=== PATIENT | female | born 1950 | race Caucasian/White ===

== ENCOUNTER 2018-03-12 10:28 | Emergency (ER) | payer MEDICARE, SELFPAY ==
[2018-03-12 10:31] VITALS: BP 115/68; PULSE 68; RESP 16; TEMP 36.8; O2SAT 96
[2018-03-12] MEDS: oxyCODONE 5 mg/Acetaminophen 325 mg TAB 1 TAB PO (11:25)
[2018-03-12] MEDS: Balanced Salt Solution 15 ML BTL OP (11:26)
[2018-03-12] MEDS: Tetracaine 0.5% 4 ML BTL (11:27)
--- NOTE | 2018-03-12 11:40 | ED.GENADUL_ITS ---
Disposition Clinical Impression: Uveitis, anterior Disposition: OTHER Condition: Stable Instructions: Iritis (ED) Additional Instructions: Upon discharge she should immediately go to [facility] for more further detailed examination of your eye. Please do not stop anywhere else and present directly to their facility. Referrals: [facility] [Outside] (Immediately present to their facility) Medical Decision Making - Medical Decision Making Patient presenting to the emergency department for complaint of right eye pain. Patient may have gotten a small dust like tile material into her eye and used eyedrops that she had previously used on her dog. Patient has significant conjunctival injection to her eye. Tetracaine drops were instilled into her eye with minimal relief of pain. Slit-lamp and Luke lamp examination shows a anterior full of stain without any obvious signs of ulceration or corneal abrasion but difficult to see due to feeling of stain. Patient does have mid fixed pupil on the right and consensual photophobia. There is significant concern for uveitis of the anterior chamber versus severe infection. Given this I did talk with Mrs. Dr. Ba in regard to patient's condition and concern and she stated that patient could be discharged from our facility and presented immediately to their office for emergent eye exam. Patient was agreeable and stable otherwise. Before discharge due to pain not being controlled patient was given 1 Percocet. Patient was discharged with spouse and both of them state clear understanding of plan of care to get further evaluated at specialist office. Patient to return for any new or worsening symptoms or other significant concern After discussion of diagnosis and plan of care with patient patient agreed and stated no further needs, questions, or concerns at this time. History of Present Illness - General Chief complaint: EyeProblem Stated complaint: FOREIGN OBJECT R EYE INJURY Time Seen by Provider: 03/12/18 11:02 Source: patient, RN notes reviewed Mode of arrival: ambulatory Limitations: no limitations - History of Present Illness Initial comments: Gloria yesterday she was working with some mosaic tile. She states that she was not the one cutting them but she was working with the material and dumping out some other containers at powder and it and thought she might have got a little powder in her right eye. She used some [id number] Visine eyedrops that she previously had used for her dog due to there being more in there to try to resolve the irritation. Then last night her eye started hurting which continued and now had significant amount of drainage from her right eye. Patient does state significant decreased vision out of her right eye but can still see movement and light. Onset/Timin -: days(s) Location: eyes, right Severity scale (1-10): 8 Quality: sharp Consistency: constant Improves with: none Worsens with: none Associated Symptoms: denies other symptoms Treatments Prior to Arrival: none - Related Data Trazodone HCl 50 mg PO HS #90 tab-cap 06/24/14 Aspirin 81 mg PO DAILY tab-cap 02/10/15 Polyethylene Glycol 8000 [Polyethylene Glycol] 17 gm PO daily prn 02/10/15 Acetaminophen [Tylenol Extra Strength] 1,000 mg PO Q6H PRN tab-cap 07/11/15 Loperamide HCl [Loperamide] 2 mg PO QID PRN 07/11/15 Fluoxetine HCl 3 cap PO DAILY #270 tab-cap 08/01/15 Lorazepam 0.5 mg PO q 6hrs prn #90 tab-cap 08/07/15 Pravastatin Sodium 80 mg PO HS #90 tab-cap 07/15/16 Inhaler, Assist Devices [Optichamber Ibeth] 1 each MC ONCE #1 each 04/08/17 Levothyroxine [Levothroid] 75 mcg PO DAILY #90 tab-cap 04/28/17 Proventil Hfa 1 puff IH Q4H PRN #3 inhaler 07/16/17 Prochlorperazine Maleate 10 mg PO Q6H PRN #10 tab-cap 08/04/17 Bupropion HCl [Wellbutrin Sr] 150 mg PO QAM #90 tab-cap 09/18/17 Cholecalciferol (Vitamin D3) [Vitamin D3] 50,000 unit PO 2x/month #8 tab-cap Ropinirole HCl 3 mg PO HS #90 tab-cap 11/10/17 Letrozole [Femara] 2.5 mg PO DAILY #90 tab-cap 01/08/18 Cyanocobalamin [Vitamin B-12] 1,000 mcg PO DAILY #100 tab-cap 01/09/18 Gabapentin 400 mg PO BID #180 tab-cap 01/12/18 Nitroglycerin 1 tab SL PRN #25 tab 01/12/18 Prazosin HCl 1 mg PO HS #90 cap 01/19/18 Carvedilol [Coreg] 3.125 mg PO BID #30 tab-cap 02/22/18 Lisinopril 5 mg PO DAILY tab-cap 02/22/18 Allergies Allergy/AdvReac Type Severity Reaction Status Date / Time codeine Allergy Severe ITCHING Unverified 01/12/18 10:04 Penicillins Allergy Severe HIVES Unverified 01/12/18 10:04 latex Allergy Intermediate SKIN RASH Unverified 01/12/18 10:04 Sulfa (Sulfonamide Allergy Intermediate SKIN RASH Unverified 01/12/18 10:04 Antibiotics) sertraline AdvReac Severe DIARRHEA Unverified 01/12/18 10:04 diazepam AdvReac Intermediate NAUSEA Unverified 01/12/18 10:04 atorvastatin AdvReac Unknown MUSCLE Unverified 01/12/18 10:04 WEAKNESS rosuvastatin AdvReac Unknown ?GUM Unverified 01/12/18 10:04 DISEASE Review of Systems Constitutional: denies: chills, fever Eyes: as per HPI, eye pain, eye discharge, vision change ENT: denies: throat pain, congestion Respiratory: no symptoms reported Neurological: denies: headache, weakness, numbness, paresthesias, confusion Comment: All other systems reviewed and negative Past Medical History - Past Medical History Medical history: cancer (Breast), hypertension Obstructive sleep apnea, diverticulitis, Surgical history: other (AAA status post repair, partial mastectomy) Psychiatric history: depression, post traumatic stress - Social History Smoking status: former smoker Alcohol use: occasionally Drug use: marijuana Living Situation: lives with family General Exam - General Limitations: no limitations General appearance: alert, other (In obvious discomfort) - Head Head exam: Present: atraumatic, normocephalic - Eye Eye exam: Present: periorbital swelling (Mild to the right eye). Absent: scleral icterus, nystagmus, periorbital tenderness - Expanded Eye Exam No standard instances Eyelids: Swelling: Right (Mild) Pupils: Regular, Round: Left, Reactive: Left (Right is mid fixed pupil) Sclera/Conjunctival: Normal Inspection: Left, Injection: Right, Exudate: Right Anterior chamber: Normal Inspection: Left (Right anterior chamber is hazy) Posterior chamber: Deferred: Bilateral Visual acuity (R) = 20/: 0 (See nurse's note) IOP (R) in mmH IOP measured with: Tonopen - ENT ENT exam: Present: normal orophraynx, mucous membranes moist - Respiratory Respiratory exam: Absent: respiratory distress - Neurological Exam Neurological exam: Present: alert, oriented X3, CN II-XII intact. Absent: altered - Skin Skin exam: Present: warm, dry Course Vital Signs - 24 hr 03/12/18 10:31 Temperature 36.8 C Pulse 68 Respiratory 16 Rate Blood Pressure 115/68 Pulse Oximetry 96
== END 2018-03-12 11:43 | disposition other institution (70) ==
PROVIDERS: Emergency Provider Student in an Organized Health Care Education/Training Program
DX: H20.00 Unspecified acute and subacute iridocyclitis (principal); I10 Essential (primary) hypertension
CPT/HCPCS: 99283 ×2

== ENCOUNTER 2018-06-02 16:48 | Outpatient (REF) | payer MEDICARE, SELFPAY ==
--- NOTE | 2018-06-02 15:30 | PAPFT_PTH ---
PATIENT: Opal Peter LOC: [facility] U#:[id number] AGE/SX: 68/F ROOM: RE06/02/[address]: Emilie العلي APRN : 1950 BED: DIS: 06/02/2018 SPEC #: [id number] RECD: 06/03/18 12:44 STATUS: DIDI RESam #: [id number] HAN: 06/02/18 15:[address]: Emilie العلي DEPT: [facility] Cytology RECD BY: Cindy Edwards Tissues: 1 - CX/ENDOCX FOR PAP SMEARS Procedures: PAP THIN PREP/UVM Screening HPV DNA PROBE Comments: [id number]
== END 2018-06-02 17:08 ==
LOC: LBN 16:48
DX: Z12.4 Encounter for screening for malignant neoplasm of cervix (principal); Z11.51 Encounter for screening for human papillomavirus (HPV)
CPT/HCPCS: 88142; 87624

== ENCOUNTER 2018-07-14 02:35 | Outpatient (CLI) | payer MEDICARE, SELFPAY ==
[2018-07-14 12:09] LABS: Cholesterol 175 mg/dL (50-200); HDL Cholesterol 39 mg/dL (40-60); LDL CHOLESTEROL 104 mg/dL (<100); TSH (W/Ref FT4) 1.12 uIU/mL (0.358-3.74); Triglyceride 204 mg/dL (30-150)
== END 2018-07-14 02:55 ==
DX: E78.2 Mixed hyperlipidemia (principal)
CPT/HCPCS: 36415; 80061; 83721; 84443

== ENCOUNTER 2019-04-02 07:09 | Observation (INO) | payer MEDICARE, SELFPAY ==
[2019-04-02] VITALS (38 sets, daily range): BP systolic 112–157; BP diastolic 58–86; PULSE 51–90; RESP 14–25; TEMP 36.6–36.9; O2SAT 92–100
--- NOTE | 2019-04-02 07:29 | ED.GENADUL_ITS ---
Discharge Plan Disposition [facility] Condition: Stable Discharge Details Chief Complaint: Abd Prob Clinical Impression: Small bowel obstruction Admit Date/Time: 04/02/19 10:46 Admit Provider: Silvina House Attending Provider: Silvina House Primary Care Provider: Emilie العلي ED Provider: Candie Osei Discharge Data Discharge Date/Time-TO BE ENTERED AT DEPARTURE: 04/02/19 11:40 Medical Decision Making <Otoniel Sanchez MD - Last Filed: 04/05/19 23:36> Patient presenting with gradual worsening abdominal cramping with associated nausea and vomiting. Abdomen mildly distended but nontender. Concern for small bowel obstruction given previous multiple abdominal surgeries. IV established and fluids started. Phenergan given for nausea and vomiting. Laboratory studies ordered. CT scan of the abdomen pelvis ordered. Case will be turned over to oncoming physician, Dr. Osei. ECG Data Attestation: I personally reviewed and interpreted this ECG (s) as follows: Prior ECG tracings: available for review Interpretation: Normal sinus rhythm at a rate of 75. PVCs present. Normal intervals and axis. T wave inversions in the lateral precordial leads. <Candie Osei DO - Last Filed: 04/02/19 10:21> 0800 --please see Dr. Sanchez's note for initial presentation and course. 69-year-old female with multiple medical problems including breast cancer on oral chemotherapy, CAD, hypertension, hyperlipidemia, obstructive sleep apnea, cardiomyopathy, hypothyroidism, migraine, hysterectomy, partial colectomy with colostomy reversal, AAA repair, L breast lumpectomy who presents with crampy abdominal pain, worse on right side and vomiting since yesterday. More episodes of vomiting this morning. Last bowel movement yesterday. Denies any abdominal pain at present. Per Dr. Sanchez, concern for small bowel obstruction. She had screening labs and CT abdomen and pelvis ordered. She is currently drinking oral contrast. Her vitals are within normal limits. She appears nontoxic. Her chart notes history of cholecystectomy but she denies this. Her abdomen is soft without rebound or guarding and minimally diffusely tender. Her EKG noted T wave inversion in 1, aVL, V4 through V6. T wave inversion in V4 through V6 appears new compared to previous EKG October 2017. Patient denies any chest pain or shortness of breath. Labs reviewed and unremarkable. Normal white blood cell count, negative troponin. 1015 --CT reviewed and notes SBO, gallstones but no cholecystitis. There is also radiodensity in peritoneal fat which could be carcinomatosis/post-surgical/post-inflammatory which is seen in previous CT 2013. D/w Dr. House - accepts pt for admission. Pt denies nausea/vomiting and will hold on NGT at this time. Medical Records Medical records reviewed: Yes I reviewed the patient's medical records. Lab Data Lab results reviewed: Yes I reviewed the patient's lab results. Laboratory Tests Range/Units 04/02/19 04/02/19 07:40 07:40 WBC (4.4-10.8) k/cumm 9.54 RBC (4.00-5.20) m/cumm 4.81 Hgb (12.0-15.5) g/dL 14.5 Hct (36.0-46.0) % 45.5 MCV (80-95) fL 94.6 MCH (27.0-33.0) pg 30.1 MCHC (32.0-36.0) g/dL 31.9 L RDW (11.7-14.6) % 14.3 Plt Count (130-400) x1000/uL 220 MPV (8.0-11.0) fL 10.9 Immature Gran % 0.2 Neutrophils % 81.3 Lymphocytes % 11.5 Monocytes % 6.4 Eosinophils % 0.4 Basophils % 0.2 Absolute Neutrophils (1.2-6.7) k/cumm 7.75 H Absolute Lymphocytes (1.2-3.4) k/cumm 1.10 L Absolute Monocytes (0.11-0.7) k/cumm 0.61 Absolute Eosinophils (0.0-0.7) k/cumm 0.04 Absolute Basophils (0.0-0.2) k/cumm 0.02 Sodium (136-145) mmol/L 140 Potassium (3.5-5.1) mmol/L 4.6 Chloride (98-107) mmol/L 101 Carbon Dioxide (21.0-32.0) mmol/L 27.9 Anion Gap (3-11) mmol/L 11.1 H BUN (7-18) mg/dL 13 Creatinine (0.55-1.02) mg/dL 1.27 H Estimated GFR/1.73 m2 (mL/min/1.73m2) 41.97 Glucose (70-100) mg/dL 134 H Calcium (8.5-10.1) mg/dL 9.7 Magnesium (1.8-2.4) mg/dL 2.1 Total Bilirubin (0.2-1.0) mg/dL 0.5 AST (15-37) U/L 21 ALT (14-59) U/L 25 Alkaline Phosphatase (46-116) U/L 122 H Troponin I (0.00-0.06) ng/mL < 0.05 Total Protein (6.4-8.2) g/dL 8.2 Albumin (3.4-5.0) g/dL 4.3 Lipase (73-393) U/L 108 ECG Data Attestation: I personally reviewed and interpreted this ECG (s) as follows: Interpretation: Rate of 75, sinus, PVCs. T wave inversion in 1, aVL, V4 through V6. T wave inversion in 1 and aVL has been seen in previous EKG but appears new in V4 through V6. No acute ST elevation. OH 180. QTc 444. QRS 98. HPI <Otoniel Sanchez MD - Last Filed: 04/05/19 23:36> General Mode of arrival: ambulatory . Date/Time Provider Initiated Documentation: 04/02/19 07:27 . Limitations to Documentation: no limitations . Information obtained by: patient . HPI Narrative: Patient presents to ED with complaint of abdominal cramping, nausea and vomiting. Symptoms started yesterday and progressed overnight. She had no fever she is aware of. She has had no diarrhea. She had a small bowel movement last night. She has had previous abdominal surgery including bowel perforation with resection and reversal of colostomy. She has not had issues since that time. Her abdomen feels distended. She denies having chest pain or shortness of breath. Related Data Home Medications Medication Instructions Recorded Confirmed aspirin [Aspirin Low-Strength] 81 mg PO DAILY tab-cap 02/10/15 04/02/19 polyethylene glycol 8000(bulk) 17 gm PO daily prn 02/10/15 06/02/18 acetaminophen [Tylenol Extra 1,000 mg PO Q6H PRN tab-cap 07/11/15 04/02/19 Strength] fluoxetine 2 cap PO DAILY #270 tab-cap 08/01/15 04/02/19 lorazepam 0.5 mg PO BID #90 tab-cap 08/07/15 04/02/19 inhalational spacing device #1 ea 04/08/17 06/02/18 [[facility]] prochlorperazine maleate 10 mg PO Q6H PRN #10 tab-cap 08/04/17 04/02/19 cholecalciferol (vitamin D3) 50,000 unit PO 2x/month #8 tab-cap 09/18/17 04/02/19 nitroglycerin 1 tab SUBLINGUAL PRN #25 tab 01/12/18 04/02/19 lisinopril 5 mg PO DAILY tab-cap 02/22/18 04/02/19 levothyroxine 75 mcg PO DAILY #90 tab-cap 04/22/18 04/02/19 carvedilol 6.25 mg tablet 6.25 mg PO BID #60 tab 05/26/18 04/02/19 letrozole 2.5 mg tablet 2.5 mg PO DAILY #90 tab-cap 07/10/18 04/02/19 bupropion HCl [Wellbutrin SR] 150 mg PO QAM #90 tab-cap 09/14/18 04/02/19 prazosin 1 mg capsule 1 mg PO HS #90 cap 10/29/18 04/02/19 atorvastatin 80 mg tablet 80 mg PO QPM #90 tab 12/04/18 04/02/19 cyanocobalamin (vitamin B-12) 1,000 mcg PO DAILY #100 tab-cap 02/25/19 04/02/19 1,000 mcg tablet ropinirole 3 mg tablet 3 mg PO HS #90 tab-cap 03/04/19 04/02/19 gabapentin 400 mg capsule 400 mg PO BID #180 tab-cap 03/31/19 04/02/19 albuterol sulfate [ProAir HFA] 1 inh .Q4-6H PRN 04/02/19 04/02/19 Previous Rx's Medication Instructions Recorded inhalational spacing device #1 ea 04/08/17 [[facility]] prochlorperazine maleate 10 mg PO Q6H PRN #10 tab-cap 08/04/17 cholecalciferol (vitamin D3) 50,000 unit PO 2x/month #8 tab-cap 09/18/17 nitroglycerin 1 tab SUBLINGUAL PRN #25 tab 01/12/18 levothyroxine 75 mcg PO DAILY #90 tab-cap 04/22/18 carvedilol 6.25 mg tablet 6.25 mg PO BID #60 tab 05/26/18 letrozole 2.5 mg tablet 2.5 mg PO DAILY #90 tab-cap 07/10/18 bupropion HCl [Wellbutrin SR] 150 mg PO QAM #90 tab-cap 09/14/18 prazosin 1 mg capsule 1 mg PO HS #90 cap 10/29/18 atorvastatin 80 mg tablet 80 mg PO QPM #90 tab 12/04/18 cyanocobalamin (vitamin B-12) 1,000 mcg PO DAILY #100 tab-cap 02/25/19 1,000 mcg tablet ropinirole 3 mg tablet 3 mg PO HS #90 tab-cap 03/04/19 gabapentin 400 mg capsule 400 mg PO BID #180 tab-cap 03/31/19 Allergies Allergy/AdvReac Type Severity Reaction Status Date / Time codeine Allergy Severe ITCHING Verified 06/02/18 14:15 Penicillins Allergy Severe HIVES Verified 06/02/18 14:15 latex Allergy Intermediate SKIN RASH Verified 06/02/18 14:15 Sulfa (Sulfonamide Allergy Intermediate SKIN RASH Verified 06/02/18 14:15 Antibiotics) sertraline AdvReac Severe DIARRHEA Verified 06/02/18 14:15 diazepam AdvReac Intermediate NAUSEA Verified 06/02/18 14:15 rosuvastatin AdvReac Unknown ?GUM Verified 06/02/18 14:15 DISEASE Review of Systems <Otoniel Sanchez MD - Last Filed: 04/05/19 23:36> Review of Systems 05/10 Review of Systems completed and is negative except as stated above in HPI (Systems reviewed: Const, Eyes, ENT, Resp, CV, GI, , MSK, Skin, Neuro) PFSH <Otoniel Sanchez MD - Last Filed: 04/05/19 23:36> Medical History Abdominal aortic aneurysm (Chronic) s/p surgical repair [facility] [place] 2007 Anxiety and depression (Chronic 02/10/15) Atherosclerotic heart disease of [place] coronary artery without angina pectoris (Chronic) Breast cancer (Chronic 01/20/14) left, 6 cm Invasive Lobular Carcinoma ([facility] [place] 01/19/14) chemo started and radiation tx planned (on hold due to perf divertic) Cardiomyopathy (Chronic) New onset 04/2018 per [facility] [place]. Normal rest nuclear perfusion. Patient declined cath. [facility] [place] Echo 02/25/19 EstEF = 41%, mild to mod aortic valve regurg Compared to LOUIE 02/17/18, LV systolic function is improved. Chronic obstructive pulmonary disease (Chronic 01/12/18) 12/11/17 PFTs Mod. sever obstructive airway disease with sig. bronchodilator response. This is associated with severe diffusion defect - FVC 2.06 & FEV1 1.23 (both decreas Diverticulitis of colon with perforation (Chronic 06/24/14) sigmoid resection and colostomy [facility] [place] Apr 2014 post op malnutrition and respiratory failure Essential (primary) hypertension (Chronic) Gastro-esophageal reflux disease without esophagitis (Chronic) Hyperlipidemia (Chronic) Hypothyroidism (Chronic) Migraine (Chronic) Obstructive sleep apnea (Chronic) Pyloric ulcer associated with Helicobacter pylori (Resolved 05/25/11) 04/07 H pylori on EGD (treated) Surgical History H/O tracheostomy (Acute) History of cholecystectomy (Chronic) Rotator Cuff Repair (~1978) LEFT S/P colostomy takedown (Acute) Status post abdominal hysterectomy (Chronic) Status post Mena's procedure (Acute) Status post total bilateral knee replacement (Chronic) Family History Mother Essential hypertension Heart disease Neoplasm PANCREATIC Father Essential hypertension Heart disease Hyperlipidemia Stroke Sister Essential hypertension Hyperlipidemia Brother Essential hypertension Maternal Grandfather Stroke Son Depression Daughter Depression 3 UNCLES Aneurysm Family History Bipolar disorder Social History Smoking/Tobacco Use Status: Current every day Alcohol Intake: current Alcohol Intake frequency: a few times a month Alcohol type: hard liquor Drug use: Never Substance use type: marijuana What type of physical activity do you participate in: walking Duration: 15-30 minutes/day Frequency: 3-4 times per week Nuvia/Samaritan: CRYSTAL Special nuvia needs: No Do you feel safe in your relationship?: Yes Exam <Otoniel Sanchez MD - Last Filed: 04/05/19 23:36> Narrative Exam Narrative: Vitals: Afebrile with normal vital signs and pulse oximetry. Const: WDWN female in NAD. HEENT: NC/AT. Normal facial exam. Eyes: Normal conjunctiva and sclera. Neck: Supple. Trachea midline. Old tracheotomy scar present. Lungs: Normal respiratory effort. Lungs with scattered expiratory wheeze. Cor: RRR with murmur. Good radial pulses. GI: Soft and slightly distended. Non-tender. No guarding or rebound. Neuro: A+O x 3. CN grossly in tact. Good strength and no focal deficit. Ext: No C/C/E. No deformity or tenderness. Skin: Warm and dry without rash. Sign Out <Otoniel Sanchez MD - Last Filed: 04/05/19 23:36> Sign Out Data: Sign Out Comment: pending labs and CT scan Last updated by Otoniel Sanchez MD at 04/02/19 07:51
--- NOTE | 2019-04-02 07:34 | DI.CT_ITS ---
SYMPTOM/DIAGNOSIS: VOMITING/PAIN. PREV ABD SURGERIES ABDOMINAL AND PELVIC CT: 04/02 CT examination of the abdomen and pelvis was performed with a bolus infusion of 91 cc Omnipaque 350 and ingestion of dilute Barium. Images obtained through the lung bases are unremarkable. The liver and spleen appear normal. There is cholelithiasis. No biliary dilatation or significant pericholecystic fluid collection seen. Pancreas is unremarkable in appearance. Adrenals, kidneys and ureters are unremarkable in appearance. No evidence of urinary tract obstruction or calcification. The patient has reportedly had multiple previous abdominal surgeries and there is deformity of the anterior abdominal wall musculature particularly in the mid to lower abdomen, probably post surgical without evidence of hernia. There is a small quantity of free fluid throughout the abdominal peritoneal cavity and in the pelvis. There is increased radiodensity at multiple sites involving the abdominal fat most prominent in the right flank region and in the pelvis. Similar findings appear to have been present on previous CT of 04/25/14 although the patient had also had free intraperitoneal air at that time. Appendix is normal. No evidence of diverticulitis. Anastomotic sutures noted in the sigmoid. There is moderate dilatation of mid small bowel to the level of the mid to distal ileum, there is suspected transition point in the pelvis to the left of the midline anteriorly. No gross mass identified at this site. There is marked wall calcification of the abdominal aorta and intra abdominal vasculature. Aorta is borderline aneurysmal at 29 mm suprarenal and 28 mm infrarenal. Probable approximately 50% luminal diameter stenosis noted involving celiac trunk and left renal artery. Common bilateral iliac artery stenoses at the origins estimated at approximately 50% on the right and greater than 50% on the left. No other significant stenosis in the abdominal vasculature. CONCLUSION: Findings consistent with low grade or early small bowel obstruction in the mid to distal ileum with suspected transition point in the pelvis to the left of midline anteriorly as described above. Multiple prior abdominal surgeries noted. Free fluid and nonspecific scattered increased radiodensities noted and abdominal fat which may represent scarring. Other etiologies including carcinomatosis not absolutely excluded, please correlate clinically.
[2019-04-02 07:52] LABS: Abs Immature Grans 0.02 k/cumm (0.0-0.09); Absolute Basophil Count 0.02 k/cumm (0.0-0.2); Absolute Eosinophil Count 0.04 k/cumm (0.0-0.7); Absolute Monocyte Count 0.61 k/cumm (0.11-0.7); Absolute Neutrophil Count 7.75 k/cumm (1.2-6.7); Basophils % 0.2; Eosinophils % 0.4; HCT 45.5 % (36.0-46.0); HGB 14.5 g/dL (12.0-15.5); Immature Grans % 0.2; Lymphocytes % 11.5; Mean Corp. HGB Concentration 31.9 g/dL (32.0-36.0); Mean Corpuscular Hemoglobin 30.1 pg (27.0-33.0); Mean Corpuscular Volume 94.6 fL (80-95); Mean Platelet Volume 10.9 fL (8.0-11.0); Monocytes % 6.4; Neutrophils % 81.3; Platelet Count 220 x1000/uL (130-400); RBC 4.81 m/cumm (4.00-5.20); RBC Distribution Width 14.3 % (11.7-14.6); White Blood Cell Count 9.54 k/cumm (4.4-10.8)
[2019-04-02] MEDS: Lactated Ringers 1,000 ML 1000 ML IV (08:00)
[2019-04-02 08:11] LABS: ALT 25 U/L (14-59); AST 21 U/L (15-37); Albumin 4.3 g/dL (3.4-5.0); Alkaline Phosphatase 122 U/L (46-116); Anion Gap 11.1 mmol/L (3-11); BUN 13 mg/dL (7-18); Bilirubin, Total 0.5 mg/dL (0.2-1.0); CO2 27.9 mmol/L (21.0-32.0); CREATININE 1.27 mg/dL (0.55-1.02); Calcium 9.7 mg/dL (8.5-10.1); Chloride 101 mmol/L (98-107); Estimated GFR 41.97 (mL/min/1.73m2); Glucose 134 mg/dL (70-100); Lipase 108 U/L (73-393); Magnesium 2.1 mg/dL (1.8-2.4); Potassium 4.6 mmol/L (3.5-5.1); Sodium 140 mmol/L (136-145); Total Protein 8.2 g/dL (6.4-8.2)
[2019-04-02 08:13] LABS: Troponin I < 0.05 ng/mL (0.00-0.06)
[2019-04-02] MEDS: Omnipaque 350 MG/ML 100 ML BTL IJ (09:25)
[2019-04-02] MEDS: LORazepam 2 MG/ML VIAL (09:47)
--- NOTE | 2019-04-02 11:10 | NUR.NOTE ---
Nursing Note: pt ambulated to bathroom, steady gait noted.
[2019-04-02 11:22] LABS: Bilirubin Negative (Negative); Blood Negative (Negative); Clarity Clear (Clear); Glucose Negative (Negative); Ketones Negative (Negative); Leukocyte Esterase Small (Negative); Nitrite Negative (Negative); Urobilinogen 0.2 EU/dL (Up TO 0.2); pH 7.5 (5-8)
[2019-04-02 11:34] LABS: RBC 0-2 (0-2)
[2019-04-02 11:35] LABS: Bacteria Moderate HPF (Negative); Casts Negative LPF (Negative); Crystals Negative HPF (Negative); Epithelial Cells Moderate HPF (Negative); Mucus Negative (Negative); Other Cells Negative (Negative)
[2019-04-02 11:36] LABS: C & S Indicated? No/Sq. Contamination
[2019-04-02] MEDS: Lactated Ringers 1,000 ML 125 ML IV ×2 (11:50→19:22)
[2019-04-02] MEDS: Normal Saline Flush 10 ML SYR IVP (12:10)
[2019-04-02] MEDS: Ondansetron 4 MG/2 ML VIAL IVP ×2 (12:10→19:32)
--- NOTE | 2019-04-02 14:04 | W.PM.HP.N ---
Date of service: 04/02/19 Time of Service: 14:04 Assessment and Plan (1) Abdominal pain: Current visit: Yes Status: Acute Her symptoms are concerning for a partial small bowel obstruction. She will be placed in observation for IVF and pain control and be kept NPO. If her vomiting persists, she may need an NG tube. Qualifiers: Abdominal location: generalized Qualified Code(s): R10.84 - Generalized abdominal pain History of Present Illness Narrative: Patient presented to the ER this am with crampy abdominal pain, worse on the right. Also had several episodes of vomiting although none since admission. Had normal BM yesterday. Not sure if she is passing flatus. Prior history significant for colectomy. Review of Systems Review of Systems All systems reviewed & are unremarkable except as noted in HPI and below Constitutional Denies fatigue and Denies headache(s) Eyes Denies change in vision ENT Denies headache(s) and Denies neck mass Cardiovascular Denies chest pain, Denies edema, Denies palpitations and Denies dyspnea Respiratory Denies cough, Denies dyspnea and Denies wheezing Gastrointestinal Denies hematochezia and Denies change in bowel habits Genitourinary Denies abnormal vaginal bleeding and Denies dysuria Musculoskeletal Denies joint swelling Integumentary/Breasts Denies new lesions and Denies rash Neurologic Denies confusion, Denies headache(s) and Denies focal weakness Psychiatric Reports system reviewed and no additional complaints, except as docu and Denies confusion Endocrine Denies fatigue and Denies palpitations Hematologic/Lymphatic Denies easy bleeding and Denies lymphadenopathy Allergic/Immunologic Denies wheezing [facility] Medical History Abdominal aortic aneurysm (Chronic) s/p surgical repair [facility] [place] Anxiety and depression (Chronic 02/10/15) Atherosclerotic heart disease of [place] coronary artery without angina pectoris (Chronic) Breast cancer (Chronic 01/20/14) left, 6 cm Invasive Lobular Carcinoma ([facility] [place]) chemo started and radiation tx planned (on hold due to perf divertic) Cardiomyopathy (Chronic) New onset 04/2018 per [facility]. Normal rest nuclear perfusion. Patient declined cath. [facility] Echo 02/25/19 EstEF = 41%, mild to mod aortic valve regurg Compared to [facility] 02/17/18, LV systolic function is improved. Chronic obstructive pulmonary disease (Chronic 01/12/18) 12/11/17 PFTs Mod. sever obstructive airway disease with sig. bronchodilator response. This is associated with severe diffusion defect - FVC 2.06 & FEV1 1.23 (both decreas Diverticulitis of colon with perforation (Chronic 06/24/14) sigmoid resection and colostomy [facility] Apr 2014 post op malnutrition and respiratory failure Essential (primary) hypertension (Chronic) Gastro-esophageal reflux disease without esophagitis (Chronic) Hyperlipidemia (Chronic) Hypothyroidism (Chronic) Migraine (Chronic) Obstructive sleep apnea (Chronic) Pyloric ulcer associated with Helicobacter pylori (Resolved 05/25/11) 04/07 H pylori on EGD (treated) Surgical History History of cholecystectomy (Chronic) Rotator Cuff Repair (~1978) LEFT Status post abdominal hysterectomy (Chronic) Status post total bilateral knee replacement (Chronic) Family History Mother Essential hypertension Heart disease Neoplasm PANCREATIC Father Essential hypertension Heart disease Hyperlipidemia Stroke Sister Essential hypertension Hyperlipidemia Brother Essential hypertension Maternal Grandfather Stroke Son Depression Daughter Depression 3 UNCLES Aneurysm Family History Bipolar disorder Social History Smoking/Tobacco Use Status: Current every day Alcohol Intake: current Alcohol Intake frequency: a few times a month Alcohol type: hard liquor Drug use: Never Substance use type: marijuana What type of physical activity do you participate in: walking Duration: 15-30 minutes/day Frequency: 3-4 times per week Nuvia/Mandaeism: CRYSTAL Special nuvia needs: No Do you feel safe in your relationship?: Yes Meds Home Medications Medication Instructions Recorded Confirmed Type aspirin [Aspirin Low-Strength] 81 mg PO DAILY tab-cap 02/10/15 04/02/19 History polyethylene glycol 8000(bulk) 17 gm PO daily prn 02/10/15 06/02/18 History acetaminophen [Tylenol Extra 1,000 mg PO Q6H PRN tab-cap 07/11/15 04/02/19 History Strength] fluoxetine 3 cap PO DAILY #270 tab-cap 08/01/15 04/02/19 History lorazepam 0.5 mg PO q 6hrs prn #90 tab-cap 08/07/15 04/02/19 History inhalational spacing device #1 ea 04/08/17 06/02/18 Rx [Andrea Cristina [facility]] Proventil Hfa 1 puff INHALATION Q4H PRN #3 07/16/17 04/02/19 Clinic inhaler prochlorperazine maleate 10 mg PO Q6H PRN #10 tab-cap 08/04/17 04/02/19 Rx cholecalciferol (vitamin D3) 50,000 unit PO 2x/month #8 tab-cap 09/18/17 04/02/19 Rx nitroglycerin 1 tab SUBLINGUAL PRN #25 tab 01/12/18 04/02/19 Rx lisinopril 5 mg PO DAILY tab-cap 02/22/18 04/02/19 History levothyroxine 75 mcg PO DAILY #90 tab-cap 04/22/18 04/02/19 Rx carvedilol 6.25 mg tablet 6.25 mg PO BID #60 tab 05/26/18 04/02/19 Rx letrozole 2.5 mg tablet 2.5 mg PO DAILY #90 tab-cap 07/10/18 04/02/19 Rx bupropion HCl [Wellbutrin SR] 150 mg PO QAM #90 tab-cap 09/14/18 04/02/19 Rx prazosin 1 mg capsule 1 mg PO HS #90 cap 10/29/18 04/02/19 Rx atorvastatin 80 mg tablet 80 mg PO QPM #90 tab 12/04/18 04/02/19 Rx cyanocobalamin (vitamin B-12) 1,000 mcg PO DAILY #100 tab-cap 02/25/19 04/02/19 Rx 1,000 mcg tablet ropinirole 3 mg tablet 3 mg PO HS #90 tab-cap 03/04/19 04/02/19 Rx gabapentin 400 mg capsule 400 mg PO BID #180 tab-cap 03/31/19 04/02/19 Rx Allergies Allergy/AdvReac Type Severity Reaction Status Date / Time codeine Allergy Severe ITCHING Verified 06/02/18 14:15 Penicillins Allergy Severe HIVES Verified 06/02/18 14:15 latex Allergy Intermediate SKIN RASH Verified 06/02/18 14:15 Sulfa (Sulfonamide Allergy Intermediate SKIN RASH Verified 06/02/18 14:15 Antibiotics) sertraline AdvReac Severe DIARRHEA Verified 06/02/18 14:15 diazepam AdvReac Intermediate NAUSEA Verified 06/02/18 14:15 rosuvastatin AdvReac Unknown ?GUM Verified 06/02/18 14:15 DISEASE Exam Const General: not in acute distress Nutritional Appearance: well nourished [facility] Head: normal to inspection Eyes Sclera: sclerae normal Pupils: PERRL Neck Neck: no lymphadenopathy Thyroid: thyroid normal Carotids: no bruits Resp Effort & Inspection: normal respiratory effort Auscultation: clear to auscultation bilaterally and no wheezes Cardio Rate: regular rate Rhythm: regular rhythm GI Inspection: non-distended Palpation: soft, no hepatosplenomegaly and no hernias Other: mild generalized tenderness. No peritonitis. Skin General skin exam: no rashes or lesions noted Neuro Cognition: normal cognition Extrem General: normal to inspection Psych Attitude: cooperative Results Labs : 04/02/19 07:40 04/02/19 07:40 Laboratory Results - last 24 hr 04/02/19 04/02/19 04/02/19 07:40 07:40 11:17 WBC 9.54 RBC 4.81 Hgb 14.5 Hct 45.5 MCV 94.6 MCH 30.1 MCHC 31.9 L RDW 14.3 Plt Count 220 MPV 10.9 Immature Gran % 0.2 Neutrophils % 81.3 Lymphocytes % 11.5 Monocytes % 6.4 Eosinophils % 0.4 Basophils % 0.2 Absolute Neutrophils 7.75 H Absolute Lymphocytes 1.10 L Absolute Monocytes 0.61 Absolute Eosinophils 0.04 Absolute Basophils 0.02 Sodium 140 Potassium 4.6 Chloride 101 Carbon Dioxide 27.9 Anion Gap 11.1 H BUN 13 Creatinine 1.27 H Estimated GFR/1.73 m2 41.97 Glucose 134 H Calcium 9.7 Magnesium 2.1 Total Bilirubin 0.5 AST 21 ALT 25 Alkaline Phosphatase 122 H Troponin I < 0.05 Total Protein 8.2 Albumin 4.3 Lipase 108 Urine Color Yellow Urine Clarity Clear Urine pH 7.5 Ur Specific [place] 1.010 Urine Protein Negative Urine Ketones Negative Urine Blood Negative Urine Nitrite Negative Urine Bilirubin Negative Urine Urobilinogen 0.2 Ur Leukocyte Esterase Small H Urine RBC 0-2 Urine WBC 10-20 Ur Epithelial Cells Moderate Urine Crystals Negative Urine Bacteria Moderate Urine Casts Negative Urine Mucus Negative Urine Other Negative Ur Culture Indicated? No/sq. contamination Urine Glucose Negative Last Vital Signs Temp 97.9 F 04/02/19 11:52 Pulse 55 L 04/02/19 11:52 Resp 14 04/02/19 11:52 BP 136/80 04/02/19 11:52 Pulse Ox 95 04/02/19 11:52
[2019-04-02] MEDS: Carvedilol 6.25 MG TAB PO (19:22)
[2019-04-02] MEDS: Gabapentin 400 MG CAP PO (19:22)
[2019-04-02] MEDS: rOPINIRole 1 MG TAB 3 MG PO (21:19)
[2019-04-02] MEDS: Prazosin 1 MG CAP PO (21:20)
[2019-04-02] MEDS: Acetaminophen 325 MG TAB 650 MG PO (22:16)
[2019-04-02] MEDS: Normal Saline 50 ML 200 ML (23:24)
[2019-04-03] MEDS: Lactated Ringers 1,000 ML 125 ML IV ×2 (03:05→10:40)
[2019-04-03 03:45] VITALS: BP 107/63; PULSE 61; RESP 18; TEMP 36.7; O2SAT 91
[2019-04-03 08:19] VITALS: BP 114/66; PULSE 62; RESP 19; TEMP 37; O2SAT 96
[2019-04-03] MEDS: Letrozole 2.5 MG TAB PO (08:21)
[2019-04-03] MEDS: Aspirin 81 MG CHEW PO (08:22)
[2019-04-03] MEDS: Lisinopril 5 MG TAB PO (08:22)
[2019-04-03] MEDS: Levothyroxine 75 MCG TAB PO (08:22)
[2019-04-03] MEDS: Carvedilol 6.25 MG TAB PO (08:22)
[2019-04-03] MEDS: Gabapentin 400 MG CAP PO (08:23)
[2019-04-03] MEDS: buPROPion-CR 150 MG TABCR PO (08:23)
[2019-04-03] MEDS: FLUoxetine 20 MG CAP 40 MG PO (08:23)
[2019-04-03] MEDS: Acetaminophen 325 MG TAB 650 MG PO (09:52)
--- NOTE | 2019-04-03 10:29 | PDOC.CMIN ---
Care Management Initial Assess REASON FOR HOSPITALIZATION:: SBO PAST MEDICAL HISTORY/PAST SURGICAL HISTORY:: Abdominal aortic aneurysm, anxiety and depression, atherosclerotic heart disease, Breast cancer, cardiomyopathy, COPD, diverticulitis of colon with perforation, essential hypertension, GERD, hyperlipidemia, hypothyroidism, migraine, [place], hx of Pyloric ulcer associated with helicobacter pylori, cholecystectomy, rotator cuff repair, abdominal hysterectomy, total bilat knee replacement PREVIOUS FUNCTIONAL STATUS/SOCIAL/FAMILY SUPPORTS:: Opal resides in [place], her daughter and grand-daughter are currently residing with her. She reports her significant other, Loagn lives nearby as well. Opal is usually independent with ADL's and drives her own car. She reports enjoys her pets, a dog and bird. CURRENT FUNCTIONAL STATUS:: Opal is lying in bed when CM meets with her. She reports anticipating she will discharge home. She shares no concerns and reports thinking she caused an obstruction when eating too many cornnuts without adequately hydrating. She is pleasant in interaction. ADVANCE DIRECTIVES:: On file at [facility]: Logan Reis as Agent Has patient been provided with information about the portal?: Yes CODE STATUS:: Full Code INSURANCE COVERAGE / FINANCIAL ISSUES:: Medicare CURRENT HOME/COMMUNITY SERVICES/EQUIPMENT:: No current services or equipment. PRIMARY CARE PHYSICIAN:: Emilie العلي POTENTIAL DISCHARGE NEEDS:: Follow up appointments. PATIENT/FAMILY EDUCATION NEEDS:: Review of discharge instructions, discuss Ask Me Three. ANTICIPATED BARRIERS TO DISCHARGE:: None identified. TRANSPORTATION:: Via private vehicle with her daughter. PLAN:: Opal will continue to be closely monitored and treated. CM will continue to follow and support discharge planning considerations; anticipate Opal will return home once her symptoms resolve. No additional services anticipated at this time. She will transport via private vehicle with her significant other, Logan.
[2019-04-03 12:05] VITALS: BP 115/76; PULSE 62; RESP 18; TEMP 36.8; O2SAT 93
--- NOTE | 2019-04-03 12:15 | PHARADMIT ---
Admission Pharmacy Clinical Review SBO (Observation) Code Status Full Code Current Weight 64 kg Renally Cleared and Narrow Therapeutic Index Meds crCl~38ml/min QTc Value / Action Taken BP Control, Fever BP 115/76 pain 5/10 Afebrile Electrolytes reviewed WNL DVT Prophylaxis Opiate Usage / Scheduled Bowel Regimen Ordered yes (2 doses MS IVP yesterday)....no bowel meds Plt/SCr for Heparin / Enoxaparin Plt 220 SCr 1.27 INR for Warfarin H/H stable, WBC/Bands H/H 14.5/45.5 WBC 9.54 Antibiotic appropriateness Cultures and Sensitivities Surgical ABX d/c within 24 hr DM control / Insulin Dosing Heart Failure (Check EF%) (VICENTE's, B-Block, Diuretics) Coreg, Lisinopril, NTG, Prazosin IV to PO Switch Home Meds Reviewed Many duplicates on home med list, different strengths/directions Home Meds Not Ordered Atorvastatin, Trazodone, Compazine, some Vits Comments advancing diet @ lunch NG tube if vomiting doesn't subside, although no emesis reported today 04/03 passing gas, +BM
--- NOTE | 2019-04-03 14:32 | W.PM.DS.N ---
Date of service: 04/03/19 Time of Service: 11:00 DS: Diagnosis Discharge Diagnosis (1) Abdominal pain: Status: Acute Discharge Plan Disposition Patient Disposition: HOME Condition: Stable Discharge Details Chief Complaint: Abd Prob Clinical Impression: Small bowel obstruction Reason For Visit: SMALL BOWEL OBSTRUCTION Admit Date/Time: 04/02/19 10:46 Admit Provider: Silvina House Attending Provider: Silvina House Primary Care Provider: Emilie العلي ED Provider: Candie Osei Hospital Course Hospital Course: The patient's pain had resolved the morning of discharge following numerous loose stools overnight. She was afebrile. Her abdomen was soft, nondistended and non-tender. She tolerated a soft diet without return of symptoms. She likely had a partial small bowel obstruction, possibly related to eating a large amount of corn nuts, that resolved spontaneously. Home Meds and New Rx's Prescriptions: Continued polyethylene glycol 8000(bulk) 2,500 GM powder 17 gm PO daily prn RF: 0 aspirin [Aspirin Low-Strength] 81 MG tablet,chewable 81 mg PO DAILY RF: 0 acetaminophen [Tylenol Extra Strength] 500 MG tablet 1,000 mg PO Q6H PRN RF: 0 fluoxetine 20 MG capsule 2 cap PO DAILY Qty: 270 RF: 4 lorazepam 0.5 MG tablet 0.5 mg PO BID Qty: 90 RF: 1 (DME) inhalational spacing device [[facility]] 1 EACH spacer 1 ea Miscellaneous ONCE Qty: 1 RF: 0 prochlorperazine maleate 10 MG tablet 10 mg PO Q6H PRN Qty: 10 RF: 6 cholecalciferol (vitamin D3) 50,000 UNIT capsule 50,000 unit PO 2x/month Qty: 8 RF: 4 nitroglycerin 0.4 MG tablet, sublingual 1 tab Sublingual PRN Qty: 25 RF: 3 lisinopril 5 MG tablet 5 mg PO DAILY RF: 0 levothyroxine 75 mcg tablet 75 mcg PO DAILY Qty: 90 RF: 3 carvedilol 6.25 mg tablet 6.25 mg PO BID Qty: 60 RF: 6 letrozole [Femara] 2.5 mg tablet 2.5 mg PO DAILY Qty: 90 RF: 3 bupropion HCl [Wellbutrin SR] 150 mg tablet sustained-release 12 hr 150 mg PO QAM Qty: 90 RF: 3 prazosin 1 mg capsule 1 mg PO HS Qty: 90 RF: 1 atorvastatin 80 mg tablet 80 mg PO QPM Qty: 90 RF: 3 cyanocobalamin (vitamin B-12) [Vitamin B-12] 1,000 mcg tablet 1,000 mcg PO DAILY Qty: 100 RF: 4 ropinirole 3 mg tablet 3 mg PO HS Qty: 90 RF: 4 gabapentin 400 mg capsule 400 mg PO BID Qty: 180 RF: 3 albuterol sulfate [ProAir HFA] 90 mcg/actuation Hfa Aerosol Inhaler 1 inh .Q4-6H PRNRF: 0 Discharge Instructions Additional Instructions: Follow up as needed Activity:: Activity as Tolerated Equipment/Supplies:: No Equipment Needed Diet:: Soft for 2-3 days Discharge Orders Discharge Orders: Discharge Order (Routine); Ordered 04/03/19 Ordered By: Silvina House DS: Data Vitals/I&O Vitals and I&O: Vital Signs Temperature 98.2 F 04/03/19 12:05 Temperature Source Temporal Artery Scan 04/03/19 12:05 Pulse 62 04/03/19 12:05 Pulse Rhythm Regular 04/03/19 08:15 Pulse 59 L 04/02/19 08:50 Respiratory Rate 18 04/03/19 12:05 Respiratory Effort Non-Labored 04/03/19 08:15 Respiratory Depth Normal 04/03/19 08:15 Respiratory Pattern Normal 04/03/19 08:15 Blood Pressure 115/76 04/03/19 12:05 Blood Pressure Mean 83 04/02/19 11:16 Blood Pressure Position Supine 04/02/19 07:14 Pulse Oximetry 93 L 04/03/19 12:05 Oxygen Delivery Method Room Air 04/03/19 12:05 Oxygen Flow Rate 0 04/03/19 12:05 Pain Level 5 04/03/19 09:52 Comment 04/02/19 11:52 Intake & Output 04/02/19 04/03/19 04/03/19 23:59 11:59 23:59 Intake Total 941.667 / 8169.882 7619.500 / 2152.500 Output Total 1150 / 1150 Balance -208.333 / 547.804 5310.500 / 2152.500 Intake: IV 941.667 / 3946.058 9761.500 / 1911.500 Oral 240 / 240 Output: Urine 1000 / 1000 Emesis 150 / 150 Other: Urine Color Yellow Yellow Light Summer Urine Appearance Clear Clear Urine Odor None Comment void x 1 Stool Size Small Stool Characteristics Liquid Brown Emesis Description Clear/Water Mucous Voiding Methods Toilet Toilet [facility] Medical History Abdominal aortic aneurysm (Chronic) s/p surgical repair [facility] 2007 Anxiety and depression (Chronic 02/10/15) Atherosclerotic heart disease of [place] coronary artery without angina pectoris (Chronic) Breast cancer (Chronic 01/20/14) left, 6 cm Invasive Lobular Carcinoma ([facility] 01/19/14) chemo started and radiation tx planned (on hold due to perf divertic) Cardiomyopathy (Chronic) New onset 04/2018 per [facility]. Normal rest nuclear perfusion. Patient declined cath. [facility] Echo 02/25/19 EstEF = 41%, mild to mod aortic valve regurg Compared to [facility] 02/17/18, LV systolic function is improved. Chronic obstructive pulmonary disease (Chronic 01/12/18) 12/11/17 PFTs Mod. sever obstructive airway disease with sig. bronchodilator response. This is associated with severe diffusion defect - FVC 2.06 & FEV1 1.23 (both decreas Diverticulitis of colon with perforation (Chronic 06/24/14) sigmoid resection and colostomy [facility] Apr 2014 post op malnutrition and respiratory failure Essential (primary) hypertension (Chronic) Gastro-esophageal reflux disease without esophagitis (Chronic) Hyperlipidemia (Chronic) Hypothyroidism (Chronic) Migraine (Chronic) Obstructive sleep apnea (Chronic) Pyloric ulcer associated with Helicobacter pylori (Resolved 05/25/11) 04/07 H pylori on EGD (treated) Surgical History H/O tracheostomy (Acute) History of cholecystectomy (Chronic) Rotator Cuff Repair (~1978) LEFT S/P colostomy takedown (Acute) Status post abdominal hysterectomy (Chronic) Status post Mena's procedure (Acute) Status post total bilateral knee replacement (Chronic) Family History Mother Essential hypertension Heart disease Neoplasm PANCREATIC Father Essential hypertension Heart disease Hyperlipidemia Stroke Sister Essential hypertension Hyperlipidemia Brother Essential hypertension Maternal Grandfather Stroke Son Depression Daughter Depression 3 UNCLES Aneurysm Family History Bipolar disorder Social History Smoking/Tobacco Use Status: Current every day Alcohol Intake: current Alcohol Intake frequency: a few times a month Alcohol type: hard liquor Drug use: Never Substance use type: marijuana What type of physical activity do you participate in: walking Duration: 15-30 minutes/day Frequency: 3-4 times per week Nuvia/Temple: CRYSTAL Special nuvia needs: No Do you feel safe in your relationship?: Yes
== END 2019-04-03 15:42 | disposition home or self-care (01) ==
LOC: ER 10:16 → MS 11:43
PROVIDERS: Emergency Medicine; Admitting Provider Surgery; Emergency Provider Physician Assistant; Visit Provider Surgery
DX: R10.84 Generalized abdominal pain (principal); J44.9 Chronic obstructive pulmonary disease, unspecified; F41.8 Other specified anxiety disorders; I10 Essential (primary) hypertension; I42.9 Cardiomyopathy, unspecified; E03.9 Hypothyroidism, unspecified; E78.5 Hyperlipidemia, unspecified; F17.210 Nicotine dependence, cigarettes, uncomplicated; Z90.49 Acquired absence of other specified parts of digestive tract
CPT/HCPCS: 36415; 80053; 83690; 93005; 96361; 96365; 96375; 99217; 99219; 99222; 99238; 99285; 74177; 81003; 81015; 83735; 84484; 85025; 93010; G0378; J2060; J2405; J3490

== ENCOUNTER 2019-07-02 12:59 | Outpatient (CLI) | payer MEDICARE, SELFPAY ==
[2019-07-02 15:22] LABS: Calculated LDL 120 mg/dL; Cholesterol 190 mg/dL (<200); HDL Cholesterol 49 mg/dL (40-60); TSH 1.15 uIU/mL (0.36-3.74); Triglyceride 109 mg/dL (<150)
[2019-07-05 08:27] LABS: Vitamin D 25 Total 61.9 ng/ml (30-100)
== END 2019-07-02 13:19 ==
PROVIDERS: Nurse Practitioner
DX: E03.9 Hypothyroidism, unspecified (principal); E78.5 Hyperlipidemia, unspecified; E55.9 Vitamin D deficiency, unspecified
CPT/HCPCS: 36415; 80061; 82306; 84443

== ENCOUNTER 2019-08-13 11:07 | Observation (INO) | payer MEDICARE, SELFPAY ==
[2019-08-13] VITALS (29 sets, daily range): BP systolic 101–152; BP diastolic 47–94; PULSE 56–91; RESP 15–20; TEMP 36.1–37; O2SAT 90–99
[2019-08-13] MEDS: Normal Saline 1,000 ML 1000 ML IV (11:45)
[2019-08-13] MEDS: Normal Saline Flush 10 ML SYR IVP (11:45)
--- NOTE | 2019-08-13 11:45 | ED.GENADUL_ITS ---
Discharge Plan Disposition Patient Disposition: HOME Condition: Stable Discharge Details Chief Complaint: Abd Prob Clinical Impression: Partial small bowel obstruction Primary Care Provider: Emilie العلي ED Provider: Pavel Hernandez Home Meds and New Rx's Prescriptions: No Action polyethylene glycol 8000(bulk) 2,500 GM powder 17 gm PO daily prn RF: 0 aspirin [Aspirin Low-Strength] 81 MG tablet,chewable 81 mg PO DAILY RF: 0 acetaminophen [Tylenol Extra Strength] 500 MG tablet 1,000 mg PO Q6H PRN RF: 0 fluoxetine 20 MG capsule 2 cap PO DAILY Qty: 270 RF: 4 [facility] spacer 1 ea Miscellaneous ONCE Qty: 1 RF: 0 lisinopril 5 MG tablet 5 mg PO DAILY RF: 0 atorvastatin 80 mg tablet 80 mg PO QPM Qty: 90 RF: 3 ropinirole 3 mg tablet 3 mg PO HS Qty: 90 RF: 4 gabapentin 400 mg capsule 400 mg PO BID Qty: 180 RF: 3 prazosin 1 mg capsule 1 mg PO HS Qty: 90 RF: 1 levothyroxine 75 mcg tablet 75 mcg PO DAILY Qty: 90 RF: 3 lorazepam 0.5 mg tablet 0.5 mg PO BID PRNQty: 90 RF: 1 nitroglycerin 0.4 mg tablet, sublingual 0.4 mg Sublingual PRN Qty: 25 RF: 3 carvedilol 6.25 mg tablet 6.25 mg PO BID Qty: 60 RF: 12 bupropion HCl [Wellbutrin SR] 150 mg tablet sustained-release 12 hr 150 mg PO QAM Qty: 90 RF: 3 letrozole [Femara] 2.5 mg tablet 2.5 mg PO DAILY Qty: 90 RF: 3 albuterol sulfate [ProAir HFA] 90 mcg/actuation Hfa Aerosol Inhaler 1 inh .Q4-6H PRNRF: 0 Medical Decision Making This is a 69-year-old female who developed a fairly abrupt onset of right lower quadrant abdominal pain with nausea and vomiting last night. She denied a fever and there is no stool changes. She has a history of previous perforated viscus with ostomy placement and reversal. She also had abdominal aortic repair in the past. She arrives with a temperature of 36.3, pulse 83, pressure 114/74. She is tender in the lower quadrant of her abdomen but without clinical evidence of peritonitis on exam. Differential diagnosis includes partial or complete bowel obstruction, ileus, colitis, diverticulitis. IV access was established, patient given fluid bolus and parenteral analgesia. Referred for laboratory testing and CT images. White blood cell count is 13.3 with hematocrit 47, platelets 205. Chemistries hemolyzed and needed to be rechecked. Patient has chronic renal insufficiency and creatinine today of 1.2 which is near her most recent baseline. LFTs unremarkable, troponin negative, urinalysis with ketones, trace leuk esterase, micro with numerous cell types and likely contaminated, culture pending. CT images reveal a partial small bowel obstruction in the left midline anteriorly. Similar to that of comparison CT images from March 2019. Patient has required some mild intermittent narcotic analgesia. She will benefit from ongoing parenteral hydration. Case discussed with Dr. Ryan who will admit the patient. ECG Data Attestation: I personally reviewed and interpreted this ECG (s) as follows: Interpretation: Normal sinus rhythm, rate of 73, there is diffuse nonspecific ST segment flattening throughout, no ST segment elevation, no comparison available HPI General Mode of arrival: ambulatory . Date/Time Provider Initiated Documentation: 08/13/19 11:27 . Limitations to Documentation: no limitations . Information obtained by: patient . History of Present Illness 69 year old F presents to the emergency department with the chief complaint of Right lower quadrant abdominal pain, vomited, described as mild, Quality is described as dull, and is localized to the abdomen and right. Patient reports radiation to back. Patient started experiencing this hour(s) and it has been constant. No relieving factors improve symptom(s), No exacerbating factors reported . Patient notes loss of appetite, malaise and nausea/vomiting; denies fever/chills. Patient did receive the following treatments prior to arrival, none Related Data Home Medications Medication Instructions Recorded Confirmed aspirin [Aspirin Low-Strength] 81 mg PO DAILY tab-cap 02/10/15 08/13/19 polyethylene glycol 8000(bulk) 17 gm PO daily prn 02/10/15 08/13/19 acetaminophen [Tylenol Extra 1,000 mg PO Q6H PRN tab-cap 07/11/15 08/13/19 Strength] fluoxetine 2 cap PO DAILY #270 tab-cap 08/01/15 08/13/19 [facility] #1 ea 04/08/17 08/13/19 lisinopril 5 mg PO DAILY tab-cap 02/22/18 08/13/19 atorvastatin 80 mg tablet 80 mg PO QPM #90 tab 12/04/18 08/13/19 ropinirole 3 mg tablet 3 mg PO HS #90 tab-cap 03/04/19 08/13/19 gabapentin 400 mg capsule 400 mg PO BID #180 tab-cap 03/31/19 08/13/19 albuterol sulfate [ProAir HFA] 1 inh .Q4-6H PRN 04/02/19 08/13/19 prazosin 1 mg capsule 1 mg PO HS #90 cap 05/17/19 08/13/19 levothyroxine 75 mcg tablet 75 mcg PO DAILY #90 tab-cap 05/31/19 08/13/19 lorazepam 0.5 mg tablet 0.5 mg PO BID PRN #90 tab-cap 06/11/19 08/13/19 nitroglycerin 0.4 mg sublingual 0.4 mg SUBLINGUAL PRN #25 tab 06/16/19 08/13/19 tablet carvedilol 6.25 mg tablet 6.25 mg PO BID #60 tab 06/30/19 08/13/19 bupropion HCl 150 mg tablet,12 hr 150 mg PO QAM #90 tab-cap 07/16/19 08/13/19 sustained-release letrozole 2.5 mg tablet 2.5 mg PO DAILY #90 tab-cap 07/16/19 08/13/19 Previous Rx's Medication Instructions Recorded Andrea Cristina [facility] #1 ea 04/08/17 atorvastatin 80 mg tablet 80 mg PO QPM #90 tab 12/04/18 ropinirole 3 mg tablet 3 mg PO HS #90 tab-cap 03/04/19 gabapentin 400 mg capsule 400 mg PO BID #180 tab-cap 03/31/19 prazosin 1 mg capsule 1 mg PO HS #90 cap 05/17/19 levothyroxine 75 mcg tablet 75 mcg PO DAILY #90 tab-cap 05/31/19 nitroglycerin 0.4 mg sublingual 0.4 mg SUBLINGUAL PRN #25 tab 06/16/19 tablet carvedilol 6.25 mg tablet 6.25 mg PO BID #60 tab 06/30/19 bupropion HCl 150 mg tablet,12 hr 150 mg PO QAM #90 tab-cap 07/16/19 sustained-release letrozole 2.5 mg tablet 2.5 mg PO DAILY #90 tab-cap 07/16/19 Allergies Allergy/AdvReac Type Severity Reaction Status Date / Time codeine Allergy Severe ITCHING Verified 08/13/19 12:12 Penicillins Allergy Severe HIVES Verified 08/13/19 12:12 latex Allergy Intermediate SKIN RASH Verified 08/13/19 12:12 Sulfa (Sulfonamide Allergy Intermediate SKIN RASH Verified 08/13/19 12:12 Antibiotics) sertraline AdvReac Severe DIARRHEA Verified 08/13/19 12:12 diazepam AdvReac Intermediate NAUSEA Verified 08/13/19 12:12 rosuvastatin AdvReac Unknown ?GUM Verified 08/13/19 12:12 DISEASE General Stated Complaint: Abd Prob KASANDRA: 3 Review of Systems Narrative: No fever, states she passed gas this morning, vomited last night. States she has chronic hypotension with systolics running 70-80 per the patient. 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 Normal rest nuclear perfusion. Patient declined cath. [facility] [place] Echo 02/25/19 EstEF = 41%, mild to mod aortic valve regurg Compared to [facility] 02/17/18, LV systolic function is improved. Chronic depression (Inactive) Chronic obstructive pulmonary disease (Resolved 01/12/18) 12/11/17 PFTs Mod. sever obstructive airway disease with sig. bronchodilator response. This is associated with severe diffusion defect - FVC 2.06 & FEV1 1.23 (both decreas Disorder of vitamin B12 (Inactive 03/30/13) Diverticulitis of colon with perforation (Resolved 06/24/14) sigmoid resection and colostomy [facility] [place] Apr 2014 post op malnutrition and respiratory failure Essential (primary) hypertension (Resolved) Gastro-esophageal reflux disease without esophagitis (Resolved) Hyperlipidemia (Resolved) Hypothyroidism (Resolved) Methicillin resistant Staphylococcus aureus infection (Inactive 03/27/09) Migraine (Resolved) Mixed incontinence (Inactive 02/19/16) Obstructive sleep apnea (Resolved) Polyp of colon (Inactive 06/26/05) adenoma. Pyloric ulcer associated with Helicobacter pylori (Resolved 05/25/11) 04/07 H pylori on EGD (treated) Restless legs syndrome (Inactive) Smoker (Inactive) quit 2013 and then re-started 25 year HX - quit again 11/25/17 -back to daily smoking Surgical History (Updated 08/13/19 @ 15:38 by Ely Ryan MD) H/O tracheostomy (Acute) Rotator Cuff Repair (~1978) LEFT S/P colostomy takedown (Acute) Status post Mena's procedure (Acute) Status post total bilateral knee replacement (Resolved) Family History (Updated 06/14/19 @ 09:19 by Dylon Plunkett) Mother , age 68 Essential hypertension Heart disease Pancreatic cancer Bone cancer Father , age 50 Essential hypertension Heart disease Hyperlipidemia Stroke Alcohol abuse Depression Sister Essential hypertension Hyperlipidemia Diabetes Heart disease Brother Essential hypertension Depression Heart disease Hyperlipidemia Maternal Grandfather Stroke Son Depression Daughter Depression Alcohol abuse 3 UNCLES Aneurysm Family History Bipolar disorder Sister Depression Essential hypertension Heart disease Hyperlipidemia Brother Alcohol abuse Depression Diabetes Hyperlipidemia Hypertension Social History Smoking/Tobacco Use Status: Former Tobacco Use Quit Date: 08/01/16 Alcohol Intake: current Alcohol Intake frequency: holidays/special occasions only Alcohol type: hard liquor Drug use: Daily Substance use type: marijuana Caregiver/Support person: No Household members: none Housing: house Communication Needs: Corrective Lenses Do you need help understanding health information?: Rarely Pets and animals: Yes Pets and animals: dog(s) and bird(s) Sexually active: Yes Do you think of yourself as: straight/heterosexual Current gender identity: female What is your relationship status?: How often do you talk on the phone with friends or family?: once per week How often do you get together with friends or relatives?: twice per week How often do you attend islam or restoration services?: decline to answer Do you belong to any clubs or organized social groups?: no Panel score (0-1 are the most socially isolated patients): 1 What type of physical activity do you participate in: walking Duration: 15-30 minutes/day Frequency: 3-4 times per week Nuvia/Pentecostalism: CRYSTAL Special nuvia needs: No Seatbelt use: always Helmet use: Yes Helmet use: always Drive intox or ride w/intox 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 Pleasant, well groomed, interactive. HEAD: Normocephalic, atraumatic ENT: Mucous membranes moist, oropharynx unremarkable, External ear exam unremarkable EYES: PERRL, EOMI NECK: Full ROM, no CHANDNI, no menigismus CHEST/RESP: Nontender, clear to auscultation bilateral, no wheeze/rhonchi/rales CARDIOVASCULAR: RRR, no murmur, rub ellen. 2+ Rad pulse bilateral ABDOMEN: Healed surgical incisions, soft, tender in the right lower quadrant, without significant rebound, no mass. +Bowel sounds EXT: Full ROM, no edema, no rash Neuro: Grossly normal neurologic exam, conversant, interactive. Psych: Speech fluent, thoughts congruent, affect normal Course Vital Signs Vital signs: Vital Signs Temperature 36.3 C L 08/13/19 11:13 Pulse 83 08/13/19 11:13 Respiratory Rate 08/13/19 11:13 Blood Pressure 114/74 08/13/19 11:13 Pulse Oximetry 99 08/13/19 11:13 Temperature 36.3 C L 08/13/19 11:13 Temperature Source Skin 08/13/19 11:13 Pulse 83 08/13/19 11:13 Respiratory Rate 08/13/19 11:13 Respiratory Effort Non-Labored 08/13/19 11:17 Blood Pressure 114/74 08/13/19 11:13 Blood Pressure Position Sitting 08/13/19 11:13 Pulse Oximetry 99 08/13/19 11:13 Oxygen Delivery Method Room Air 08/13/19 11:13 Oxygen Flow Rate 0 08/13/19 11:13 Pain Level 10 08/13/19 11:13
[2019-08-13] MEDS: Ondansetron 4 MG/2 ML VIAL (11:50)
[2019-08-13] MEDS: HYDROmorphone 2 MG/ML VIAL ×2 (11:51→14:15)
[2019-08-13 12:02] LABS: Abs Immature Grans 0.08 k/cumm (0.0-0.09); Absolute Basophil Count 0.03 k/cumm (0.0-0.2); Absolute Eosinophil Count 0.05 k/cumm (0.0-0.7); Absolute Lymphocyte Count 0.53 k/cumm (1.2-3.4); Absolute Monocyte Count 0.79 k/cumm (0.11-0.7); Absolute Neutrophil Count 11.89 k/cumm (1.2-6.7); Basophils % 0.2; Eosinophils % 0.4; HCT 47.9 % (36.0-46.0); HGB 15.2 g/dL (12.0-15.5); Immature Grans % 0.6 %; Mean Corp. HGB Concentration 31.7 g/dL (32.0-36.0); Mean Corpuscular Hemoglobin 30.5 pg (27.0-33.0); Mean Corpuscular Volume 96.2 fL (80-95); Mean Platelet Volume 10.6 fL (8.0-11.0); Monocytes % 5.9; Neutrophils % 88.9; Platelet Count 205 x1000/uL (130-400); RBC 4.98 m/cumm (4.00-5.20); RBC Distribution Width 14.7 % (11.7-14.6); White Blood Cell Count 13.37 k/cumm (4.4-10.8)
[2019-08-13 12:47] LABS: Bilirubin Negative (Negative); Blood Negative (Negative); Clarity Clear (Clear); Glucose Negative (Negative); Ketones Trace mg/dL (Negative); Leukocyte Esterase Trace (Negative); Nitrite Negative (Negative); Specific Gravity 1.025 (1.005-1.025); Urobilinogen 0.2 EU/dL (Up TO 0.2)
[2019-08-13 13:07] LABS: Bacteria Few HPF (Negative); Casts 20-50 Hyaline LPF (Negative); Crystals Negative HPF (Negative); Epithelial Cells Few HPF (Negative); Mucus Moderate (Negative); Other Cells Few Renal (Negative); RBC 0-2 HPF (0-2)
[2019-08-13 13:08] LABS: C & S Indicated? Yes
[2019-08-13 13:36] LABS: ALT 23 U/L (14-59); AST 25 U/L (15-37); Albumin 3.8 g/dL (3.4-5.0); Alkaline Phosphatase 86 U/L (46-116); Anion Gap 11.1 mmol/L (3-11); BUN 18 mg/dL (7-18); Bilirubin, Total 0.7 mg/dL (0.2-1.0); CO2 25.9 mmol/L (21.0-32.0); CREATININE 1.22 mg/dL (0.55-1.02); Calcium 9.6 mg/dL (8.5-10.1); Chloride 104 mmol/L (98-107); Estimated GFR 43.96 (mL/min/1.73m2); Glucose 114 mg/dL (74-106); Lipase 92 U/L (73-393); Magnesium 1.8 mg/dL (1.8-2.4); Potassium 5.1 mmol/L (3.5-5.1); Sodium 141 mmol/L (136-145); Total Protein 6.9 g/dL (6.4-8.2)
[2019-08-13 13:44] LABS: Troponin I < 0.05 ng/Ml (<0.06)
--- NOTE | 2019-08-13 14:19 | DI.CT_ITS ---
EXAM: CT ABDOMEN AND PELVIS W CLINICAL HISTORY: RLQ PAIN HX PREV SURGERY, VOMITING TECHNIQUE: Post IV contrast without oral contrast COMPARISON: CT ABDOMEN AND PELVIS W from 04/02/2019 FINDINGS: There is dilatation of small bowel in the mid abdomen. There is a question of a transition point in the anterior left mid to lower abdomen, in a similar location as the previous exam. The proximal sma ll bowel and stomach as well as some distal small bowel and colon are not abnormally distended. Ther e is a rectal anastomosis, which is unremarkable. There is no free air or free fluid. The heart siz e is normal. The lung bases show minimal dependent changes. Liver, spleen, pancreas, adrenals and k idneys are unremarkable. Gallstones are noted. The patient has a previous abdominal aortic aneurysm repair, which appears unremarkable. The iliac arteries are calcified. There is a midline surgical scar. No hernia is seen. The bladder, uterus and ovaries are unremarkable. Degenerative changes ar e seen in the spine, greatest at L5-S1. IMPRESSION: Findings consistent with a partial small bowel obstruction.
[2019-08-13] MEDS: Omnipaque 350 MG/ML 100 ML BTL IJ (14:37)
[2019-08-13] MEDS: Normal Saline 1,000 ML 150 ML IV ×2 (15:01→22:08)
--- NOTE | 2019-08-13 15:28 | W.PM.HP.N ---
Date of service: 08/13/19 Time of Service: 15:28 Assessment and Plan Assessment and plan (1) Partial small bowel obstruction: Status: Acute Assessment and plan: A\\ 69 year old female with a PSBO on CT scan. Symptoms started last night. Had similar symptoms in March of 2019. P\\ Admit for IV hydration and pain control Diet: will let her eat some popsicles, ice chips and sips of water Activity: up ad lory Pain control: Tylenol and dilauded as needed Home medication: continue home medications as Rx Disposition: Home once taken po without N/V History of Present Illness History of Present Illness Chief Complaint: Abdominal pain Consults Consult date: 08/13/19 Requesting physician: Pavel Hernandez Narrative: This is a 69-year-old female who developed a fairly abrupt onset of right lower quadrant abdominal pain with nausea and vomiting last night. She denied a fever and there is no stool changes. She has a history of previous perforated viscus with ostomy placement and reversal. She also had abdominal aortic repair in the past. She was admitted in March of 2019 for a partial SBO. The symptoms last night and today are similar. She has not had any vomiting today. She is still passing flatus. Labs show a mildly increased WBC count, most likely due to dehydration as she is afebrile. CMP showed an elevated CR, but normal for her. CT scan was read as Partial small bowel obstruction Review of Systems Constitutional Constitutional: Denies fever(s) Eyes Eyes: Denies change in vision ENT Ears, Nose, Mouth, and Throat: Denies dysphagia Cardiovascular Cardiovascular: Denies chest pain, Denies chest pain at rest, Denies rapid heart rate, Denies irregular heart rhythm, Denies palpitations, Denies dyspnea, Denies dyspnea on exertion and Reports other (low BP in the 70 and 80) Respiratory Respiratory: Denies chest congestion, Denies cough, Denies dyspnea and Denies dyspnea on exertion Gastrointestinal Gastrointestinal: Reports as per HPI and Denies dysphagia Genitourinary Genitourinary: Denies hematuria and Denies dysuria Musculoskeletal Musculoskeletal: Reports system reviewed and no additional complaints, except as docu Integumentary/Breasts Skin/Breast: Reports system reviewed and no additional complaints, except as docu Neurologic Neurologic: Reports system reviewed and no additional complaints, except as docu Psychiatric Psychiatric: Reports system reviewed and no additional complaints, except as docu Endocrine Endocrine: Reports system reviewed and no additional complaints, except as docu and Denies palpitations PFSH Medical History Abdominal aortic aneurysm (Resolved) s/p [place] [facility] [place] Abnormal glandular Papanicolaou smear of vagina (Inactive ~1978) Anxiety and depression (Resolved 02/10/15) 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 Normal rest nuclear perfusion. Patient declined cath. [facility] [place] 02/25/19 EstEF = 41%, mild to mod aortic valve regurg Compared to [facility] 02/17/18, LV systolic function is improved. Chronic depression (Inactive) Chronic obstructive pulmonary disease (Resolved 01/12/18) 12/11/17 PFTs Mod. sever obstructive airway disease with sig. bronchodilator response. This is associated with severe diffusion defect - FVC 2.06 & FEV1 1.23 (both decreas Disorder of vitamin B12 (Inactive 03/30/13) Diverticulitis of colon with perforation (Resolved 06/24/14) sigmoid resection and colostomy [facility] [place] post op malnutrition and respiratory failure Essential (primary) hypertension (Resolved) Gastro-esophageal reflux disease without esophagitis (Resolved) Hyperlipidemia (Resolved) Hypothyroidism (Resolved) Methicillin resistant Staphylococcus aureus infection (Inactive 03/27/09) Migraine (Resolved) Mixed incontinence (Inactive 02/19/16) Obstructive sleep apnea (Resolved) Polyp of colon (Inactive 06/26/05) adenoma. Pyloric ulcer associated with Helicobacter pylori (Resolved 05/25/11) 04/07 H pylori on EGD (treated) Restless legs syndrome (Inactive) Smoker (Inactive) quit 2013 and then re-started 25 year HX - quit again 11/25/17 -back to daily smoking Surgical History (Updated 08/13/19 @ 15:38 by Ely Ryan MD) H/O tracheostomy (Acute) Rotator Cuff Repair (~1978) LEFT S/P colostomy takedown (Acute) Status post Mena's procedure (Acute) Status post total bilateral knee replacement (Resolved) Family History (Updated 06/14/19 @ 09:19 by Dylon Plunkett) Mother , age 68 Essential hypertension Heart disease Pancreatic cancer Bone cancer Father , age 50 Essential hypertension Heart disease Hyperlipidemia Stroke Alcohol abuse Depression Sister Essential hypertension Hyperlipidemia Diabetes Heart disease Brother Essential hypertension Depression Heart disease Hyperlipidemia Maternal Grandfather Stroke Son Depression Daughter Depression Alcohol abuse 3 UNCLES Aneurysm Family History Bipolar disorder Sister Depression Essential hypertension Heart disease Hyperlipidemia Brother Alcohol abuse Depression Diabetes Hyperlipidemia Hypertension Social History Smoking/Tobacco Use Status: Former Tobacco Use Quit Date: 08/01/16 Alcohol Intake: current Alcohol Intake frequency: holidays/special occasions only Alcohol type: hard liquor Drug use: Daily Substance use type: marijuana Caregiver/Support person: No Household members: none Housing: house Communication Needs: Corrective Lenses Do you need help understanding health information?: Rarely Pets and animals: Yes Pets and animals: dog(s) and bird(s) Sexually active: Yes Do you think of yourself as: straight/heterosexual Current gender identity: female What is your relationship status?: How often do you talk on the phone with friends or family?: once per week How often do you get together with friends or relatives?: twice per week How often do you attend presybeterian or gnosticism services?: decline to answer Do you belong to any clubs or organized social groups?: no Panel score (0-1 are the most socially isolated patients): 1 What type of physical activity do you participate in: walking Duration: 15-30 minutes/day Frequency: 3-4 times per week Nuvia/Shinto: CRYSTAL Special nuvia needs: No Seatbelt use: always Helmet use: Yes Helmet use: always Drive intox or ride w/intox driver messenger: No Do you feel safe at home: Yes Do you feel safe in your relationship?: Yes Meds Home Medications and Allergies Home Medications Medication Instructions Recorded Confirmed Type aspirin [Aspirin Low-Strength] 81 mg PO DAILY tab-cap 02/10/15 08/13/19 History polyethylene glycol 8000(bulk) 17 gm PO daily prn 02/10/15 08/13/19 History acetaminophen [Tylenol Extra 1,000 mg PO Q6H PRN tab-cap 07/11/15 08/13/19 History Strength] fluoxetine 2 cap PO DAILY #270 tab-cap 08/01/15 08/13/19 History Andrea Cristina [facility] #1 ea 04/08/17 08/13/19 Rx lisinopril 5 mg PO DAILY tab-cap 02/22/18 08/13/19 History atorvastatin 80 mg tablet 80 mg PO QPM #90 tab 12/04/18 08/13/19 Rx ropinirole 3 mg tablet 3 mg PO HS #90 tab-cap 03/04/19 08/13/19 Rx gabapentin 400 mg capsule 400 mg PO BID #180 tab-cap 03/31/19 08/13/19 Rx albuterol sulfate [ProAir HFA] 1 inh .Q4-6H PRN 04/02/19 08/13/19 History prazosin 1 mg capsule 1 mg PO HS #90 cap 05/17/19 08/13/19 Rx levothyroxine 75 mcg tablet 75 mcg PO DAILY #90 tab-cap 05/31/19 08/13/19 Rx lorazepam 0.5 mg tablet 0.5 mg PO BID PRN #90 tab-cap 06/11/19 08/13/19 History nitroglycerin 0.4 mg sublingual 0.4 mg SUBLINGUAL PRN #25 tab 06/16/19 08/13/19 Rx tablet carvedilol 6.25 mg tablet 6.25 mg PO BID #60 tab 06/30/19 08/13/19 Rx bupropion HCl 150 mg tablet,12 hr 150 mg PO QAM #90 tab-cap 07/16/19 08/13/19 Rx sustained-release letrozole 2.5 mg tablet 2.5 mg PO DAILY #90 tab-cap 07/16/19 08/13/19 Rx Allergies Allergy/AdvReac Type Severity Reaction Status Date / Time codeine Allergy Severe ITCHING Verified 08/13/19 12:12 Penicillins Allergy Severe HIVES Verified 08/13/19 12:12 latex Allergy Intermediate SKIN RASH Verified 08/13/19 12:12 Sulfa (Sulfonamide Allergy Intermediate SKIN RASH Verified 08/13/19 12:12 Antibiotics) sertraline AdvReac Severe DIARRHEA Verified 08/13/19 12:12 diazepam AdvReac Intermediate NAUSEA Verified 08/13/19 12:12 rosuvastatin AdvReac Unknown ?GUM Verified 08/13/19 12:12 DISEASE Exam Const General: cooperative, comfortable and no acute distress Orientation: alert and oriented x3 HENMT Head: normocephalic and atraumatic Eyes Pupils: PERRL Resp Effort & Inspection: normal respiratory effort Auscultation: clear to auscultation bilaterally Cardio Rate: regular rate Rhythm: regular rhythm Heart Sounds: no gallops, no murmurs and no rubs GI Inspection: normal to inspection and scar (well healed scars noted) Palpation: soft, no hepatosplenomegaly and nontender Auscultation: normal bowel sounds General: deferred Results Labs Result diagrams: 08/13/19 11:35 08/13/19 13:10 Labs: Laboratory Results - last 24 hr 08/13/19 08/13/19 08/13/19 11:35 12:30 13:10 WBC 13.37 H RBC 4.98 Hgb 15.2 Hct 47.9 H MCV 96.2 H MCH 30.5 MCHC 31.7 L RDW 14.7 H Plt Count 205 MPV 10.6 Immature Gran % 0.6 Neutrophils % 88.9 Lymphocytes % 4.0 Monocytes % 5.9 Eosinophils % 0.4 Basophils % 0.2 Absolute Neutrophils 11.89 H Absolute Lymphocytes 0.53 L Absolute Monocytes 0.79 H Absolute Eosinophils 0.05 Absolute Basophils 0.03 Sodium 141 Potassium 5.1 Chloride 104 Carbon Dioxide 25.9 Anion Gap 11.1 H BUN 18 Creatinine 1.22 H Estimated GFR/1.73 m2 43.96 Glucose 114 H Calcium 9.6 Magnesium 1.8 Total Bilirubin 0.7 AST 25 ALT 23 Alkaline Phosphatase 86 Troponin I < 0.05 Total Protein 6.9 Albumin 3.8 Lipase 92 Urine Color Yellow Urine Clarity Clear Urine pH 6.0 Ur Specific [place] 1.025 Urine Protein Negative Urine Ketones Trace H Urine Blood Negative Urine Nitrite Negative Urine Bilirubin Negative Urine Urobilinogen 0.2 Ur Leukocyte Esterase Trace H Urine RBC 0-2 Urine WBC 3-5 Ur Epithelial Cells Few Urine Crystals Negative Urine Bacteria Few Urine Casts 20-50 hyaline Urine Mucus Moderate Urine Other Few renal Ur Culture Indicated? Yes Urine Glucose Negative Last Vital Signs Temp 97.7 F 08/13/19 13:50 Pulse 74 08/13/19 15:02 Resp 18 08/13/19 15:02 BP 109/74 08/13/19 15:02 Pulse Ox 98 08/13/19 15:02
[2019-08-13] MEDS: HYDROmorphone 2 MG/ML VIAL 0.5 MG IVP (16:00)
[2019-08-13] MEDS: ACETAMINOPHEN 1,000 MG/100 ML BTL 400 MG IVPB (19:57)
[2019-08-13] MEDS: Atorvastatin 40 MG TAB 80 MG PO (19:57)
[2019-08-13] MEDS: Gabapentin 400 MG CAP PO (19:57)
[2019-08-13] MEDS: Carvedilol 6.25 MG TAB PO (19:57)
[2019-08-13] MEDS: rOPINIRole 1 MG TAB 3 MG PO (22:03)
[2019-08-13] MEDS: Prazosin 1 MG CAP PO (22:05)
[2019-08-14] MEDS: Normal Saline 1,000 ML 150 ML IV (04:29)
[2019-08-14] MEDS: LORazepam 0.5 MG TAB PO (04:36)
[2019-08-14 07:03] LABS: Abs Immature Grans 0.02 k/cumm (0.0-0.09); Absolute Basophil Count 0.02 k/cumm (0.0-0.2); Absolute Eosinophil Count 0.09 k/cumm (0.0-0.7); Absolute Lymphocyte Count 1.04 k/cumm (1.2-3.4); Absolute Monocyte Count 0.49 k/cumm (0.11-0.7); Absolute Neutrophil Count 4.42 k/cumm (1.2-6.7); Basophils % 0.3; Eosinophils % 1.5; HCT 35.1 % (36.0-46.0); Immature Grans % 0.3 %; Lymphocytes % 17.1; Mean Corp. HGB Concentration 31.3 g/dL (32.0-36.0); Mean Corpuscular Hemoglobin 30.5 pg (27.0-33.0); Mean Corpuscular Volume 97.2 fL (80-95); Mean Platelet Volume 10.9 fL (8.0-11.0); Monocytes % 8.1; Neutrophils % 72.7; Platelet Count 115 x1000/uL (130-400); RBC 3.61 m/cumm (4.00-5.20); RBC Distribution Width 14.4 % (11.7-14.6); White Blood Cell Count 6.08 k/cumm (4.4-10.8)
[2019-08-14 07:45] VITALS: BP 134/76; PULSE 82; RESP 18; TEMP 36.7; O2SAT 91
[2019-08-14 07:54] LABS: BUN 12 mg/dL (7-18); CREATININE 0.82 mg/dL (0.55-1.02); Chloride 107 mmol/L (98-107); Glucose 98 mg/dL (74-106); Potassium 3.7 mmol/L (3.5-5.1); Sodium 141 mmol/L (136-145)
--- NOTE | 2019-08-14 09:09 | PGE_ITS ---
Date of Service Date of service: 08/14/19 Time of Service: 09:09 Assessment and Plan Assessment and plan (1) Partial small bowel obstruction: Status: Acute Assessment and plan: A\\ 69 year old with PSBO. She ahs done well and has had no pain since yesterday. Has tolerated sips of water and popsicles. P\\ Advance diet to clear liquids for breakfast and lunch Ambulate If tolerating diet without N/V or pain then may be able to D/C home Subjective Subjective Interval history since last seen: Mrs Peter is doing well today. She has not required any more Dilaudid since yesterday. She has tolerated Popsicles and feels hungry. She tells me she had a BM yesterday although that is not recorded. No N/V. Complains of a headache Exam Resp Effort & Inspection: normal respiratory effort Auscultation: clear to auscultation bilaterally Cardio Rate: regular rate Rhythm: regular rhythm Heart Sounds: no gallops, no murmurs and no rubs GI Palpation: soft, no hepatosplenomegaly and nontender Auscultation: normal bowel sounds Objective Objective Clinical Data: Abnormal lab results 08/13/19 08/13/19 08/13/19 Range/Units 11:35 12:30 13:10 WBC 13.37 H (4.4-10.8) k/cumm RBC (4.00-5.20) m/cumm Hgb (12.0-15.5) g/dL Hct 47.9 H (36.0-46.0) % MCV 96.2 H (80-95) fL MCHC 31.7 L (32.0-36.0) g/dL RDW 14.7 H (11.7-14.6) % Plt Count (130-400) x1000/uL Absolute Neutrophils 11.89 H (1.2-6.7) k/cumm Absolute Lymphocytes 0.53 L (1.2-3.4) k/cumm Absolute Monocytes 0.79 H (0.11-0.7) k/cumm Anion Gap 11.1 H (3-11) mmol/L Creatinine 1.22 H (0.55-1.02) mg/dL Glucose 114 H (74-106) mg/dL Calcium (8.5-10.1) mg/dL Urine Ketones Trace H (Negative) mg/dL Ur Leukocyte Esterase Trace H (Negative) 08/14/19 08/14/19 Range/Units 06:15 06:15 WBC (4.4-10.8) k/cumm RBC 3.61 L (4.00-5.20) m/cumm Hgb 11.0 L D (12.0-15.5) g/dL Hct 35.1 L D (36.0-46.0) % MCV 97.2 H (80-95) fL MCHC 31.3 L (32.0-36.0) g/dL RDW (11.7-14.6) % Plt Count 115 L (130-400) x1000/uL Absolute Neutrophils (1.2-6.7) k/cumm Absolute Lymphocytes 1.04 L (1.2-3.4) k/cumm Absolute Monocytes (0.11-0.7) k/cumm Anion Gap (3-11) mmol/L Creatinine (0.55-1.02) mg/dL Glucose (74-106) mg/dL Calcium 8.0 L (8.5-10.1) mg/dL Urine Ketones (Negative) mg/dL Ur Leukocyte Esterase (Negative) Vital Signs Temperature 97.0 F L 08/13/19 23:30 Temperature Source Tympanic 08/13/19 23:30 Pulse 56 L 08/13/19 23:30 Pulse Rhythm Regular 08/13/19 23:30 Pulse Strength Normal 08/13/19 13:50 Respiratory Rate 16 08/13/19 23:30 Respiratory Effort Non-Labored 08/13/19 23:30 Respiratory Depth Normal 08/13/19 23:30 Respiratory Pattern Normal 08/13/19 23:30 Blood Pressure 102/60 08/13/19 23:30 Blood Pressure Mean 73 08/13/19 15:45 Blood Pressure Position Supine 08/13/19 13:50 Pulse Oximetry 92 L 08/13/19 23:30 Oxygen Delivery Method Room Air 08/13/19 23:30 Oxygen Flow Rate 0 08/13/19 23:30 Pain Level 0 08/13/19 23:30 Intake & Output 08/13/19 08/13/19 08/14/19 11:59 23:59 11:59 Intake Total 1999 1252.5 / 1252.5 Output Total 300 / 300 Balance 1700 / 1700 1252.5 / 1252.5 Weight 140 lb 0.002 oz 140 lb 0.002 oz Intake: IV 1999 1052.5 / 1052.5 Oral 200 / 200 Output: Urine 300 / 300 Other: Urine Color Yellow Straw Urine Appearance Clear Urine Odor None Comment void x 1 directly in toilet, pt has removed measuring hat. Voiding Methods Toilet Toilet Laboratory Results WBC 6.08 k/cumm (4.4-10.8) D 08/14/19 06:15 RBC 3.61 m/cumm (4.00-5.20) L 08/14/19 06:15 Hgb 11.0 g/dL (12.0-15.5) L D 08/14/19 06:15 Hct 35.1 % (36.0-46.0) L D 08/14/19 06:15 MCV 97.2 fL (80-95) H 08/14/19 06:15 MCH 30.5 pg (27.0-33.0) 08/14/19 06:15 MCHC 31.3 g/dL (32.0-36.0) L 08/14/19 06:15 RDW 14.4 % (11.7-14.6) 08/14/19 06:15 Plt Count 115 x1000/uL (130-400) L 08/14/19 06:15 MPV 10.9 fL (8.0-11.0) 08/14/19 06:15 Immature Gran % 0.3 % 08/14/19 06:15 Neutrophils % 72.7 08/14/19 06:15 Lymphocytes % 17.1 08/14/19 06:15 Monocytes % 8.1 08/14/19 06:15 Eosinophils % 1.5 08/14/19 06:15 Basophils % 0.3 08/14/19 06:15 Absolute Neutrophils 4.42 k/cumm (1.2-6.7) 08/14/19 06:15 Absolute Lymphocytes 1.04 k/cumm (1.2-3.4) L 08/14/19 06:15 Absolute Monocytes 0.49 k/cumm (0.11-0.7) 08/14/19 06:15 Absolute Eosinophils 0.09 k/cumm (0.0-0.7) 08/14/19 06:15 Absolute Basophils 0.02 k/cumm (0.0-0.2) 08/14/19 06:15 Sodium 141 mmol/L (136-145) 08/14/19 06:15 Potassium 3.7 mmol/L (3.5-5.1) D 08/14/19 06:15 Chloride 107 mmol/L (98-107) 08/14/19 06:15 Carbon Dioxide 26.0 mmol/L (21.0-32.0) 08/14/19 06:15 Anion Gap 8.0 mmol/L (3-11) 08/14/19 06:15 BUN 12 mg/dL (7-18) D 08/14/19 06:15 Creatinine 0.82 mg/dL (0.55-1.02) 08/14/19 06:15 Estimated GFR/1.73 m2 >= 60.00 (mL/min/1.73m2) 08/14/19 06:15 Glucose 98 mg/dL (74-106) 08/14/19 06:15 Calcium 8.0 mg/dL (8.5-10.1) L 08/14/19 06:15 Magnesium 1.8 mg/dL (1.8-2.4) 08/13/19 13:10 Total Bilirubin 0.7 mg/dL (0.2-1.0) 08/13/19 13:10 AST 25 U/L (15-37) 08/13/19 13:10 ALT 23 U/L (14-59) 08/13/19 13:10 Alkaline Phosphatase 86 U/L (46-116) 08/13/19 13:10 Troponin I < 0.05 ng/Ml (<0.06) 08/13/19 13:10 Total Protein 6.9 g/dL (6.4-8.2) 08/13/19 13:10 Albumin 3.8 g/dL (3.4-5.0) 08/13/19 13:10 Lipase 92 U/L (73-393) 08/13/19 13:10 Urine Color Yellow (Yellow) 08/13/19 12:30 Urine Clarity Clear (Clear) 08/13/19 12:30 Urine pH 6.0 (5-8) 08/13/19 12:30 Ur Specific [place] 1.025 (1.005-1.025) 08/13/19 12:30 Urine Protein Negative mg/dL (Negative) 08/13/19 12:30 Urine Ketones Trace mg/dL (Negative) H 08/13/19 12:30 Urine Blood Negative (Negative) 08/13/19 12:30 Urine Nitrite Negative (Negative) 08/13/19 12:30 Urine Bilirubin Negative (Negative) 08/13/19 12:30 Urine Urobilinogen 0.2 EU/dL (Up TO 0.2) 08/13/19 12:30 Ur Leukocyte Esterase Trace (Negative) H 08/13/19 12:30 Urine RBC 0-2 HPF (0-2) 08/13/19 12:30 Urine WBC 3-5 HPF (0-5) 08/13/19 12:30 Ur Epithelial Cells Few HPF (Negative) 08/13/19 12:30 Urine Crystals Negative HPF (Negative) 08/13/19 12:30 Urine Bacteria Few HPF (Negative) 08/13/19 12:30 Urine Casts 20-50 hyaline LPF (Negative) 08/13/19 12:30 Urine Mucus Moderate (Negative) 08/13/19 12:30 Urine Other Few renal (Negative) 08/13/19 12:30 Ur Culture Indicated? Yes 08/13/19 12:30 Urine Glucose Negative mg/dL (Negative) 08/13/19 12:30
[2019-08-14] MEDS: FLUoxetine 20 MG CAP 40 MG PO (09:33)
[2019-08-14] MEDS: ACETAMINOPHEN 1,000 MG/100 ML BTL 400 MG IVPB (09:33)
[2019-08-14] MEDS: Gabapentin 400 MG CAP PO (09:33)
[2019-08-14] MEDS: Levothyroxine 75 MCG TAB PO (09:33)
[2019-08-14] MEDS: Letrozole 2.5 MG TAB PO (09:33)
[2019-08-14] MEDS: Carvedilol 6.25 MG TAB PO (09:33)
[2019-08-14] MEDS: Lisinopril 5 MG TAB PO (09:33)
[2019-08-14] MEDS: buPROPion-CR 150 MG TABCR PO (09:33)
--- NOTE | 2019-08-14 13:11 | DSE_ITS ---
Date of service: 08/14/19 Time of Service: 13:11 DS: Diagnosis Discharge Diagnosis (1) Partial small bowel obstruction: Status: Acute Discharge Plan Disposition Patient Disposition: HOME Condition: Stable Discharge Details Chief Complaint: Abd Prob Clinical Impression: Partial small bowel obstruction Reason For Visit: PARTIAL SBO AND UTI Admit Date/Time: 08/13/19 15:17 Admit Provider: Ely Ryan Attending Provider: Ely Ryan Primary Care Provider: Emilie العلي ED Provider: Pavel Hernandez Hospital Course Hospital Course: Mrs. Peter was admitted yesterday afternoon with a Partial small bowel obstruction. She was given minimal po intake yesterday. By this morning (08/14/2019) she had no pain and had had a couple of BM's. She also has been passing flatus. She was given 2 trays of clear liquids whcih she tolerated without N/V or pain. Patient is anxious to go home. Discussed with patient staying on a clear liquid diet for the rest of today and then advancing to a low residual diet for 48 hours and then back to her regular diet. Home Meds and New Rx's Prescriptions: Continued polyethylene glycol 8000(bulk) 2,500 GM powder 17 gm PO daily prn RF: 0 aspirin [Aspirin Low-Strength] 81 MG tablet,chewable 81 mg PO DAILY RF: 0 acetaminophen [Tylenol Extra Strength] 500 MG tablet 1,000 mg PO Q6H PRN RF: 0 fluoxetine 20 MG capsule 2 cap PO DAILY Qty: 270 RF: 4 (DME) Andrea Cristina [facility] 1 EACH spacer 1 ea Miscellaneous ONCE Qty: 1 RF: 0 lisinopril 5 MG tablet 5 mg PO DAILY RF: 0 atorvastatin 80 mg tablet 80 mg PO QPM Qty: 90 RF: 3 ropinirole 3 mg tablet 3 mg PO HS Qty: 90 RF: 4 gabapentin 400 mg capsule 400 mg PO BID Qty: 180 RF: 3 prazosin 1 mg capsule 1 mg PO HS Qty: 90 RF: 1 levothyroxine 75 mcg tablet 75 mcg PO DAILY Qty: 90 RF: 3 lorazepam 0.5 mg tablet 0.5 mg PO BID PRNQty: 90 RF: 1 nitroglycerin 0.4 mg tablet, sublingual 0.4 mg Sublingual PRN Qty: 25 RF: 3 carvedilol 6.25 mg tablet 6.25 mg PO BID Qty: 60 RF: 12 bupropion HCl [Wellbutrin SR] 150 mg tablet sustained-release 12 hr 150 mg PO QAM Qty: 90 RF: 3 letrozole [Femara] 2.5 mg tablet 2.5 mg PO DAILY Qty: 90 RF: 3 albuterol sulfate [ProAir HFA] 90 mcg/actuation Hfa Aerosol Inhaler 1 inh .Q4-6H PRNRF: 0 Discharge Instructions Instructions: Low Fiber Diet (GEN), Clear Liquid Diet (GEN) Additional Instructions: Activity at Home after surgery: 1. Make sure you walk outside at least 4 times per day 2. You should be able to climb a flight of stairs Diet, Nutrition, & wound healin. Stay on a clear liquid diet for today 2. tomorrow you can start a low fiber diet. Eat soft and easily digested foods for 48 hours 3. On Friday you can go back to your regular diet 4. Drink plenty of liquids to stay hydrated and avoid constipation Medications: Please continue your medications as prescribed For Constipation: 1. Take Milk of Magnesia or MiraLax as needed for constipation Please return to the ER if you develop: 1. Fevers >101.5 2. Nausea or Vomiting 3. Worsening pain Referrals: Emilie العلي NP [Primary Care Provider] - (1-2 weeks) Activity:: Activity as Tolerated Equipment/Supplies:: No Equipment Needed Diet:: see instructions above Discharge Orders Discharge Orders: Discharge Order (Routine); Ordered 08/14/19 Ordered By: Ely Ryan DS: Summary Status at Discharge Functional status at discharge: independent ambulation Overall status at discharge: patient is back to baseline Mental Status: mental status grossly normal Speech and Movement: speech and movement normal Mood: congruent mood Affect: normal affect Exam GI Inspection: normal to inspection Palpation: soft, no hepatosplenomegaly and nontender Auscultation: normal bowel sounds Psych Mental Status: mental status grossly normal Speech and Movement: speech and movement normal Mood: congruent mood Affect: normal affect DS: Data Vitals/I&O Vitals and I&O: Vital Signs Temperature 97.0 F L 08/13/19 23:30 Temperature Source Tympanic 08/13/19 23:30 Pulse 56 L 08/13/19 23:30 Pulse Rhythm Regular 08/13/19 23:30 Pulse Strength Normal 08/13/19 13:50 Respiratory Rate 16 08/13/19 23:30 Respiratory Effort Non-Labored 08/13/19 23:30 Respiratory Depth Normal 08/13/19 23:30 Respiratory Pattern Normal 08/13/19 23:30 Blood Pressure 102/60 08/13/19 23:30 Blood Pressure Mean 73 08/13/19 15:45 Blood Pressure Position Supine 08/13/19 13:50 Pulse Oximetry 92 L 08/13/19 23:30 Oxygen Delivery Method Room Air 08/13/19 23:30 Oxygen Flow Rate 0 08/13/19 23:30 Pain Level 4 08/14/19 09:33 Intake & Output 08/13/19 08/14/19 08/14/19 23:59 11:59 23:59 Intake Total 1999 2022.5 / 2021.5 Output Total 300 / 300 Balance 1700 / 1700 2022.5 / 2021.5 Weight 140 lb 0.002 oz Intake: IV 1999 1822.5 / 1822.5 Oral 200 / 200 Output: Urine 300 / 300 Other: Urine Color Yellow Yellow Straw Urine Appearance Clear Clear Urine Odor None Normal Comment void x 1 directly in toilet, pt has removed measuring hat. Voiding Methods Toilet Toilet Data Completed and Pending Labs on day of discharge: Labs from last 24 hours 08/14/19 08/14/19 08/13/19 06:15 06:15 13:10 WBC 6.08 D RBC 3.61 L Hgb 11.0 L D Hct 35.1 L D MCV 97.2 H MCH 30.5 MCHC 31.3 L RDW 14.4 Plt Count 115 L MPV 10.9 Immature Gran % 0.3 Neutrophils % 72.7 Lymphocytes % 17.1 Monocytes % 8.1 Eosinophils % 1.5 Basophils % 0.3 Absolute Neutrophils 4.42 Absolute Lymphocytes 1.04 L Absolute Monocytes 0.49 Absolute Eosinophils 0.09 Absolute Basophils 0.02 Sodium 141 141 Potassium 3.7 D 5.1 Chloride 107 104 Carbon Dioxide 26.0 25.9 Anion Gap 8.0 11.1 H BUN 12 D 18 Creatinine 0.82 1.22 H Estimated GFR/1.73 m2 >= 60.00 43.96 Glucose 98 114 H Calcium 8.0 L 9.6 Magnesium 1.8 Total Bilirubin 0.7 AST 25 ALT 23 Alkaline Phosphatase 86 Troponin I < 0.05 Total Protein 6.9 Albumin 3.8 Lipase 92 Preliminary micro results at discharge 08/13/19 12:30 Urine Culture - Preliminary Urine - Reflex from Ua Gram Positive Supriya,Mixed PFSH Medical History Abdominal aortic aneurysm (Resolved) s/p surgical repair [facility] [place] 2007 Abnormal glandular Papanicolaou smear of vagina (Inactive ~1978) Anxiety and depression (Resolved 02/10/15) 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 Normal rest nuclear perfusion. Patient declined cath. [facility] [place] Echo 02/25/19 EstEF = 41%, mild to mod aortic valve regurg Compared to [facility] 02/17/18, LV systolic function is improved. Chronic depression (Inactive) Chronic obstructive pulmonary disease (Resolved 01/12/18) 12/11/17 PFTs Mod. sever obstructive airway disease with sig. bronchodilator response. This is associated with severe diffusion defect - FVC 2.06 & FEV1 1.23 (both decreas Disorder of vitamin B12 (Inactive 03/30/13) Diverticulitis of colon with perforation (Resolved 06/24/14) sigmoid resection and colostomy [facility] [place] Apr 2014 post op malnutrition and respiratory failure Essential (primary) hypertension (Resolved) Gastro-esophageal reflux disease without esophagitis (Resolved) Hyperlipidemia (Resolved) Hypothyroidism (Resolved) Methicillin resistant Staphylococcus aureus infection (Inactive 03/27/09) Migraine (Resolved) Mixed incontinence (Inactive 02/19/16) Obstructive sleep apnea (Resolved) Polyp of colon (Inactive 06/26/05) adenoma. Pyloric ulcer associated with Helicobacter pylori (Resolved 05/25/11) 04/07 H pylori on EGD (treated) Restless legs syndrome (Inactive) Smoker (Inactive) quit 2013 and then re-started 25 year HX - quit again 11/25/17 -back to daily smoking Surgical History H/O tracheostomy (Acute) Rotator Cuff Repair (~1978) LEFT S/P colostomy takedown (Acute) Status post Mena's procedure (Acute) Status post total bilateral knee replacement (Resolved) Family History Mother , age 68 Essential hypertension Heart disease Pancreatic cancer Bone cancer Father , age 50 Essential hypertension Heart disease Hyperlipidemia Stroke Alcohol abuse Depression Sister Essential hypertension Hyperlipidemia Diabetes Heart disease Brother Essential hypertension Depression Heart disease Hyperlipidemia Maternal Grandfather Stroke Son Depression Daughter Depression Alcohol abuse 3 UNCLES Aneurysm Family History Bipolar disorder Sister Depression Essential hypertension Heart disease Hyperlipidemia Brother Alcohol abuse Depression Diabetes Hyperlipidemia Hypertension Social History Smoking/Tobacco Use Status: Former Tobacco Use Quit Date: 08/01/16 Alcohol Intake: current Alcohol Intake frequency: holidays/special occasions only Alcohol type: hard liquor Drug use: Daily Substance use type: marijuana Caregiver/Support person: No Household members: none Housing: house Communication Needs: Corrective Lenses Do you need help understanding health information?: Rarely Pets and animals: Yes Pets and animals: dog(s) and bird(s) Sexually active: Yes Do you think of yourself as: straight/heterosexual Current gender identity: female What is your relationship status?: How often do you talk on the phone with friends or family?: once per week How often do you get together with friends or relatives?: twice per week How often do you attend buddhist or pentecostalism services?: decline to answer Do you belong to any clubs or organized social groups?: no Panel score (0-1 are the most socially isolated patients): 1 What type of physical activity do you participate in: walking Duration: 15-30 minutes/day Frequency: 3-4 times per week Nuvia/Episcopal: CRYSTAL Special nuvia needs: No Seatbelt use: always Helmet use: Yes Helmet use: always Drive intox or ride w/intox maintenance truck driver: No Do you feel safe at home: Yes Do you feel safe in your relationship?: Yes
== END 2019-08-14 14:25 | disposition home or self-care (01) ==
LOC: ER 14:58 → MS 16:10
PROVIDERS: Admitting Provider Surgery; Emergency Provider Emergency Medicine; Visit Provider Surgery
DX: K56.600 Partial intestinal obstruction, unspecified as to cause (principal); E03.9 Hypothyroidism, unspecified; F32.9 Major depressive disorder, single episode, unspecified; G25.81 Restless legs syndrome; J44.9 Chronic obstructive pulmonary disease, unspecified; K21.9 Gastro-esophageal reflux disease without esophagitis
CPT/HCPCS: 36415; 80048; 80053; 83690; 93005; 96361; 96374; 96375; 96376; 99217; 99220; 99223; 99225; 99238; 99285; 74177; 81003; 81015; 83735; 84484; 85025; 87086; 93010; G0378; J0131; J2405; J3490

== ENCOUNTER 2020-06-26 03:54 | Outpatient (CLI) | payer MEDICARE, SELFPAY ==
[2020-06-26 15:14] LABS: ALT 20 U/L (14-59); AST 19 U/L (15-37); Alkaline Phosphatase 86 U/L (46-116); Anion Gap 5.8 mmol/L (3-11); BUN 13 mg/dL (7-18); Bilirubin, Total 0.5 mg/dL (0.2-1.0); CO2 30.2 mmol/L (21.0-32.0); CREATININE 1.11 mg/dL (0.55-1.02); Calcium 8.9 mg/dL (8.5-10.1); Calculated LDL 92 mg/dL (<100); Chloride 105 mmol/L (98-107); Cholesterol 194 mg/dL (<200); Estimated GFR 48.88 (mL/min/1.73m2); Glucose 100 mg/dL (74-106); HDL Cholesterol 45 mg/dL (40-60); Potassium 4.5 mmol/L (3.5-5.1); Sodium 141 mmol/L (136-145); TSH (W/Ref FT4) 1.57 uIU/mL (0.36-3.74); Total Protein 7.3 g/dL (6.4-8.2); Triglyceride 286 mg/dL (<150)
== END 2020-06-26 04:14 ==
DX: E03.9 Hypothyroidism, unspecified (principal); I10 Essential (primary) hypertension; G47.00 Insomnia, unspecified; K56.600 Partial intestinal obstruction, unspecified as to cause
CPT/HCPCS: 36415; 80053; 80061; 84443

== ENCOUNTER 2020-09-01 01:26 | Outpatient (CLI) | payer MEDICARE, SELFPAY ==
[2020-09-01 10:23] LABS: Hemoglobin A1C 5.8 % (<5.7)
[2020-09-01 10:26] LABS: Abs Immature Grans 0.03 10^3/uL (0.0-0.06); Absolute Basophil Count 0.04 10^3/uL (0.0-0.2); Absolute Eosinophil Count 0.13 10^3/uL (0.0-0.7); Absolute Lymphocyte Count 1.07 10^3/uL (1.2-3.4); Absolute Monocyte Count 0.42 10^3/uL (0.1-0.8); Absolute Neutrophil Count 3.82 10^3/uL (1.2-6.7); Basophils % 0.7; Eosinophils % 2.4; HCT 40.2 % (36.0-46.0); HGB 12.8 g/dL (11.2-15.7); Immature Grans % 0.5; Lymphocytes % 19.4; MCH 31.1 pg (27.0-33.0); MCHC 31.8 % (32.0-36.0); MCV 97.6 fL (80-95); MPV 10.8 fL (8.0-11.0); Monocytes % 7.6; Neutrophils % 69.4; Nucleated RBC 0 %; Platelet Count 160 10^3/uL (130-400); RBC 4.12 10^6/uL (3.93-5.22); RDW 13.2 % (11.7-14.6); RDW-SD 47.3 fL; WBC 5.51 10^3/uL (4.4-10.8)
[2020-09-01 10:59] LABS: ALT 22 U/L (14-59); AST 23 U/L (15-37); Albumin 3.5 g/dL (3.4-5.0); Alkaline Phosphatase 88 U/L (46-116); Anion Gap 7.1 mmol/L (3-11); BUN 10 mg/dL (7-18); Bilirubin, Total 0.4 mg/dL (0.2-1.0); C-Reactive Protein 0.16 mg/dL (0.0-0.3); CO2 29.9 mmol/L (21.0-32.0); CREATININE 1.1 mg/dL (0.55-1.02); Calcium 8.8 mg/dL (8.5-10.1); Chloride 104 mmol/L (98-107); Estimated GFR 49.39 (mL/min/1.73m2); FREE T4 0.98 ng/dL (0.76-1.46); Glucose 101 mg/dL (74-106); Magnesium 1.9 mg/dL (1.8-2.4); Potassium 4.8 mmol/L (3.5-5.1); Sodium 141 mmol/L (136-145); TSH 1.19 uIU/mL (0.36-3.74); Total Protein 6.8 g/dL (6.4-8.2)
[2020-09-01 12:50] LABS: Vitamin D 25 Total 52.7 ng/ml (30-100)
[2020-09-01 12:52] LABS: Calculated LDL 85 mg/dL (<100); Cholesterol 185 mg/dL (<200); Folate 6.6 ng/mL (8.6-20.0); HDL Cholesterol 39 mg/dL (40-60); Triglyceride 307 mg/dL (<150); Vitamin B12 1073 pg/mL (193-986)
[2020-09-01 13:16] LABS: Iron 68 ug/dL (50-170)
[2020-09-01 17:22] LABS: T3,Free 3.5 pg/mL (2.8-5.3)
== END 2020-09-01 01:27 | disposition home or self-care (01) ==
LOC: LBO 01:27
PROVIDERS: Psychiatry & Neurology Psychiatry
DX: Z13.228 Encounter for screening for other metabolic disorders (principal); Z79.899 Other long term (current) drug therapy
CPT/HCPCS: 36415; 80053; 80061; 82306; 82607; 82746; 83036; 83540; 83735; 84439; 84443; 84481; 85025; 86140

== ENCOUNTER 2022-03-14 11:57 | Emergency (ER) | payer MEDICARE, SELFPAY ==
[2022-03-14 12:04] VITALS: BP 97/47; PULSE 88; RESP 16; TEMP 36.7; O2SAT 94
[2022-03-14 13:00] VITALS: RESP 16
[2022-03-14] MEDS: Normal Saline 1,000 ML 1000 ML IV (13:36)
[2022-03-14 13:43] LABS: HCT 34.7 % (36.0-46.0); HGB 11.6 g/dL (11.2-15.7); MCH 30.7 pg (27.0-33.0); MCHC 33.4 % (32.0-36.0); MCV 92 fL (80-95); MPV 10.2 fL (8.0-11.0); Platelet Count 138 10^3/uL (130-400); RBC 3.78 10^6/uL (3.93-5.22); RDW 13.1 % (11.7-14.6); RDW-SD 43.9 fL; WBC 3.39 10^3/uL (4.4-10.8)
[2022-03-14] MEDS: Ondansetron 4 MG/2 ML VIAL IVP (13:43)
[2022-03-14 13:56] LABS: ALT 19 U/L (14-59); AST 29 U/L (15-37); Albumin 3.1 g/dL (3.4-5.0); Alkaline Phosphatase 70 U/L (46-116); Anion Gap 9.4 mmol/L (3-11); BUN 23 mg/dL (7-18); Bilirubin, Total 1.3 mg/dL (0.2-1.0); CO2 28.6 mmol/L (21.0-32.0); CREATININE 1.4 mg/dL (0.55-1.02); Calcium 8.6 mg/dL (8.5-10.1); Chloride 92 mmol/L (98-107); Estimated GFR 37.28 (mL/min/1.73m2); Glucose 108 mg/dL (74-106); Lipase 26 U/L (73-393); Magnesium 1.7 mg/dL (1.8-2.4); Potassium 3.5 mmol/L (3.5-5.1); Sodium 130 mmol/L (136-145); Total Protein 7.1 g/dL (6.4-8.2)
[2022-03-14 14:02] LABS: Absolute Lymphocyte Count 0.47 10^3/uL (1.2-3.4); Absolute Monocyte Count 0.44 10^3/uL (0.1-0.8); Absolute Neutrophil Count 2.47 10^3/uL (1.2-6.7); Bands % 9; Diff Comment Manual Differential; RBC Morphology Normal
--- NOTE | 2022-03-14 15:21 | ED.GENADUL_ITS ---
Discharge Plan Disposition Patient Disposition: HOME Condition: Improving Discharge Details Clinical Impression: Adverse drug reaction Primary Care Provider: Emilie العلي ED Provider: Todd Salinas Home Meds and New Rx's Prescriptions: Continued nicotine 7 mg/24 hr patch 24 hour 1 patch transdermal Q24H Qty: 14 3RF (DME) Andrea Cristina [facility] Spacer 1 ea Miscellaneous ONCE Qty: 1 0RF Rx Instructions: to use with inhaler fluoxetine 20 mg capsule 40 mg PO DAILY Qty: 60 11RF polyethylene glycol 8000(bulk) 2,500 GM powder 17 gm PO daily prn Label Comments: pt states that she has not need in 6 months. aspirin [Aspirin Low-Strength] 81 MG tablet,chewable 81 mg PO DAILY acetaminophen [Tylenol Extra Strength] 500 MG tablet 1,000 mg PO Q6H PRN lorazepam 0.5 mg tablet 0.5 mg PO BID PRNQty: 90 Label Comments: 10/17/[address] Ori Ramos at [facility]. DhruvCHRIS ropinirole 3 mg tablet 3 mg PO HS Qty: 90 4RF gabapentin 400 mg capsule 400 mg PO QHS Qty: 90 3RF albuterol sulfate [ProAir HFA] 90 mcg/actuation HFA aerosol inhaler 1 inh inhalation .Q4-6H PRN (Reason: shortness of breath or wheezing) Qty: 18 3RF nitroglycerin 0.4 mg tablet, sublingual 0.4 mg Sublingual PRN Qty: 25 3RF Rx Instructions: PRN, FOR CHEST PAIN levothyroxine 75 mcg tablet 75 mcg PO DAILY Qty: 90 3RF Rx Instructions: bupropion HCl [Wellbutrin SR] 150 mg tablet sustained-release 12 hr 150 mg PO QAM Qty: 90 3RF Rx Instructions: one pill q am carvedilol 6.25 mg tablet 6.25 mg PO BID Qty: 60 12RF Rx Instructions: give with food (meal/snack) cyanocobalamin (vitamin B-12) 1,000 mcg capsule 1,000 mcg PO DAILY Qty: 90 3RF letrozole [Femara] 2.5 mg tablet 2.5 mg PO DAILY Qty: 90 3RF ezetimibe 10 mg tablet 10 mg PO DAILY cholecalciferol (vitamin D3) 50 mcg (2,000 unit) tablet 50 mcg PO DAILY Qty: 90 3RF atorvastatin 80 mg tablet 80 mg PO QPM Qty: 90 3RF lisinopril 2.5 mg tablet 2.5 mg PO DAILY Qty: 90 1RF Discontinued varenicline [Chantix Starting Month Box] 0.5 mg (11)- 1 mg (42) tablets,dose pack See Rx Instructions PO PER PKG DIR Qty: 53 0RF Rx Instructions: 0.5mg daily Day 1-3, 0.5mg 2x daily Days4-7, 1.0mg 2x daily up to 12 weeks Discharge Instructions Instructions: How to Stop Smoking (ED) Additional Instructions: As discussed please stop the Chantix as I feel that this is what is causing a lot of your side effects. If you have any new or significant worsening of symptoms specifically abdominal pain in the right upper quadrant return immediately to the emergency department for reassessment. Otherwise contact your primary care provider and arrange follow-up preferably in the next 1 to 2 weeks to further discuss medications or treatment options for smoking cessation. For magnesium and sodium were slightly low today so please ensure that you have appropriate nutrition and diet Referrals: Emilie العلي NP [Primary Care Provider] - 1 week Discharge Data Discharge Date/Time-TO BE ENTERED AT DEPARTURE: 03/14/22 15:43 Medical Decision Making Patient presenting to the emergency department for nausea vomiting and poor appetite. Patient states this is secondary to starting Chantix. She did have some hallucinations as well but those have improved. Physical exam shows diffuse wheezing which I feel secondary to her chronic COPD, slight tenderness in the epigastrium and right upper quadrant without Davis sign otherwise abdomen is soft without rigidity or other findings. Suspect adverse medication reaction but will check labs and give Zofran and normal saline pending results Reviewed results and patient has white count of 3.3, RBCs low at 3.78, hem atocrit 34.7 otherwise CBC is nondiagnostic, sodium is low at 130, chloride of 92, BUN of 23 creatinine 1.4 GFR 37.28. This is near patient's baseline and I feel will improve to baseline with fluids already ordered. Magnesium is 1.7. Total bilirubin is 1.3 but AST ALT and alk phos are within normal limits. Patient's lipase is 26. Reassessed patient and patient states significant improvement and looks a lot better. Reassessed patient's abdomen and now only mild epigastric and right upper quadrant tenderness. Did discuss possible imaging including ultrasound or CT imaging of patient's abdomen. After discussion of risk versus benefit and high suspicion of all of patient's symptoms being contributed to the Chantix we will plan on holding off on any further imaging and have patient monitor symptoms. Will send patient home with to go bottle of Zofran along with close monitoring return and follow-up precautions. After discussion of diagnosis and plan of care patient has no further needs, questions, or concerns and states clear understanding to return to the emergency department for any worsening symptoms. This documentation was generated using Social IQ (Social Influence Quotient)ation system, please disregard any oddities of phrase or misspellings. HPI General Mode of arrival: ambulatory . Date/Time Provider Initiated Documentation: 03/14/22 12:14 . Limitations to Documentation: no limitations . Information obtained by: patient and RN notes reviewed . History of Present Illness 71 year old F presents to the emergency department with the chief complaint of Medication reaction, nausea vomiting diarrhea, described as moderate, Quality is described as other (denies pain), Patient reports no radiation. Patient started experiencing this day(s) (4) and it has been constant. No relieving factors improve symptom(s), Medication worsens symptoms . Patient notes loss of appetite, malaise and nausea/vomiting. Patient did receive the following treatments prior to arrival, none Related Data Home Medications Medication Instructions Recorded Confirmed aspirin 81 mg chewable tablet 81 mg PO DAILY 02/10/15 03/14/22 (Aspirin Low-Strength) polyethylene glycol 8000(bulk) 17 gm PO daily prn 02/10/15 03/14/22 acetaminophen 500 mg tablet 1,000 mg PO Q6H PRN 07/11/15 03/14/22 (Tylenol Extra Strength) inhalational spacing device #1 ea 09/07/19 03/14/22 (Andrea Cristina [facility] spacer) nicotine 7 mg/24 hr daily 1 patch transdermal Q24H #14 ea 06/15/20 03/14/22 transdermal patch lorazepam 0.5 mg tablet 0.5 mg PO BID PRN #90 tab-caps 10/17/20 03/14/22 ropinirole 3 mg tablet 3 mg PO HS #90 tab-caps 10/17/20 03/14/22 fluoxetine 20 mg capsule 40 mg PO DAILY #60 caps 12/12/20 03/14/22 gabapentin 400 mg capsule 400 mg PO QHS Pt taking only at HS 12/29/20 03/14/22 #90 caps albuterol sulfate 90 mcg/actuation 1 inh inhalation .Q4-6H PRN 04/03/21 03/14/22 aerosol inhaler (ProAir HFA) shortness of breath or wheezing #18 grams nitroglycerin 0.4 mg sublingual 0.4 mg sublingual PRN #25 tabs 04/03/21 03/14/22 tablet levothyroxine 75 mcg tablet 75 mcg PO DAILY #90 tab-caps 05/29/21 03/14/22 bupropion HCl 150 mg tablet,12 hr 150 mg PO QAM #90 tab-caps 06/14/21 03/14/22 sustained-release (Wellbutrin SR) carvedilol 6.25 mg tablet 6.25 mg PO BID #60 tabs 06/14/21 03/14/22 cyanocobalamin (vitamin B-12) 1,000 mcg PO DAILY #90 caps 06/14/21 03/14/22 1,000 mcg capsule letrozole 2.5 mg tablet (Femara) 2.5 mg PO DAILY #90 tab-caps 07/24/21 03/14/22 ezetimibe 10 mg tablet 10 mg PO DAILY [place] [facility] [place] 03/14/22 cholecalciferol (vitamin D3) 50 50 mcg PO DAILY Vitamin D 11/01/21 03/14/22 mcg (2,000 unit) tablet deficiency #90 tabs atorvastatin 80 mg tablet 80 mg PO QPM #90 tabs 12/31/21 03/14/22 lisinopril 2.5 mg tablet 2.5 mg PO DAILY #90 tabs 01/22/22 03/14/22 Previous Rx's Medication Instructions Recorded inhalational spacing device #1 ea 09/07/19 [facility] spacer) nicotine 7 mg/24 hr daily 1 patch transdermal Q24H #14 ea 06/15/20 transdermal patch ropinirole 3 mg tablet 3 mg PO HS #90 tab-caps 10/17/20 fluoxetine 20 mg capsule 40 mg PO DAILY #60 caps 12/12/20 gabapentin 400 mg capsule 400 mg PO QHS Pt taking only at HS 12/29/20 #90 caps albuterol sulfate 90 mcg/actuation 1 inh inhalation .Q4-6H PRN 04/03/21 aerosol inhaler (ProAir HFA) shortness of breath or wheezing #18 grams nitroglycerin 0.4 mg sublingual 0.4 mg sublingual PRN #25 tabs 04/03/21 tablet levothyroxine 75 mcg tablet 75 mcg PO DAILY #90 tab-caps 05/29/21 bupropion HCl 150 mg tablet,12 hr 150 mg PO QAM #90 tab-caps 06/14/21 sustained-release (Wellbutrin SR) carvedilol 6.25 mg tablet 6.25 mg PO BID #60 tabs 06/14/21 cyanocobalamin (vitamin B-12) 1,000 mcg PO DAILY #90 caps 06/14/21 1,000 mcg capsule letrozole 2.5 mg tablet (Femara) 2.5 mg PO DAILY #90 tab-caps 07/24/21 cholecalciferol (vitamin D3) 50 50 mcg PO DAILY Vitamin D 11/01/21 mcg (2,000 unit) tablet deficiency #90 tabs atorvastatin 80 mg tablet 80 mg PO QPM #90 tabs 12/31/21 lisinopril 2.5 mg tablet 2.5 mg PO DAILY #90 tabs 01/22/22 Allergies Allergy/AdvReac Type Severity Reaction Status Date / Time codeine Allergy Severe ITCHING Verified 03/14/22 12:10 Penicillins Allergy Severe HIVES Verified 03/14/22 12:10 latex Allergy Intermediate SKIN RASH Verified 03/14/22 12:10 Sulfa (Sulfonamide Allergy Intermediate SKIN RASH Verified 03/14/22 12:10 Antibiotics) sertraline AdvReac Severe DIARRHEA Verified 03/14/22 12:10 diazepam AdvReac Intermediate NAUSEA Verified 03/14/22 12:10 varenicline [From Chantix] AdvReac Mild Agitation Unverified 03/14/22 12:10 rosuvastatin AdvReac Unknown ?GUM Verified 03/14/22 12:10 DISEASE General Stated Complaint: GenMedical KASANDRA: 3 Review of Systems Constitutional Constitutional: Denies chills, Denies fever(s), Denies headache(s) and Reports poor appetite ENT Ears, Nose, Mouth, and Throat: Denies dizziness and Denies headache(s) Cardiovascular Cardiovascular: Denies chest pain and Denies dyspnea Respiratory Respiratory: Denies cough and Denies dyspnea Gastrointestinal Gastrointestinal: Reports as per HPI, Denies abdominal pain, Denies melena, Denies hematochezia, Denies change in bowel habits, Denies constipation, Reports diarrhea, Reports nausea, Reports vomiting and Denies hematemesis Genitourinary Genitourinary: Denies hematuria, Denies urinary incontinence, Denies urinary hesitancy and Denies urinary urgency Integumentary/Breasts Skin/Breast: Denies rash Neurologic Neurologic: Denies confusion, Denies dizziness, Denies headache(s) and Denies convulsions Psychiatric Psychiatric: Denies anxiety, Denies confusion and Reports hallucinations PFSH All Active Problems (Updated 03/14/22 @ 15:26 by Todd Salinas NP) Adverse drug reaction (Acute) Hypotension due to medication (Acute) Trigger finger (acquired) (Acute) Right ring finger Chronic obstructive pulmonary disease (Chronic 01/12/18) Very 12/11/17 PFTs Mod. sever obstructive airway disease with sig. bronchodilator response. This is associated with severe diffusion defect - FVC 2.06 & FEV1 1.23 (both decrease Anxiety and depression (Chronic 02/10/15) Essential (primary) hypertension (Chronic) Medical History Abdominal aortic aneurysm s/p surgical [place] [facility] [place] Abnormal glandular Papanicolaou smear of vagina (~1978) Atherosclerotic heart disease of [place] coronary artery without angina pectoris Atrophic vaginitis (08/09/14) Breast cancer (01/20/14) left, 6 cm Invasive Lobular Carcinoma [place] [place]) chemo started and radiation tx planned (on hold due to perf divertic) Cardiomyopathy New onset 04/2018 [place] [facility] Normal rest nuclear perfusion. Patient declined cath. [facility] [place] 02/25/19 EstEF = 41%, mild to mod aortic valve regurg Compared to LOUIE 02/17/18, LV systolic function is improved. Chronic depression Disorder of vitamin B12 (03/30/13) Diverticulitis of colon with perforation (06/24/14) sigmoid resection and colostomy [facility] [place] post op malnutrition and respiratory failure Gastro-esophageal reflux disease without esophagitis Hyperlipidemia Hypothyroidism Methicillin resistant Staphylococcus aureus infection (03/27/09) Migraine Mixed incontinence (02/19/16) Obstructive sleep apnea Partial small bowel obstruction Polyp of colon (06/26/05) adenoma. Pyloric ulcer associated with Helicobacter pylori (05/25/11) 04/07 H pylori on EGD (treated) Restless legs syndrome Smoker quit 2013 and then re-started 25 year HX - quit again 11/25/17 -back to daily smoking Surgical History H/O tracheostomy Rotator Cuff Repair (~1978) LEFT S/P colostomy takedown Status post Mena's procedure Family History Mother , age 68 Essential hypertension Heart disease Pancreatic cancer Bone cancer Father , age 50 Essential hypertension Heart disease Hyperlipidemia Stroke Alcohol abuse Depression Sister Essential hypertension Hyperlipidemia Diabetes Heart disease Brother Essential hypertension Depression Heart disease Hyperlipidemia Maternal Grandfather Stroke Son Depression Daughter Depression Alcohol abuse 3 UNCLES Aneurysm Family History Bipolar disorder Sister Depression Essential hypertension Heart disease Hyperlipidemia Brother Alcohol abuse Depression Diabetes Hyperlipidemia Hypertension Social History Smoking/Tobacco Use Status: Current-Occasional Tobacco Type: cigarettes Quit status: has quit before Second Hand Exposure: Yes Smoking risk assessment performed?: Yes Alcohol Intake: never Drug use: Occasionally Substance use type: marijuana Household members: none Housing: house Do you need help understanding health information?: Never Pets and animals: Yes Pets and animals: cat(s), dog(s) and bird(s) Sexually active: Yes Do you think of yourself as: straight/heterosexual Current gender identity: female What is your relationship status?: How often do you talk on the phone with friends or family?: once per week How often do you get together with friends or relatives?: decline to answer How often do you attend sikh or methodist services?: decline to answer Do you belong to any clubs or organized social groups?: decline to answer Panel score (0-1 are the most socially isolated patients): 0 Duration: < 15 minutes/day Nuvia/Catholic: CRYSTAL Special nuvia needs: No Seatbelt use: always Helmet use: No Drive intox or ride w/intox commercial driver's license driver: No Do you feel safe at home: Yes Do you feel safe in your relationship?: Yes Victim of physical abuse: No Victim of emotional abuse: No Victim of sexual abuse: No Would you like helpful sources: No Exam Const General: cooperative Orientation: alert, awake and oriented x3 Resp Effort & Inspection: normal respiratory effort and able to speak in complete sentences Auscultation: wheezes expiratory wheezes Cardio Rate: regular rate Rhythm: regular rhythm Heart Sounds: S1 normal and S2 normal GI Palpation: tender in the epigastrum and in the RUQ; Davis's sign negative Auscultation: normal bowel sounds Back/Spine/Pelvis Back: no CVA tenderness Neuro General: patient alert, patient awake, patient oriented x3, gait normal and moves all extremities Course Vital Signs Vital signs: Vital Signs Temperature 36.7 C 03/14/22 12:04 Pulse 88 03/14/22 12:04 Respiratory Rate 16 03/14/22 12:04 Blood Pressure 97/47 L 03/14/22 12:04 Pulse Oximetry 94 03/14/22 12:04 Temperature 36.7 C 03/14/22 12:04 Temperature Source Temporal Artery Scan 03/14/22 12:04 Pulse 88 03/14/22 12:04 Respiratory Rate 16 03/14/22 13:00 Respiratory Effort Non-Labored 03/14/22 13:00 Respiratory Depth Normal 03/14/22 13:00 Respiratory Pattern Normal 03/14/22 13:00 Blood Pressure 97/47 L 03/14/22 12:04 Blood Pressure Position Sitting 03/14/22 12:04 Pulse Oximetry 94 03/14/22 12:04 Oxygen Delivery Method Room Air 03/14/22 12:04 Oxygen Flow Rate 0 03/14/22 12:04 Pain Level 0 03/14/22 12:04 Lab/Test Results Lab/Test Results: Laboratory Tests Range/Units 03/14/22 03/14/22 13:36 13:36 WBC (4.4-10.8) 10^3/uL 3.39 L RBC (3.93-5.22) 10^6/uL 3.78 L Hgb (11.2-15.7) g/dL 11.6 Hct (36.0-46.0) % 34.7 L MCV (80-95) fL 92 MCH (27.0-33.0) pg 30.7 MCHC (32.0-36.0) % 33.4 RDW (11.7-14.6) % 13.1 Plt Count (130-400) 10^3/uL 138 MPV (8.0-11.0) fL 10.2 Immature Gran % 0.0 Neutrophils % 64.0 Band Neutrophils % 9 Lymphocytes % 14.0 Monocytes % 13.0 Eosinophils % 0.0 Basophils % 0.0 Nucleated RBC % (0.0-0.3) % 0.0 Absolute Neutrophils (1.2-6.7) 10^3/uL 2.47 Absolute Lymphocytes (1.2-3.4) 10^3/uL 0.47 L Absolute Monocytes (0.1-0.8) 10^3/uL 0.44 Absolute Eosinophils (0.0-0.7) 10^3/uL 0.00 Absolute Basophils (0.0-0.2) 10^3/uL 0.00 RBC Morphology Normal Sodium (136-145) mmol/L 130 L Potassium (3.5-5.1) mmol/L 3.5 Chloride (98-107) mmol/L 92 L Carbon Dioxide (21.0-32.0) mmol/L 28.6 Anion Gap (3-11) mmol/L 9.4 BUN (7-18) mg/dL 23 H Creatinine (0.55-1.02) mg/dL 1.4 H Estimated GFR/1.73 m2 (mL/min/1.73m2) 37.28 Glucose (74-106) mg/dL 108 H Calcium (8.5-10.1) mg/dL 8.6 Magnesium (1.8-2.4) mg/dL 1.7 L Total Bilirubin (0.2-1.0) mg/dL 1.3 H AST (15-37) U/L 29 ALT (14-59) U/L 19 Alkaline Phosphatase (46-116) U/L 70 Total Protein (6.4-8.2) g/dL 7.1 Albumin (3.4-5.0) g/dL 3.1 L Lipase (73-393) U/L 26
[2022-03-14 15:38] LABS: Bilirubin Negative (Negative); Blood Negative (Negative); Clarity Clear (Clear); Glucose Negative (Negative); Ketones Negative (Negative); Leukocyte Esterase Negative (Negative); Nitrite Negative (Negative); Urobilinogen 0.2 EU/dL (Up TO 0.2); pH 5.5 (5-8)
[2022-03-14 15:42] VITALS: BP 110/58; PULSE 88; RESP 16; O2SAT 89
== END 2022-03-14 15:43 | disposition home or self-care (01) ==
PROVIDERS: Emergency Provider Nurse Practitioner Family
DX: R10.11 Right upper quadrant pain (principal); R11.2 Nausea with vomiting, unspecified; R63.0 Anorexia; T44.995A Adverse effect of other drug primarily affecting the autonomic nervous system, initial encounter; J44.9 Chronic obstructive pulmonary disease, unspecified; R10.13 Epigastric pain; E87.1 Hypo-osmolality and hyponatremia; E83.42 Hypomagnesemia; I10 Essential (primary) hypertension; F17.210 Nicotine dependence, cigarettes, uncomplicated
CPT/HCPCS: 80053; 83690; 96361; 96374; 99284; 81003; 83735; 85025; J2405

== ENCOUNTER 2022-03-17 14:25 | Inpatient (IN) | payer MEDICARE, SELFPAY ==
[2022-03-17] VITALS (25 sets, daily range): BP systolic 64–131; BP diastolic 32–101; PULSE 60–789; RESP 13–24; TEMP 36.4–36.8; O2SAT 81–99
--- NOTE | 2022-03-17 | DI.RAD_ITS ---
Exam(s) XR ABDOMEN FLAT UPRIGHT EXAM: 2D digital imaging was performed. CLINICAL HISTORY: sbo vs gallstones ileus. COMPARISON: No exams were available for comparison TECHNIQUE: Supine and upright views of the abdomen was performed. Three images were obtained. FINDINGS: LUNG BASES: Clear. BOWEL GAS PATTERN: Mildly distended small bowel loops with air-fluid levels. There is air seen withi n the colon. This may represent a partial bowel obstruction or ileus. FREE AIR: None. CALCIFICATIONS: Calcifications are seen in the right upper quadrant consistent with the patient's kno wn cholelithiasis. OSSEOUS STRUCTURES: Normal for age. OTHER FINDINGS: The tip of the enteric tube is seen in the stomach in good position. Atherosclerosis is present. IMPRESSION: 1. Mildly dilated loops of small bowel with air-fluid levels which may represent a partial small harrison l obstruction or ileus. Please correlate clinically. 2. Cholelithiasis. DATA REPOSITORY: RADIATION DOSE DELIVERED:
[2022-03-17 15:01] LABS: Abs Immature Grans 0.38 10^3/uL (0.0-0.06); HCT 37.5 % (36.0-46.0); HGB 12.1 g/dL (11.2-15.7); MCHC 32.3 % (32.0-36.0); MCV 93 fL (80-95); MPV 9.9 fL (8.0-11.0); Platelet Count 231 10^3/uL (130-400); RBC 4.04 10^6/uL (3.93-5.22); RDW 13.2 % (11.7-14.6); RDW-SD 45.4 fL; WBC 7.39 10^3/uL (4.4-10.8)
[2022-03-17] MEDS: Normal Saline 1,000 ML 1000 ML IV ×3 (15:20→20:20)
--- NOTE | 2022-03-17 15:24 | ED.GENADUL_ITS ---
Discharge Plan Disposition Patient Disposition: [facility] INPATIENT Condition: Serious Discharge Details Chief Complaint: Nausea/Vomit/Diar Clinical Impression: Small bowel obstruction, Gallstone ileus, Hypotension, Acute kidney injury, Acute dehydration, Vomiting and diarrhea Primary Care Provider: Emilie العلي ED Provider: Candie Osei Home Meds and New Rx's Prescriptions: No Action nicotine 7 mg/24 hr patch 24 hour 1 patch transdermal Q24H Qty: 14 3RF (DME) Andrea Cristina [facility] Spacer 1 ea Miscellaneous ONCE Qty: 1 0RF Rx Instructions: to use with inhaler fluoxetine 20 mg capsule 40 mg PO DAILY Qty: 60 11RF polyethylene glycol 8000(bulk) 2,500 GM powder 17 gm PO daily prn Label Comments: pt states that she has not need in 6 months. aspirin [Aspirin Low-Strength] 81 MG tablet,chewable 81 mg PO DAILY acetaminophen [Tylenol Extra Strength] 500 MG tablet 1,000 mg PO Q6H PRN lorazepam 0.5 mg tablet 0.5 mg PO BID PRNQty: 90 Label Comments: 10/17/[address] Ori Ramos at [facility]. CHRIS Akins ropinirole 3 mg tablet 3 mg PO HS Qty: 90 4RF gabapentin 400 mg capsule 400 mg PO QHS Qty: 90 3RF albuterol sulfate [ProAir HFA] 90 mcg/actuation HFA aerosol inhaler 1 inh inhalation .Q4-6H PRN (Reason: shortness of breath or wheezing) Qty: 18 3RF nitroglycerin 0.4 mg tablet, sublingual 0.4 mg Sublingual PRN Qty: 25 3RF Rx Instructions: PRN, FOR CHEST PAIN levothyroxine 75 mcg tablet 75 mcg PO DAILY Qty: 90 3RF Rx Instructions: bupropion HCl [Wellbutrin SR] 150 mg tablet sustained-release 12 hr 150 mg PO QAM Qty: 90 3RF Rx Instructions: one pill q am carvedilol 6.25 mg tablet 6.25 mg PO BID Qty: 60 12RF Rx Instructions: give with food (meal/snack) cyanocobalamin (vitamin B-12) 1,000 mcg capsule 1,000 mcg PO DAILY Qty: 90 3RF letrozole [Femara] 2.5 mg tablet 2.5 mg PO DAILY Qty: 90 3RF ezetimibe 10 mg tablet 10 mg PO DAILY cholecalciferol (vitamin D3) 50 mcg (2,000 unit) tablet 50 mcg PO DAILY Qty: 90 3RF atorvastatin 80 mg tablet 80 mg PO QPM Qty: 90 3RF lisinopril 2.5 mg tablet 2.5 mg PO DAILY Qty: 90 1RF prazosin 1 mg capsule 1 cap PO HS Label Comments: TAKE ONE CAPSULE BY MOUTH AT BEDTIME mirtazapine 15 mg tablet 1 tab PO HS PRN (Reason: Sleep) Label Comments: TAKE ONE TABLET BY MOUTH AT BEDTIME Medical Decision Making 71-year-old female with a history of COPD, former smoker, hypertension, hyperlipidemia, hypothyroidism, breast cancer with history of bowel obstruction and resection with colostomy with reversal presents for vomiting and diarrhea since starting Chantix last week. She states she is no longer taking Chantix but symptoms have persisted. Blood pressure hypertensive at 64/38 on arrival, now 74/48. Patient's abdomen is mildly distended and diffusely tender. There is no rigidity guarding or signs of peritonitis. Considering her age and medical history, will obtain screening labs and refer for CT abdominal imaging. A dose of Dilaudid IV ordered but due to her hypotension, will hold and give IV Tylenol. Labs and imaging reviewed. Normal white blood cell count. Bands 5. Potassium 2.8, will replete with p.o. and IV supplementation. Creatinine 2.6 which is increased compared to 1.4 in 03/14. Troponin negative. Urinalysis notes greater than 50 WBCs but with small leukocyte esterase, many epithelial cells. CT imaging discussed with virtual radiologist who notes a small bowel obstruction and possible gallstone ileus. No perforation or abscess. Case discussed with Dr. Garza who accepts patient for admission. She would like NG tube and Javier. Patient reassessed and she feels much better with IV Tylenol. Her blood pressure has been fluid responsive with systolic in the low 100s. Patient is agreeable with plan for admission. Medical Records Medical records reviewed: Yes I reviewed the patient's medical records. Imaging Data Radiologic Study: Radiologist's impression: CT Chest Without Contrast; Diagnostic Exam date and time: 03/17/2022 4:43 PM Age: 71 years old Clinical indication: Pain; Other: Hypoxic, vomiting, diarrhea; Other: R/O colitis, pneumonia, sbo TECHNIQUE: Imaging protocol: Diagnostic computed tomography of the chest without contrast. 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 Nonspecific medial left upper lobe pulmonary parenchymal opacity. No new consolidation or other pulmonary parenchymal opacity. Probable inflammatory lateral right upper lobe 3 mm pulmonary nodule. Mild bilateral upper and lower lobe bronchial wall thickening. Pleural spaces: Unremarkable. No pneumothorax. No pleural effusion. Heart: Severe coronary artery calcifications. No cardiomegaly or pericardial effusion. Lymph nodes: No supraclavicular or axillary lymphadenopathy. No mediastinal or hilar lymphadenopathy. Vasculature: Unremarkable. No aortic aneurysm.? Bones/joints: No acute osseous finding. No lytic or blastic osseous lesion. Soft tissues: Left upper breast lumpectomy scar. IMPRESSION: 1. Nonspecific mild medial left upper lobe parenchymal opacity. Correlate with an early atypical pneumonia versus pneumonitis. Mild bronchitis. 2. 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 No metastatic disease or lymphadenopathy. 3. Biapical pleuroparenchymal scarring. Probable inflammatory lateral right upper lobe [address] Abdomen And Pelvis Without Contrast Exam date and time: 03/17/2022 4:43 PM Age: 71 years old Clinical indication: Pain; Other: Hypoxic, vomiting, diarrhea; Other: R/O colitis, pneumonia, sbo TECHNIQUE: Imaging protocol: Computed tomography of the abdomen and pelvis without contrast. COMPARISON: CT ABDOMEN PELVIS W 08/13/2019 2:19 PM FINDINGS: Liver: See Gallbladder and bile ducts finding. Gallbladder and bile ducts: Markedly distended gallbladder with multiple tiny layering gallstones. Intrahepatic and extrahepatic biliary ductal dilatation. The distal common bile duct measures roughly 1.[address] evidence for filling defect. Pancreas: No peripancreatic fat stranding to suggest acute pancreatitis. Spleen: Normal. No splenomegaly. Adrenal glands: Normal. No mass. Kidneys and ureters: Normal. No hydronephrosis. Stomach and bowel: Numerous gallstones traversing the GI tract layering in the low lying pelvic cecum best seen on series 4, image 1115. Distended loops of mid to distal small bowel with multiple air-fluid levels and mesenteric edema consistent with partial small bowel obstruction. Stable distal colon anastomosis.? No pneumatosis coli. Appendix: Appendix is normal in caliber. No periappendiceal edema. No findings to suggest acute appendicitis.? Probable tiny layering gallstones within the appendiceal lumen. Intraperitoneal space: Minimal subcapsular fluid along the left liver lobe.? No significant ascites.? No free air. Vasculature: Unremarkable. No abdominal aortic aneurysm. Lymph nodes: Unremarkable. No enlarged lymph nodes. Urinary bladder: Unremarkable as visualized. Reproductive: Unremarkable as visualized. Bones/joints: No lytic or blastic osseous lesion. Soft tissues: Unremarkable. IMPRESSION: 1. Partial small bowel obstruction with an associated finding of a distended gallbladder and numerous tiny layering gallstones that are found in the gallbladder as well as in the cecum. In addition, there is intrahepatic and extrahepatic biliary ductal dilatation with possible choledocholithiasis versus stricturing from passage of multiple gallstones to the distal GI tract. Findings are suggestive of a gallstone ileus versus recurrent small-bowel obstruction from adhesions. 2. Noninflamed appendix with possible gallstones within. 3. Stable distal colon anastomosis. Lab Data Lab results reviewed: Yes I reviewed the patient's lab results. Labs: Laboratory Tests Range/Units 03/17/22 03/17/22 03/17/22 14:45 14:45 15:47 WBC (4.4-10.8) 10^3/uL 7.39 RBC (3.93-5.22) 10^6/uL 4.04 Hgb (11.2-15.7) g/dL 12.1 Hct (36.0-46.0) % 37.5 MCV (80-95) fL 93 MCH (27.0-33.0) pg 30.0 MCHC (32.0-36.0) % 32.3 RDW (11.7-14.6) % 13.2 Plt Count (130-400) 10^3/uL 231 MPV (8.0-11.0) fL 9.9 Immature Gran % 0.0 Neutrophils % 76.0 Band Neutrophils % 5 Lymphocytes % 12.0 Monocytes % 7.0 Eosinophils % 0.0 Basophils % 0.0 Nucleated RBC % (0.0-0.3) % 0.0 Absolute Neutrophils (1.2-6.7) 10^3/uL 5.99 Absolute Lymphocytes (1.2-3.4) 10^3/uL 0.89 L Absolute Monocytes (0.1-0.8) 10^3/uL 0.52 Absolute Eosinophils (0.0-0.7) 10^3/uL 0.00 Absolute Basophils (0.0-0.2) 10^3/uL 0.00 RBC Morphology Normal Sodium (136-145) mmol/L 135 L Potassium (3.5-5.1) mmol/L 2.8 L* Chloride (98-107) mmol/L 89 L Carbon Dioxide (21.0-32.0) mmol/L 36.6 H Anion Gap (3-11) mmol/L 9.4 BUN (7-18) mg/dL 29 H Creatinine (0.55-1.02) mg/dL 2.6 H Estimated GFR/1.73 m2 (mL/min/1.73m2) 18.25 Glucose (74-106) mg/dL 114 H Calcium (8.5-10.1) mg/dL 9.0 Magnesium (1.8-2.4) mg/dL 1.9 Total Bilirubin (0.2-1.0) mg/dL 0.7 AST (15-37) U/L 23 ALT (14-59) U/L 16 Alkaline Phosphatase (46-116) U/L 74 Troponin I (<or=60) ng/L < 50 Total Protein (6.4-8.2) g/dL 7.3 Albumin (3.4-5.0) g/dL 2.7 L Urine Color (Yellow) Urine Clarity (Clear) Urine pH (5-8) Ur Specific [place] (1.005-1.025) Urine Protein (Negative) mg/dL Urine Ketones (Negative) mg/dL Urine Blood (Negative) Urine Nitrite (Negative) Urine Bilirubin (Negative) Urine Urobilinogen (Up TO 0.2) EU/dL Ur Leukocyte Esterase (Negative) Urine RBC (0-2) HPF Urine WBC (0-5) HPF Ur Epithelial Cells (Negative) HPF Urine Crystals (Negative) HPF Urine Bacteria (Negative) HPF Urine Casts (Negative) LPF Urine Mucus (Negative) Ur Culture Indicated? Urine Glucose (Negative) mg/dL COVID-19 Source Nasopharynx SARS-CoV-2 (PCR) (Negative) Negative Influenza Type A (PCR) (Negative) Negative Influenza Type B (PCR) (Negative) Negative RSV (PCR) (Negative) Negative Range/Units 03/17/22 16:15 WBC (4.4-10.8) 10^3/uL RBC (3.93-5.22) 10^6/uL Hgb (11.2-15.7) g/dL Hct (36.0-46.0) % MCV (80-95) fL MCH (27.0-33.0) pg MCHC (32.0-36.0) % RDW (11.7-14.6) % Plt Count (130-400) 10^3/uL MPV (8.0-11.0) fL Immature Gran % Neutrophils % Band Neutrophils % Lymphocytes % Monocytes % Eosinophils % Basophils % Nucleated RBC % (0.0-0.3) % Absolute Neutrophils (1.2-6.7) 10^3/uL Absolute Lymphocytes (1.2-3.4) 10^3/uL Absolute Monocytes (0.1-0.8) 10^3/uL Absolute Eosinophils (0.0-0.7) 10^3/uL Absolute Basophils (0.0-0.2) 10^3/uL RBC Morphology Sodium (136-145) mmol/L Potassium (3.5-5.1) mmol/L Chloride (98-107) mmol/L Carbon Dioxide (21.0-32.0) mmol/L Anion Gap (3-11) mmol/L BUN (7-18) mg/dL Creatinine (0.55-1.02) mg/dL Estimated GFR/1.73 m2 (mL/min/1.73m2) Glucose (74-106) mg/dL Calcium (8.5-10.1) mg/dL Magnesium (1.8-2.4) mg/dL Total Bilirubin (0.2-1.0) mg/dL AST (15-37) U/L ALT (14-59) U/L Alkaline Phosphatase (46-116) U/L Troponin I (<or=60) ng/L Total Protein (6.4-8.2) g/dL Albumin (3.4-5.0) g/dL Urine Color (Yellow) Yellow Urine Clarity (Clear) Cloudy Urine pH (5-8) 5.0 Ur Specific [place] (1.005-1.025) >= 1.030 H Urine Protein (Negative) mg/dL 30 H Urine Ketones (Negative) mg/dL Trace H Urine Blood (Negative) Trace-intact H Urine Nitrite (Negative) Negative Urine Bilirubin (Negative) Moderate H Urine Urobilinogen (Up TO 0.2) EU/dL 0.2 Ur Leukocyte Esterase (Negative) Small H Urine RBC (0-2) HPF 5-10 H Urine WBC (0-5) HPF >50 H Ur Epithelial Cells (Negative) HPF Many Urine Crystals (Negative) HPF Many Amorphous Urine Bacteria (Negative) HPF Many Urine Casts (Negative) LPF Negative Urine Mucus (Negative) Moderate Ur Culture Indicated? No/Sq. Contamination Urine Glucose (Negative) mg/dL Negative COVID-19 Source SARS-CoV-2 (PCR) (Negative) Influenza Type A (PCR) (Negative) Influenza Type B (PCR) (Negative) RSV (PCR) (Negative) HPI General Mode of arrival: ambulatory . Date/Time Provider Initiated Documentation: 03/17/22 14:43 . Limitations to Documentation: no limitations . Information obtained by: patient . HPI Narrative: Patient is a 71-year-old female with a history of COPD, breast cancer, cardiomyopathy, GERD, hypothyroidism, bowel obstruction with history of colon resection and colostomy with presents with nausea, vomiting, diarrhea and abdominal pain since starting Chantix last week. She states she has had multiple episodes of bilious vomiting and green watery diarrhea. She denies any hematemesis or hematochezia. She states she is also had diffuse abdominal pain. She denies any fever or urinary symptoms. Related Data Home Medications Medication Instructions Recorded Confirmed aspirin 81 mg chewable tablet 81 mg PO DAILY 02/10/15 03/17/22 (Aspirin Low-Strength) polyethylene glycol 8000(bulk) 17 gm PO daily prn 02/10/15 03/14/22 acetaminophen 500 mg tablet 1,000 mg PO Q6H PRN 07/11/15 03/17/22 (Tylenol Extra Strength) inhalational spacing device #1 ea 09/07/19 03/14/22 (Andrea Cristina [facility] spacer) nicotine 7 mg/24 hr daily 1 patch transdermal Q24H #14 ea 06/15/20 03/14/22 transdermal patch lorazepam 0.5 mg tablet 0.5 mg PO BID PRN #90 tab-caps 10/17/20 03/17/22 ropinirole 3 mg tablet 3 mg PO HS #90 tab-caps 10/17/20 03/17/22 fluoxetine 20 mg capsule 40 mg PO DAILY #60 caps 12/12/20 03/17/22 gabapentin 400 mg capsule 400 mg PO QHS Pt taking only at HS 12/29/20 03/17/22 #90 caps albuterol sulfate 90 mcg/actuation 1 inh inhalation .Q4-6H PRN 04/03/21 03/17/22 aerosol inhaler (ProAir HFA) shortness of breath or wheezing #18 grams nitroglycerin 0.4 mg sublingual 0.4 mg sublingual PRN #25 tabs 04/03/21 03/14/22 tablet levothyroxine 75 mcg tablet 75 mcg PO DAILY #90 tab-caps 05/29/21 03/17/22 bupropion HCl 150 mg tablet,12 hr 150 mg PO QAM #90 tab-caps 06/14/21 03/17/22 sustained-release (Wellbutrin SR) carvedilol 6.25 mg tablet 6.25 mg PO BID #60 tabs 06/14/21 03/17/22 cyanocobalamin (vitamin B-12) 1,000 mcg PO DAILY #90 caps 06/14/21 03/17/22 1,000 mcg capsule letrozole 2.5 mg tablet (Femara) 2.5 mg PO DAILY #90 tab-caps 07/24/21 03/17/22 ezetimibe 10 mg tablet 10 mg PO DAILY Initiated by [facility] [place] 10/22/21 03/17/22 cholecalciferol (vitamin D3) 50 50 mcg PO DAILY Vitamin D 11/01/21 03/17/22 mcg (2,000 unit) tablet deficiency #90 tabs atorvastatin 80 mg tablet 80 mg PO QPM #90 tabs 12/31/21 03/17/22 lisinopril 2.5 mg tablet 2.5 mg PO DAILY #90 tabs 01/22/22 03/17/22 mirtazapine 15 mg tablet 1 tab PO HS PRN Sleep 03/17/22 03/17/22 prazosin 1 mg capsule 1 cap PO HS 03/17/22 03/17/22 Previous Rx's Medication Instructions Recorded inhalational spacing device #1 ea 09/07/19 (Andrea Cristina [facility] spacer) nicotine 7 mg/24 hr daily 1 patch transdermal Q24H #14 ea 06/15/20 transdermal patch ropinirole 3 mg tablet 3 mg PO HS #90 tab-caps 10/17/20 fluoxetine 20 mg capsule 40 mg PO DAILY #60 caps 12/12/20 gabapentin 400 mg capsule 400 mg PO QHS Pt taking only at HS 12/29/20 #90 caps albuterol sulfate 90 mcg/actuation 1 inh inhalation .Q4-6H PRN 04/03/21 aerosol inhaler (ProAir HFA) shortness of breath or wheezing #18 grams nitroglycerin 0.4 mg sublingual 0.4 mg sublingual PRN #25 tabs 04/03/21 tablet levothyroxine 75 mcg tablet 75 mcg PO DAILY #90 tab-caps 05/29/21 bupropion HCl 150 mg tablet,12 hr 150 mg PO QAM #90 tab-caps 06/14/21 sustained-release (Wellbutrin SR) carvedilol 6.25 mg tablet 6.25 mg PO BID #60 tabs 06/14/21 cyanocobalamin (vitamin B-12) 1,000 mcg PO DAILY #90 caps 06/14/21 1,000 mcg capsule letrozole 2.5 mg tablet (Femara) 2.5 mg PO DAILY #90 tab-caps 07/24/21 cholecalciferol (vitamin D3) 50 50 mcg PO DAILY Vitamin D 11/01/21 mcg (2,000 unit) tablet deficiency #90 tabs atorvastatin 80 mg tablet 80 mg PO QPM #90 tabs 12/31/21 lisinopril 2.5 mg tablet 2.5 mg PO DAILY #90 tabs 01/22/22 Allergies Allergy/AdvReac Type Severity Reaction Status Date / Time codeine Allergy Severe ITCHING Verified 03/17/22 15:20 Penicillins Allergy Severe HIVES Verified 03/17/22 15:20 latex Allergy Intermediate SKIN RASH Verified 03/17/22 15:20 Sulfa (Sulfonamide Allergy Intermediate SKIN RASH Verified 03/17/22 15:20 Antibiotics) sertraline AdvReac Severe DIARRHEA Verified 03/17/22 15:20 diazepam AdvReac Intermediate NAUSEA Verified 03/17/22 15:20 varenicline [From Chantix] AdvReac Mild Agitation Verified 03/17/22 15:20 rosuvastatin AdvReac Unknown ?GUM Verified 03/17/22 15:20 DISEASE General Stated Complaint: Nausea/Vomit/Diar KASANDRA: 2 Review of Systems All systems reviewed & are unremarkable except as noted in HPI and below Constitutional Constitutional: Denies chills, Denies excessive sweating, Denies fatigue, Denies fever(s), Denies weakness and Denies weight loss Eyes Eyes: Reports system reviewed and no additional complaints, except as documented and Denies blurry vision ENT Ears, Nose, Mouth, and Throat: Denies vertigo, Denies dizziness, Denies otalgia, Denies nasal congestion, Denies sore throat and Denies throat swelling Cardiovascular Cardiovascular: Denies chest pain, Denies syncope, Denies rapid heart rate and Denies dyspnea Respiratory Respiratory: Denies chest congestion, Denies cough, Denies pain on inspiration and Denies dyspnea Gastrointestinal Gastrointestinal: Reports abdominal pain, Reports diarrhea, Reports nausea and Reports vomiting Genitourinary Genitourinary: Denies hematuria, Denies dysuria and Denies flank pain Musculoskeletal Musculoskeletal: Denies back pain and Denies joint swelling Integumentary/Breasts Skin/Breast: Denies lesions and Denies rash Neurologic Neurologic: Denies behavioral changes, Denies confusion, Denies vertigo, Denies dizziness, Denies syncope, Denies localized weakness and Denies weakness Psychiatric Psychiatric: Denies behavioral changes, Denies confusion and Denies depression Endocrine Endocrine: Denies excessive sweating and Denies fatigue Hematologic/Lymphatic Hematologic/Lymphatic: Denies easy bruising and Denies lymphadenopathy Allergic/Immunologic Allergic/Immunologic: Denies throat swelling PFSH All Active Problems (Updated 03/17/22 @ 19:03 by Candie Osei DO) Adverse drug reaction (Acute) Small bowel obstruction (Acute) Gallstone ileus (Acute) Hypotension (Acute) Acute kidney injury (Acute) Acute dehydration (Acute) Vomiting and diarrhea (Acute) Hypotension due to medication (Acute) Trigger finger (acquired) (Acute) Right ring finger Chronic obstructive pulmonary disease (Chronic 01/12/18) Very 12/11/17 PFTs Mod. sever obstructive airway disease with sig. bronchodilator response. This is associated with severe diffusion defect - FVC 2.06 & FEV1 1.23 (both decrease Anxiety and depression (Chronic 02/10/15) Essential (primary) hypertension (Chronic) Medical History Abdominal aortic aneurysm s/p surgical repair [facility] [place] 2007 Abnormal glandular Papanicolaou smear of vagina (~1978) Atherosclerotic heart disease of [place] coronary artery without angina pectoris Atrophic vaginitis (08/09/14) Breast cancer (01/20/14) left, 6 cm Invasive Lobular Carcinoma ([facility] [place] 01/19/14) chemo started and radiation tx planned (on hold due to perf divertic) Cardiomyopathy New onset 04/2018 per [facility] [place]. Normal rest nuclear perfusion. Patient declined cath. [facility] [place] Echo 02/25/19 EstEF = 41%, mild to mod aortic valve regurg Compared to LOUIE 02/17/18, LV systolic function is improved. Chronic depression Disorder of vitamin B12 (03/30/13) Diverticulitis of colon with perforation (06/24/14) sigmoid resection and colostomy [facility] [place] Apr 2014 post op malnutrition and respiratory failure Gastro-esophageal reflux disease without esophagitis Hyperlipidemia Hypothyroidism Methicillin resistant Staphylococcus aureus infection (03/27/09) Migraine Mixed incontinence (02/19/16) Obstructive sleep apnea Partial small bowel obstruction Polyp of colon (06/26/05) adenoma. Pyloric ulcer associated with Helicobacter pylori (05/25/11) 04/07 H pylori on EGD (treated) Restless legs syndrome Smoker quit 2013 and then re-started 25 year HX - quit again 11/25/17 -back to daily smoking Surgical History H/O tracheostomy Rotator Cuff Repair (~1978) LEFT S/P colostomy takedown Status post Mena's procedure Family History Mother , age 68 Essential hypertension Heart disease Pancreatic cancer Bone cancer Father , age 50 Essential hypertension Heart disease Hyperlipidemia Stroke Alcohol abuse Depression Sister Essential hypertension Hyperlipidemia Diabetes Heart disease Brother Essential hypertension Depression Heart disease Hyperlipidemia Maternal Grandfather Stroke Son Depression Daughter Depression Alcohol abuse 3 UNCLES Aneurysm Family History Bipolar disorder Sister Depression Essential hypertension Heart disease Hyperlipidemia Brother Alcohol abuse Depression Diabetes Hyperlipidemia Hypertension Social History Smoking/Tobacco Use Status: Current-Occasional Tobacco Type: cigarettes Quit status: has quit before Second Hand Exposure: Yes Smoking risk assessment performed?: Yes Alcohol Intake: never Drug use: Occasionally Substance use type: marijuana Household members: none Housing: house Do you need help understanding health information?: Never Pets and animals: Yes Pets and animals: cat(s), dog(s) and bird(s) Sexually active: Yes Do you think of yourself as: straight/heterosexual Current gender identity: female What is your relationship status?: How often do you talk on the phone with friends or family?: once per week How often do you get together with friends or relatives?: decline to answer How often do you attend cheondoism or confucianism services?: decline to answer Do you belong to any clubs or organized social groups?: decline to answer Panel score (0-1 are the most socially isolated patients): 0 Duration: < 15 minutes/day Nuvia/Muslim: CRYSTAL Special nuvia needs: No Seatbelt use: always Helmet use: No Drive intox or ride w/intox utility worker driver: No Do you feel safe at home: Yes Do you feel safe in your relationship?: Yes Victim of physical abuse: No Victim of emotional abuse: No Victim of sexual abuse: No Would you like helpful sources: No Exam Const General: cooperative Orientation: alert, awake and oriented x3 HENMT Head: normal to inspection Ears: hearing grossly normal bilaterally, external ears normal and TM's normal bilaterally General nose exam: external nose normal Face and sinus: normal facial exam Mouth: oral mucosae normal Teeth and gingiva: dentition normal Throat: posterior oropharynx normal Eyes General: appearance normal, both eyes and all related structures Eyelids: eyelids normal Pupils: PERRL EOM: EOM intact bilaterally Neck Neck: normal visual inspection Lymphatic: no lymphadenopathy noted Chest Chest: normal inspection of the chest Resp Effort & Inspection: normal respiratory effort and able to speak in complete sentences Auscultation: clear to auscultation bilaterally Cardio Rate: regular rate Rhythm: regular rhythm GI Inspection: normal to inspection and distended (mild ) Palpation: soft, not firm, no guarding, no hepatosplenomegaly, no masses and tender (diffuse) Auscultation: hypoactive bowel sounds Back/Spine/Pelvis Back: no CVA tenderness Skin General skin exam: no rashes or lesions noted Neuro General: patient alert and patient awake Cognition: normal cognition Speech: speech normal Gait: normal gait Motor: muscle tone normal throughout Sensory Exam: no sensory deficits noted Extrem General: normal to inspection, full ROM and capillary refill normal Psych Appearance: grossly normal Mental Status: mental status grossly normal Speech and Movement: speech and movement normal Affect: normal affect Thought Process: normal Course Vital Signs Vital signs: Vital Signs Temperature 97.5 F L 03/17/22 14:33 Pulse 80 03/17/22 14:33 Respiratory Rate 18 03/17/22 14:33 Blood Pressure 64/38 L 03/17/22 14:33 Pulse Oximetry 99 03/17/22 14:33 Temperature 98.2 F 03/17/22 15:03 Temperature Source Tympanic 03/17/22 15:03 Pulse 789 H 03/17/22 15:03 Respiratory Rate 17 03/17/22 15:03 Respiratory Effort 03/17/22 15:11 Blood Pressure 74/48 L 03/17/22 15:03 Blood Pressure Position Sitting 03/17/22 14:33 Pulse Oximetry 81 L 03/17/22 15:03 Oxygen Delivery Method Room Air 03/17/22 15:03 Oxygen Flow Rate 0 03/17/22 15:03
[2022-03-17] MEDS: ACETAMINOPHEN 1,000 MG/100 ML BTL 400 MG IVPB (15:38)
[2022-03-17] MEDS: Ondansetron 4 MG/2 ML VIAL IVP (15:39)
[2022-03-17 15:44] LABS: ALT 16 U/L (14-59); AST 23 U/L (15-37); Absolute Lymphocyte Count 0.89 10^3/uL (1.2-3.4); Absolute Monocyte Count 0.52 10^3/uL (0.1-0.8); Absolute Neutrophil Count 5.99 10^3/uL (1.2-6.7); Albumin 2.7 g/dL (3.4-5.0); Alkaline Phosphatase 74 U/L (46-116); Anion Gap 9.4 mmol/L (3-11); BUN 29 mg/dL (7-18); Bands % 5; Bilirubin, Total 0.7 mg/dL (0.2-1.0); CO2 36.6 mmol/L (21.0-32.0); CREATININE 2.6 mg/dL (0.55-1.02); Chloride 89 mmol/L (98-107); Estimated GFR 18.25 (mL/min/1.73m2); Glucose 114 mg/dL (74-106); Magnesium 1.9 mg/dL (1.8-2.4); Sodium 135 mmol/L (136-145); Total Protein 7.3 g/dL (6.4-8.2); Troponin I < 50 ng/L (<or=60)
[2022-03-17 15:45] LABS: Diff Comment Manual Differential; RBC Morphology Normal
[2022-03-17 15:47] LABS: Potassium 2.8 mmol/L (3.5-5.1)
[2022-03-17 16:30] LABS: Bilirubin Moderate (Negative); Blood Trace-intact (Negative); Clarity Cloudy (Clear); Glucose Negative (Negative); Ketones Trace mg/dL (Negative); Leukocyte Esterase Small (Negative); Nitrite Negative (Negative); Specific Gravity >= 1.030 (1.005-1.025); Urobilinogen 0.2 EU/dL (Up TO 0.2)
--- NOTE | 2022-03-17 16:30 | DI.CT_ITS ---
Exam(s) CT CHEST/ABD/PEL WO EXAM: CT CHEST/ABD/PEL WO CLINICAL HISTORY: hypoxic, vomiting, diarrhea TECHNIQUE: Imaging Protocol: Axial computed tomography images with coronal and sagittal reformatted images were created and reviewed COMPARISON: MG SCREENING MINNA MAMMO W/CAD DIGI from 02/03/[address] ABDOMEN PELVIS W from 08/13/2019 FINDINGS: CHEST: Tracheobronchial tree: Patent where visualized. Pulmonary parenchyma: No consolidation or dominant measurable mass. Pleuroparenchymal scarring is see n in the upper lobes. There is a 3 mm noncalcified pulmonary nodule in the right upper lobe laterall y. Nonspecific ground-glass opacity in the medial aspect of the left upper lobe. Mediastinum and Monisha: No dominant adenopathy or fluid collection. The esophagus is unremarkable. Thyroid gland: Unremarkable. Pleura: No effusion or pneumothorax. Heart: The heart is not dilated. Coronary artery calcifications are present. No pericardial effusion . Aorta: There is ectasia of the ascending thoracic aorta. Atherosclerosis is present. Lymph nodes: Within normal limits. Bones:Within normal limits for the patient's age. Soft tissues: Unremarkable. Left breast lumpectomy. ABDOMEN: Liver: Normal density. No measurable mass. Gallbladder and Biliary Tract: There are multiple stones seen within the gallbladder which is distend ed. There is extrahepatic biliary ductal dilatation up to 1.6 cm. No choledocholithiasis is identif ied. There are multiple tiny calcific densities layering in the dependent portion of the cecum. The se may represent gallstones. Pancreas: Normal density, no abnormal calcifications or inflammatory process. Spleen: Normal. Adrenals: No masses seen. Kidneys: Normal size, contour and axis. No radiodense stones or obstructive uropathy. No masses seen. Abdominal Aorta: There is ectasia of the abdominal aorta. There is atherosclerosis of the abdominal aorta. Bowel: There is mild bowel wall thickening of the terminal ileum and cecum with mild inflammatory bennett nges in the surrounding soft tissues. There are mildly dilated loops of small bowel with air-fluid l evels suggesting ileus or partial obstruction. No evidence of appendicitis is present. There is a r ounded density seen within the lumen of the gallbladder. This may represent appendicoliths or gallst one. Postsurgical changes are seen at the rectosigmoid junction. Peritoneal Cavity: No ascites, collection or mesenteric inflammatory response. No free air. Lymph Nodes: Within normal limits. Bones: Within normal limits for the patient's age. Soft Tissues: Unremarkable. PELVIS: Bladder: The bladder is incompletely distended limiting evaluation. Reproductive Organs: Unremarkable as visualized. Lymph Nodes: Within normal limits. Bones: Within normal limits for the patient's age. IMPRESSION: 1. Nonspecific ground-glass opacity in the medial aspect of the left upper lobe. This is non-specifi c and pneumonia cannot be excluded. Please correlate clinically. 2. 3 mm right upper lobe pulmonary nodule. This is nonspecific. Follow-up CT scan of the chest in 1 2 months should be considered. 3. Dilated loops of small bowel with air-fluid levels which may represent an ileus versus of partial small bowel obstruction. 4. Cholelithiasis with common hepatic biliary ductal dilatation. No choledocholithiasis. 5. Tiny calcific density seen in the cecum which may represent multiple stones. The possibility of a gallstone ileus cannot be excluded in this patient. RADIATION DOSE DELIVERED: 1,094.53mGy.cm Total DLP 1,094.53mGy.cm Total DLP DATA REPOSITORY: All CT scans at this facility are submitted to the National Radiology Data Registry (NRDR) Dose Index Registry (DIR) with the [employer] (ACR). RADIATION OPTIMIZATION: All CT scans at this facility use at least one of these dose optimization te chniques: automated exposure control; mA and/or kV adjustment per patient size (includes targeted exa ms where dose is matched to clinical indication); or iterative reconstruction.
[2022-03-17 16:45] LABS: Bacteria Many HPF (Negative); C & S Indicated? No/Sq. Contamination; Casts Negative LPF (Negative); Crystals Many Amorphous HPF (Negative); Epithelial Cells Many HPF (Negative); Mucus Moderate (Negative); WBC >50 HPF (0-5)
[2022-03-17] MEDS: POTASSIUM CHLORIDE 20 MEQ/100 ML BAG 50 MEQ IVPB (16:53)
[2022-03-17] MEDS: Potassium Chloride 20 MEQ TABCR 40 MEQ PO (16:54)
[2022-03-17 17:08] LABS: COVID-19 PCR Negative (Negative); Influenza A PCR Negative (Negative); Influenza B PCR Negative (Negative); RSV PCR Negative (Negative)
[2022-03-17 17:09] LABS: Source Nasopharynx
--- NOTE | 2022-03-17 17:26 | DI.VRAD_ITS ---
PROCEDURE INFORMATION: Exam: CT Chest Without Contrast; Diagnostic Exam date and time: 03/17/2022 4:43 PM Age: 71 years old Clinical indication: Pain; Other: Hypoxic, vomiting, diarrhea; Other: R/O colitis, pneumonia, sbo TECHNIQUE: Imaging protocol: Diagnostic computed tomography of the chest without contrast. 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 Nonspecific medial left upper lobe pulmonary parenchymal opacity. No new consolidation or other pulmonary parenchymal opacity. Probable inflammatory lateral right upper lobe 3 mm pulmonary nodule. Mild bilateral upper and lower lobe bronchial wall thickening. Pleural spaces: Unremarkable. No pneumothorax. No pleural effusion. Heart: Severe coronary artery calcifications. No cardiomegaly or pericardial effusion. Lymph nodes: No supraclavicular or axillary lymphadenopathy. No mediastinal or hilar lymphadenopathy. Vasculature: Unremarkable. No aortic aneurysm. Bones/joints: No acute osseous finding. No lytic or blastic osseous lesion. Soft tissues: Left upper breast lumpectomy scar. IMPRESSION: 1. Nonspecific mild medial left upper lobe parenchymal opacity. Correlate with an early atypical pneumonia versus pneumonitis. Mild bronchitis. 2. 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 No metastatic disease or lymphadenopathy. 3. Biapical pleuroparenchymal scarring. Probable inflammatory lateral right upper lobe 3 mm pulmonary nodule. PROCEDURE INFORMATION: Exam: CT Abdomen And Pelvis Without Contrast Exam date and time: 03/17/2022 4:43 PM Age: 71 years old Clinical indication: Pain; Other: Hypoxic, vomiting, diarrhea; Other: R/O colitis, pneumonia, sbo TECHNIQUE: Imaging protocol: Computed tomography of the abdomen and pelvis without contrast. COMPARISON: CT ABDOMEN PELVIS W 08/13/2019 2:19 PM FINDINGS: Liver: See Gallbladder and bile ducts finding. Gallbladder and bile ducts: Markedly distended gallbladder with multiple tiny layering gallstones. Intrahepatic and extrahepatic biliary ductal dilatation. The distal common bile duct measures roughly 1.[address] evidence for filling defect. Pancreas: No peripancreatic fat stranding to suggest acute pancreatitis. Spleen: Normal. No splenomegaly. Adrenal glands: Normal. No mass. Kidneys and ureters: Normal. No hydronephrosis. Stomach and bowel: Numerous gallstones traversing the GI tract layering in the low lying pelvic cecum best seen on series 4, image 1115. Distended loops of mid to distal small bowel with multiple air-fluid levels and mesenteric edema consistent with partial small bowel obstruction. Stable distal colon anastomosis. No pneumatosis coli. Appendix: Appendix is normal in caliber. No periappendiceal edema. No findings to suggest acute appendicitis. Probable tiny layering gallstones within the appendiceal lumen. Intraperitoneal space: Minimal subcapsular fluid along the left liver lobe. No significant ascites. No free air. Vasculature: Unremarkable. No abdominal aortic aneurysm. Lymph nodes: Unremarkable. No enlarged lymph nodes. Urinary bladder: Unremarkable as visualized. Reproductive: Unremarkable as visualized. Bones/joints: No lytic or blastic osseous lesion. Soft tissues: Unremarkable. IMPRESSION: 1. Partial small bowel obstruction with an associated finding of a distended gallbladder and numerous tiny layering gallstones that are found in the gallbladder as well as in the cecum. In addition, there is intrahepatic and extrahepatic biliary ductal dilatation with possible choledocholithiasis versus stricturing from passage of multiple gallstones to the distal GI tract. Findings are suggestive of a gallstone ileus versus recurrent small-bowel obstruction from adhesions. 2. Noninflamed appendix with possible gallstones within. 3. Stable distal colon anastomosis. The study was personally discussed on the telephone with Candie Crystal on 03/17/2022 5:21 PM EDT. The results were understood and acknowledged. Dictated and Authenticated by: Hay Menendez MD. Ordering:NELLY Schreiber MD
[2022-03-17 19:27] LABS: Lipase 77 U/L (73-393)
--- NOTE | 2022-03-17 19:29 | NUR.NOTE ---
Nursing Note: Patient is refusing interventions. Spoke with over the phone. He seemed onboard with POC. She is requesting transfer to [facility]. Provider notified.
--- NOTE | 2022-03-17 19:45 | DI.RAD_ITS ---
Exam(s) XR PORTABLE CHEST AP EXAM: XR PORTABLE CHEST AP CLINICAL HISTORY: ng placement TECHNIQUE: 2D digital imaging was performed of the chest. Two images were obtained. AP views were obtained. COMPARISON: No exams were available for comparison FINDINGS: MEDIASTINUM: Normal. HEART: Normal. PULMONARY VASCULATURE: Normal. There is atherosclerosis and tortuosity of the thoracic aorta. LUNGS: Clear. PLEURAL SPACE: No pleural effusion or pneumothorax. BONE:Within normal limits for the patient's age. OTHER FINDINGS:The enteric tube tip is seen in the stomach. IMPRESSION: No acute pulmonary findings. DATA REPOSITORY: RADIATION DOSE DELIVERED:
[2022-03-17] MEDS: PIPERACILLIN/TAZO 3.375 GM in Normal Saline 50 ML IVPB (20:19)
[2022-03-17] MEDS: Pantoprazole 40 MG VIAL IVP (20:19)
[2022-03-17] MEDS: Piperacillin/Tazobactam 3.375 GM VIAL (20:19)
[2022-03-17] MEDS: Enoxaparin 40 MG/0.4 ML SYR SC (20:20)
--- NOTE | 2022-03-17 20:25 | DI.VRAD_ITS ---
PROCEDURE INFORMATION: Exam: XR Chest Exam date and time: 03/17/2022 7:41 PM Age: 71 years old Clinical indication: Device placement; Ng tube TECHNIQUE: Imaging protocol: Radiologic exam of the chest. Views: 1 view. COMPARISON: CT CHEST/ABD/PEL WO 03/17/2022 4:43 PM FINDINGS: Tubes, catheters and devices: NG tube lies below the diaphragm within the fundus and proximal body of the stomach. Lungs: Unremarkable. No consolidation. Pleural spaces: Unremarkable. No pleural effusion. No pneumothorax. Heart/Mediastinum: Unremarkable. No cardiomegaly. Bones/joints: Unremarkable. Other findings: Radiopaque density over the left lower lobe of the lung. It is unclear whether this lies inside or outside the patient. The density appears to be calcified and may represent a tooth fragment. Clinical correlation as to possibility of aspirated foreign body. The aorta demonstrates moderate atherosclerotic calcification. Heart is mildly enlarged. There is no evidence of pneumothorax. There are no pleural effusions present. The soft tissues of the extrathoracic region are unremarkable. The skeletal structures and soft tissues show no evidence of fracture or other acute processes. IMPRESSION: 1. NG tube lies below the diaphragm within the fundus and proximal body of the stomach. 2. Radiopaque density over the left lower lobe of the lung. It is unclear whether this lies inside or outside the patient. The density appears to be calcified and may represent a tooth fragment. 3. Clinical correlation as to possibility of aspirated foreign body. Dictated and Authenticated by: Bam Wade MD. Ordering:NELLY Schreiber MD
--- NOTE | 2022-03-17 20:55 | W.MEDCONSULT ---
Date of service: 03/17/22 Time of Service: 20:55 Assessment and Plan Assessment and plan (1) Small bowel obstruction: Status: Acute Assessment and plan: SBO vs gallstone ileus. Regarding the various medical issues: 1. Hypovolemia/MOHAN: continue IVF, trend renal function 2. Hypokalemia: replenish and trend 3. HTN: hold BP meds until stable -- Lisinopril, prazosin and beta gianluca. if unable to take PO by AM may need to substitute IV beta gianluca to avoid rebound 4. Hypothyroid: on IV replacement already 5. Psych: When able to0 take PO may resume usual regimen. For now may manage with prn IV Ativan 6. COPD: wheezing, but asymptomatic and oxygenating well. prn Duonebs History of Present Illness History of Present Illness Chief Complaint: vomiting Narrative: 71 female here on surgical service with SBO vs gallstone ileus, developing after starting Chantix., presenting with abd pain and vomiting. I was asked to assist with management of medical issues, which include: MOHAN(Cr 2.6, baseline 1.4); hypokalemia(2.8, has since had 40 PO and 20 IV); COPD (denies SOB at present) and psychiatric issues (usually takes Prozac, Welbutrin, Prazosin, Gabapentin and Ativan;; at present states she hopes to have Ativan for sleep); hypothyroid and HTN States she feels better than when she presented to ER. Has received IVF, KCl, Dilaudid and MS; Zofran and has been started on Zosyn. Review of Systems Narrative: per HPI PFSH All Active Problems (Updated 03/17/22 @ 19:03 by Candie Osei DO) Adverse drug reaction (Acute) Small bowel obstruction (Acute) Gallstone ileus (Acute) Hypotension (Acute) Acute kidney injury (Acute) Acute dehydration (Acute) Vomiting and diarrhea (Acute) Hypotension due to medication (Acute) Trigger finger (acquired) (Acute) Right ring finger Chronic obstructive pulmonary disease (Chronic 01/12/18) Very 12/11/17 PFTs Mod. sever obstructive airway disease with sig. bronchodilator response. This is associated with severe diffusion defect - FVC 2.06 & FEV1 1.23 (both decrease Anxiety and depression (Chronic 02/10/15) Essential (primary) hypertension (Chronic) Medical History Abdominal aortic aneurysm s/p surgical repair [facility] [place] Abnormal glandular Papanicolaou smear of vagina (~1978) Atherosclerotic heart disease of [place] coronary artery without angina pectoris Atrophic vaginitis (08/09/14) Breast cancer (01/20/14) left, 6 cm Invasive Lobular Carcinoma [place] [place]) chemo started and radiation tx planned (on hold due to perf divertic) Cardiomyopathy New onset 04/2018 per [facility] [place]. Normal rest nuclear perfusion. Patient declined cath. [facility] [place] 02/25/19 EstEF = 41%, mild to mod aortic valve regurg Compared to [facility]IE 02/17/18, LV systolic function is improved. Chronic depression Disorder of vitamin B12 (03/30/13) Diverticulitis of colon with perforation (06/24/14) sigmoid resection and colostomy [facility] [place] post op malnutrition and respiratory failure Gastro-esophageal reflux disease without esophagitis Hyperlipidemia Hypothyroidism Methicillin resistant Staphylococcus aureus infection (03/27/09) Migraine Mixed incontinence (02/19/16) Obstructive sleep apnea Partial small bowel obstruction Polyp of colon (06/26/05) adenoma. Pyloric ulcer associated with Helicobacter pylori (05/25/11) 04/07 H pylori on EGD (treated) Restless legs syndrome Smoker quit 2013 and then re-started 25 year HX - quit again 11/25/17 -back to daily smoking Surgical History H/O tracheostomy Rotator Cuff Repair (~1978) LEFT S/P colostomy takedown Status post Mena's procedure Family History Mother , age 68 Essential hypertension Heart disease Pancreatic cancer Bone cancer Father , age 50 Essential hypertension Heart disease Hyperlipidemia Stroke Alcohol abuse Depression Sister Essential hypertension Hyperlipidemia Diabetes Heart disease Brother Essential hypertension Depression Heart disease Hyperlipidemia Maternal Grandfather Stroke Son Depression Daughter Depression Alcohol abuse 3 UNCLES Aneurysm Family History Bipolar disorder Sister Depression Essential hypertension Heart disease Hyperlipidemia Brother Alcohol abuse Depression Diabetes Hyperlipidemia Hypertension Social History Smoking/Tobacco Use Status: Current-Occasional Tobacco Type: cigarettes Quit status: has quit before Second Hand Exposure: Yes Smoking risk assessment performed?: Yes Alcohol Intake: never Drug use: Occasionally Substance use type: marijuana Household members: none Housing: house Do you need help understanding health information?: Never Pets and animals: Yes Pets and animals: cat(s), dog(s) and bird(s) Sexually active: Yes Do you think of yourself as: straight/heterosexual Current gender identity: female What is your relationship status?: How often do you talk on the phone with friends or family?: once per week How often do you get together with friends or relatives?: decline to answer How often do you attend adventism or mormonism services?: decline to answer Do you belong to any clubs or organized social groups?: decline to answer Panel score (0-1 are the most socially isolated patients): 0 Duration: < 15 minutes/day Nuvia/Latter-Day: CRYSTAL Special nuvia needs: No Seatbelt use: always Helmet use: No 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 HEENT NGT in place; neck supple; lungs scattered wheeze; heart RRR; abdomen soft and NT; extremities w/o edema; neuro Ox3, lucid, moves all 4s Results Last Vital Signs Temp 36.8 C 03/17/22 15:03 Pulse 65 03/17/22 17:21 Resp 18 03/17/22 17:21 BP 102/54 L 03/17/22 17:21 Pulse Ox 97 03/17/22 17:21 Labs Result diagrams: 03/17/22 14:45 03/17/22 14:45 Labs: Laboratory Results - last 24 hr 03/17/22 03/17/22 03/17/22 14:45 14:45 14:45 WBC 7.39 RBC 4.04 Hgb 12.1 Hct 37.5 MCV 93 MCH 30.0 MCHC 32.3 RDW 13.2 Plt Count 231 MPV 9.9 Immature Gran % 0.0 Neutrophils % 76.0 Band Neutrophils % 5 Lymphocytes % 12.0 Monocytes % 7.0 Eosinophils % 0.0 Basophils % 0.0 Nucleated RBC % 0.0 Absolute Neutrophils 5.99 Absolute Lymphocytes 0.89 L Absolute Monocytes 0.52 Absolute Eosinophils 0.00 Absolute Basophils 0.00 RBC Morphology Normal Sodium 135 L Potassium 2.8 L* Chloride 89 L Carbon Dioxide 36.6 H Anion Gap 9.4 BUN 29 H Creatinine 2.6 H Estimated GFR/1.73 m2 18.25 Glucose 114 H Calcium 9.0 Magnesium 1.9 Total Bilirubin 0.7 AST 23 ALT 16 Alkaline Phosphatase 74 Troponin I < 50 Total Protein 7.3 Albumin 2.7 L Lipase 77 Urine Color Urine Clarity Urine pH Ur Specific [place] Urine Protein Urine Ketones Urine Blood Urine Nitrite Urine Bilirubin Urine Urobilinogen Ur Leukocyte Esterase Urine RBC Urine WBC Ur Epithelial Cells Urine Crystals Urine Bacteria Urine Casts Urine Mucus Ur Culture Indicated? Urine Glucose COVID-19 Source SARS-CoV-2 (PCR) Influenza Type A (PCR) Influenza Type B (PCR) RSV (PCR) 03/17/22 03/17/22 15:47 16:15 WBC RBC Hgb Hct MCV MCH MCHC RDW Plt Count MPV Immature Gran % Neutrophils % Band Neutrophils % Lymphocytes % Monocytes % Eosinophils % Basophils % Nucleated RBC % Absolute Neutrophils Absolute Lymphocytes Absolute Monocytes Absolute Eosinophils Absolute Basophils RBC Morphology Sodium Potassium Chloride Carbon Dioxide Anion Gap BUN Creatinine Estimated GFR/1.73 m2 Glucose Calcium Magnesium Total Bilirubin AST ALT Alkaline Phosphatase Troponin I Total Protein Albumin Lipase Urine Color Yellow Urine Clarity Cloudy Urine pH 5.0 Ur Specific [place] >= 1.030 H Urine Protein 30 H Urine Ketones Trace H Urine Blood Trace-intact H Urine Nitrite Negative Urine Bilirubin Moderate H Urine Urobilinogen 0.2 Ur Leukocyte Esterase Small H Urine RBC 5-10 H Urine WBC >50 H Ur Epithelial Cells Many Urine Crystals Many Amorphous Urine Bacteria Many Urine Casts Negative Urine Mucus Moderate Ur Culture Indicated? No/Sq. Contamination Urine Glucose Negative COVID-19 Source Nasopharynx SARS-CoV-2 (PCR) Negative Influenza Type A (PCR) Negative Influenza Type B (PCR) Negative RSV (PCR) Negative
[2022-03-17 21:12] LABS: Anion Gap 7.7 mmol/L (3-11); BUN 29 mg/dL (7-18); CO2 30.3 mmol/L (21.0-32.0); CREATININE 2.5 mg/dL (0.55-1.02); Chloride 95 mmol/L (98-107); Glucose 102 mg/dL (74-106); Magnesium 1.8 mg/dL (1.8-2.4); Sodium 133 mmol/L (136-145)
[2022-03-17] MEDS: HYDROmorphone 2 MG/ML SYR 0.5 MG IVP (21:12)
[2022-03-17] MEDS: Normal Saline 1,000 ML 125 ML IV (21:13)
[2022-03-17] MEDS: LORazepam 20 MG/10 ML VIAL IVP (21:13)
[2022-03-17] MEDS: POTASSIUM CHLORIDE/0.9% NACL 1,000 ML 125 MEQ IV (21:26)
--- NOTE | 2022-03-17 22:32 | DI.VRAD_ITS ---
PROCEDURE INFORMATION: Exam: XR Abdomen Exam date and time: 03/17/2022 10:05 PM Age: 71 years old Clinical indication: Other: SOB, vs. Gallstone ileus TECHNIQUE: Imaging protocol: Radiologic exam of the abdomen. Views: 2 Views. Upright and supine views. COMPARISON: CT CHEST/ABD/PEL WO 03/17/2022 4:43 PM FINDINGS: Tubes, catheters and devices: The NG tube lies within the stomach. Heart/Mediastinum: The heart appears enlarged. Gastrointestinal tract: Air-fluid levels within mildly dilated loops of small bowel may represent early small-bowel obstruction versus gallstone ileus. Intraperitoneal space: No free air. Organs: Patient's numerous gallstones are faintly visualized within the right upper quadrant. Vasculature: Vascular calcifications present within the abdomen and pelvis consistent with atherosclerotic peripheral vascular disease. Aortic calcification ectasia and tortuosity present. Bones/joints: Unremarkable for age. IMPRESSION: 1. Air-fluid levels within mildly dilated loops of small bowel may represent early small-bowel obstruction versus gallstone ileus. 2. Patient's numerous gallstones are faintly visualized within the right upper quadrant. Dictated and Authenticated by: Bam Wade MD. Ordering:BRIAN Eaton MD
[2022-03-18] VITALS (53 sets, daily range): BP systolic 78–120; BP diastolic 31–96; PULSE 60–80; RESP 2–28; TEMP 36.1–36.7; O2SAT 86–98
[2022-03-18] MEDS: Normal Saline 250 ML 500 ML IV (02:05)
--- NOTE | 2022-03-18 02:48 | HPE_ITS ---
Date of service: 03/17/22 Time of Service: 21:00 Assessment and Plan Assessment and plan (1) Gallstone ileus: Status: Acute Assessment and plan: -echo in am -US -will require CT w/ IV and po contrast when MOHAN is resolved -zosyn -continue fluid resusitation. Pt continued to have transient hypotension throughout the night requiring repeat fluid bolus. -[facility] will be consulted for medical care. I did discuss the case with Dr. Santos. -Patient did receive potassium in the ER. We will repeat labs. NG tube and Javier catheter need to be placed. Patient is rather recalcitrant to this. -supportive care -will need to d/w anethesia is pt is a candidate for OR at [facility]. uncontrolled COPD (considered Pulm consult/patient continues to smoke and is not on any inhalers)/check echo/hx of trach/malnutrition -Cardiology notes from [facility] were reviewed as well -I did personally review her CTs from today and from 2019 and 2018. 90 minutes spent in consultation and in patient resuscitation and critical care time. (2) Hypotension: Status: Resolved (3) Acute kidney injury: Status: Acute (4) Acute dehydration: Status: Acute (5) Vomiting and diarrhea: Status: Acute (6) Chronic obstructive pulmonary disease: Status: Chronic Qualifiers: COPD type: emphysema Emphysema type: unspecified Qualified Code(s): J43.9 - Emphysema, unspecified (7) Anxiety and depression: Status: Chronic (8) Essential (primary) hypertension: Status: Chronic (9) Abdominal aortic aneurysm: (10) Atherosclerotic heart disease of [place] coronary artery without angina pectoris: Qualifiers: [place] vs. transplanted heart: [place] heart Qualified Code(s): I25.10 - Atherosclerotic heart disease of [place] coronary artery without angina pectoris (11) Breast cancer: Qualifiers: Breast location: upper outer quadrant of breast Estrogen receptor status: unspecified Laterality: left Patient sex: female Qualified Code(s): C50.412 - Malignant neoplasm of upper-outer quadrant of left female breast (12) Cardiomyopathy: Qualifiers: Cardiomyopathy type: unspecified Qualified Code(s): I42.9 - Cardiomyopathy, unspecified (13) Gastro-esophageal reflux disease without esophagitis: (14) Hyperlipidemia: Qualifiers: Hyperlipidemia type: mixed hyperlipidemia Qualified Code(s): E78.2 - Mixed hyperlipidemia (15) Hypothyroidism: Qualifiers: Hypothyroidism type: acquired Qualified Code(s): E03.9 - Hypothyroidism, unspecified (16) Methicillin resistant Staphylococcus aureus infection: (17) Mixed incontinence: (18) Obstructive sleep apnea: (19) Smoker: (20) Restless legs syndrome: (21) Pyloric ulcer associated with Helicobacter pylori: (22) Hypotension due to medication: Status: Acute (23) Small bowel obstruction: Status: Acute (24) Cholelithiasis: Status: Acute History of Present Illness Narrative: Pt is a difficult historian. Much of her history is taken from her son and her [facility] chart. Pt has been sick since last Friday. She blames it on starting Chantix. She has been having abdominal pain/vomiting/diarrhea. She is tender in the RUQ. Pt cannot identify where the pain is coming from/radiation/character,etc. She has been having extreme diarrhea and vomiting. When she arrived to the emergency room she had a blood pressure in the 60s. She has had aggressive fluid resuscitation. She does have MOHAN from her hypokalemia. I did review her CT scans. The working diagnosis currently is small bowel obstruction versus g allstone ileus. Patient will not allow me to touch her or do much physical exam. She would not allow her abdomen to be examined, Other than auscultation. She does have good bowel sounds. She does not have peritonitis. She has had 2 admissions at [facility] for small bowel obstructions in the past. In 2018 and 2019. On reviewing her CT in 2019 she did have gallstones at that time I did review her [facility] chart. She had a perforated diverticulum in 2013. She was transferred to [facility] for surgery. She had a sigmoid resection/Gordon's procedure. She was in the ICU at [facility] for 6 to 7 weeks. She had multiple reintubation's and was ultimately trached. In the interim she was diagnosed with breast cancer and underwent treatment for this including radiation. She has developed pulmonary fibrosis on the right from radiation. She was a stage IIIa. She is currently maintained on Femara. She had her colostomy reversal/takedown in 2014 and did well with that surgery. She has a history of open aortic aneurysm repair. She is a vasculopath. She has an extension history of cardiovascular disease. Review of Systems Unobtainable due to mental condition [facility] All Active Problems (Updated 03/18/22 @ 12:48 by Yesica Rodríguez MD) Ambulatory dysfunction (Acute) Discharge planning issues (Acute) DVT prophylaxis (Acute) Respiratory failure with hypoxia (Acute) Hypoalbuminemia (Acute) Anemia (Chronic) CHF (congestive heart failure) (Chronic) Pneumonia (Acute) Cholelithiasis (Acute) Adverse drug reaction (Acute) Small bowel obstruction (Acute) Gallstone ileus (Acute) Acute kidney injury (Acute) Acute dehydration (Acute) Vomiting and diarrhea (Acute) Hypotension due to medication (Acute) Trigger finger (acquired) (Acute) Right ring finger Chronic obstructive pulmonary disease (Chronic 01/12/18) Very 12/11/17 PFTs Mod. sever obstructive airway disease with sig. bro nchodilator response. This is associated with severe diffusion defect - FVC 2.06 & FEV1 1.23 (both decrease Anxiety and depression (Chronic 02/10/15) Essential (primary) hypertension (Chronic) Medical History Abdominal aortic aneurysm s/p surgical repair [facility] 2007 Abnormal glandular Papanicolaou smear of vagina (~1978) Atherosclerotic heart disease of [place] coronary artery without angina pectoris Atrophic vaginitis (08/09/14) Breast cancer (01/20/14) left, 6 cm Invasive Lobular Carcinoma ([facility] 01/19/14) chemo started and radiation tx planned (on hold due to perf divertic) Cardiomyopathy New onset 04/2018 per [facility]. Normal rest nuclear perfusion. Patient declined cath. [facility] Echo 02/25/19 EstEF = 41%, mild to mod aortic valve regurg Compared to LOUIE 02/17/18, LV systolic function is improved. Chronic depression Disorder of vitamin B12 (03/30/13) Diverticulitis of colon with perforation (06/24/14) sigmoid resection and colostomy [facility] Apr 2014 post op malnutrition and respiratory failure Gastro-esophageal reflux disease without esophagitis Hyperlipidemia Hypothyroidism Methicillin resistant Staphylococcus aureus infection (03/27/09) Migraine Mixed incontinence (02/19/16) Obstructive sleep apnea Partial small bowel obstruction Polyp of colon (06/26/05) adenoma. Pyloric ulcer associated with Helicobacter pylori (05/25/11) 04/07 H pylori on EGD (treated) Restless legs syndrome Smoker quit 2013 and then re-started 25 year HX - quit again 11/25/17 -back to daily smoking Surgical History H/O tracheostomy Rotator Cuff Repair (~1978) LEFT S/P colostomy takedown Status post Mena's procedure Family History Mother , age 68 Essential hypertension Heart disease Pancreatic cancer Bone cancer Father , age 50 Essential hypertension Heart disease Hyperlipidemia Stroke Alcohol abuse Depression Sister Essential hypertension Hyperlipidemia Diabetes Heart disease Brother Essential hypertension Depression Heart disease Hyperlipidemia Maternal Grandfather Stroke Son Depression Daughter Depression Alcohol abuse 3 UNCLES Aneurysm Family History Bipolar disorder Sister Depression Essential hypertension Heart disease Hyperlipidemia Brother Alcohol abuse Depression Diabetes Hyperlipidemia Hypertension Social History Smoking/Tobacco Use Status: Current-Occasional Tobacco Type: cigarettes Quit status: has quit before Second Hand Exposure: Yes Smoking risk assessment performed?: Yes Alcohol Intake: never Drug use: Occasionally Substance use type: marijuana Household members: none Housing: house Do you need help understanding health information?: Never Pets and animals: Yes Pets and animals: cat(s), dog(s) and bird(s) Sexually active: Yes Do you think of yourself as: straight/heterosexual Current gender identity: female What is your relationship status?: How often do you talk on the phone with friends or family?: once per week How often do you get together with friends or relatives?: decline to answer How often do you attend synagogue or tenriism services?: decline to answer Do you belong to any clubs or organized social groups?: decline to answer Panel score (0-1 are the most socially isolated patients): 0 Duration: < 15 minutes/day Nuvia/Anabaptist: CRYSTAL Special nuvia needs: No Seatbelt use: always Helmet use: No Drive intox or ride w/intox 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 Do you feel safe at home: Yes Do you feel safe in your relationship?: Yes Victim of physical abuse: No Victim of emotional abuse: No Victim of sexual abuse: No Would you like helpful sources: No Meds Allergies and Home Medications Allergies Allergy/AdvReac Type Severity Reaction Status Date / Time codeine Allergy Severe ITCHING Verified 03/17/22 15:20 Penicillins Allergy Severe HIVES Verified 03/17/22 15:20 latex Allergy Intermediate SKIN RASH Verified 03/17/22 15:20 Sulfa (Sulfonamide Allergy Intermediate SKIN RASH Verified 03/17/22 15:20 Antibiotics) sertraline AdvReac Severe DIARRHEA Verified 03/17/22 15:20 diazepam AdvReac Intermediate NAUSEA Verified 03/17/22 15:20 varenicline [From Chantix] AdvReac Mild Agitation Verified 03/17/22 15:20 rosuvastatin AdvReac Unknown ?GUM Verified 03/17/22 15:20 DISEASE Home Medications Medication Instructions Recorded Confirmed Type aspirin 81 mg chewable tablet 81 mg PO DAILY 02/10/15 03/17/22 History (Aspirin Low-Strength) polyethylene glycol 8000(bulk) 17 gm PO daily prn 02/10/15 03/14/22 History acetaminophen 500 mg tablet 1,000 mg PO Q6H PRN 07/11/15 03/17/22 History (Tylenol Extra Strength) inhalational spacing device #1 ea 09/07/19 03/14/22 Rx (Andrea Cristina [facility] spacer) nicotine 7 mg/24 hr daily 1 patch transdermal Q24H #14 ea 06/15/20 03/14/22 Rx transdermal patch lorazepam 0.5 mg tablet 0.5 mg PO BID PRN #90 tab-caps 10/17/20 03/17/22 History ropinirole 3 mg tablet 3 mg PO HS #90 tab-caps 10/17/20 03/17/22 Rx fluoxetine 20 mg capsule 40 mg PO DAILY #60 caps 12/12/20 03/17/22 Rx gabapentin 400 mg capsule 400 mg PO QHS Pt taking only at HS 12/29/20 03/17/22 Rx #90 caps albuterol sulfate 90 mcg/actuation 1 inh inhalation .Q4-6H PRN 04/03/21 03/17/22 Rx aerosol inhaler (ProAir HFA) shortness of breath or wheezing #18 grams nitroglycerin 0.4 mg sublingual 0.4 mg sublingual PRN #25 tabs 04/03/21 03/14/22 Rx tablet levothyroxine 75 mcg tablet 75 mcg PO DAILY #90 tab-caps 05/29/21 03/17/22 Rx bupropion HCl 150 mg tablet,12 hr 150 mg PO QAM #90 tab-caps 06/14/21 03/17/22 Rx sustained-release (Wellbutrin SR) carvedilol 6.25 mg tablet 6.25 mg PO BID #60 tabs 06/14/21 03/17/22 Rx cyanocobalamin (vitamin B-12) 1,000 mcg PO DAILY #90 caps 06/14/21 03/17/22 Rx 1,000 mcg capsule letrozole 2.5 mg tablet (Femara) 2.5 mg PO DAILY #90 tab-caps 07/24/21 03/17/22 Rx ezetimibe 10 mg tablet 10 mg PO DAILY Initiated by [facility] 10/22/21 03/17/22 History cholecalciferol (vitamin D3) 50 50 mcg PO DAILY Vitamin D 11/01/21 03/17/22 Rx mcg (2,000 unit) tablet deficiency #90 tabs atorvastatin 80 mg tablet 80 mg PO QPM #90 tabs 12/31/21 03/17/22 Rx lisinopril 2.5 mg tablet 2.5 mg PO DAILY #90 tabs 01/22/22 03/17/22 Rx mirtazapine 15 mg tablet 1 tab PO HS PRN Sleep 03/17/22 03/17/22 History prazosin 1 mg capsule 1 cap PO HS 03/17/22 03/17/22 History Exam Const General: acute distress, anxious, disheveled, frail appearing and ill appearing Nutritional Appearance: cachectic and malnourished Orientation: oriented to person [facility] Ears: hearing grossly abnormal bilaterally Teeth and gingiva: poor dentition Eyes Sclera: sclerae normal Resp Effort & Inspection: able to speak in complete sentences Auscultation: wheezes expiratory wheezes, lower bilaterally and upper bilaterall y Cardio Rate: regular rate Rhythm: regular rhythm GI Other: pain in ruq. + BS. pt would not allow clothes to be removed to be examined. She does not like to be touched Extrem General: no clubbing, cyanosis or edema Results Labs Result diagrams: 03/18/22 13:00 03/18/22 05:33 Labs: Laboratory Results - last 24 hr 03/17/22 03/17/22 03/17/22 14:45 14:45 14:45 WBC 7.39 RBC 4.04 Hgb 12.1 Hct 37.5 MCV 93 MCH 30.0 MCHC 32.3 RDW 13.2 Plt Count 231 MPV 9.9 Immature Gran % 0.0 Neutrophils % 76.0 Band Neutrophils % 5 Lymphocytes % 12.0 Monocytes % 7.0 Eosinophils % 0.0 Basophils % 0.0 Nucleated RBC % 0.0 Absolute Neutrophils 5.99 Absolute Lymphocytes 0.89 L Absolute Monocytes 0.52 Absolute Eosinophils 0.00 Absolute Basophils 0.00 RBC Morphology Normal Sodium 135 L Potassium 2.8 L* Chloride 89 L Carbon Dioxide 36.6 H Anion Gap 9.4 BUN 29 H Creatinine 2.6 H Estimated GFR/1.73 m2 18.25 Glucose 114 H Calcium 9.0 Magnesium 1.9 Total Bilirubin 0.7 AST 23 ALT 16 Alkaline Phosphatase 74 Troponin I < 50 Total Protein 7.3 Albumin 2.7 L Lipase 77 Urine Color Urine Clarity Urine pH Ur Specific [place] Urine Protein Urine Ketones Urine Blood Urine Nitrite Urine Bilirubin Urine Urobilinogen Ur Leukocyte Esterase Urine RBC Urine WBC Ur Epithelial Cells Urine Crystals Urine Bacteria Urine Casts Urine Mucus Ur Culture Indicated? Urine Glucose COVID-19 Source SARS-CoV-2 (PCR) Influenza Type A (PCR) Influenza Type B (PCR) RSV (PCR) 03/17/22 03/17/22 03/17/22 15:47 16:15 20:40 WBC RBC Hgb Hct MCV MCH MCHC RDW Plt Count MPV Immature Gran % Neutrophils % Band Neutrophils % Lymphocytes % Monocytes % Eosinophils % Basophils % Nucleated RBC % Absolute Neutrophils Absolute Lymphocytes Absolute Monocytes Absolute Eosinophils Absolute Basophils RBC Morphology Sodium 133 L Potassium 3.0 L Chloride 95 L Carbon Dioxide 30.3 Anion Gap 7.7 BUN 29 H Creatinine 2.5 H Estimated GFR/1.73 m2 19.10 Glucose 102 Calcium 8.0 L Magnesium 1.8 Total Bilirubin AST ALT Alkaline Phosphatase Troponin I Total Protein Albumin Lipase Urine Color Yellow Urine Clarity Cloudy Urine pH 5.0 Ur Specific [place] >= 1.030 H Urine Protein 30 H Urine Ketones Trace H Urine Blood Trace-intact H Urine Nitrite Negative Urine Bilirubin Moderate H Urine Urobilinogen 0.2 Ur Leukocyte Esterase Small H Urine RBC 5-10 H Urine WBC >50 H Ur Epithelial Cells Many Urine Crystals Many Amorphous Urine Bacteria Many Urine Casts Negative Urine Mucus Moderate Ur Culture Indicated? No/Sq. Contamination Urine Glucose Negative COVID-19 Source Nasopharynx SARS-CoV-2 (PCR) Negative Influenza Type A (PCR) Negative Influenza Type B (PCR) Negative RSV (PCR) Negative Last Vital Signs Temp 36.3 C L 03/18/22 00:00 Pulse 68 03/18/22 02:01 Resp 15 03/18/22 02:01 BP 87/41 L 03/18/22 02:01 Pulse Ox 96 03/18/22 02:01
[2022-03-18] MEDS: PIPERACILLIN/TAZO 3.375 GM in Normal Saline 50 ML IVPB ×3 (03:54→22:45)
[2022-03-18] MEDS: POTASSIUM CHLORIDE/0.9% NACL 1,000 ML 125 MEQ IV (05:16)
[2022-03-18 06:09] LABS: Abs Immature Grans 0.15 10^3/uL (0.0-0.06); HCT 29.7 % (36.0-46.0); HGB 9.7 g/dL (11.2-15.7); MCH 30.8 pg (27.0-33.0); MCHC 32.7 % (32.0-36.0); MCV 94 fL (80-95); MPV 10.3 fL (8.0-11.0); Platelet Count 158 10^3/uL (130-400); RBC 3.15 10^6/uL (3.93-5.22); RDW 13.6 % (11.7-14.6); RDW-SD 46.7 fL; WBC 3.29 10^3/uL (4.4-10.8)
[2022-03-18 06:43] LABS: NT-proBNP 1007 pg/mL (<300)
[2022-03-18 06:45] LABS: ALT 11 U/L (14-59); AST 19 U/L (15-37); Albumin 1.8 g/dL (3.4-5.0); Alkaline Phosphatase 65 U/L (46-116); Anion Gap 6.2 mmol/L (3-11); BUN 25 mg/dL (7-18); Bilirubin, Total 0.5 mg/dL (0.2-1.0); C-Reactive Protein 14.43 mg/dL (0.0-0.3); CO2 28.8 mmol/L (21.0-32.0); CREATININE 1.6 mg/dL (0.55-1.02); Calcium 7.2 mg/dL (8.5-10.1); Chloride 104 mmol/L (98-107); Estimated GFR 31.96 (mL/min/1.73m2); Glucose 73 mg/dL (74-106); Lipase 125 U/L (73-393); Potassium 3.7 mmol/L (3.5-5.1); Sodium 139 mmol/L (136-145); Total Protein 5.2 g/dL (6.4-8.2)
[2022-03-18 07:16] LABS: Absolute Basophil Count 0.13 10^3/uL (0.0-0.2); Absolute Eosinophil Count 0.07 10^3/uL (0.0-0.7); Absolute Lymphocyte Count 0.43 10^3/uL (1.2-3.4); Absolute Monocyte Count 0.39 10^3/uL (0.1-0.8); Bands % 5; Metamyelocytes % 2
[2022-03-18 07:17] LABS: Diff Comment Manual Differential; RBC Morphology Normal
--- NOTE | 2022-03-18 07:59 | DI.US_ITS ---
APPROVED REPORT EXAM: Comprehensive 2D, Doppler, and color-flow Echocardiogram Patient Location: In-Patient Room/Bed: [id number] Rn Clinical Review: Kenyatta Quezada RDCS (AE) Indications: CAD, Cardiomyopathy, Hypotensive, COPD, Smoker, Breast Cancer Other Information Study Quality: Adequate. Technically limited study due to exam done supine bedside. Conclusion Normal left ventricular wall thickness and chamber size. Estimated ejection fraction is 60%. Wall m otion is normal Normal right ventricular size and systolic function Both atria are borderline dilated Aortic valve is trileaflet with trace to mild regurgitation Normal mitral valve with mild regurgitation Normal tricuspid valve with trace to mild regurgitation. Estimated right ventricular systolic pressu re is 32 mmHg Wall motion Left Ventricle The left ventricle is normal size. The left ventricular systolic function is normal. The left ventric ular ejection fraction is within the normal range. There is normal left ventricular wall thickness. T here is normal LV segmental wall motion. There is no ventricular septal defect visualized. LVEF is 60 %. Right Ventricle The right ventricle is normal size. The right ventricular systolic function is normal. Atria Left atrium is borderline dilated. Right atrium is borderline dilated. The RVSP is 31.7mmHg. The inte ratrial septum is intact with no evidence for an atrial septal defect. Aortic Valve The aortic valve is normal in structure. Aortic valve is trileaflet. There is no aortic valvular sten osis. Trace to mild aortic regurgitation. Mitral Valve The mitral valve is normal in structure. No evidence of mitral valve stenosis. Mild mitral regurgitat ion. Tricuspid Valve The tricuspid valve is normal in structure. There is no tricuspid valve stenosis. Trace to mild tricu spid regurgitation. Pulmonic Valve Pulmonic valve is not well visualized. There is no pulmonic valvular stenosis. There is no pulmonic v alvular regurgitation. Great Vessels The aortic root is normal in size. Ascending aorta is not well visualized. IVC is normal in size and collapses >50% with inspiration. Pericardium There is no pericardial effusion. 2D Dimensions IVSD d PLAX 0.91 cm F: 0.6-1.0 LV Vol A2C d MOD 131.5 mL LVPW d PLAX 0.93 cm F: 0.6 - 1.0 LV Vol A4C d MOD 100.4 mL LVID d PLAX 4.29 cm F: 3.8 - 5.2 LA vol/ BSA A2C s A-L 43.4 mL/m2 LVDs 2.85 cm F: 2.2 - 3.5 LA vol/ BSA A4C s A-L 19.1 mL/m2 Ao Root d 2.94 cm F: 2.7 - 3.3 LA Vol/ BSA Biplane s A-L 31.3 mL/m2 RA Area A4C 15.38 cm2 LA Area A4C s MOD 14.04 cm2 RA Vol/ BSA A4C s A-L 23.4 mL/m2 LA Area A2C s MOD 23.01 cm2 LV EF Teichholz 61.4 % LV EF A4C MOD 60.7 % LVEF (Mcnulty's) 60.25 % F: 54 - 74 LV EF A2C MOD 60.7 % LV Volume 92.95 mL F: 46 - 106 LV EF Biplane MOD 60.2 % LV Volume Index 53.41 mL/m2 F: 29 - 61 SV 71.21 mL LV Vol Biplane MOD 118.2 mL SV Index 40.80 mL/m2 FS 32.65 % M-Mode TAPSE 2.30 cm (M/F) >1.7 LV Diastology MV E' medial 0.099 (>0.07 m/s) E/A Ratio 0.8 LV E/e MED 7.35 (<14) MV E Vmax 0.73 (0.4-1.3 m/s) MV E' lateral 0.117 (>0.1 m/s) MV A Vmax 0.90 (0.4-1.3 m/s) LV E/e LAT 6.25 (<14) MV E/A Ratio 0.80 MV E/E' medial 7.38 MV E/E' lateral 6.25 Aortic Valve LVOT Area 3.33 cm2 AoV Area Vmax 2.70 cm2 LVOT Vmax 1.25 m/s AoV Area/ BSA (Vmax) 1.55 cm2/m2 LVOT Mean Segun. 0.81 m/s SACHI Mean Segun. 2.55 cm2 LVOT Peak Grad 6.2 mmHg SAHCI Mean Segun. Index 1.46 cm2/m2 LVOT Mean Grad 3.1 mmHg AR DT 2066 msec LVOT VTI 0.270 m AR PHT 599 msec LVOT Diam s 2.05 cm AoV Vmax 1.54 m/s Velocity Ratio 0.81 AoV Mean Segun. 1.06 m/s AoV Peak Grad 9.5 mmHg LVOT SV 89.96 mL AoV Mean Grad 5.0 mmHg AoV VTI 0.323 m AoV Area VTI 2.78 cm2 AoV Area/ BSA (VTI) 1.59 cm/m2 Mitral Valve MV DT 222 (160-240 msec) MV PHT 64 msec MV Area PHT 3.42 cm2 MV VTI 0.311 m MV Area VTI 2.89 (4.0-6.0 cm2) Pulmonary Valve PV Vmax 1.31 (0.5-1.5 m/s) RVOT Peak Gr. 2.33 mmHg PV Peak Grad 6.9 mmHg RVOT Mean Gr. 1.15 mmHg PV Mean Grad 3.5 mmHg RVOT VTI 0.179 m PV VTI 0.284 m RVOT Vmax 0.76 m/s Tricuspid Valve TR Peak Grad 28.6 mmHg TR Vmax 2.68 m/s RA Pressure 3.00 mmHg RVSP (TR) 31.7 mmHg
--- NOTE | 2022-03-18 08:51 | PGE_ITS ---
Date of Service Date of service: 03/18/22 Time of Service: 08:51 Assessment and Plan Assessment and plan (1) Gallstone ileus: Status: Acute Assessment and plan: Pain is currently well controlled. Patient denies passing any flatus or having a bowel movement. N.p.o. Awaiting for abdominal ultrasound and echo later today. Also awaiting pulmonology consult, appreciate recommendations. Continue pulmonary toilet IV Zosyn Following pulmonology consult, abdominal ultrasound and echo will need to discuss with anesthesia whether this patient is a surgical candidate. (2) Hypotension: Status: Acute (3) Acute kidney injury: Status: Acute (4) Acute dehydration: Status: Acute (5) Vomiting and diarrhea: Status: Acute (6) Chronic obstructive pulmonary disease: Status: Chronic Qualifiers: COPD type: emphysema Emphysema type: unspecified Qualified Code(s): J43.9 - Emphysema, unspecified (7) Anxiety and depression: Status: Chronic (8) Essential (primary) hypertension: Status: Chronic (9) Abdominal aortic aneurysm: (10) Atherosclerotic heart disease of [place] coronary artery without angina pectoris: Qualifiers: [place] vs. transplanted heart: [place] heart Qualified Code(s): I25.10 - Atherosclerotic heart disease of [place] coronary artery without angina pectoris (11) Breast cancer: Qualifiers: Breast location: upper outer quadrant of breast Estrogen receptor status: unspecified Laterality: left Patient sex: female Qualified Code(s): C50.412 - Malignant neoplasm of upper-outer quadrant of left female breast (12) Cardiomyopathy: Qualifiers: Cardiomyopathy type: unspecified Qualified Code(s): I42.9 - Cardiomyopathy, unspecified (13) Gastro-esophageal reflux disease without esophagitis: (14) Hyperlipidemia: Qualifiers: Hyperlipidemia type: mixed hyperlipidemia Qualified Code(s): E78.2 - Mixed hyperlipidemia (15) Hypothyroidism: Qualifiers: Hypothyroidism type: acquired Qualified Code(s): E03.9 - Hypothyroidism, unspecified (16) Methicillin resistant Staphylococcus aureus infection: (17) Mixed incontinence: (18) Obstructive sleep apnea: (19) Smoker: (20) Restless legs syndrome: (21) Pyloric ulcer associated with Helicobacter pylori: Subjective Subjective Interval history since last seen: Arrived with patient resting comfortably in bed. She states that she is feeling much more comfortable compared to yesterday. She expresses some mild right upper quadrant discomfort. Patient expresses some confusion regarding her treatment and asks that her boyfriend is consulted during this process. Exam Const General: cooperative, healthy appearing and comfortable Orientation: alert and oriented x3 Resp Effort & Inspection: normal respiratory effort, no audible wheezes and no cough GI Inspection: normal to inspection Palpation: soft, no guarding and tender in the RUQ Auscultation: high-pitched sounds Objective Last Vital Signs Temp 36.1 C L 03/18/22 08:26 Pulse 77 03/18/22 08:26 Resp 14 03/18/22 08:26 BP 99/50 L 03/18/22 08:26 Pulse Ox 95 03/18/22 08:26 Laboratory Results - last 24 hr 03/17/22 03/17/22 03/17/22 14:45 14:45 14:45 WBC 7.39 RBC 4.04 Hgb 12.1 Hct 37.5 MCV 93 MCH 30.0 MCHC 32.3 RDW 13.2 Plt Count 231 MPV 9.9 Immature Gran % 0.0 Neutrophils % 76.0 Band Neutrophils % 5 Lymphocytes % 12.0 Monocytes % 7.0 Eosinophils % 0.0 Basophils % 0.0 Metamyelocytes % Nucleated RBC % 0.0 Absolute Neutrophils 5.99 Absolute Lymphocytes 0.89 L Absolute Monocytes 0.52 Absolute Eosinophils 0.00 Absolute Basophils 0.00 RBC Morphology Normal Sodium 135 L Potassium 2.8 L* Chloride 89 L Carbon Dioxide 36.6 H Anion Gap 9.4 BUN 29 H Creatinine 2.6 H Estimated GFR/1.73 m2 18.25 Glucose 114 H Calcium 9.0 Magnesium 1.9 Total Bilirubin 0.7 AST 23 ALT 16 Alkaline Phosphatase 74 Troponin I < 50 C-Reactive Protein NT-Pro-B Natriuret Pep Total Protein 7.3 Albumin 2.7 L Lipase 77 Urine Color Urine Clarity Urine pH Ur Specific [place] Urine Protein Urine Ketones Urine Blood Urine Nitrite Urine Bilirubin Urine Urobilinogen Ur Leukocyte Esterase Urine RBC Urine WBC Ur Epithelial Cells Urine Crystals Urine Bacteria Urine Casts Urine Mucus Ur Culture Indicated? Urine Glucose COVID-19 Source SARS-CoV-2 (PCR) Influenza Type A (PCR) Influenza Type B (PCR) RSV (PCR) 03/17/22 03/17/22 03/17/22 15:47 16:15 20:40 WBC RBC Hgb Hct MCV MCH MCHC RDW Plt Count MPV Immature Gran % Neutrophils % Band Neutrophils % Lymphocytes % Monocytes % Eosinophils % Basophils % Metamyelocytes % Nucleated RBC % Absolute Neutrophils Absolute Lymphocytes Absolute Monocytes Absolute Eosinophils Absolute Basophils RBC Morphology Sodium 133 L Potassium 3.0 L Chloride 95 L Carbon Dioxide 30.3 Anion Gap 7.7 BUN 29 H Creatinine 2.5 H Estimated GFR/1.73 m2 19.10 Glucose 102 Calcium 8.0 L Magnesium 1.8 Total Bilirubin AST ALT Alkaline Phosphatase Troponin I C-Reactive Protein NT-Pro-B Natriuret Pep Total Protein Albumin Lipase Urine Color Yellow Urine Clarity Cloudy Urine pH 5.0 Ur Specific [place] >= 1.030 H Urine Protein 30 H Urine Ketones Trace H Urine Blood Trace-intact H Urine Nitrite Negative Urine Bilirubin Moderate H Urine Urobilinogen 0.2 Ur Leukocyte Esterase Small H Urine RBC 5-10 H Urine WBC >50 H Ur Epithelial Cells Many Urine Crystals Many Amorphous Urine Bacteria Many Urine Casts Negative Urine Mucus Moderate Ur Culture Indicated? No/Sq. Contamination Urine Glucose Negative COVID-19 Source Nasopharynx SARS-CoV-2 (PCR) Negative Influenza Type A (PCR) Negative Influenza Type B (PCR) Negative RSV (PCR) Negative 03/18/22 03/18/22 03/18/22 05:33 05:33 05:33 WBC 3.29 L RBC 3.15 L Hgb 9.7 L D Hct 29.7 L MCV 94 MCH 30.8 MCHC 32.7 RDW 13.6 Plt Count 158 MPV 10.3 Immature Gran % See Differential Neutrophils % 62.0 Band Neutrophils % 5 Lymphocytes % 13.0 Monocytes % 12.0 Eosinophils % 2.0 Basophils % 4.0 Metamyelocytes % 2 Nucleated RBC % 0.0 Absolute Neutrophils 2.20 Absolute Lymphocytes 0.43 L Absolute Monocytes 0.39 Absolute Eosinophils 0.07 Absolute Basophils 0.13 RBC Morphology Normal Sodium 139 Potassium 3.7 Chloride 104 Carbon Dioxide 28.8 Anion Gap 6.2 BUN 25 H Creatinine 1.6 H Estimated GFR/1.73 m2 31.96 Glucose 73 L Calcium 7.2 L Magnesium Total Bilirubin 0.5 AST 19 ALT 11 L Alkaline Phosphatase 65 Troponin I C-Reactive Protein 14.43 H NT-Pro-B Natriuret Pep 1007 H Total Protein 5.2 L Albumin 1.8 L Lipase 125 Urine Color Urine Clarity Urine pH Ur Specific [place] Urine Protein Urine Ketones Urine Blood Urine Nitrite Urine Bilirubin Urine Urobilinogen Ur Leukocyte Esterase Urine RBC Urine WBC Ur Epithelial Cells Urine Crystals Urine Bacteria Urine Casts Urine Mucus Ur Culture Indicated? Urine Glucose COVID-19 Source SARS-CoV-2 (PCR) Influenza Type A (PCR) Influenza Type B (PCR) RSV (PCR)
--- NOTE | 2022-03-18 09:00 | DI.US_ITS ---
Exam(s) US ABDOMEN EXAM: US ABDOMEN CLINICAL HISTORY: gallstone ileus TECHNIQUE: Ultrasound abdomen performed using standard protocol. COMPARISON: CT CT CHEST/ABD/PEL WO from 03/17/2022 FINDINGS: ABDOMINAL AORTA AND IVC: Visualized portions normal caliber. PANCREAS: Normal where visualized. LIVER: Normal. Hepatopedal flow in the Portal Vein. GALLBLADDER:There are multiple small mobile stones present. No evidence of wall thickening. No peric holecystic fluid identified. BILIARY SYSTEM: Common bile duct measures 7.7 mm. No intrahepatic biliary ductal dilation. VICKERS'S SIGN: Negative. KIDNEYS: Kidneys are symmetric in size. No evidence of renal calculi. No evidence of hydronephrosis. 1 cm simple cyst in the superior pole of the right kidney. SPLEEN: Not enlarged. ASCITES: There is a small amount of perihepatic fluid present. There may be a small left pleural eff usion present. IMPRESSION: 1. Cholelithiasis. Common duct measuring 7.7 mm. 2. Small amount of perihepatic free fluid. DATA REPOSITORY:
--- NOTE | 2022-03-18 09:02 | PUCC_ITS ---
General Date of Service Date of service: 03/18/22 Time of Service: 08:00 Reason for Admission to ICU: Acute cholecystitis Assessment and Plan Assessment and plan (1) Gallstone ileus: Status: Acute (2) Cholelithiasis: Status: Acute (3) Chronic obstructive pulmonary disease: Status: Chronic Qualifiers: COPD type: COPD with acute exacerbation Qualified Code(s): J44.1 - Chronic obstructive pulmonary disease with (acute) exacerbation (4) Pneumonia: Status: Acute Qualifiers: Laterality: left Lung location: upper lobe of lung Pneumonia type: due to unspecified organism Qualified Code(s): J18.9 - Pneumonia, unspecified organism (5) Hypotension: Status: Acute (6) CHF (congestive heart failure): Status: Chronic (7) Essential (primary) hypertension: Status: Chronic (8) Obstructive sleep apnea: (9) Acute kidney injury: Status: Acute (10) Anemia: Status: Chronic (11) Hypokalemia: Status: Acute (12) Hypoalbuminemia: Status: Acute (13) Respiratory failure with hypoxia: Status: Acute Assessment and plan: This is a 71 yo female with CHF and CAD (followed by [facility] cardiology), COPD (not on home O2 or any maintenance inhalers) who is admitted to the ICU for cholelithiasis and possible gallstone ileus. The patient has had a bowel movement so there is unlikely to be a bowel obstruction and her abdomen is non- acute. Her CT scan does show an enlarged gall bladder with laying stoned and enlarged biliary ducts, but unclear whether there is an obstructing stone, particularly as her LFT's are non-obstructing and the scan was non-contrast. Surgery is on the case and is do determine need for OR. From a pulmonary perspective, I believe she is in slight volume overload evidenced by B-lines on her POCUS and a non collapsible IVC. 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 I do think she can be more appropriately managed from a COPD standpoint as an outpatient and will have her see me once she is discharged. She has a GGO in the DANIEL with a small nodule that could represent a pneumonia - she is already on Zosyn which will cover this. Recommendations Pulmonary: COPD with Exacerbation - start IV methylpred 40mg - patient NPO - can switch to PO prednisone 40mg once OK to eat - standing Duonebs QID - prn albuterol - once improved should be on maintenance inhaler - recommend Stiolto and prn albuterol on discharge - nicotine patches - will will see as an outpatient Hypoxic respiratory failure - continue IS and VibraPEP - supplemental Os for a sat goal 88-92% - ambulation as tolerated and per surgery SCHUYLER - not wearing CPAP at home - may need CPAP robert-procedure Cardiac: Hypotension - initially hypovolemia and sepsis likely - improved - holding BP lowing meds CHF - follows at [facility] cards - holding cardiac meds given hypotension - slightly volume overloaded but not in exacerbation - recommend stopping IVF's h/o HTN and CAD - per [facility] cards documentation this is stable - again holding home meds given tenuous hemodynamics Renal: MOHAN, likely pre-renal - s/p fluid resuscitation - improving Cr - good UOP - continue to monitor Hypokalemia - replenished - would target 3.5-3.7 while in MOHAN to avoid over correction I&O: Intake & Output 03/15/22 03/16/22 03/17/22 03/18/22 23:59 23:59 23:59 23:59 Intake Total 2247.917 / 2247.917 3258.334 / 3258.334 Output Total 550 / 550 Balance 2247.917 / 2247.917 2708.334 / 2708.334 Weight 67.7 kg 71.6 kg Daily Fluid Goal:: even to slightly (500cc) negative as tolerated GI Nutrition: Gallstone ileus? - NPO - surgery managing - discussions for OR - had BM - LFT's are non obstructive - pain is well controlled - on Zosyn Cholelithiasis - surgery managing and as above Date of Last Bowel Movement: 03/18/22 Infectious Disease: Pneumonia - on Zosyn for abdominal concerns, which is cover lung well - recommend total 5 days of antibiotic - if no longer need Zosyn can danielle to doxycycline alone Hematologic: Anemia - dilutional given drop of all cell lines - continue to monitor Neurologic: h/o EtOH misuse - current 2 cocktails/day, but prior heavier EtOH use - monitor with withdrawal symptoms - consider low dose thiamine supplementation Mental health - continue home meds Endocrine: No acute concerns - monitor daily glucose with labs given steroids Lines: PIV Mitchell Prophylaxis: Lovenox Protonix Code Status: Resuscitation Status Full Code Subjective Critical and life-threatening events over the past 24 hours: This is a 71 yo female with HFpEF (EF 50% 12/16 with mild diffuse hypokinesis) who is followed closely by [facility] cardiology for this and for CAD. Per her last cardiology note on 02/27/22 she was not experiencing any angina and was stable from her CAD. There was comment about the LVEF improvement and she was advised to minimize EtOH consumption (down to 2 cocktails a day per report). They also discussed starting the Chantix she was prescribed to quit smoking. She tells me that she started the Chantix and this caused hallucinations like she was on LSD and this caused her to stop eating and drinking which is when her issues started approximately 1 week ago. She does not have any abdominal pain currently. She did have a bowel movement. She tells me that she is always told that she is wheezing. She has had spirometry in the past but in 2009. She is a current smoker but has been trying to cut down. She does have a history of breast cancer with resulting mild radiation fibrosis. Exam Narrative Exam Narrative: POCUS 03/18/22: Parasternal views obstructed by air. Anterior lungs: bilateral B- lines present. Dilated appearing LV and RV. Diffuse hypokinesis with low normal EF. IVC is of normal size but contracts <50% with inspiration. Gen: NAD, normal respiratory effort, well-nourished HENT: PERRL, nasal turbinates normal without erythema or inflammation, moist oral mucosa, Mallampati 2, No LAD or JVD Chest: No respiratory distress, normal appearance of chest, clear to auscultat ion bilaterally, bibasilar crackles, diffuse expiratory wheezing, normal inspiratory effort Heart: regular rate and rhythym, no murmurs, rubs or gallops Abdomen: Non-distended, soft, non tender Extremities: No clubbing, edema, cyanosis, rashes Neuro: AAOx3 , non focal Psych: cooperative, appropriate mental affect Most Recent VS/Results Last Vital Signs Temp 36.1 C L 03/18/22 08:26 Pulse 77 03/18/22 08:26 Resp 14 03/18/22 08:26 BP 99/50 L 03/18/22 08:26 Pulse Ox 95 03/18/22 08:26 Laboratory Results - last 24 hr 03/17/22 03/17/22 03/17/22 14:45 14:45 14:45 WBC 7.39 RBC 4.04 Hgb 12.1 Hct 37.5 MCV 93 MCH 30.0 MCHC 32.3 RDW 13.2 Plt Count 231 MPV 9.9 Immature Gran % 0.0 Neutrophils % 76.0 Band Neutrophils % 5 Lymphocytes % 12.0 Monocytes % 7.0 Eosinophils % 0.0 Basophils % 0.0 Metamyelocytes % Nucleated RBC % 0.0 Absolute Neutrophils 5.99 Absolute Lymphocytes 0.89 L Absolute Monocytes 0.52 Absolute Eosinophils 0.00 Absolute Basophils 0.00 RBC Morphology Normal Sodium 135 L Potassium 2.8 L* Chloride 89 L Carbon Dioxide 36.6 H Anion Gap 9.4 BUN 29 H Creatinine 2.6 H Estimated GFR/1.73 m2 18.25 Glucose 114 H Calcium 9.0 Magnesium 1.9 Total Bilirubin 0.7 AST 23 ALT 16 Alkaline Phosphatase 74 Troponin I < 50 C-Reactive Protein NT-Pro-B Natriuret Pep Total Protein 7.3 Albumin 2.7 L Lipase 77 Urine Color Urine Clarity Urine pH Ur Specific [place] Urine Protein Urine Ketones Urine Blood Urine Nitrite Urine Bilirubin Urine Urobilinogen Ur Leukocyte Esterase Urine RBC Urine WBC Ur Epithelial Cells Urine Crystals Urine Bacteria Urine Casts Urine Mucus Ur Culture Indicated? Urine Glucose COVID-19 Source SARS-CoV-2 (PCR) Influenza Type A (PCR) Influenza Type B (PCR) RSV (PCR) 03/17/22 03/17/22 03/17/22 15:47 16:15 20:40 WBC RBC Hgb Hct MCV MCH MCHC RDW Plt Count MPV Immature Gran % Neutrophils % Band Neutrophils % Lymphocytes % Monocytes % Eosinophils % Basophils % Metamyelocytes % Nucleated RBC % Absolute Neutrophils Absolute Lymphocytes Absolute Monocytes Absolute Eosinophils Absolute Basophils RBC Morphology Sodium 133 L Potassium 3.0 L Chloride 95 L Carbon Dioxide 30.3 Anion Gap 7.7 BUN 29 H Creatinine 2.5 H Estimated GFR/1.73 m2 19.10 Glucose 102 Calcium 8.0 L Magnesium 1.8 Total Bilirubin AST ALT Alkaline Phosphatase Troponin I C-Reactive Protein NT-Pro-B Natriuret Pep Total Protein Albumin Lipase Urine Color Yellow Urine Clarity Cloudy Urine pH 5.0 Ur Specific [place] >= 1.030 H Urine Protein 30 H Urine Ketones Trace H Urine Blood Trace-intact H Urine Nitrite Negative Urine Bilirubin Moderate H Urine Urobilinogen 0.2 Ur Leukocyte Esterase Small H Urine RBC 5-10 H Urine WBC >50 H Ur Epithelial Cells Many Urine Crystals Many Amorphous Urine Bacteria Many Urine Casts Negative Urine Mucus Moderate Ur Culture Indicated? No/Sq. Contamination Urine Glucose Negative COVID-19 Source Nasopharynx SARS-CoV-2 (PCR) Negative Influenza Type A (PCR) Negative Influenza Type B (PCR) Negative RSV (PCR) Negative 03/18/22 03/18/22 03/18/22 05:33 05:33 05:33 WBC 3.29 L RBC 3.15 L Hgb 9.7 L D Hct 29.7 L MCV 94 MCH 30.8 MCHC 32.7 RDW 13.6 Plt Count 158 MPV 10.3 Immature Gran % See Differential Neutrophils % 62.0 Band Neutrophils % 5 Lymphocytes % 13.0 Monocytes % 12.0 Eosinophils % 2.0 Basophils % 4.0 Metamyelocytes % 2 Nucleated RBC % 0.0 Absolute Neutrophils 2.20 Absolute Lymphocytes 0.43 L Absolute Monocytes 0.39 Absolute Eosinophils 0.07 Absolute Basophils 0.13 RBC Morphology Normal Sodium 139 Potassium 3.7 Chloride 104 Carbon Dioxide 28.8 Anion Gap 6.2 BUN 25 H Creatinine 1.6 H Estimated GFR/1.73 m2 31.96 Glucose 73 L Calcium 7.2 L Magnesium Total Bilirubin 0.5 AST 19 ALT 11 L Alkaline Phosphatase 65 Troponin I C-Reactive Protein 14.43 H NT-Pro-B Natriuret Pep 1007 H Total Protein 5.2 L Albumin 1.8 L Lipase 125 Urine Color Urine Clarity Urine pH Ur Specific [place] Urine Protein Urine Ketones Urine Blood Urine Nitrite Urine Bilirubin Urine Urobilinogen Ur Leukocyte Esterase Urine RBC Urine WBC Ur Epithelial Cells Urine Crystals Urine Bacteria Urine Casts Urine Mucus Ur Culture Indicated? Urine Glucose COVID-19 Source SARS-CoV-2 (PCR) Influenza Type A (PCR) Influenza Type B (PCR) RSV (PCR) Review of Systems All systems reviewed & are unremarkable except as noted in HPI and below Time spent with patient Time spent in Critical Care: 45 Time spent in Critical care included: Coordination of care, Chart review, Documenting critically ill care, Time at immediate bedside and Discussing critically ill care with other medical staff Multi-Disciplinary Checklist Lines/Tubes CENTRAL LINE: no ARTERIAL LINE: no MITCHELL: yes, Mitchell Day#: 0 ENDOTRACHEAL TUBE: no ICU Maintenance GLUCOSE 140-180mg/dL: no, Reason/Intervention: Low - will need to monitor as NPO PRESSURE ULCER: no RESTRAINTS: no ANTIBIOTICS(if yes, consider Stewardship): Yes Social Issues FAMILY UPDATED: no, Reason/Intervention: patient able to do so GOALS/DISPOSITION/SENIOR QUALITY CONTROL INSPECTOR: yes CODE STATUS: Full Prophylaxis DVT PROPHYLAXIS: yes GI PROPHYLAXIS: yes, Indication: NPO and on steroids
[2022-03-18] MEDS: buPROPion-CR 150 MG TABCR PO (09:51)
[2022-03-18] MEDS: Levothyroxine 100 MCG VIAL 55 MCG IVP (09:51)
[2022-03-18] MEDS: FLUoxetine 20 MG CAP 40 MG PO (09:51)
[2022-03-18] MEDS: Enoxaparin 30 MG/0.3 ML SYR SC (09:51)
[2022-03-18] MEDS: Nicotine 7 MG/24 HR PATCH TD (09:51)
--- NOTE | 2022-03-18 09:59 | INITIAL_ITS ---
- If Service Date Differs Date of service: 03/18/22 Time of Service: 09:59 Care Management Initial Assess REASON FOR HOSPITALIZATION:: SBO vs Gallstone Ileus PAST MEDICAL HISTORY/PAST SURGICAL HISTORY:: Medical History. Abdominal aortic aneurysm. s/p surgical repair [facility] [facility] 2007. Abnormal glandular Papanicolaou smear of vagina (~1978). Atherosclerotic heart disease of [place] coronary artery without angina pectoris. Atrophic vaginitis (08/09/14). Breast cancer (01/20/14). left, 6 cm Invasive Lobular Carcinoma ([facility] 01/19/14). chemo started and radiation tx planned (on hold due to perf divertic). Cardiomyopathy. New onset 04/[address] [facility]. Normal rest nuclear perfusion. Patient declined cath. [facility] Echo 02/25/19. EstEF = 41%, mild to mod aortic valve regurg. Compared to LOUIE 02/17/18, LV systolic function is improved. Chronic depression. Disorder of vitamin B12 (03/30/13). Diverticulitis of colon with perforation (06/24/14). sigmoid resection and colostomy [facility] Apr 2014. post op malnutrition and respiratory failure. Gastro-esophageal reflux disease without esophagitis. Hyperlipidemia. Hypothyroidism. Methicillin resistant Staphylococcus aureus infection (03/27/09). Migraine. Mixed incontinence (02/19/16). Obstructive sleep apnea. Partial small bowel obstruction. Polyp of colon (06/26/05). adenoma. Pyloric ulcer associated with Helicobacter pylori (05/25/11). 04/07 H pylori on EGD (treated). Restless legs syndrome. Smoker. quit 2013 and then re-started. 25 year HX. - quit again 11/25/17. - back to daily smoking. Surgical History . H/O tracheostomy. Rotator Cuff Repair (~1978). LEFT. S/P colostomy takedown. Status post Mena's procedure PREVIOUS FUNCTIONAL STATUS/SOCIAL/FAMILY SUPPORTS:: Opal resides in [place], her daughter and grand-daughter are currently residing with her. She reports her significant other, Logan lives nearby as well. Opal is usually independent with ADL's and drives her own car. She reports enjoys her pets, a dog and bird. ADVANCE DIRECTIVES:: On file at [facility]: Logan Reis as Agent Has patient been provided with info about the portal/API?: Yes Did the patient sign up for the portal?: Yes CODE STATUS:: Full Code INSURANCE COVERAGE / FINANCIAL ISSUES:: Medicare CURRENT HOME/COMMUNITY SERVICES/EQUIPMENT:: No current services or equipment. PRIMARY CARE PHYSICIAN:: Emilie العلي POTENTIAL DISCHARGE NEEDS:: Follow up appointments. PATIENT/FAMILY EDUCATION NEEDS:: Review of discharge instructions, discuss Ask Me Three. ANTICIPATED BARRIERS TO DISCHARGE:: None identified. TRANSPORTATION:: Via private vehicle with her daughter. PLAN:: Opal will continue to be closely monitored and treated. CM will continue to follow and support discharge planning considerations; anticipate Opal will return home once her symptoms resolve. No additional services anticipated at this time. She will transport via private vehicle with her significant other, Logan.
[2022-03-18] MEDS: methylPREDNISolone SUCC 40 MG VIAL IVP (12:11)
[2022-03-18] MEDS: Normal Saline Flush 10 ML SYR IVP (12:12)
--- NOTE | 2022-03-18 12:12 | PGE_ITS ---
Date of Service Date of service: 03/18/22 Time of Service: 12:00 Assessment and Plan Assessment and plan (1) Cholelithiasis: Status: Acute Assessment and plan: With suspicion for gallstone ileus. S/p BM last night. US negative for cholecystitis. Defer further workup to general surgery. (2) Respiratory failure with hypoxia: Status: Acute Assessment and plan: In setting of likely underlying COPD in acute exacerbation and a prior dx of sleep apnea requiring CPAP (which the patient could not tolerate due to claustrophobia). Continue suppmental O2. Avoid IVF. Agree with nebulizer treatments and steroids, as ordered by Dr Atkinson. Will need exercise oximetry prior to d/c. (3) Chronic obstructive pulmonary disease: Status: Chronic Assessment and plan: In acute exacerbation Started on duonebs as well as steroids. Check procalcitonin. Qualifiers: COPD type: COPD with acute exacerbation Qualified Code(s): J44.1 - Chronic obstructive pulmonary disease with (acute) exacerbation (4) Pneumonia: Status: Acute Assessment and plan: ?aspiration. On zosyn. XR read as possible fragment of tooth seen aspirated. Discussed with Dr Atkinson - said tooth fragment not seen on CT, therefore suspect that the finding was actually outside of the patient's chest on XR. Qualifiers: Laterality: left Lung location: upper lobe of lung Pneumonia type: due to unspecified organism Qualified Code(s): J18.9 - Pneumonia, unspecified organism (5) Hypotension: Status: Resolved Assessment and plan: Continue to hold antihypertensives. (6) CHF (congestive heart failure): Status: Chronic Assessment and plan: Chronic diastolic CHF with evidence of pulmonary hypertension. Avoid continuous IVF. Will try to match ins and outs. Currently slightly fluid overloaded. (7) Essential (primary) hypertension: Status: Chronic Assessment and plan: As above - antihypertensives on hold due to low BPs on presenation. (8) Obstructive sleep apnea: Assessment and plan: Patient states her sleep study was 15 years ago. She was unable to tolerate a CPAP mask due to claustrophobia. We discussed the possibility of use of nasal pillows if she wanted to try it again, but that she would need to have a repeat sleep study as outpatient. (9) Acute kidney injury: Status: Acute Assessment and plan: Improved with IVF. At this point, these are on hold. Cr is 1.6, down from 2.5 (Baseline Cr is 1.1-1.4) Continue to monitor off of IVF. (10) Anemia: Status: Chronic Assessment and plan: Hgb down from 12.1 on admission to 9.7 this am. Heme negative. Recheck H/H. Check anemia studies. (11) Hypokalemia: Status: Resolved Assessment and plan: Resolved. Recheck in am. (12) Hypoalbuminemia: Status: Chronic Assessment and plan: Suspect chronic malnutrition in setting of EtOH abuse. The patient should not be hydrated intravenously on continuous basis - only to match ins and outs. Will provide vitamin supplementation. (13) Ambulatory dysfunction: Status: Acute Assessment and plan: C/s PT. (14) Anxiety and depression: Status: Chronic Assessment and plan: Continue outpatient management. (15) Discharge planning issues: Status: Acute Assessment and plan: Full code Hospitalists will continue to follow with you. (16) DVT prophylaxis: Status: Acute Assessment and plan: SC enoxaparin Subjective Subjective Interval history since last seen: Ms Peter feels better. She denies dizziness, chest pain, shortness of breath, cough. She has not had any nausea. She passed a large liquid BM last night. Her abdomen has been diffusely sore since. She has her medications from home with her in pillboxes. These are being sent to pharmacy for identification. She takes ativan 0.5 mg at home at noon and at bedtime. She says she has not drunk alcohol in 6 weeks. Exam Narrative Exam Narrative: General: Pleasant anxious middle-aged female who has a green ecchymosis on her forehead, A&Ox3, HEENT: EOMI, MMM Heart: RRR, no m/r/g Lungs: inspiratory and expiratory wheezing B Abdomen: soft, very hypoactive bowel sounds B, diffusely tender Extremities: no edema BLEs Objective Last Vital Signs Temp 36.1 C L 03/18/22 08:26 Pulse 70 03/18/22 09:00 Resp 20 03/18/22 09:01 BP 105/53 L 03/18/22 09:00 Pulse Ox 94 03/18/22 09:01 Laboratory Results - last 24 hr 03/17/22 03/17/22 03/17/22 14:45 14:45 14:45 WBC 7.39 RBC 4.04 Hgb 12.1 Hct 37.5 MCV 93 MCH 30.0 MCHC 32.3 RDW 13.2 Plt Count 231 MPV 9.9 Immature Gran % 0.0 Neutrophils % 76.0 Band Neutrophils % 5 Lymphocytes % 12.0 Monocytes % 7.0 Eosinophils % 0.0 Basophils % 0.0 Metamyelocytes % Nucleated RBC % 0.0 Absolute Neutrophils 5.99 Absolute Lymphocytes 0.89 L Absolute Monocytes 0.52 Absolute Eosinophils 0.00 Absolute Basophils 0.00 RBC Morphology Normal Sodium 135 L Potassium 2.8 L* Chloride 89 L Carbon Dioxide 36.6 H Anion Gap 9.4 BUN 29 H Creatinine 2.6 H Estimated GFR/1.73 m2 18.25 Glucose 114 H Calcium 9.0 Magnesium 1.9 Total Bilirubin 0.7 AST 23 ALT 16 Alkaline Phosphatase 74 Troponin I < 50 C-Reactive Protein NT-Pro-B Natriuret Pep Total Protein 7.3 Albumin 2.7 L Lipase 77 Urine Color Urine Clarity Urine pH Ur Specific [place] Urine Protein Urine Ketones Urine Blood Urine Nitrite Urine Bilirubin Urine Urobilinogen Ur Leukocyte Esterase Urine RBC Urine WBC Ur Epithelial Cells Urine Crystals Urine Bacteria Urine Casts Urine Mucus Ur Culture Indicated? Urine Glucose COVID-19 Source SARS-CoV-2 (PCR) Influenza Type A (PCR) Influenza Type B (PCR) RSV (PCR) 03/17/22 03/17/22 03/17/22 15:47 16:15 20:40 WBC RBC Hgb Hct MCV MCH MCHC RDW Plt Count MPV Immature Gran % Neutrophils % Band Neutrophils % Lymphocytes % Monocytes % Eosinophils % Basophils % Metamyelocytes % Nucleated RBC % Absolute Neutrophils Absolute Lymphocytes Absolute Monocytes Absolute Eosinophils Absolute Basophils RBC Morphology Sodium 133 L Potassium 3.0 L Chloride 95 L Carbon Dioxide 30.3 Anion Gap 7.7 BUN 29 H Creatinine 2.5 H Estimated GFR/1.73 m2 19.10 Glucose 102 Calcium 8.0 L Magnesium 1.8 Total Bilirubin AST ALT Alkaline Phosphatase Troponin I C-Reactive Protein NT-Pro-B Natriuret Pep Total Protein Albumin Lipase Urine Color Yellow Urine Clarity Cloudy Urine pH 5.0 Ur Specific [place] >= 1.030 H Urine Protein 30 H Urine Ketones Trace H Urine Blood Trace-intact H Urine Nitrite Negative Urine Bilirubin Moderate H Urine Urobilinogen 0.2 Ur Leukocyte Esterase Small H Urine RBC 5-10 H Urine WBC >50 H Ur Epithelial Cells Many Urine Crystals Many Amorphous Urine Bacteria Many Urine Casts Negative Urine Mucus Moderate Ur Culture Indicated? No/Sq. Contamination Urine Glucose Negative COVID-19 Source Nasopharynx SARS-CoV-2 (PCR) Negative Influenza Type A (PCR) Negative Influenza Type B (PCR) Negative RSV (PCR) Negative 03/18/22 03/18/22 03/18/22 05:33 05:33 05:33 WBC 3.29 L RBC 3.15 L Hgb 9.7 L D Hct 29.7 L MCV 94 MCH 30.8 MCHC 32.7 RDW 13.6 Plt Count 158 MPV 10.3 Immature Gran % See Differential Neutrophils % 62.0 Band Neutrophils % 5 Lymphocytes % 13.0 Monocytes % 12.0 Eosinophils % 2.0 Basophils % 4.0 Metamyelocytes % 2 Nucleated RBC % 0.0 Absolute Neutrophils 2.20 Absolute Lymphocytes 0.43 L Absolute Monocytes 0.39 Absolute Eosinophils 0.07 Absolute Basophils 0.13 RBC Morphology Normal Sodium 139 Potassium 3.7 Chloride 104 Carbon Dioxide 28.8 Anion Gap 6.2 BUN 25 H Creatinine 1.6 H Estimated GFR/1.73 m2 31.96 Glucose 73 L Calcium 7.2 L Magnesium Total Bilirubin 0.5 AST 19 ALT 11 L Alkaline Phosphatase 65 Troponin I C-Reactive Protein 14.43 H NT-Pro-B Natriuret Pep 1007 H Total Protein 5.2 L Albumin 1.8 L Lipase 125 Urine Color Urine Clarity Urine pH Ur Specific [place] Urine Protein Urine Ketones Urine Blood Urine Nitrite Urine Bilirubin Urine Urobilinogen Ur Leukocyte Esterase Urine RBC Urine WBC Ur Epithelial Cells Urine Crystals Urine Bacteria Urine Casts Urine Mucus Ur Culture Indicated? Urine Glucose COVID-19 Source SARS-CoV-2 (PCR) Influenza Type A (PCR) Influenza Type B (PCR) RSV (PCR) Objective Narrative Objective Narrative: US abdomen: 1. Cholelithiasis.? Common duct measuring 7.7 mm. 2. Small amount of perihepatic free fluid.? Echo: Normal left ventricular wall thickness and chamber size.? Estimated ejection fraction is 60%.? Wall motion is normal Normal right ventricular size and systolic function Both atria are borderline dilated Aortic valve is trileaflet with trace to mild regurgitation Normal mitral valve with mild regurgitation Normal tricuspid valve with trace to mild regurgitation.? Estimated right v entricular systolic pressure is 32 mmHg
[2022-03-18] MEDS: Albuterol/Ipratropium 3 ML UPD VIAL UPD ×3 (12:49→20:35)
[2022-03-18] MEDS: LORazepam 20 MG/10 ML VIAL IVP (13:15)
[2022-03-18 13:17] LABS: HCT 33.3 % (36.0-46.0); HGB 10.7 g/dL (11.2-15.7)
[2022-03-18] MEDS: THIAMINE 100 MG in Normal Saline 100 ML 200 MG IVPB (14:27)
[2022-03-18 15:07] LABS: Procalcitonin 0.4 ng/mL
[2022-03-18 15:54] LABS: Bilirubin Negative (Negative); Blood Negative (Negative); Clarity Clear (Clear); Glucose Negative (Negative); Ketones 80 mg/dL (Negative); Leukocyte Esterase Negative (Negative); Nitrite Negative (Negative); Specific Gravity >= 1.030 (1.005-1.025); Urobilinogen 0.2 EU/dL (Up TO 0.2); pH 5.5 (5-8)
--- NOTE | 2022-03-18 17:40 | NUR.NOTE ---
Pt gave Dr. Rodríguez 3 pill organizers. Sent to pharmacy with Christianne Wing Note:
--- NOTE | 2022-03-18 22:26 | NUR.NOTE ---
When i went to give IV meds at approximately 2014, I checked the IV access and discovered the IV was leaking and no longer working. I made 2 attempts to establish access with no luck. Tata PEREZ from [facility] was able to obtain access in the right hand, however, as soon as the patient stood up to use the commode she stepped on the IV tubing and ripped the IV out. Tata RN is back now to try to establish IV access. I will update on the worklist if access is obtained. Nursing Note:
[2022-03-18 23:27] LABS: Lab Add On Test DONE
[2022-03-19] VITALS (32 sets, daily range): BP systolic 112–146; BP diastolic 53–87; PULSE 55–76; RESP 8–26; TEMP 37.1; O2SAT 89–98
--- NOTE | 2022-03-19 | DI.RAD_ITS ---
Exam(s) XR ABDOMEN FLAT UPRIGHT EXAM: XR ABDOMEN FLAT UPRIGHT CLINICAL HISTORY: SBO vs ileus TECHNIQUE: COMPARISON: CR,XR XR ABDOMEN FLAT UPRIGHT from 03/17/2022 FINDINGS: Three views were obtained. Examination is compared with prior examination of March 17 and small b owel dilatation noted on previous examination has essentially resolved. No free intraperitoneal air seen. No other specific abnormality. IMPRESSION: Negative examination of the abdomen RADIATION DOSE DELIVERED: Total DLP
[2022-03-19] MEDS: Normal Saline Flush 10 ML SYR IVP ×2 (00:01→13:38)
[2022-03-19] MEDS: Pantoprazole 40 MG VIAL IVP (00:01)
[2022-03-19] MEDS: PIPERACILLIN/TAZO 3.375 GM in Normal Saline 50 ML IVPB ×2 (05:51→14:09)
[2022-03-19 06:15] LABS: HCT 31.4 % (36.0-46.0); HGB 10.4 g/dL (11.2-15.7); MCH 30.8 pg (27.0-33.0); MCHC 33.1 % (32.0-36.0); MCV 93 fL (80-95); MPV 9.9 fL (8.0-11.0); Platelet Count 228 10^3/uL (130-400); RBC 3.38 10^6/uL (3.93-5.22); RDW 13.7 % (11.7-14.6); RDW-SD 46.5 fL; WBC 9.61 10^3/uL (4.4-10.8)
[2022-03-19 06:33] LABS: BUN 19 mg/dL (7-18); C-Reactive Protein 15.71 mg/dL (0.0-0.3); CREATININE 0.9 mg/dL (0.55-1.02); Calcium 7.9 mg/dL (8.5-10.1); Chloride 105 mmol/L (98-107); Glucose 120 mg/dL (74-106); Magnesium 1.8 mg/dL (1.8-2.4); Potassium 4.5 mmol/L (3.5-5.1); Sodium 139 mmol/L (136-145)
[2022-03-19 07:02] LABS: Absolute Lymphocyte Count 0.29 10^3/uL (1.2-3.4); Absolute Monocyte Count 0.29 10^3/uL (0.1-0.8); Absolute Neutrophil Count 8.84 10^3/uL (1.2-6.7); Bands % 5; Diff Comment Manual Differential; Metamyelocytes % 2; RBC Morphology Normal
--- NOTE | 2022-03-19 07:28 | PGE_ITS ---
Assessment and Plan Assessment and plan (1) Chronic obstructive pulmonary disease: Status: Chronic Qualifiers: COPD type: COPD with acute exacerbation Qualified Code(s): J44.1 - Chronic obstructive pulmonary disease with (acute) exacerbation (2) Pneumonia: Status: Acute Qualifiers: Laterality: left Lung location: upper lobe of lung Pneumonia type: due to unspecified organism Qualified Code(s): J18.9 - Pneumonia, unspecified organism (3) Respiratory failure with hypoxia: Status: Acute (4) Obstructive sleep apnea: Assessment and plan: This is a 71 yo female with CHF and CAD (followed by [facility] cardiology), COPD (not on home O2 or any maintenance inhalers) who is admitted to the ICU for cholelithiasis and possible gallstone ileus. From a pulmonary perspective, I believe she is in slight volume overload evidenced by B-lines on her POCUS and a non collapsible IVC. 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 I do t hink she can be more appropriately managed from a COPD standpoint as an outpatient and will have her see me once she is discharged. Her lungs sound much better than yesterday. She has a GGO in the DANIEL with a small nodule that could represent a pneumonia - she is already on Zosyn which will cover this. I also think she could benefit from some diuresis, particularly now that her pre renal MOHAN has improved. COPD with Exacerbation - IV methylpred 40mg - patient NPO - can switch to PO prednisone 40mg once OK to eat - standing Duonebs QID - prn albuterol - once improved should be on maintenance inhaler - recommend Stiolto and prn albuterol?on discharge - nicotine patches - will will see as an outpatient Hypoxic respiratory failure - continue IS and VibraPEP - supplemental O2 for a sat goal 88-92% - ambulation as tolerated and per surgery SCHUYLER - not wearing CPAP at home - may need CPAP robert-procedure General Date Of Service Date of service: 03/19/22 Time of Service: 07:29 Reason for Consult: COPD Exacerbation Abnormal chest CT Subjective Note Note: Opal is doing well today. She is doing do well today. Denies shortness of breath. Exam Narrative Exam Narrative: POCUS 03/18/22: Parasternal views obstructed by air. Anterior lungs: bilateral B- lines present. Dilated appearing LV and RV. Diffuse hypokinesis with low normal EF. IVC is of normal size but contracts <50% with inspiration. Gen: NAD, normal respiratory effort, well-nourished HENT: PERRL, nasal turbinates normal without erythema or inflammation, moist oral mucosa, Mallampati 2, No LAD or JVD Chest: No respiratory distress, normal appearance of chest, clear to auscultation bilaterally, scattered wheezing, normal inspiratory effort Heart: regular rate and rhythym, no murmurs, rubs or gallops Abdomen: Non-distended, soft, non tender Extremities: No clubbing, edema, cyanosis, rashes Neuro: AAOx3 , non focal Psych: cooperative, appropriate mental affect Objective Last Vital Signs Temp 36.4 C L 03/18/22 23:30 Pulse 65 03/19/22 06:00 Resp 23 03/19/22 06:01 BP 126/59 L 03/19/22 06:00 Pulse Ox 91 L 03/19/22 06:01 Laboratory Results - last 24 hr 03/18/22 03/18/22 03/18/22 05:20 05:20 13:00 WBC RBC Hgb 10.7 L Hct 33.3 L MCV MCH MCHC RDW Plt Count MPV Immature Gran % Neutrophils % Band Neutrophils % Lymphocytes % Monocytes % Eosinophils % Basophils % Metamyelocytes % Nucleated RBC % Absolute Neutrophils Absolute Lymphocytes Absolute Monocytes Absolute Eosinophils Absolute Basophils RBC Morphology Sodium Potassium Chloride Carbon Dioxide Anion Gap BUN Creatinine Estimated GFR/1.73 m2 Glucose Calcium Magnesium C-Reactive Protein Procalcitonin 0.4 Urine Color Urine Clarity Urine pH Ur Specific [place] Urine Protein Urine Ketones Urine Blood Urine Nitrite Urine Bilirubin Urine Urobilinogen Ur Leukocyte Esterase Urine Glucose Add-On Test Request DONE 03/18/22 03/19/22 03/19/22 15:38 05:28 05:28 WBC 9.61 RBC 3.38 L Hgb 10.4 L Hct 31.4 L MCV 93 MCH 30.8 MCHC 33.1 RDW 13.7 Plt Count 228 MPV 9.9 Immature Gran % 0.0 Neutrophils % 87.0 Band Neutrophils % 5 Lymphocytes % 3.0 Monocytes % 3.0 Eosinophils % 0.0 Basophils % 0.0 Metamyelocytes % 2 Nucleated RBC % 0.0 Absolute Neutrophils 8.84 H Absolute Lymphocytes 0.29 L Absolute Monocytes 0.29 Absolute Eosinophils 0.00 Absolute Basophils 0.00 RBC Morphology Normal Sodium 139 Potassium 4.5 Chloride 105 Carbon Dioxide 25.0 Anion Gap 9.0 BUN 19 H Creatinine 0.9 Estimated GFR/1.73 m2 >= 60.00 Glucose 120 H Calcium 7.9 L Magnesium 1.8 C-Reactive Protein 15.71 H Procalcitonin Urine Color Yellow Urine Clarity Clear Urine pH 5.5 Ur Specific [place] >= 1.030 H Urine Protein Negative Urine Ketones 80 H Urine Blood Negative Urine Nitrite Negative Urine Bilirubin Negative Urine Urobilinogen 0.2 Ur Leukocyte Esterase Negative Urine Glucose Negative Add-On Test Request Results Medications Medications: Active Medications Generic Name Dose Route Start Last Admin Trade Name Freq PRN Reason Stop Dose Admin Albuterol Sulfate 2 puff 03/17/22 20:36 Albuterol Hfa 8 Gm 60 Puff Inh IH Q4H PRN PRN Albuterol/Ipratropium 3 ml 03/18/22 12:00 03/18/22 20:35 Albuterol/Ipratropium 3 Ml Upd Vial UPD 3 ml QID ASHLEY Administration Bupropion HCl 150 mg 03/18/22 08:30 03/18/22 09:51 Bupropion-Cr 150 Mg Tabcr PO 150 mg QAM ASHLEY Administration Device 1 each 03/17/22 21:00 Inhaler, Assist Device MC DIRECTED ASHLEY Dextrose/Water 0 gm 03/18/22 07:23 Dextrose 50%-Water 25 Gm/50 Ml Syr IVP DIRECTED PRN Enoxaparin Sodium 40 mg 03/19/22 08:30 Enoxaparin 40 Mg/0.4 Ml Syr SC DAILY ASHLEY Fluoxetine HCl 40 mg 03/18/22 08:30 03/18/22 09:51 Fluoxetine 20 Mg Cap PO 40 mg DAILY ASHLEY Administration Hydromorphone HCl 0.5 mg 03/17/22 20:44 03/17/22 21:12 Hydromorphone 2 Mg/Ml Syr IVP 0.5 mg Q2H PRN PRN Administration Sodium Chloride 500 mls @ 0 mls/hr 03/17/22 18:03 Saline 500ml Bag IV PRN PRN As Directed Acetaminophen 1,000 mg in 100 mls @ 400 mls/hr 03/17/22 20:29 Ofirmev IVPB Q8H PRN PRN Piperacillin Sod/Tazobactam 50 mls @ 12.5 mls/hr 03/19/22 06:00 03/19/22 05:51 Sod 3.375 gm/ Sodium Chloride IVPB Not Given Q8H [facility] Protocol IV Miscellaneous Supplies 1 each 03/17/22 18:15 Iv Access IV DIRECTED ASHLEY Levothyroxine Sodium 55 mcg 03/18/22 08:30 03/18/22 09:51 Levothyroxine 100 Mcg Vial IVP 55 mcg DAILY ASHLEY Administration Lorazepam 0.5 mg 03/17/22 20:24 03/17/22 21:13 Lorazepam 20 Mg/10 Ml Vial IVP 0.5 mg Q3H PRN PRN Administration Methylprednisolone Sodium Succinate 40 mg 03/18/22 10:30 03/18/22 12:11 Methylprednisolone Succ 40 Mg Vial IVP 40 mg DAILY ASHLEY Administration Multivitamins 1 tab 03/19/22 08:30 Multivitamin Tab PO DAILY ASHLEY Nicotine 7 mg 03/18/22 08:30 03/18/22 09:51 Nicotine 7 Mg/24 Hr Patch TD 7 mg DAILY ASHLEY Administration Ondansetron HCl 4 mg 03/17/22 18:03 Ondansetron 4 Mg/2 Ml Vial IVP Q4H PRN PRN Pantoprazole Sodium 40 mg 03/18/22 22:00 03/19/22 00:01 Pantoprazole 40 Mg Vial IVP 40 mg HS ASHLEY Administration Sodium Chloride 0 ml 03/17/22 18:03 03/19/22 00:01 Normal Saline Flush 10 Ml Syr IVP 20 ml PRN PRN Administration Allergies codeine Allergy (Severe, Verified 03/17/22 15:20) ITCHING Penicillins Allergy (Severe, Verified 03/17/22 15:20) HIVES latex Allergy (Intermediate, Verified 03/17/22 15:20) SKIN RASH Sulfa (Sulfonamide Antibiotics) Allergy (Intermediate, Verified 03/17/22 15:20) SKIN RASH sertraline Adverse Reaction (Severe, Verified 03/17/22 15:20) DIARRHEA diazepam Adverse Reaction (Intermediate, Verified 03/17/22 15:20) NAUSEA varenicline [From Chantix] Adverse Reaction (Mild, Verified 03/17/22 15:20) Agitation rosuvastatin Adverse Reaction (Unknown, Verified 03/17/22 15:20) ?GUM DISEASE Labs Result Diagrams: 03/19/22 05:28 03/19/22 05:28 Labs: Laboratory Tests Range/Units 03/17/22 03/17/22 03/17/22 14:45 14:45 14:45 WBC (4.4-10.8) 10^3/uL 7.39 RBC (3.93-5.22) 10^6/uL 4.04 Hgb (11.2-15.7) g/dL 12.1 Hct (36.0-46.0) % 37.5 MCV (80-95) fL 93 MCH (27.0-33.0) pg 30.0 MCHC (32.0-36.0) % 32.3 RDW (11.7-14.6) % 13.2 Plt Count (130-400) 10^3/uL 231 MPV (8.0-11.0) fL 9.9 Immature Gran % 0.0 Neutrophils % 76.0 Band Neutrophils % 5 Lymphocytes % 12.0 Monocytes % 7.0 Eosinophils % 0.0 Basophils % 0.0 Metamyelocytes % Nucleated RBC % (0.0-0.3) % 0.0 Absolute Neutrophils (1.2-6.7) 10^3/uL 5.99 Absolute Lymphocytes (1.2-3.4) 10^3/uL 0.89 L Absolute Monocytes (0.1-0.8) 10^3/uL 0.52 Absolute Eosinophils (0.0-0.7) 10^3/uL 0.00 Absolute Basophils (0.0-0.2) 10^3/uL 0.00 RBC Morphology Normal Sodium (136-145) mmol/L 135 L Potassium (3.5-5.1) mmol/L 2.8 L* Chloride (98-107) mmol/L 89 L Carbon Dioxide (21.0-32.0) mmol/L 36.6 H Anion Gap (3-11) mmol/L 9.4 BUN (7-18) mg/dL 29 H Creatinine (0.55-1.02) mg/dL 2.6 H Estimated GFR/1.73 m2 (mL/min/1.73m2) 18.25 Glucose (74-106) mg/dL 114 H Calcium (8.5-10.1) mg/dL 9.0 Magnesium (1.8-2.4) mg/dL 1.9 Total Bilirubin (0.2-1.0) mg/dL 0.7 AST (15-37) U/L 23 ALT (14-59) U/L 16 Alkaline Phosphatase (46-116) U/L 74 Troponin I (<or=60) ng/L < 50 C-Reactive Protein (0.0-0.3) mg/dL NT-Pro-B Natriuret Pep (<300) pg/mL Total Protein (6.4-8.2) g/dL 7.3 Albumin (3.4-5.0) g/dL 2.7 L Lipase (73-393) U/L 77 Procalcitonin ng/mL Urine Color (Yellow) Urine Clarity (Clear) Urine pH (5-8) Ur Specific [place] (1.005-1.025) Urine Protein (Negative) mg/dL Urine Ketones (Negative) mg/dL Urine Blood (Negative) Urine Nitrite (Negative) Urine Bilirubin (Negative) Urine Urobilinogen (Up TO 0.2) EU/dL Ur Leukocyte Esterase (Negative) Urine RBC (0-2) HPF Urine WBC (0-5) HPF Ur Epithelial Cells (Negative) HPF Urine Crystals (Negative) HPF Urine Bacteria (Negative) HPF Urine Casts (Negative) LPF Urine Mucus (Negative) Ur Culture Indicated? Urine Glucose (Negative) mg/dL COVID-19 Source SARS-CoV-2 (PCR) (Negative) Influenza Type A (PCR) (Negative) Influenza Type B (PCR) (Negative) RSV (PCR) (Negative) Add-On Test Request Range/Units 03/17/22 03/17/22 03/17/22 15:47 16:15 20:40 WBC (4.4-10.8) 10^3/uL RBC (3.93-5.22) 10^6/uL Hgb (11.2-15.7) g/dL Hct (36.0-46.0) % MCV (80-95) fL MCH (27.0-33.0) pg MCHC (32.0-36.0) % RDW (11.7-14.6) % Plt Count (130-400) 10^3/uL MPV (8.0-11.0) fL Immature Gran % Neutrophils % Band Neutrophils % Lymphocytes % Monocytes % Eosinophils % Basophils % Metamyelocytes % Nucleated RBC % (0.0-0.3) % Absolute Neutrophils (1.2-6.7) 10^3/uL Absolute Lymphocytes (1.2-3.4) 10^3/uL Absolute Monocytes (0.1-0.8) 10^3/uL Absolute Eosinophils (0.0-0.7) 10^3/uL Absolute Basophils (0.0-0.2) 10^3/uL RBC Morphology Sodium (136-145) mmol/L 133 L Potassium (3.5-5.1) mmol/L 3.0 L Chloride (98-107) mmol/L 95 L Carbon Dioxide (21.0-32.0) mmol/L 30.3 Anion Gap (3-11) mmol/L 7.7 BUN (7-18) mg/dL 29 H Creatinine (0.55-1.02) mg/dL 2.5 H Estimated GFR/1.73 m2 (mL/min/1.73m2) 19.10 Glucose (74-106) mg/dL 102 Calcium (8.5-10.1) mg/dL 8.0 L Magnesium (1.8-2.4) mg/dL 1.8 Total Bilirubin (0.2-1.0) mg/dL AST (15-37) U/L ALT (14-59) U/L Alkaline Phosphatase (46-116) U/L Troponin I (<or=60) ng/L C-Reactive Protein (0.0-0.3) mg/dL NT-Pro-B Natriuret Pep (<300) pg/mL Total Protein (6.4-8.2) g/dL Albumin (3.4-5.0) g/dL Lipase (73-393) U/L Procalcitonin ng/mL Urine Color (Yellow) Yellow Urine Clarity (Clear) Cloudy Urine pH (5-8) 5.0 Ur Specific [place] (1.005-1.025) >= 1.030 H Urine Protein (Negative) mg/dL 30 H Urine Ketones (Negative) mg/dL Trace H Urine Blood (Negative) Trace-intact H Urine Nitrite (Negative) Negative Urine Bilirubin (Negative) Moderate H Urine Urobilinogen (Up TO 0.2) EU/dL 0.2 Ur Leukocyte Esterase (Negative) Small H Urine RBC (0-2) HPF 5-10 H Urine WBC (0-5) HPF >50 H Ur Epithelial Cells (Negative) HPF Many Urine Crystals (Negative) HPF Many Amorphous Urine Bacteria (Negative) HPF Many Urine Casts (Negative) LPF Negative Urine Mucus (Negative) Moderate Ur Culture Indicated? No/Sq. Contamination Urine Glucose (Negative) mg/dL Negative COVID-19 Source Nasopharynx SARS-CoV-2 (PCR) (Negative) Negative Influenza Type A (PCR) (Negative) Negative Influenza Type B (PCR) (Negative) Negative RSV (PCR) (Negative) Negative Add-On Test Request Range/Units 03/18/22 03/18/22 03/18/22 05:20 05:20 05:33 WBC (4.4-10.8) 10^3/uL RBC (3.93-5.22) 10^6/uL Hgb (11.2-15.7) g/dL Hct (36.0-46.0) % MCV (80-95) fL MCH (27.0-33.0) pg MCHC (32.0-36.0) % RDW (11.7-14.6) % Plt Count (130-400) 10^3/uL MPV (8.0-11.0) fL Immature Gran % Neutrophils % Band Neutrophils % Lymphocytes % Monocytes % Eosinophils % Basophils % Metamyelocytes % Nucleated RBC % (0.0-0.3) % Absolute Neutrophils (1.2-6.7) 10^3/uL Absolute Lymphocytes (1.2-3.4) 10^3/uL Absolute Monocytes (0.1-0.8) 10^3/uL Absolute Eosinophils (0.0-0.7) 10^3/uL Absolute Basophils (0.0-0.2) 10^3/uL RBC Morphology Sodium (136-145) mmol/L Potassium (3.5-5.1) mmol/L Chloride (98-107) mmol/L Carbon Dioxide (21.0-32.0) mmol/L Anion Gap (3-11) mmol/L BUN (7-18) mg/dL Creatinine (0.55-1.02) mg/dL Estimated GFR/1.73 m2 (mL/min/1.73m2) Glucose (74-106) mg/dL Calcium (8.5-10.1) mg/dL Magnesium (1.8-2.4) mg/dL Total Bilirubin (0.2-1.0) mg/dL AST (15-37) U/L ALT (14-59) U/L Alkaline Phosphatase (46-116) U/L Troponin I (<or=60) ng/L C-Reactive Protein (0.0-0.3) mg/dL NT-Pro-B Natriuret Pep (<300) pg/mL 1007 H Total Protein (6.4-8.2) g/dL Albumin (3.4-5.0) g/dL Lipase (73-393) U/L Procalcitonin ng/mL 0.4 Urine Color (Yellow) Urine Clarity (Clear) Urine pH (5-8) Ur Specific [place] (1.005-1.025) Urine Protein (Negative) mg/dL Urine Ketones (Negative) mg/dL Urine Blood (Negative) Urine Nitrite (Negative) Urine Bilirubin (Negative) Urine Urobilinogen (Up TO 0.2) EU/dL Ur Leukocyte Esterase (Negative) Urine RBC (0-2) HPF Urine WBC (0-5) HPF Ur Epithelial Cells (Negative) HPF Urine Crystals (Negative) HPF Urine Bacteria (Negative) HPF Urine Casts (Negative) LPF Urine Mucus (Negative) Ur Culture Indicated? Urine Glucose (Negative) mg/dL COVID-19 Source SARS-CoV-2 (PCR) (Negative) Influenza Type A (PCR) (Negative) Influenza Type B (PCR) (Negative) RSV (PCR) (Negative) Add-On Test Request DONE Range/Units 03/18/22 03/18/22 03/18/22 05:33 05:33 13:00 WBC (4.4-10.8) 10^3/uL 3.29 L RBC (3.93-5.22) 10^6/uL 3.15 L Hgb (11.2-15.7) g/dL 9.7 L D 10.7 L Hct (36.0-46.0) % 29.7 L 33.3 L MCV (80-95) fL 94 MCH (27.0-33.0) pg 30.8 MCHC (32.0-36.0) % 32.7 RDW (11.7-14.6) % 13.6 Plt Count (130-400) 10^3/uL 158 MPV (8.0-11.0) fL 10.3 Immature Gran % See Differential Neutrophils % 62.0 Band Neutrophils % 5 Lymphocytes % 13.0 Monocytes % 12.0 Eosinophils % 2.0 Basophils % 4.0 Metamyelocytes % 2 Nucleated RBC % (0.0-0.3) % 0.0 Absolute Neutrophils (1.2-6.7) 10^3/uL 2.20 Absolute Lymphocytes (1.2-3.4) 10^3/uL 0.43 L Absolute Monocytes (0.1-0.8) 10^3/uL 0.39 Absolute Eosinophils (0.0-0.7) 10^3/uL 0.07 Absolute Basophils (0.0-0.2) 10^3/uL 0.13 RBC Morphology Normal Sodium (136-145) mmol/L 139 Potassium (3.5-5.1) mmol/L 3.7 Chloride (98-107) mmol/L 104 Carbon Dioxide (21.0-32.0) mmol/L 28.8 Anion Gap (3-11) mmol/L 6.2 BUN (7-18) mg/dL 25 H Creatinine (0.55-1.02) mg/dL 1.6 H Estimated GFR/1.73 m2 (mL/min/1.73m2) 31.96 Glucose (74-106) mg/dL 73 L Calcium (8.5-10.1) mg/dL 7.2 L Magnesium (1.8-2.4) mg/dL Total Bilirubin (0.2-1.0) mg/dL 0.5 AST (15-37) U/L 19 ALT (14-59) U/L 11 L Alkaline Phosphatase (46-116) U/L 65 Troponin I (<or=60) ng/L C-Reactive Protein (0.0-0.3) mg/dL 14.43 H NT-Pro-B Natriuret Pep (<300) pg/mL Total Protein (6.4-8.2) g/dL 5.2 L Albumin (3.4-5.0) g/dL 1.8 L Lipase (73-393) U/L 125 Procalcitonin ng/mL Urine Color (Yellow) Urine Clarity (Clear) Urine pH (5-8) Ur Specific [place] (1.005-1.025) Urine Protein (Negative) mg/dL Urine Ketones (Negative) mg/dL Urine Blood (Negative) Urine Nitrite (Negative) Urine Bilirubin (Negative) Urine Urobilinogen (Up TO 0.2) EU/dL Ur Leukocyte Esterase (Negative) Urine RBC (0-2) HPF Urine WBC (0-5) HPF Ur Epithelial Cells (Negative) HPF Urine Crystals (Negative) HPF Urine Bacteria (Negative) HPF Urine Casts (Negative) LPF Urine Mucus (Negative) Ur Culture Indicated? Urine Glucose (Negative) mg/dL COVID-19 Source SARS-CoV-2 (PCR) (Negative) Influenza Type A (PCR) (Negative) Influenza Type B (PCR) (Negative) RSV (PCR) (Negative) Add-On Test Request Range/Units 03/18/22 03/19/22 03/19/22 15:38 05:28 05:28 WBC (4.4-10.8) 10^3/uL 9.61 RBC (3.93-5.22) 10^6/uL 3.38 L Hgb (11.2-15.7) g/dL 10.4 L Hct (36.0-46.0) % 31.4 L MCV (80-95) fL 93 MCH (27.0-33.0) pg 30.8 MCHC (32.0-36.0) % 33.1 RDW (11.7-14.6) % 13.7 Plt Count (130-400) 10^3/uL 228 MPV (8.0-11.0) fL 9.9 Immature Gran % 0.0 Neutrophils % 87.0 Band Neutrophils % 5 Lymphocytes % 3.0 Monocytes % 3.0 Eosinophils % 0.0 Basophils % 0.0 Metamyelocytes % 2 Nucleated RBC % (0.0-0.3) % 0.0 Absolute Neutrophils (1.2-6.7) 10^3/uL 8.84 H Absolute Lymphocytes (1.2-3.4) 10^3/uL 0.29 L Absolute Monocytes (0.1-0.8) 10^3/uL 0.29 Absolute Eosinophils (0.0-0.7) 10^3/uL 0.00 Absolute Basophils (0.0-0.2) 10^3/uL 0.00 RBC Morphology Normal Sodium (136-145) mmol/L 139 Potassium (3.5-5.1) mmol/L 4.5 Chloride (98-107) mmol/L 105 Carbon Dioxide (21.0-32.0) mmol/L 25.0 Anion Gap (3-11) mmol/L 9.0 BUN (7-18) mg/dL 19 H Creatinine (0.55-1.02) mg/dL 0.9 Estimated GFR/1.73 m2 (mL/min/1.73m2) >= 60.00 Glucose (74-106) mg/dL 120 H Calcium (8.5-10.1) mg/dL 7.9 L Magnesium (1.8-2.4) mg/dL 1.8 Total Bilirubin (0.2-1.0) mg/dL AST (15-37) U/L ALT (14-59) U/L Alkaline Phosphatase (46-116) U/L Troponin I (<or=60) ng/L C-Reactive Protein (0.0-0.3) mg/dL 15.71 H NT-Pro-B Natriuret Pep (<300) pg/mL Total Protein (6.4-8.2) g/dL Albumin (3.4-5.0) g/dL Lipase (73-393) U/L Procalcitonin ng/mL Urine Color (Yellow) Yellow Urine Clarity (Clear) Clear Urine pH (5-8) 5.5 Ur Specific [place] (1.005-1.025) >= 1.030 H Urine Protein (Negative) mg/dL Negative Urine Ketones (Negative) mg/dL 80 H Urine Blood (Negative) Negative Urine Nitrite (Negative) Negative Urine Bilirubin (Negative) Negative Urine Urobilinogen (Up TO 0.2) EU/dL 0.2 Ur Leukocyte Esterase (Negative) Negative Urine RBC (0-2) HPF Urine WBC (0-5) HPF Ur Epithelial Cells (Negative) HPF Urine Crystals (Negative) HPF Urine Bacteria (Negative) HPF Urine Casts (Negative) LPF Urine Mucus (Negative) Ur Culture Indicated? Urine Glucose (Negative) mg/dL Negative COVID-19 Source SARS-CoV-2 (PCR) (Negative) Influenza Type A (PCR) (Negative) Influenza Type B (PCR) (Negative) RSV (PCR) (Negative) Add-On Test Request
[2022-03-19] MEDS: methylPREDNISolone SUCC 40 MG VIAL IVP (08:33)
[2022-03-19] MEDS: Multivitamin TAB 1 TAB PO (08:38)
[2022-03-19] MEDS: FLUoxetine 20 MG CAP 40 MG PO (08:38)
[2022-03-19] MEDS: buPROPion-CR 150 MG TABCR PO (08:38)
[2022-03-19] MEDS: Levothyroxine 100 MCG VIAL 55 MCG IVP (08:39)
[2022-03-19] MEDS: Enoxaparin 40 MG/0.4 ML SYR SC (08:41)
[2022-03-19] MEDS: Nicotine 7 MG/24 HR PATCH TD (08:43)
--- NOTE | 2022-03-19 08:43 | PGE_ITS ---
Date of Service Date of service: 03/19/22 Time of Service: 08:43 Assessment and Plan Assessment and plan (1) Gallstone ileus: Status: Acute Assessment and plan: Patient describes pain as resolved. She is passing BMs and flatus. Will start clear liquid diet this morning. Continue pulmonary toilet IV Zosyn Trial advancing diet this morning. Continue activity as tolerated and encourage ambulation and sitting up in the chair. (2) Hypotension: Status: Resolved (3) Acute kidney injury: Status: Acute (4) Acute dehydration: Status: Acute (5) Vomiting and diarrhea: Status: Acute (6) Chronic obstructive pulmonary disease: Status: Chronic Qualifiers: COPD type: COPD with acute exacerbation Qualified Code(s): J44.1 - Chronic obstructive pulmonary disease with (acute) exacerbation (7) Anxiety and depression: Status: Chronic (8) Essential (primary) hypertension: Status: Chronic (9) Abdominal aortic aneurysm: (10) Atherosclerotic heart disease of [place] coronary artery without angina pectoris: Qualifiers: [place] vs. transplanted heart: [place] heart Qualified Code(s): I25.10 - Atherosclerotic heart disease of [place] coronary artery without angina pectoris (11) Breast cancer: Qualifiers: Breast location: upper outer quadrant of breast Estrogen receptor status: unspecified Patient sex: female Laterality: left Qualified Code(s): C50.412 - Malignant neoplasm of upper-outer quadrant of left female breast (12) Cardiomyopathy: Qualifiers: Cardiomyopathy type: unspecified Qualified Code(s): I42.9 - Cardiomyopathy, unspecified (13) Gastro-esophageal reflux disease without esophagitis: (14) Hyperlipidemia: Qualifiers: Hyperlipidemia type: mixed hyperlipidemia Qualified Code(s): E78.2 - Mixed hyperlipidemia (15) Hypothyroidism: Qualifiers: Hypothyroidism type: acquired Qualified Code(s): E03.9 - Hypothyroidism, unspecified (16) Methicillin resistant Staphylococcus aureus infection: (17) Mixed incontinence: (18) Obstructive sleep apnea: (19) Smoker: (20) Restless legs syndrome: (21) Pyloric ulcer associated with Helicobacter pylori: Subjective Subjective Interval history since last seen: Patient reports she is feeling much better. She denies having any abdominal pain. Patient reports that she has had several bowel movements since yesterday. She denies having any nausea or vomiting. Exam Const General: cooperative, healthy appearing and comfortable Orientation: alert and oriented x3 Resp Effort & Inspection: normal respiratory effort, no audible wheezes and no cough GI Inspection: normal to inspection Palpation: soft, no guarding and nontender Percussion: normal to percussion Objective Last Vital Signs Temp 36.4 C L 03/18/22 23:30 Pulse 65 03/19/22 06:00 Resp 23 03/19/22 06:01 BP 126/59 L 03/19/22 06:00 Pulse Ox 91 L 03/19/22 06:01 Laboratory Results - last 24 hr 03/18/22 03/18/22 03/18/22 05:20 05:20 13:00 WBC RBC Hgb 10.7 L Hct 33.3 L MCV MCH MCHC RDW Plt Count MPV Immature Gran % Neutrophils % Band Neutrophils % Lymphocytes % Monocytes % Eosinophils % Basophils % Metamyelocytes % Nucleated RBC % Absolute Neutrophils Absolute Lymphocytes Absolute Monocytes Absolute Eosinophils Absolute Basophils RBC Morphology Sodium Potassium Chloride Carbon Dioxide Anion Gap BUN Creatinine Estimated GFR/1.73 m2 Glucose Calcium Magnesium C-Reactive Protein Procalcitonin 0.4 Urine Color Urine Clarity Urine pH Ur Specific [place] Urine Protein Urine Ketones Urine Blood Urine Nitrite Urine Bilirubin Urine Urobilinogen Ur Leukocyte Esterase Urine Glucose Add-On Test Request DONE 03/18/22 03/19/22 03/19/22 15:38 05:28 05:28 WBC 9.61 RBC 3.38 L Hgb 10.4 L Hct 31.4 L MCV 93 MCH 30.8 MCHC 33.1 RDW 13.7 Plt Count 228 MPV 9.9 Immature Gran % 0.0 Neutrophils % 87.0 Band Neutrophils % 5 Lymphocytes % 3.0 Monocytes % 3.0 Eosinophils % 0.0 Basophils % 0.0 Metamyelocytes % 2 Nucleated RBC % 0.0 Absolute Neutrophils 8.84 H Absolute Lymphocytes 0.29 L Absolute Monocytes 0.29 Absolute Eosinophils 0.00 Absolute Basophils 0.00 RBC Morphology Normal Sodium 139 Potassium 4.5 Chloride 105 Carbon Dioxide 25.0 Anion Gap 9.0 BUN 19 H Creatinine 0.9 Estimated GFR/1.73 m2 >= 60.00 Glucose 120 H Calcium 7.9 L Magnesium 1.8 C-Reactive Protein 15.71 H Procalcitonin Urine Color Yellow Urine Clarity Clear Urine pH 5.5 Ur Specific [employer] >= 1.030 H Urine Protein Negative Urine Ketones 80 H Urine Blood Negative Urine Nitrite Negative Urine Bilirubin Negative Urine Urobilinogen 0.2 Ur Leukocyte Esterase Negative Urine Glucose Negative Add-On Test Request
[2022-03-19] MEDS: Albuterol/Ipratropium 3 ML UPD VIAL UPD ×2 (08:45→13:35)
[2022-03-19 09:28] LABS: C Diff PCR Negative (Negative)
--- NOTE | 2022-03-19 09:30 | PT.INIE ---
Date of service: 03/19/22 Time of Service: 09:30 PT Notes Visit Reasons: SBO vs Gallstone Ileus Physical Therapy Inpatient Initial Evaluation Date: 03/20/2022 Referring Doctor: Yesica Rodríguez MD PT Orders: PT CONSULT: Limited ability Precautions: Fall. Standard. Activity as tolerated. Patient Profile/Admitting Diagnosis: Opal is a 71-year-old female who presented to the ED on 03/17/2022 due to nausea, vomiting, and diarrhea with intake of Chantix for about 5 days. Patient has a history of bowel obstruction and resection with colostomy reversal. Patient is diagnosed with gallstones ileus, hypotension, MOHAN, acute dehydration, vomiting and diarrhea, COPD exacerbation, pneumonia, anxiety, essential hypertension, AAA, breast cancer, cardiomyopathy, GERD, hyperlipidemia, hypothyroidism, MRSA, SCHUYLER, smoker, restless leg syndrome, small bowel obstruction, and cholelithiasis. PMHX: All Active Problems?(Updated 03/18/22 @ 12:48 by Yesica Rodríguez MD) Ambulatory dysfunction (Acute) Discharge planning issues (Acute) DVT prophylaxis (Acute) Respiratory failure with hypoxia (Acute) Hypoalbuminemia (Acute) Anemia (Chronic) CHF (congestive heart failure) (Chronic) Pneumonia (Acute) Cholelithiasis (Acute) Adverse drug reaction (Acute) Small bowel obstruction (Acute) Gallstone ileus (Acute) Acute kidney injury (Acute) Acute dehydration (Acute) Vomiting and diarrhea (Acute) Hypotension due to medication (Acute) Trigger finger (acquired) (Acute) Right ring fingerChronic obstructive pulmonary disease (Chronic 01/12/18) Very 12/11/17 PFTs Mod. sever obstructive airway disease with sig. bronchodilator response.? This is associated with severe diffusion defect - FVC 2.06 & FEV1 1.23 (both decrease Anxiety and depression (Chronic 02/10/15) Essential (primary) hypertension (Chronic) Medical History Abdominal aortic aneurysm s/p surgical repair [facility] 2007 Abnormal glandular Papanicolaou smear of vagina (~1978) Atherosclerotic heart disease of [place] coronary artery without angina pectoris Atrophic vaginitis (08/09/14) Breast cancer (01/20/14) left, 6 cm Invasive Lobular Carcinoma ([facility] 01/19/14) chemo started and radiation tx planned (on hold due to perf divertic) Cardiomyopathy New onset 04/2018 per [facility].? Normal rest nuclear perfusion.? Patient declined cath. [facility] Echo 02/25/19 EstEF = 41%, mild to mod aortic valve regurg Compared to LOUIE 02/17/18, LV systolic function is improved. Chronic depression Disorder of vitamin B12 (03/30/13) Diverticulitis of colon with perforation (06/24/14) sigmoid resection and colostomy [facility] Apr 2014 post op malnutrition and respiratory failure Gastro-esophageal reflux disease without esophagitis Hyperlipidemia Hypothyroidism Methicillin resistant Staphylococcus aureus infection (03/27/09) Migraine Mixed incontinence (02/19/16) Obstructive sleep apnea Partial small bowel obstruction Polyp of colon (06/26/05) adenoma. Pyloric ulcer associated with Helicobacter pylori (05/25/11) 04/07 H pylori on EGD (treated) Restless legs syndrome Smoker quit 2013 and then re-started 25 year HX - quit again 11/25/17 -back to daily smoking Surgical History? H/O tracheostomy Rotator Cuff Repair (~1978) LEFT S/P colostomy takedown Status post Mena's procedure Social History/Home Situation: has 4 steps to enter her house with rails on B sides. Independent with all ADLs prior to admission without an assistive device nor adaptive equipment. Equipment Owned/DME: None Subjective: Headache, and dizziness. Pleasant and cooperative. Agreeable to PT consult. Objective: General Observation: Seated on bedside chair. On telemetry monitoring. On oxygen supplementation 2l/minute via NC. Mental Status: Alert and oriented as to person, place, time, and purpose. Able to pay attention, focus, and respond appropriately. Pain: Denies Vital Signs: 83% on 2 L/minute with ambulation ROM: Right Upper Extremity: Shoulder Flexion WFL. Shoulder abduction WFL. Elbow flexion WFL. Wrist flexion WFL. Functional opening and closing of hand WFL. Left Upper Extremity: Shoulder Flexion WFL. Shoulder abduction WFL. Elbow flexion WFL. Wrist flexion WFL. Functional opening and closing of hand WFL. Right Lower Extremity: Hip flexion WFL. Hip abduction WFL. Knee flexion WFL. Ankle dorsiflexion WFL. Ankle plantarflexion WFL. Left Lower Extremity: Hip flexion WFL. Hip abduction WFL. Knee flexion WFL. Ankle dorsiflexion WFL. Ankle plantarflexion WFL. Strength: Right Upper Extremity: Shoulder flexors 4/5. Shoulder abductors 4/5. Elbow flexors 5/5. Elbow extensors 5/5. Lotus Notes Developer strong. Left Upper Extremity: Shoulder flexors 4/5. Shoulder abductors 4/5. Elbow flexors 5/5. Elbow extensors 5/5. Lotus Notes Developer strong. Right Lower Extremity: Hip flexors 4/5. Hip abductors 4/5. Knee flexors 5/5. Knee extensors 5/5. Ankle dorsiflexors 5/5. Ankle plantarflexors 5/5. Left Lower Extremity: Hip flexors 4/5. Hip abductors 4/5. Knee flexors 5/5. Knee extensors 5/5. Ankle dorsiflexors 5/5. Ankle plantarflexors 5/5. Bed Mobility/Transfers: Rolling independent Supine to sit independent Sit to supine independent Sit to stand independent Stand to sit independent Bed to bedside commode independent Bedside commode to bed independent Bed to reclining chair independent Reclining chair to bed independent Gait: Instructed patient with level surface ambulation of feet requiring supervision assist for line management only. No assistive device. Minimal shortness of breath that resolved with rest. Desaturated to 83% on 2 L but was able to resaturated back up in less than a minute. Balance: Static Sitting: Normal Dynamic Sitting: Normal Static Standing: Normal Dynamic Standing: Good Special Tests: Mobility Limitations Standardized Measure [facility] AM-PAC 6 clicks Basic Mobility Inpatient Short Form: Raw Score: 24 CMS Score: 0% deficit Informed Consent/Education: Patient was instructed in purpose of PT consult. Assessment: PT evaluation and one treatment session only for functional mobility retraining. Nursing staff may walk with patient for line management only. No assistive device needed. May be independent in room without AD. Patient is assessed as a 28732 low complexity based on the following: History: 71-year-old female with past medical history as indicated above Examination: Demonstrable impairment in strength, balance, and mobility level with underlying impairments and functional limitations as exhibited above as well as deficit score of 0% utilizing the [facility] Mobility Inpatient Short Form Presentation: Stable Decision Makin low complexity Goals: N/A. PT evaluation and treatment session only for functional mobility training. Plan of Care/Treatment Plan: N/A. PT evaluation and treatment session only for functional mobility training. DISCHARGE RECOMMENDATIONS: [X] Home with no services. Home when medically cleared by hospitalist. [] Home with services [specify] [] Home with outpatient PT [] [] SNF for continued rehabilitation [] [] Visual Merchandising Assistant Care [] [] SNF versus LTC based on ability to participate and progress [] TREATMENT CODE/TIME: 55645 x 20 minutes, 55517 x 17 minutes beginning at 9:30 AM. Thank you for the opportunity to participate in the care of this patient. Shital Zhao PT, DPT, CLT [facility] [place], [place]
--- NOTE | 2022-03-19 10:19 | PDOC.CMPRO ---
- If Service Date Differs Date of service: 03/19/22 Time of Service: 10:19 Care Management Progress Note S/O: Opal remains in the ICU, per surgical provider her diet will be advanced to clear liquid today to monitor for toleration, she remains on IV Zosyn and reports her pain is currently well managed. Per MD she will require a pulse ox prior to discharge to determine if she will need oxygen upon discharge. Surgeon stated Opal is nearing discharge readiness from a surgical standpoint. CM continues to follow. A: 71 year old female admitted for SBO vs Gallstone Ileus P: Opal will continue to be closely monitored and treated. CM will continue to follow and support discharge planning considerations; anticipate Opal will return home once her symptoms resolve. Undetermined if she will require oxygen at this time. She will transport via private vehicle with her significant other, Logan.
--- NOTE | 2022-03-19 10:37 | PGE_ITS ---
Date of Service Date of service: 03/19/22 Time of Service: 09:30 Assessment and Plan Assessment and plan (1) Cholelithiasis: Status: Acute Assessment and plan: With suspicion for gallstone ileus. Clinically the ileus has resolved. Surgery is starting a diet this am. I am not sure if further workup for gallbladder has been planned - will discuss with surgery. US negative for cholecystitis. (2) Respiratory failure with hypoxia: Status: Acute Assessment and plan: In setting of likely underlying COPD in acute exacerbation and a prior dx of sleep apnea requiring CPAP (which the patient could not tolerate due to claustrophobia). Clinically better today. Continue nebs, steroids Continue suppmental O2, weaning as tolerated. Avoid IVF. Will need exercise oximetry prior to d/c. (3) Chronic obstructive pulmonary disease: Status: Chronic Assessment and plan: In acute exacerbation As above. Continue duonebs, steroids. Qualifiers: COPD type: COPD with acute exacerbation Qualified Code(s): J44.1 - Chronic obstructive pulmonary disease with (acute) exacerbation (4) Pneumonia: Status: Acute Assessment and plan: ?aspiration. On zosyn. No evidence of actual tooth fragment on CT, per Dr Atkinson.. Qualifiers: Pneumonia type: due to unspecified organism Laterality: left Lung location: upper lobe of lung Qualified Code(s): J18.9 - Pneumonia, unspecified organism (5) Hypotension: Status: Resolved Assessment and plan: Continue to hold antihypertensives. (6) CHF (congestive heart failure): Status: Chronic Assessment and plan: Chronic diastolic CHF with evidence of pulmonary hypertension. Avoid continuous IVF. Try to match ins and outs. (7) Essential (primary) hypertension: Status: Chronic Assessment and plan: As above - antihypertensives on hold due to low BPs on presenation. (8) Obstructive sleep apnea: Assessment and plan: Patient states her sleep study was 15 years ago. She was unable to tolerate a CPAP mask due to claustrophobia. We discussed the possibility of use of nasal pillows if she wanted to try it again, but that she would need to have a repeat sleep study as outpatient. (9) Acute kidney injury: Status: Acute Assessment and plan: Improved with IVF. At this point, these are on hold. Cr is 1.6, down from 2.5 (Baseline Cr is 1.1-1.4) Continue to monitor off of IVF. (10) Anemia: Status: Chronic Assessment and plan: Hgb stable. (11) Hypokalemia: Status: Resolved Assessment and plan: Resolved. Recheck in am. (12) Hypoalbuminemia: Status: Chronic Assessment and plan: Suspect chronic malnutrition in setting of EtOH abuse. The patient should not be hydrated intravenously on continuous basis - only to match ins and outs. Will provide vitamin supplementation. (13) Ambulatory dysfunction: Status: Acute Assessment and plan: C/s PT. (14) Anxiety and depression: Status: Chronic Assessment and plan: Continue outpatient management. (15) Discharge planning issues: Status: Acute Assessment and plan: Full code Hospitalists will continue to follow with you. (16) DVT prophylaxis: Status: Acute Assessment and plan: SC enoxaparin Subjective Subjective Interval history since last seen: Feels better. Denies shortness of breath today, abdominal pain, nausea, chest pain. + bowel movement. Cdiff negative. Still a little confused. On 1.5-2L of O2 by NC. Exam Narrative Exam Narrative: General: Pleasant anxious middle-aged female who has a green ecchymosis on her forehead, A&Ox3, looks more composed today HEENT: EOMI, MMM Heart: RRR, no m/r/g Lungs: CTAB Abdomen: soft, very hypoactive bowel sounds B, diffusely tender Extremities: no edema BLEs Objective Last Vital Signs Temp 36.4 C L 03/18/22 23:30 Pulse 56 L 03/19/22 08:46 Resp 18 03/19/22 08:46 BP 126/59 L 03/19/22 06:00 Pulse Ox 96 03/19/22 08:46 Laboratory Results - last 24 hr 03/18/22 03/18/22 03/18/22 05:20 05:20 13:00 WBC RBC Hgb 10.7 L Hct 33.3 L MCV MCH MCHC RDW Plt Count MPV Immature Gran % Neutrophils % Band Neutrophils % Lymphocytes % Monocytes % Eosinophils % Basophils % Metamyelocytes % Nucleated RBC % Absolute Neutrophils Absolute Lymphocytes Absolute Monocytes Absolute Eosinophils Absolute Basophils RBC Morphology Sodium Potassium Chloride Carbon Dioxide Anion Gap BUN Creatinine Estimated GFR/1.73 m2 Glucose Calcium Magnesium C-Reactive Protein Procalcitonin 0.4 Urine Color Urine Clarity Urine pH Ur Specific [place] Urine Protein Urine Ketones Urine Blood Urine Nitrite Urine Bilirubin Urine Urobilinogen Ur Leukocyte Esterase Urine Glucose Stl C.difficile Tox PCR Add-On Test Request DONE 03/18/22 03/19/22 03/19/22 15:38 05:28 05:28 WBC 9.61 RBC 3.38 L Hgb 10.4 L Hct 31.4 L MCV 93 MCH 30.8 MCHC 33.1 RDW 13.7 Plt Count 228 MPV 9.9 Immature Gran % 0.0 Neutrophils % 87.0 Band Neutrophils % 5 Lymphocytes % 3.0 Monocytes % 3.0 Eosinophils % 0.0 Basophils % 0.0 Metamyelocytes % 2 Nucleated RBC % 0.0 Absolute Neutrophils 8.84 H Absolute Lymphocytes 0.29 L Absolute Monocytes 0.29 Absolute Eosinophils 0.00 Absolute Basophils 0.00 RBC Morphology Normal Sodium 139 Potassium 4.5 Chloride 105 Carbon Dioxide 25.0 Anion Gap 9.0 BUN 19 H Creatinine 0.9 Estimated GFR/1.73 m2 >= 60.00 Glucose 120 H Calcium 7.9 L Magnesium 1.8 C-Reactive Protein 15.71 H Procalcitonin Urine Color Yellow Urine Clarity Clear Urine pH 5.5 Ur Specific M[place] >= 1.030 H Urine Protein Negative Urine Ketones 80 H Urine Blood Negative Urine Nitrite Negative Urine Bilirubin Negative Urine Urobilinogen 0.2 Ur Leukocyte Esterase Negative Urine Glucose Negative Stl C.difficile Tox PCR Add-On Test Request 03/19/22 08:18 WBC RBC Hgb Hct MCV MCH MCHC RDW Plt Count MPV Immature Gran % Neutrophils % Band Neutrophils % Lymphocytes % Monocytes % Eosinophils % Basophils % Metamyelocytes % Nucleated RBC % Absolute Neutrophils Absolute Lymphocytes Absolute Monocytes Absolute Eosinophils Absolute Basophils RBC Morphology Sodium Potassium Chloride Carbon Dioxide Anion Gap BUN Creatinine Estimated GFR/1.73 m2 Glucose Calcium Magnesium C-Reactive Protein Procalcitonin Urine Color Urine Clarity Urine pH Ur Specific [place] Urine Protein Urine Ketones Urine Blood Urine Nitrite Urine Bilirubin Urine Urobilinogen Ur Leukocyte Esterase Urine Glucose Stl C.difficile Tox PCR Negative Add-On Test Request Multi-Disciplinary Checklist Lines/Tubes CENTRAL LINE: no ARTERIAL LINE: no MITCHELL: yes, Mitchell Day#: 1 ENDOTRACHEAL TUBE: no ICU Maintenance GLUCOSE 140-180mg/dL: no, Reason/Intervention: not diabetic NUTRITION AT GOAL: no, Reason/Intervention: NPO per general surgery PRESSURE ULCER: no RESTRAINTS: no ANTIBIOTICS(if yes, consider Stewardship): Yes Social Issues FAMILY UPDATED: no, PT/OT: yes GOALS/DISPOSITION/ASSEMBLER CARBON BRUSHES: yes CODE STATUS: Full Prophylaxis DVT PROPHYLAXIS: yes GI PROPHYLAXIS: yes,
[2022-03-19] MEDS: LORazepam 0.5 MG TAB PO ×2 (13:44→21:57)
[2022-03-19 13:52] LABS: Lab Add On Test DONE
[2022-03-19] MEDS: THIAMINE 500 MG in Normal Saline 100 ML 200 MG IVPB (14:10)
[2022-03-19 14:20] LABS: Iron 38 ug/dL (50-170); Total Iron Binding Capacity 163 ug/dL (250-450); Transferrin Sat 23 % (15-50)
[2022-03-19 14:40] LABS: Ferritin 325 ng/mL (8-252); Folate 6.4 ng/mL (8.6-20.0)
[2022-03-19 14:46] LABS: Vitamin B12 > 2000 pg/mL (193-986)
--- NOTE | 2022-03-19 16:50 | CHAPLAIN ---
Opal was in bed when I visited. Her was with her. She said medical staff is working to figure out what's going on with her. She asked for winnie, so I gave her one. And she asked me to pray for her. I'll continue to visit.
[2022-03-19] MEDS: Amoxicillin 875/Clav. 125 TAB PO (21:57)
[2022-03-19] MEDS: Prazosin 1 MG CAP PO (21:57)
[2022-03-19] MEDS: rOPINIRole 1 MG TAB 3 MG PO (21:57)
[2022-03-19] MEDS: Gabapentin 400 MG CAP PO (21:57)
[2022-03-19 23:04] LABS: Salmonella PCR Negative (Negative); Shiga Toxin PCR Negative (Negative); Shigella/Enteroinvasive Ecoli Negative (Negative)
[2022-03-20] VITALS (28 sets, daily range): BP systolic 139–154; BP diastolic 72–88; PULSE 64–102; RESP 4–19; TEMP 36.9–37.1; O2SAT 83–96
[2022-03-20] MEDS: Acetaminophen 500 MG TAB 1000 MG PO (03:34)
--- NOTE | 2022-03-20 05:11 | NUR.NOTE ---
0300 c/o headache.Tylenol 1000 mg po given with good effect..
[2022-03-20] MEDS: Levothyroxine 75 MCG TAB PO (05:44)
[2022-03-20 07:24] LABS: Campylobacter PCR Positive (Negative)
[2022-03-20 08:03] LABS: Abs Immature Grans 0.64 10^3/uL (0.0-0.06); HCT 30.8 % (36.0-46.0); MCH 30.7 pg (27.0-33.0); MCHC 32.5 % (32.0-36.0); MCV 95 fL (80-95); Platelet Count 220 10^3/uL (130-400); RBC 3.26 10^6/uL (3.93-5.22); RDW 13.7 % (11.7-14.6); RDW-SD 47.2 fL; WBC 10.09 10^3/uL (4.4-10.8)
[2022-03-20 08:13] LABS: Anion Gap 5.3 mmol/L (3-11); BUN 15 mg/dL (7-18); CO2 27.7 mmol/L (21.0-32.0); CREATININE 0.9 mg/dL (0.55-1.02); Chloride 104 mmol/L (98-107); Glucose 102 mg/dL (74-106); Magnesium 1.8 mg/dL (1.8-2.4); Potassium 4.2 mmol/L (3.5-5.1); Sodium 137 mmol/L (136-145)
[2022-03-20 08:21] LABS: Absolute Lymphocyte Count 1.11 10^3/uL (1.2-3.4); Absolute Monocyte Count 0.61 10^3/uL (0.1-0.8); Absolute Neutrophil Count 8.17 10^3/uL (1.2-6.7); Atypical Lymphocytes % 0; Bands % 0
[2022-03-20] MEDS: Breeza Beverage 473 ML BTL PO (08:21)
[2022-03-20 08:22] LABS: Diff Comment Manual Differential; Metamyelocytes % 1; Myelocytes % 1; RBC Morphology Normal
[2022-03-20] MEDS: Gastrografin 120 ML BTL 12 ML IVP (08:22)
[2022-03-20] MEDS: Albuterol/Ipratropium 3 ML UPD VIAL UPD ×2 (08:29→12:16)
--- NOTE | 2022-03-20 08:59 | W.PM.PROGNOT ---
Date of Service Date of service: 03/20/22 Time of Service: 09:00 Assessment and Plan Assessment and plan (1) Campylobacter diarrhea: Status: Acute Assessment and plan: start PO azithromycin. Could in theory be related to the patient's ileus on presentation. (2) Respiratory failure with hypoxia: Status: Acute Assessment and plan: In setting of likely underlying COPD in acute exacerbation and a prior dx of sleep apnea requiring CPAP (which the patient could not tolerate due to claustrophobia). Clinically better today. Continue nebs, steroids Check exercise oximetry. Continue suppmental O2, weaning as tolerated. Avoid IVF. (3) Cholelithiasis: Status: Chronic Assessment and plan: With suspicion for gallstone ileus. Clinically the ileus has resolved. Tolerating a diet. Defer further cholelithiasis management to general surgery; does not appear to need to be managed acutely. (4) Chronic obstructive pulmonary disease: Status: Chronic Assessment and plan: In acute exacerbation As above. Continue duonebs, steroids. Qualifiers: COPD type: COPD with acute exacerbation Qualified Code(s): J44.1 - Chronic obstructive pulmonary disease with (acute) exacerbation (5) Pneumonia: Status: Acute Assessment and plan: ?aspiration. On zosyn. No evidence of actual tooth fragment on CT, per Dr Atkinson. Qualifiers: Laterality: left Lung location: upper lobe of lung Pneumonia type: due to unspecified organism Qualified Code(s): J18.9 - Pneumonia, unspecified organism (6) Hypotension: Status: Resolved Assessment and plan: Continue to hold antihypertensives. (7) CHF (congestive heart failure): Status: Chronic Assessment and plan: Chronic diastolic CHF with evidence of pulmonary hypertension. Avoid continuous IVF. Try to match ins and outs. Patient is maintaining euvolemic status with PO fluids. (8) Essential (primary) hypertension: Status: Chronic Assessment and plan: As above - antihypertensives on hold due to low BPs on presenation. (9) Obstructive sleep apnea: Assessment and plan: Patient states her sleep study was 15 years ago. She was unable to tolerate a CPAP mask due to claustrophobia. We discussed the possibility of use of nasal pillows if she wanted to try it again, but that she would need to have a repeat sleep study as outpatient. (10) Acute kidney injury: Status: Resolved Assessment and plan: At baseline post IV hydration. (11) Anemia: Status: Chronic Assessment and plan: Hgb stable. (12) Hypokalemia: Status: Resolved Assessment and plan: Resolved. Should the patient still be in the hospital, could recheck in am. (13) Hypoalbuminemia: Status: Chronic Assessment and plan: Suspect chronic malnutrition in setting of EtOH abuse. The patient should not be hydrated intravenously on continuous basis - only to match ins and outs. Will provide vitamin supplementation. (14) Ambulatory dysfunction: Status: Acute Assessment and plan: PT consulted. (15) Anxiety and depression: Status: Chronic Assessment and plan: Continue outpatient management. (16) Folate deficiency: Status: Acute Assessment and plan: Replete (17) Discharge planning issues: Status: Acute Assessment and plan: Full code needs exercise oximetry prior to d/c. If requires O2, this would be a new order. (18) DVT prophylaxis: Status: Acute Assessment and plan: SC enoxaparin Subjective Subjective Interval history since last seen: Feels better. Reports abdominal soreness from being in bed, but otherwise feels better and better every day. No CP, SOB, dizziness, nausea. Exam Narrative Exam Narrative: General: Pleasant amiddle-aged female who looks better, has a green ecchymosis on her forehead, A&Ox3, not anxious HEENT: EOMI, MMM Heart: RRR, no m/r/g Lungs: CTAB/diminished Abdomen: soft, mildly diffusely tender Extremities: no edema BLEs Objective Last Vital Signs Temp 37.1 C 03/20/22 00:54 Pulse 73 03/20/22 00:54 Resp 19 03/20/22 00:54 BP 140/72 03/20/22 00:54 Pulse Ox 96 03/20/22 00:54 Laboratory Results - last 24 hr 03/19/22 03/19/22 03/19/22 08:18 08:18 13:35 WBC RBC Hgb Hct MCV MCH MCHC RDW Plt Count MPV Immature Gran % Neutrophils % Band Neutrophils % Lymphocytes % Atypical Lymphs % Monocytes % Eosinophils % Basophils % Metamyelocytes % Myelocytes % Nucleated RBC % Absolute Neutrophils Absolute Lymphocytes Absolute Monocytes Absolute Eosinophils Absolute Basophils RBC Morphology Sodium Potassium Chloride Carbon Dioxide Anion Gap BUN Creatinine Estimated GFR/1.73 m2 Glucose Calcium Magnesium Iron TIBC Transferrin % Sat Ferritin Vitamin B12 Folate Stool Campylobacter PCR Positive A Stl C.difficile Tox PCR Negative Stool Salmonella PCR Negative Stool Shigella PCR Negative Shiga Toxin (PCR) Negative Add-On Test Request DONE 03/19/22 03/19/22 03/20/22 13:35 13:35 07:55 WBC RBC Hgb Hct MCV MCH MCHC RDW Plt Count MPV Immature Gran % Neutrophils % Band Neutrophils % Lymphocytes % Atypical Lymphs % Monocytes % Eosinophils % Basophils % Metamyelocytes % Myelocytes % Nucleated RBC % Absolute Neutrophils Absolute Lymphocytes Absolute Monocytes Absolute Eosinophils Absolute Basophils RBC Morphology Sodium 137 Potassium 4.2 Chloride 104 Carbon Dioxide 27.7 Anion Gap 5.3 BUN 15 Creatinine 0.9 Estimated GFR/1.73 m2 >= 60.00 Glucose 102 Calcium 8.0 L Magnesium 1.8 Iron 38 L TIBC 163 L Transferrin % Sat 23 Ferritin 325 H Vitamin B12 > 2000 H Folate 6.4 L Stool Campylobacter PCR Stl C.difficile Tox PCR Stool Salmonella PCR Stool Shigella PCR Shiga Toxin (PCR) Add-On Test Request 03/20/22 07:55 WBC 10.09 RBC 3.26 L Hgb 10.0 L Hct 30.8 L MCV 95 MCH 30.7 MCHC 32.5 RDW 13.7 Plt Count 220 MPV 9.0 Immature Gran % 0.0 Neutrophils % 81.0 Band Neutrophils % 0 Lymphocytes % 11.0 Atypical Lymphs % 0 Monocytes % 6.0 Eosinophils % 0.0 Basophils % 0.0 Metamyelocytes % 1 Myelocytes % 1 Nucleated RBC % 0.0 Absolute Neutrophils 8.17 H Absolute Lymphocytes 1.11 L Absolute Monocytes 0.61 Absolute Eosinophils 0.00 Absolute Basophils 0.00 RBC Morphology Normal Sodium Potassium Chloride Carbon Dioxide Anion Gap BUN Creatinine Estimated GFR/1.73 m2 Glucose Calcium Magnesium Iron TIBC Transferrin % Sat Ferritin Vitamin B12 Folate Stool Campylobacter PCR Stl C.difficile Tox PCR Stool Salmonella PCR Stool Shigella PCR Shiga Toxin (PCR) Add-On Test Request
[2022-03-20] MEDS: predniSONE 20 MG TAB 40 MG PO (09:23)
[2022-03-20] MEDS: buPROPion-CR 150 MG TABCR PO (09:23)
[2022-03-20] MEDS: Azithromycin 250 MG TAB 500 MG PO (09:24)
[2022-03-20] MEDS: FLUoxetine 20 MG CAP 40 MG PO (09:24)
[2022-03-20] MEDS: Letrozole 2.5 MG TAB PO (09:24)
[2022-03-20] MEDS: Ezetimibe 10 MG TAB PO (09:24)
[2022-03-20] MEDS: Pantoprazole 40 MG TABCR PO (09:24)
[2022-03-20] MEDS: Thiamine 100 MG TAB PO (09:24)
[2022-03-20] MEDS: Nicotine 7 MG/24 HR PATCH TD (09:24)
[2022-03-20] MEDS: Multivitamin TAB 1 TAB PO (09:25)
[2022-03-20] MEDS: Amoxicillin 875/Clav. 125 TAB PO (09:25)
[2022-03-20] MEDS: Folic Acid 1 MG TAB PO (09:25)
[2022-03-20] MEDS: Lisinopril 5 MG TAB 2.5 MG PO (09:25)
[2022-03-20] MEDS: Enoxaparin 40 MG/0.4 ML SYR SC (09:25)
[2022-03-20] MEDS: Polyethylene Glycol 3350 17 GM PACKET PO (09:27)
--- NOTE | 2022-03-20 09:50 | PDOC.CMPRO ---
- If Service Date Differs Date of service: 03/20/22 Time of Service: 09:51 Care Management Progress Note S/O: Opal remains in the ICU, per surgical provider her diet will be advanced to clear liquid today to monitor for toleration, she remains on IV Zosyn and reports her pain is currently well managed. Per MD she will require a pulse ox prior to discharge to determine if she will need oxygen upon discharge. Surgeon stated Opal is nearing discharge readiness from a surgical standpoint. CM continues to follow. A: 71 year old female admitted for SBO vs Gallstone Ileus P: Opal will continue to be closely monitored and treated. CM will continue to follow and support discharge planning considerations; anticipate Opal will return home once her symptoms resolve. Undetermined if she will require oxygen at this time. She will transport via private vehicle with her significant other, Logan.
--- NOTE | 2022-03-20 12:34 | W.PM.DS.N ---
Date of service: 03/20/22 Time of Service: 12:34 DS: Diagnosis Discharge Diagnosis (1) Campylobacter diarrhea: Status: Acute Asessment and Plan: Three days of oral azithromycin (2) Respiratory failure with hypoxia: Status: Acute Asessment and Plan: She was offered home oxygen therapy after mild hypoxemia with ambulation. She refused this. We will continue prednisone therapy as well as inhalers, and she will follow-up with her damage adjuster (3) Cholelithiasis: Status: Chronic Asessment and Plan: Ultrasound shows no evidence of acute cholecystitis We can see her in the office in consideration of elective cholecystetcomy if she desires Discharge Plan Disposition Patient Disposition: HOME Condition: Serious Discharge Details Reason For Visit: SBO vs Gallstone Ileus Admit Date/Time: 03/17/22 18:04 Admit Provider: Uma Garza Attending Provider: Uma Garza Primary Care Provider: Emilie العلي Hospital Course Hospital Course: Opal is a 71-year-old woman who presented to the emergency department with abdominal pain vomiting and diarrhea. She says it started several days ago coinciding with using Chantix. She was hypotensive on arrival, but did respond to IV fluid resuscitation. She had evidence of acute kidney injury, likely secondary to hypovolemia. She underwent a CAT scan of her abdomen pelvis, that demonstrated some inflammatory changes near her pelvis. The original diagnosis was gallstone ileus. However, she did not really have any evidence of obstructive bowel disease. Additionally, she underwent an ultrasound of the right upper quadrant that did show cholelithiasis without any evidence of cholecystitis. Broad-spectrum antibiotics were initiated, and she was admitted to the hospital with a presumptive diagnosis of gallstone ileus, and treatment of acute exacerbation of chronic obstructive pulmonary disease as well. She responded well to resuscitation, and her symptoms improved. Her diet was advanced, which she was tolerating with only occasional diarrhea. Subsequently, her stool studies were positive for Campylobacter. We reviewed classic exposures, but there was no clear source of her infection. By the morning of March 20, she was tolerating a diet with no significant abdominal discomfort. Her leukocytosis had normalized at 10. She was exercise, and found to have some mild hypoxemia associated with exertion. We offered her oxygen therapy at home which she declined. Home Meds and New Rx's Prescriptions: New azithromycin 250 mg Tablet 500 mg PO DAILY 3 Days Qty: 6 0RF prednisone 20 mg tablet 20 mg PO DAILY Qty: 6 0RF Rx Instructions: take 2 tabs (40 mg totoal) by mouth each day for 3 days Stiolto Respimat 2.5-2.5 mcg/actuation mist 2 puff inhalation DAILY Qty: 4 1RF Rx Instructions: take 2 puffs each day albuterol sulfate 90 mcg/actuation HFA aerosol inhaler 2 puff inhalation Q6H PRNQty: 6.7 0RF Rx Instructions: 2 puffs as needed for wheezing or shortness of breath Continued nicotine 7 mg/24 hr patch 24 hour 1 patch transdermal Q24H Qty: 14 3RF (DME) Andrea Cristina [facility] Spacer 1 ea Miscellaneous ONCE Qty: 1 0RF Rx Instructions: to use with inhaler fluoxetine 20 mg capsule 40 mg PO DAILY Qty: 60 11RF polyethylene glycol 8000(bulk) 2,500 GM powder 17 gm PO daily prn Label Comments: pt states that she has not need in 6 months. aspirin [Aspirin Low-Strength] 81 MG tablet,chewable 81 mg PO DAILY acetaminophen [Tylenol Extra Strength] 500 MG tablet 1,000 mg PO Q6H PRN lorazepam 0.5 mg tablet 0.5 mg PO BID PRNQty: 90 Label Comments: 10/17/[address] Ori Ramos at [facility]. Dhruv, CHRIS ropinirole 3 mg tablet 3 mg PO HS Qty: 90 4RF gabapentin 400 mg capsule 400 mg PO QHS Qty: 90 3RF albuterol sulfate [ProAir HFA] 90 mcg/actuation HFA aerosol inhaler 1 inh inhalation .Q4-6H PRN (Reason: shortness of breath or wheezing) Qty: 18 3RF nitroglycerin 0.4 mg tablet, sublingual 0.4 mg Sublingual PRN Qty: 25 3RF Rx Instructions: PRN, FOR CHEST PAIN levothyroxine 75 mcg tablet 75 mcg PO DAILY Qty: 90 3RF Rx Instructions: bupropion HCl [Wellbutrin SR] 150 mg tablet sustained-release 12 hr 150 mg PO QAM Qty: 90 3RF Rx Instructions: one pill q am carvedilol 6.25 mg tablet 6.25 mg PO BID Qty: 60 12RF Rx Instructions: give with food (meal/snack) cyanocobalamin (vitamin B-12) 1,000 mcg capsule 1,000 mcg PO DAILY Qty: 90 3RF letrozole [Femara] 2.5 mg tablet 2.5 mg PO DAILY Qty: 90 3RF ezetimibe 10 mg tablet 10 mg PO DAILY cholecalciferol (vitamin D3) 50 mcg (2,000 unit) tablet 50 mcg PO DAILY Qty: 90 3RF atorvastatin 80 mg tablet 80 mg PO QPM Qty: 90 3RF lisinopril 2.5 mg tablet 2.5 mg PO DAILY Qty: 90 1RF prazosin 1 mg capsule 1 cap PO HS Label Comments: TAKE ONE CAPSULE BY MOUTH AT BEDTIME mirtazapine 15 mg tablet 1 tab PO HS PRN (Reason: Sleep) Label Comments: TAKE ONE TABLET BY MOUTH AT BEDTIME Discharge Instructions Instructions: Infectious Colitis (GEN) Referrals: Emilie العلي NP [Primary Care Provider] - Sarah Atkinson MD [ [facility] STAFF PHYSICIAN] - Uma Garza DO [OSTEOPATHIC DOCTOR] - Activity:: Activity as Tolerated Equipment/Supplies:: No Equipment Needed Diet:: As Tolerated Discharge Orders Discharge Orders: Discharge Order (Routine); Ordered 03/20/22 Ordered By: Florentin Hollins Discharge Data Discharge Date/Time-TO BE ENTERED AT DEPARTURE: 03/20/22 15:45 DS: Summary Time Spent with Patient providing and/or coordinating discharge services: Greater than 30 minutes Status at Discharge Functional status at discharge: independent ambulation Overall status at discharge: patient is progressing back to baseline Mental Status: mental status grossly normal Speech and Movement: speech and movement normal Mood: congruent mood Affect: normal affect Exam Psych Mental Status: mental status grossly normal Speech and Movement: speech and movement normal Mood: congruent mood Affect: normal affect DS: Data Vitals/I&O Vitals and I&O: Vital Signs Temperature 98.4 F 03/20/22 08:00 Temperature Source Temporal Artery Scan 03/20/22 08:00 Pulse 90 03/20/22 08:00 Pulse Rhythm Regular 03/20/22 08:00 Pulse 73 03/19/22 14:00 Respiratory Rate 18 03/20/22 12:17 Respiratory Effort 03/20/22 08:00 Respiratory Depth Normal 03/20/22 08:00 Respiratory Pattern Normal 03/20/22 08:00 Blood Pressure 139/88 03/20/22 07:53 Blood Pressure Mean 99 03/20/22 07:53 Blood Pressure Position Sitting 03/19/22 11:57 Pulse Oximetry 94 03/20/22 12:17 Oxygen Delivery Method Room Air 03/20/22 12:16 Oxygen Flow Rate 0 03/20/22 12:16 Pain Level 0 03/20/22 08:00 Intake & Output 03/19/22 03/20/22 03/20/22 23:59 11:59 23:59 Intake Total 1020.208 / 1120.208 945 / 945 Output Total 950 / 1225 450 / 450 Balance 70.208 / -104.792 495 / 495 Weight 154 lb 15.759 oz Intake: IV 0.208 / 100.208 105 / 105 Oral 1020 / 1020 840 / 840 Output: Urine 950 / 1225 450 / 450 Other: Urine Color Yellow Pale Yellow Urine Appearance Clear Clear Urine Odor Normal None Comment Patient voided immediatly following DC of erickson Stool Size Small Stool Characteristics Soft Formed Brown Voiding Methods Bedside Commode Bedside Commode Data Completed and Pending Labs on day of discharge: Labs from last 24 hours 03/20/22 03/20/22 03/19/22 07:55 07:55 13:35 WBC 10.09 RBC 3.26 L Hgb 10.0 L Hct 30.8 L MCV 95 MCH 30.7 MCHC 32.5 RDW 13.7 Plt Count 220 MPV 9.0 Immature Gran % 0.0 Neutrophils % 81.0 Band Neutrophils % 0 Lymphocytes % 11.0 Atypical Lymphs % 0 Monocytes % 6.0 Eosinophils % 0.0 Basophils % 0.0 Metamyelocytes % 1 Myelocytes % 1 Nucleated RBC % 0.0 Absolute Neutrophils 8.17 H Absolute Lymphocytes 1.11 L Absolute Monocytes 0.61 Absolute Eosinophils 0.00 Absolute Basophils 0.00 RBC Morphology Normal Sodium 137 Potassium 4.2 Chloride 104 Carbon Dioxide 27.7 Anion Gap 5.3 BUN 15 Creatinine 0.9 Estimated GFR/1.73 m2 >= 60.00 Glucose 102 Calcium 8.0 L Magnesium 1.8 Iron 38 L TIBC 163 L Transferrin % Sat 23 Ferritin Vitamin B12 Folate Stool Campylobacter PCR Stool Salmonella PCR Stool Shigella PCR Shiga Toxin (PCR) Add-On Test Request 03/19/22 03/19/22 03/19/22 13:35 13:35 08:18 WBC RBC Hgb Hct MCV MCH MCHC RDW Plt Count MPV Immature Gran % Neutrophils % Band Neutrophils % Lymphocytes % Atypical Lymphs % Monocytes % Eosinophils % Basophils % Metamyelocytes % Myelocytes % Nucleated RBC % Absolute Neutrophils Absolute Lymphocytes Absolute Monocytes Absolute Eosinophils Absolute Basophils RBC Morphology Sodium Potassium Chloride Carbon Dioxide Anion Gap BUN Creatinine Estimated GFR/1.73 m2 Glucose Calcium Magnesium Iron TIBC Transferrin % Sat Ferritin 325 H Vitamin B12 > 2000 H Folate 6.4 L Stool Campylobacter PCR Positive A Stool Salmonella PCR Negative Stool Shigella PCR Negative Shiga Toxin (PCR) Negative Add-On Test Request DONE [facility] All Active Problems Folate deficiency (Acute) Campylobacter diarrhea (Acute) Ambulatory dysfunction (Acute) Discharge planning issues (Acute) DVT prophylaxis (Acute) Respiratory failure with hypoxia (Acute) Hypoalbuminemia (Chronic) Anemia (Chronic) CHF (congestive heart failure) (Chronic) Pneumonia (Acute) Cholelithiasis (Chronic) Adverse drug reaction (Acute) Small bowel obstruction (Acute) Gallstone ileus (Acute) Acute dehydration (Acute) Vomiting and diarrhea (Acute) Hypotension due to medication (Acute) Trigger finger (acquired) (Acute) Right ring finger Chronic obstructive pulmonary disease (Chronic 01/12/18) Very 12/11/17 PFTs Mod. sever obstructive airway disease with sig. bronchodilator response. This is associated with severe diffusion defect - FVC 2.06 & FEV1 1.23 (both decrease Anxiety and depression (Chronic 02/10/15) Essential (primary) hypertension (Chronic) Medical History Abdominal aortic aneurysm s/p surgical repair [facility] [place] Abnormal glandular Papanicolaou smear of vagina (~1978) Atherosclerotic heart disease of [place] coronary artery without angina pectoris Atrophic vaginitis (08/09/14) Breast cancer (01/20/14) left, 6 cm Invasive Lobular Carcinoma [place] [place]) chemo started and radiation tx planned (on hold due to perf divertic) Cardiomyopathy New onset 04/2018 per [facility] Normal rest nuclear perfusion. Patient declined cath. [facility] [place] 02/25/19 EstEF = 41%, mild to mod aortic valve regurg Compared to [facility] 02/17/18, LV systolic function is improved. Chronic depression Disorder of vitamin B12 (03/30/13) Diverticulitis of colon with perforation (06/24/14) sigmoid resection and colostomy [facility] [place] 2014 post op malnutrition and respiratory failure Gastro-esophageal reflux disease without esophagitis Hyperlipidemia Hypothyroidism Methicillin resistant Staphylococcus aureus infection (03/27/09) Migraine Mixed incontinence (02/19/16) Obstructive sleep apnea Partial small bowel obstruction Polyp of colon (06/26/05) adenoma. Pyloric ulcer associated with Helicobacter pylori (05/25/11) 04/07 H pylori on EGD (treated) Restless legs syndrome Smoker quit 2013 and then re-started 25 year HX - quit again 11/25/17 -back to daily smoking Surgical History H/O tracheostomy Rotator Cuff Repair (~1978) LEFT S/P colostomy takedown Status post Mena's procedure Family History Mother , age 68 Essential hypertension Heart disease Pancreatic cancer Bone cancer Father , age 50 Essential hypertension Heart disease Hyperlipidemia Stroke Alcohol abuse Depression Sister Essential hypertension Hyperlipidemia Diabetes Heart disease Brother Essential hypertension Depression Heart disease Hyperlipidemia Maternal Grandfather Stroke Son Depression Daughter Depression Alcohol abuse 3 UNCLES Aneurysm Family History Bipolar disorder Sister Depression Essential hypertension Heart disease Hyperlipidemia Brother Alcohol abuse Depression Diabetes Hyperlipidemia Hypertension Social History Smoking/Tobacco Use Status: Current-Occasional Tobacco Type: cigarettes Quit status: has quit before Second Hand Exposure: Yes Smoking risk assessment performed?: Yes Alcohol Intake: never Drug use: Occasionally Substance use type: marijuana Household members: none Housing: house Do you need help understanding health information?: Never Pets and animals: Yes Pets and animals: cat(s), dog(s) and bird(s) Sexually active: Yes Do you think of yourself as: straight/heterosexual Current gender identity: female What is your relationship status?: How often do you talk on the phone with friends or family?: once per week How often do you get together with friends or relatives?: decline to answer How often do you attend muslim or jainism services?: decline to answer Do you belong to any clubs or organized social groups?: decline to answer Panel score (0-1 are the most socially isolated patients): 0 Duration: < 15 minutes/day Nuvia/Hoahaoism: ECKANKAR Special nuvia needs: No Seatbelt use: always Helmet use: No Drive intox or ride w/intox pedicab driver: No Do you feel safe at home: Yes Do you feel safe in your relationship?: Yes Victim of physical abuse: No Victim of emotional abuse: No Victim of sexual abuse: No Would you like helpful sources: No
--- NOTE | 2022-03-20 14:51 | PDOC.CMDIS ---
- If Service Date Differs Date of service: 03/20/22 Time of Service: 14:52 LACE Index Scoring Tool - Questions: Length of Stay (in days): 3 Acuity (Admit via E.D.?): Yes Comorbidities: Chronic Pulmonary Disease E.D. Visits: 2 - Answers: Total Score: 10 Risk of Readmission: High Risk Care Management Discharge Reason for Hospitalization: SBO vs Gallstone Ileus Discharge Plan: Opal will return home once her symptoms resolve. She will follow up with her PCP, pulmonology and surgery and transport via private vehicle with her significant other, Logan. Patient/Family Education Needs: Review discharge instructions, discuss Ask Me Three.
== END 2022-03-20 15:45 | disposition home or self-care (01) | DRG 371 ==
LOC: ER 19:03 → ICU 20:28
PROVIDERS: Internal Medicine; Admitting Provider Surgery; Emergency Provider Physician Assistant; Visit Provider Surgery
DX: A04.5 Campylobacter enteritis (principal); J18.9 Pneumonia, unspecified organism; J96.01 Acute respiratory failure with hypoxia; I42.9 Cardiomyopathy, unspecified; N17.9 Acute kidney failure, unspecified; J44.1 Chronic obstructive pulmonary disease with (acute) exacerbation; J44.0 Chronic obstructive pulmonary disease with (acute) lower respiratory infection; E46 Unspecified protein-calorie malnutrition; I50.32 Chronic diastolic (congestive) heart failure; E87.6 Hypokalemia; E86.0 Dehydration; F41.8 Other specified anxiety disorders; K21.9 Gastro-esophageal reflux disease without esophagitis; E78.5 Hyperlipidemia, unspecified; G43.909 Migraine, unspecified, not intractable, without status migrainosus; N39.46 Mixed incontinence; I25.10 Atherosclerotic heart disease of native coronary artery without angina pectoris; G47.33 Obstructive sleep apnea (adult) (pediatric); G25.81 Restless legs syndrome; F17.210 Nicotine dependence, cigarettes, uncomplicated; Z90.49 Acquired absence of other specified parts of digestive tract; Z98.0 Intestinal bypass and anastomosis status; E78.2 Mixed hyperlipidemia; Z87.11 Personal history of peptic ulcer disease; I95.2 Hypotension due to drugs; K80.20 Calculus of gallbladder without cholecystitis without obstruction; C50.412 Malignant neoplasm of upper-outer quadrant of left female breast; Z79.899 Other long term (current) drug therapy; D64.9 Anemia, unspecified; E88.09 Other disorders of plasma-protein metabolism, not elsewhere classified; I11.0 Hypertensive heart disease with heart failure; F10.10 Alcohol abuse, uncomplicated; E53.8 Deficiency of other specified B group vitamins
CPT/HCPCS: 36415; 71250; 80048; 80053; 83690; 84145; 87493; 87505; 87637; 94618; 96361; 96365; 96366; 96367; 96372; 96375; 97161; 97530; 99223; 99232; 99239; 99285; J1650; 71045; 74019; 74176; 76700; 81003; 81015; 82607; 82728; 82746; 83540; 83550; 83735; 83880; 84484; 85014; 85018; 85025; 86140; 93306; 94640; 94667; 99222; 99225; 99233; J0131; J1170; J2405; J2543; J3480; J3490; J7512; J7620

== ENCOUNTER 2022-03-21 11:10 | Observation (INO) | payer MEDICARE, SELFPAY ==
[2022-03-21] VITALS (9 sets, daily range): BP systolic 83–111; BP diastolic 50–77; PULSE 75–100; RESP 17–28; TEMP 36.2–37; O2SAT 90–98
--- NOTE | 2022-03-21 | DI.RAD_ITS ---
Exam(s) XR PORTABLE CHEST AP EXAM: XR PORTABLE CHEST AP CLINICAL HISTORY: COPD exacerbation. TECHNIQUE: 2D digital imaging was performed. COMPARISON: CR CHEST 2 VIEWS PA,LAT from 11/17/2017 CR,XR XR PORTABLE CHEST AP from 03/17/2022 FINDINGS: Single AP portable view. The NG tube is been removed. Heart size is upper normal. The mediastinum is not widened. There is now infiltrate in the left lower lobe and in the mid and lower right lung field, not previou sly present. No pleural effusions evident. No pneumothorax. IMPRESSION: There are bilateral infiltrates now evident, as described above. No obvious pleural effusions on thi s single portable view. DATA REPOSITORY: RADIATION DOSE DELIVERED: All CT scans at this facility use at least one of these dose optimization techniques: automated exposure control; mA and/or kV adjustment per patient size (includes targeted e xams where dose is matched to clinical indication); or iterative reconstruction.
--- NOTE | 2022-03-21 14:46 | W.ED.GENAD ---
Discharge Plan Disposition Patient Disposition: [facility] INPATIENT Condition: Serious Discharge Details Clinical Impression: Acute exacerbation of chronic obstructive pulmonary disease, Hypoxia Admit Date/Time: 03/21/22 15:22 Admit Provider: Bryson Ivan Attending Provider: Bryson Ivan Primary Care Provider: Emilie العلي ED Provider: Abdelrahman Smith Discharge Data Discharge Date/Time-TO BE ENTERED AT DEPARTURE: 03/21/22 17:33 Medical Decision Making 71-year-old female with history of COPD, recently hospitalized for respiratory failure and Campylobacter enteritis, refused home O2 at time of discharge yesterday, returns now with shortness of breath requesting supplemental O2. Patient was tachypneic and hypoxic on arrival. Nasal cannula oxygen was applied by nursing and patient noted significant improvement in symptoms. Patient saturating well in no respiratory distress on my assessment. She does have some wheeze bilaterally. Patient does note nebulizer has worked in the past when albuterol inhaler is ineffective. I called [facility] to see if patient woul dqualify for home O2 and allow for discharge to home and they noted this was not possible. Plan to hospitalize for respiratory failure requiring supplemntal O2 and COPD exacerbation. I called and spoke with the hospitalist, discussed ED presentation and course, he will admit the patient. HPI General Mode of arrival: ambulatory. Date/Time Provider Initiated Documentation: 03/21/22 12:11. Limitations to Documentation: no limitations. Information obtained by: patient. HPI Narrative: 71-year-old female here with chief complaint of shortness of breath. Patient has history of COPD. She was recently hospitalized for Campylobacter enteritis and respiratory failure and required oxygen during hospitalization. Patient refused home oxygen therapy at time of discharge yesterday. Since she has been home she has had worsening shortness of breath. Patient now requesting oxygen. Shortness of breath is moderate to severe and worse with exertion. No associated chest pain. Related Data Home Medications Medication Instructions Recorded Confirmed aspirin 81 mg chewable tablet 81 mg PO DAILY 02/10/15 03/21/22 (Aspirin Low-Strength) polyethylene glycol 8000(bulk) 17 gm PO daily prn 02/10/15 03/21/22 acetaminophen 500 mg tablet 1,000 mg PO Q6H PRN 07/11/15 03/21/22 (Tylenol Extra Strength) inhalational spacing device #1 ea 09/07/19 03/21/22 ([facility] spacer) nicotine 7 mg/24 hr daily 1 patch transdermal Q24H #14 ea 06/15/20 03/21/22 transdermal patch lorazepam 0.5 mg tablet 0.5 mg PO BID PRN #90 tab-caps 10/17/20 03/21/22 ropinirole 3 mg tablet 3 mg PO HS #90 tab-caps 10/17/20 03/21/22 fluoxetine 20 mg capsule 40 mg PO DAILY #60 caps 12/12/20 03/21/22 gabapentin 400 mg capsule 400 mg PO QHS Pt taking only at HS 12/29/20 03/21/22 #90 caps albuterol sulfate 90 mcg/actuation 1 inh inhalation .Q4-6H PRN 04/03/21 03/21/22 aerosol inhaler (ProAir HFA) shortness of breath or wheezing #18 grams nitroglycerin 0.4 mg sublingual 0.4 mg sublingual PRN #25 tabs 04/03/21 03/21/22 tablet levothyroxine 75 mcg tablet 75 mcg PO DAILY #90 tab-caps 05/29/21 03/21/22 bupropion HCl 150 mg tablet,12 hr 150 mg PO QAM #90 tab-caps 06/14/21 03/21/22 sustained-release (Wellbutrin SR) carvedilol 6.25 mg tablet 6.25 mg PO BID #60 tabs 06/14/21 03/21/22 cyanocobalamin (vitamin B-12) 1,000 mcg PO DAILY #90 caps 06/14/21 03/21/22 1,000 mcg capsule letrozole 2.5 mg tablet (Femara) 2.5 mg PO DAILY #90 tab-caps 07/24/21 03/21/22 ezetimibe 10 mg tablet 10 mg PO DAILY [place] [facility] 10/22/21 03/21/22 cholecalciferol (vitamin D3) 50 50 mcg PO DAILY Vitamin D 11/01/21 03/21/22 mcg (2,000 unit) tablet deficiency #90 tabs atorvastatin 80 mg tablet 80 mg PO QPM #90 tabs 12/31/21 03/21/22 lisinopril 2.5 mg tablet 2.5 mg PO DAILY #90 tabs 06/28/22 08/25/22 mirtazapine 15 mg tablet 1 tab PO HS PRN Sleep 03/17/22 03/21/22 prazosin 1 mg capsule 1 cap PO HS 03/17/22 03/21/22 albuterol sulfate 90 mcg/actuation 2 puff inhalation Q6H PRN #6.7 03/20/22 03/21/22 aerosol inhaler grams prednisone 20 mg tablet 20 mg PO DAILY #6 tabs 03/20/22 03/21/22 tiotropium 2.5 mcg-olodaterol 2.5 2 puff inhalation DAILY #4 grams 03/20/22 03/21/22 mcg/actuation mist for inhalation (Stiolto Respimat) albuterol sulfate 2.5 mg/3 mL 2.5 mg (3 mL) UPD Q4H PRN PRN #75 03/22/22 (0.083 %) solution for nebulization mL Previous Rx's Medication Instructions Recorded inhalational spacing device #1 ea 09/07/19 ([facility] spacer) nicotine 7 mg/24 hr daily 1 patch transdermal Q24H #14 ea 06/15/20 transdermal patch ropinirole 3 mg tablet 3 mg PO HS #90 tab-caps 10/17/20 fluoxetine 20 mg capsule 40 mg PO DAILY #60 caps 12/12/20 gabapentin 400 mg capsule 400 mg PO QHS Pt taking only at HS 12/29/20 #90 caps albuterol sulfate 90 mcg/actuation 1 inh inhalation .Q4-6H PRN 04/03/21 aerosol inhaler (ProAir HFA) shortness of breath or wheezing #18 grams nitroglycerin 0.4 mg sublingual 0.4 mg sublingual PRN #25 tabs 04/03/21 tablet levothyroxine 75 mcg tablet 75 mcg PO DAILY #90 tab-caps 05/29/21 bupropion HCl 150 mg tablet,12 hr 150 mg PO QAM #90 tab-caps 06/14/21 sustained-release (Wellbutrin SR) carvedilol 6.25 mg tablet 6.25 mg PO BID #60 tabs 06/14/21 cyanocobalamin (vitamin B-12) 1,000 mcg PO DAILY #90 caps 06/14/21 1,000 mcg capsule letrozole 2.5 mg tablet (Femara) 2.5 mg PO DAILY #90 tab-caps 07/24/21 cholecalciferol (vitamin D3) 50 50 mcg PO DAILY Vitamin D 11/01/21 mcg (2,000 unit) tablet deficiency #90 tabs atorvastatin 80 mg tablet 80 mg PO QPM #90 tabs 12/31/21 lisinopril 2.5 mg tablet 2.5 mg PO DAILY #90 tabs 01/22/22 albuterol sulfate 90 mcg/actuation 2 puff inhalation Q6H PRN #6.7 03/20/22 aerosol inhaler grams prednisone 20 mg tablet 20 mg PO DAILY #6 tabs 03/20/22 tiotropium 2.5 mcg-olodaterol 2.5 2 puff inhalation DAILY #4 grams 03/20/22 mcg/actuation mist for inhalation (Stiolto Respimat) albuterol sulfate 2.5 mg/3 mL 2.5 mg (3 mL) UPD Q4H PRN PRN #75 03/22/22 (0.083 %) solution for nebulization mL Allergies Allergy/AdvReac Type Severity Reaction Status Date / Time codeine Allergy Severe ITCHING Verified 03/21/22 17:12 Penicillins Allergy Severe HIVES Verified 03/21/22 17:12 latex Allergy Intermediate SKIN RASH Verified 03/21/22 17:12 Sulfa (Sulfonamide Allergy Intermediate SKIN RASH Verified 03/21/22 17:12 Antibiotics) sertraline AdvReac Severe DIARRHEA Verified 03/21/22 17:12 diazepam AdvReac Intermediate NAUSEA Verified 03/21/22 17:12 varenicline [From Chantix] AdvReac Mild Agitation Verified 03/21/22 17:12 rosuvastatin AdvReac Unknown ?GUM Verified 03/21/22 17:12 DISEASE General Stated Complaint: SOB KASANDRA: 2 Review of Systems All systems reviewed & are unremarkable except as noted in HPI and below Constitutional Constitutional: Denies fever(s) Respiratory Respiratory: Reports as per HPI and Reports cough (chronic) Musculoskeletal Musculoskeletal: Reports back pain PFSH All Active Problems (Updated 03/26/22 @ 14:51 by Abdelrahman Smith MD) Acute exacerbation of chronic obstructive pulmonary disease (Acute) Hypoxia (Acute) Folate deficiency (Acute) Ambulatory dysfunction (Acute) Hypoalbuminemia (Chronic) Anemia (Chronic) CHF (congestive heart failure) (Chronic) Pneumonia (Acute) Cholelithiasis (Chronic) Adverse drug reaction (Acute) Trigger finger (acquired) (Acute) Right ring finger Chronic obstructive pulmonary disease (Chronic 01/12/18) Very 12/11/17 PFTs Mod. sever obstructive airway disease with sig. bronchodilator response. This is associated with severe diffusion defect - FVC 2.06 & FEV1 1.23 (both decrease Anxiety and depression (Chronic 02/10/15) Essential (primary) hypertension (Chronic) Medical History Abdominal aortic aneurysm s/p surgical repair [facility] [place] Abnormal glandular Papanicolaou smear of vagina (~1978) Atherosclerotic heart disease of [place] coronary artery without angina pectoris Atrophic vaginitis (08/09/14) Breast cancer (01/20/14) left, 6 cm Invasive Lobular Carcinoma ([facility] [place]/19/14) chemo started and radiation tx planned (on hold due to perf divertic) Cardiomyopathy New onset 04/2018 per [facility]. Normal rest nuclear perfusion. Patient declined cath. [facility] Echo 02/25/19 EstEF = 41%, mild to mod aortic valve regurg Compared to [facility] 02/17/18, LV systolic function is improved. Chronic depression Disorder of vitamin B12 (03/30/13) Diverticulitis of colon with perforation (06/24/14) sigmoid resection and colostomy [facility] Apr 2014 post op malnutrition and respiratory failure Gastro-esophageal reflux disease without esophagitis Hyperlipidemia Hypothyroidism Methicillin resistant Staphylococcus aureus infection (03/27/09) Migraine Mixed incontinence (02/19/16) Obstructive sleep apnea Partial small bowel obstruction Polyp of colon (06/26/05) adenoma. Pyloric ulcer associated with Helicobacter pylori (05/25/11) 04/07 H pylori on EGD (treated) Restless legs syndrome Smoker quit 2013 and then re-started 25 year HX - quit again 11/25/17 -back to daily smoking Surgical History H/O tracheostomy Rotator Cuff Repair (~1978) LEFT S/P colostomy takedown Status post Mena's procedure Family History Mother , age 68 Essential hypertension Heart disease Pancreatic cancer Bone cancer Father , age 50 Essential hypertension Heart disease Hyperlipidemia Stroke Alcohol abuse Depression Sister Essential hypertension Hyperlipidemia Diabetes Heart disease Brother Essential hypertension Depression Heart disease Hyperlipidemia Maternal Grandfather Stroke Son Depression Daughter Depression Alcohol abuse 3 UNCLES Aneurysm Family History Bipolar disorder Sister Depression Essential hypertension Heart disease Hyperlipidemia Brother Alcohol abuse Depression Diabetes Hyperlipidemia Hypertension Social History Smoking/Tobacco Use Status: Former Tobacco Use Quit status: has quit before Second Hand Exposure: Yes Smoking risk assessment performed?: Yes Alcohol Intake: never Drug use: Occasionally Substance use type: marijuana Household members: none Housing: house Do you need help understanding health information?: Never Pets and animals: Yes Pets and animals: cat(s), dog(s) and bird(s) Sexually active: Yes Do you think of yourself as: straight/heterosexual Current gender identity: female What is your relationship status?: How often do you talk on the phone with friends or family?: once per week How often do you get together with friends or relatives?: decline to answer How often do you attend sikhism or pentecostal services?: decline to answer Do you belong to any clubs or organized social groups?: decline to answer Panel score (0-1 are the most socially isolated patients): 0 Duration: < 15 minutes/day Nuvia/Restorationist: CRYSTAL Special nuvia needs: No Seatbelt use: always Helmet use: No Drive intox or ride w/intox cdl truck driver: No Do you feel safe at home: Yes Do you feel safe in your relationship?: Yes Victim of physical abuse: No Victim of emotional abuse: No Victim of sexual abuse: No Would you like helpful sources: No Exam Const General: cooperative and no acute distress HENMT Mouth: moist mucous membranes Eyes Conjunctivae: normal conjunctivae Sclera: normal sclerae Neck Neck: trachea midline and supple Resp Effort & Inspection: not labored Auscultation: rhonchi (b/l) and wheezes (b/l) Cardio Rate: regular rate and not tachycardic Rhythm: regular rhythm GI Palpation: soft, not firm, no guarding, no masses, not rigid and nontender Skin General skin exam: no rashes or lesions noted Neuro General: patient alert, patient awake, patient oriented x3 and tone normal Extrem General: no calf tenderness and no edema Psych Appearance: grossly normal Mental Status: mental status grossly normal Speech and Movement: speech and movement normal Course Vital Signs Vital signs: Vital Signs Temperature 36.6 C 03/21/22 11:34 Pulse 90 03/21/22 11:34 Respiratory Rate 28 H 08/25/22 11:34 Blood Pressure 95/62 L 03/21/22 11:34 Pulse Oximetry 90 L 03/21/22 11:34 Temperature 36.2 C L 03/21/22 14:31 Temperature Source Oral 03/21/22 14:31 Pulse 89 03/21/22 14:31 Respiratory Rate 22 03/21/22 14:31 Blood Pressure 92/66 L 03/21/22 14:31 Blood Pressure Position Sitting 03/21/22 11:34 Pulse Oximetry 98 03/21/22 13:09 Oxygen Delivery Method Nasal Cannula 03/21/22 14:31 Oxygen Flow Rate 1 03/21/22 13:09 Pain Level 0 03/21/22 14:31 Comment 03/21/22 11:34
[2022-03-21 15:21] LABS: Source Nasal/Nares
[2022-03-21] MEDS: Lactated Ringers 500 ML IV (17:04)
--- NOTE | 2022-03-21 19:17 | NUR.NOTE ---
Nursing Note: Hand off to Karrie PEREZ, her questions were answered
[2022-03-21] MEDS: Enoxaparin 40 MG/0.4 ML SYR SC (19:42)
[2022-03-21] MEDS: Gabapentin 400 MG CAP PO (20:18)
[2022-03-21] MEDS: Atorvastatin 40 MG TAB 80 MG PO (20:19)
[2022-03-21] MEDS: Carvedilol 6.25 MG TAB PO (20:19)
[2022-03-21] MEDS: LORazepam 0.5 MG TAB PO (20:19)
[2022-03-21] MEDS: rOPINIRole 1 MG TAB 3 MG PO (20:19)
[2022-03-21] MEDS: Prazosin 1 MG CAP PO (20:19)
[2022-03-21] MEDS: Albuterol 2.5 MG/3 ML INH SOLN VIAL UPD (20:19)
[2022-03-21 20:34] LABS: COVID-19 PCR Negative (Negative)
--- NOTE | 2022-03-21 20:36 | W.PM.HP.N ---
Date of service: 03/21/22 Time of Service: 20:36 Assessment and Plan Assessment and plan (1) Acute exacerbation of chronic obstructive pulmonary disease (COPD): Status: Acute Assessment and plan: Continue prednisone, stiolto, bronchodilators. Await a formal CXR read. Consider expanding antibiotics. Check procalcitonin in am. Covid negative. (2) Respiratory failure with hypoxia: Status: Acute Assessment and plan: As above. Repeat exercise oximetry (3) Campylobacter diarrhea: Status: Acute Assessment and plan: Continue azithromycin (for a total of 3 doses). (4) Anxiety and depression: Status: Chronic Assessment and plan: Continue home regimen (5) DVT prophylaxis: Status: Acute Assessment and plan: SC enoxaparin (6) Discharge planning issues: Status: Acute Assessment and plan: Full code Anticipate discharge home tomorrow with new home O2 and nebulizer machine orders. History of Present Illness History of Present Illness Chief Complaint: Shortness of breath Narrative: Ms Peter is a 71 year old female with PMHx of COPD with hypoxia, as well as HTN, tobacco abuse, admission to the surgical service for an ileus and campylobacter diarrhea (03/17/22-03/20/22), having refused oxygen for which she had qualified upon discharge, who had called EMS this morning for shortness of breath and was brought to the ED requesting oxygen and nebulizer treatments. At rest in the ED she was saturating 90% on RA. She was placed on O2 at 1L by ND. Observation on hospitalist service for COPD exacerbation was requested. She is again COVID negative. The patient does state that she finds nebulizer treatments significantly more effective than the inhaler. Her diarrhea has stopped and she has been able to tolerate a regular diet. Review of Systems All systems reviewed & are unremarkable except as noted in HPI and below PFSH All Active Problems (Updated 03/21/22 @ 21:06 by Yesica Rodríguez MD) Discharge planning issues (Acute) DVT prophylaxis (Acute) Acute exacerbation of chronic obstructive pulmonary disease (COPD) (Acute) Folate deficiency (Acute) Campylobacter diarrhea (Acute) Ambulatory dysfunction (Acute) Respiratory failure with hypoxia (Acute) Hypoalbuminemia (Chronic) Anemia (Chronic) CHF (congestive heart failure) (Chronic) Pneumonia (Acute) Cholelithiasis (Chronic) Adverse drug reaction (Acute) Trigger finger (acquired) (Acute) Right ring finger Chronic obstructive pulmonary disease (Chronic 01/12/18) Very 12/11/17 PFTs Mod. sever obstructive airway disease with sig. bronchodilator response. This is associated with severe diffusion defect - FVC 2.06 & FEV1 1.23 (both decrease Anxiety and depression (Chronic 02/10/15) Essential (primary) hypertension (Chronic) Medical History Abdominal aortic aneurysm s/p surgical repair [facility] 2007 Abnormal glandular Papanicolaou smear of vagina (~1978) Atherosclerotic heart disease of [place] coronary artery without angina pectoris Atrophic vaginitis (08/09/14) Breast cancer (01/20/14) left, 6 cm Invasive Lobular Carcinoma ([facility] 01/19/14) chemo started and radiation tx planned (on hold due to perf divertic) Cardiomyopathy New onset 04/2018 per [facility]. Normal rest nuclear perfusion. Patient declined cath. [facility] Echo 02/25/19 EstEF = 41%, mild to mod aortic valve regurg Compared to [facility] 02/17/18, LV systolic function is improved. Chronic depression Disorder of vitamin B12 (03/30/13) Diverticulitis of colon with perforation (06/24/14) sigmoid resection and colostomy [facility] Apr 2014 post op malnutrition and respiratory failure Gastro-esophageal reflux disease without esophagitis Hyperlipidemia Hypothyroidism Methicillin resistant Staphylococcus aureus infection (03/27/09) Migraine Mixed incontinence (02/19/16) Obstructive sleep apnea Partial small bowel obstruction Polyp of colon (06/26/05) adenoma. Pyloric ulcer associated with Helicobacter pylori (05/25/11) 04/07 H pylori on EGD (treated) Restless legs syndrome Smoker quit 2013 and then re-started 25 year HX - quit again 11/25/17 -back to daily smoking Surgical History H/O tracheostomy Rotator Cuff Repair (~1978) LEFT S/P colostomy takedown Status post Mena's procedure Family History Mother , age 68 Essential hypertension Heart disease Pancreatic cancer Bone cancer Father , age 50 Essential hypertension Heart disease Hyperlipidemia Stroke Alcohol abuse Depression Sister Essential hypertension Hyperlipidemia Diabetes Heart disease Brother Essential hypertension Depression Heart disease Hyperlipidemia Maternal Grandfather Stroke Son Depression Daughter Depression Alcohol abuse 3 UNCLES Aneurysm Family History Bipolar disorder Sister Depression Essential hypertension Heart disease Hyperlipidemia Brother Alcohol abuse Depression Diabetes Hyperlipidemia Hypertension Social History Smoking/Tobacco Use Status: Former Tobacco Use Quit status: has quit before Second Hand Exposure: Yes Smoking risk assessment performed?: Yes Alcohol Intake: never Drug use: Occasionally Substance use type: marijuana Household members: none Housing: house Do you need help understanding health information?: Never Pets and animals: Yes Pets and animals: cat(s), dog(s) and bird(s) Sexually active: Yes Do you think of yourself as: straight/heterosexual Current gender identity: female What is your relationship status?: How often do you talk on the phone with friends or family?: once per week How often do you get together with friends or relatives?: decline to answer How often do you attend zoroastrian or muslim services?: decline to answer Do you belong to any clubs or organized social groups?: decline to answer Panel score (0-1 are the most socially isolated patients): 0 Duration: < 15 minutes/day Nuvia/Mormonism: CRYSTAL Special nuvia needs: No Seatbelt use: always Helmet use: No Drive intox or ride w/intox drivers license examiner: No Do you feel safe at home: Yes Do you feel safe in your relationship?: Yes Victim of physical abuse: No Victim of emotional abuse: No Victim of sexual abuse: No Would you like helpful sources: No Meds Allergies and Home Medications Allergies Allergy/AdvReac Type Severity Reaction Status Date / Time codeine Allergy Severe ITCHING Verified 03/21/22 17:12 Penicillins Allergy Severe HIVES Verified 03/21/22 17:12 latex Allergy Intermediate SKIN RASH Verified 03/21/22 17:12 Sulfa (Sulfonamide Allergy Intermediate SKIN RASH Verified 03/21/22 17:12 Antibiotics) sertraline AdvReac Severe DIARRHEA Verified 03/21/22 17:12 diazepam AdvReac Intermediate NAUSEA Verified 03/21/22 17:12 varenicline [From Chantix] AdvReac Mild Agitation Verified 03/21/22 17:12 rosuvastatin AdvReac Unknown ?GUM Verified 03/21/22 17:12 DISEASE Home Medications Medication Instructions Recorded Confirmed Type aspirin 81 mg chewable tablet 81 mg PO DAILY 02/10/15 03/21/22 History (Aspirin Low-Strength) polyethylene glycol 8000(bulk) 17 gm PO daily prn 02/10/15 03/21/22 History acetaminophen 500 mg tablet 1,000 mg PO Q6H PRN 07/11/15 03/21/22 History (Tylenol Extra Strength) inhalational spacing device #1 ea 09/07/19 03/21/22 Rx ([facility] spacer) nicotine 7 mg/24 hr daily 1 patch transdermal Q24H #14 ea 06/15/20 03/21/22 Rx transdermal patch lorazepam 0.5 mg tablet 0.5 mg PO BID PRN #90 tab-caps 10/17/20 03/21/22 History ropinirole 3 mg tablet 3 mg PO HS #90 tab-caps 10/17/20 03/21/22 Rx fluoxetine 20 mg capsule 40 mg PO DAILY #60 caps 12/12/20 03/21/22 Rx gabapentin 400 mg capsule 400 mg PO QHS Pt taking only at HS 12/29/20 03/21/22 Rx #90 caps albuterol sulfate 90 mcg/actuation 1 inh inhalation .Q4-6H PRN 04/03/21 03/21/22 Rx aerosol inhaler (ProAir HFA) shortness of breath or wheezing #18 grams nitroglycerin 0.4 mg sublingual 0.4 mg sublingual PRN #25 tabs 04/03/21 03/21/22 Rx tablet levothyroxine 75 mcg tablet 75 mcg PO DAILY #90 tab-caps 05/29/21 03/21/22 Rx bupropion HCl 150 mg tablet,12 hr 150 mg PO QAM #90 tab-caps 06/14/21 03/21/22 Rx sustained-release (Wellbutrin SR) carvedilol 6.25 mg tablet 6.25 mg PO BID #60 tabs 06/14/21 03/21/22 Rx cyanocobalamin (vitamin B-12) 1,000 mcg PO DAILY #90 caps 06/14/21 03/21/22 Rx 1,000 mcg capsule letrozole 2.5 mg tablet (Femara) 2.5 mg PO DAILY #90 tab-caps 07/24/21 03/21/22 Rx ezetimibe 10 mg tablet 10 mg PO DAILY Initiated by [facility] 10/22/21 03/21/22 History cholecalciferol (vitamin D3) 50 50 mcg PO DAILY Vitamin D 11/01/21 03/21/22 Rx mcg (2,000 unit) tablet deficiency #90 tabs atorvastatin 80 mg tablet 80 mg PO QPM #90 tabs 12/31/21 03/21/22 Rx lisinopril 2.5 mg tablet 2.5 mg PO DAILY #90 tabs 01/22/22 03/21/22 Rx mirtazapine 15 mg tablet 1 tab PO HS PRN Sleep 03/17/22 03/21/22 History prazosin 1 mg capsule 1 cap PO HS 03/17/22 03/21/22 History albuterol sulfate 90 mcg/actuation 2 puff inhalation Q6H PRN #6.7 03/20/22 03/21/22 Rx aerosol inhaler grams azithromycin 250 mg tablet 500 mg PO DAILY 3 days #6 tabs 03/20/22 03/21/22 Rx prednisone 20 mg tablet 20 mg PO DAILY #6 tabs 03/20/22 03/21/22 Rx tiotropium 2.5 mcg-olodaterol 2.5 2 puff inhalation DAILY #4 grams 03/20/22 03/21/22 Rx mcg/actuation mist for inhalation (Stiolto Respimat) Exam Narrative Exam Narrative: General: Pleasant female who is not dypsneic or tachypenic, not working to breathe, coughing, A&Ox3, on 1L of O2 by ND Neurological: A&Ox3, no focal deficits Psychiatric: Mildly anxious; appropriate speech pattern/content Skin: Visible skin intact HEENT: Atraumatic, normocephalic, EOMI, MMM, clear oropharynx, no submandibular or cervical lymphadenopathy, no goiter or JVD Cardiovascular: RRR, no m/r/g Lungs: expiratory wheezing B Gastrointestinal: soft,nontender, nondistended Genitourinary: deferred Extremities: no edema BLEs, 1+ pedal pulses B Results Imaging Additional studies: CXR: official read pending. Per my read, ? RLL infiltrate Labs Labs: Laboratory Results - last 24 hr 03/21/22 15:20 COVID-19 Source Nasal/Nares Last Vital Signs Temp 37 C 03/21/22 19:43 Pulse 95 H 03/21/22 19:43 Resp 22 03/21/22 19:43 BP 101/67 03/21/22 19:43 Pulse Ox 95 03/21/22 19:43
--- NOTE | 2022-03-21 21:36 | DI.VRAD_ITS ---
PROCEDURE INFORMATION: Exam: XR Chest Exam date and time: 03/21/2022 9:08 PM Age: 71 years old Clinical indication: Other: Copd TECHNIQUE: Imaging protocol: Radiologic exam of the chest. Views: 1 view. COMPARISON: CR XR PORTABLE CHEST AP 03/17/2022 7:41 PM FINDINGS: Lungs: Reticular markings/interstitial prominence appears mildly increased. No consolidation. Pleural spaces: No pleural effusion. No pneumothorax. Heart/Mediastinum: Grossly stable. Bones/joints: Grossly stable. IMPRESSION: Increased interstitial prominence which may represent pneumonitis versus edema Dictated and Authenticated by: Saroj Moralez MD. Ordering:LIZBET Robert MD
[2022-03-21] MEDS: Mirtazapine 15 MG TAB PO (22:06)
[2022-03-21] MEDS: guaiFENesin 600 MG TABCR PO (22:07)
[2022-03-22 01:17] VITALS: BP 92/57; PULSE 77; RESP 20; O2SAT 96
[2022-03-22 01:18] VITALS: BP 92/55
[2022-03-22 04:00] VITALS: O2SAT 95
[2022-03-22] MEDS: LORazepam 0.5 MG TAB PO (04:01)
[2022-03-22] MEDS: Albuterol 2.5 MG/3 ML INH SOLN VIAL UPD ×2 (04:03→11:16)
[2022-03-22 05:17] VITALS: BP 94/64; PULSE 75; RESP 22; O2SAT 95
[2022-03-22] MEDS: Levothyroxine 75 MCG TAB PO (06:15)
[2022-03-22] MEDS: Lactated Ringers 500 ML IV (06:15)
[2022-03-22 06:47] LABS: Abs Immature Grans 0.52 10^3/uL (0.0-0.06); Absolute Lymphocyte Count 1.18 10^3/uL (1.2-3.4); Absolute Monocyte Count 0.53 10^3/uL (0.1-0.8); Absolute Neutrophil Count 13.58 10^3/uL (1.2-6.7); Basophils % 0.4; Eosinophils % 0.3; HCT 29.8 % (36.0-46.0); HGB 9.9 g/dL (11.2-15.7); Immature Grans % 3.3; Lymphocytes % 7.4; MCH 30.9 pg (27.0-33.0); MCHC 33.2 % (32.0-36.0); MCV 93 fL (80-95); MPV 9.7 fL (8.0-11.0); Monocytes % 3.3; Neutrophils % 85.3; Platelet Count 209 10^3/uL (130-400); RDW 13.9 % (11.7-14.6); RDW-SD 47.9 fL; WBC 15.92 10^3/uL (4.4-10.8)
[2022-03-22 06:51] LABS: Absolute Basophil Count 0.06 10^3/uL (0.0-0.2); Absolute Eosinophil Count 0.05 10^3/uL (0.0-0.7)
[2022-03-22] MEDS: Acetaminophen 325 MG TAB PO (07:05)
[2022-03-22] MEDS: Normal Saline Flush 10 ML SYR (07:05)
[2022-03-22 07:16] LABS: Diff Comment Agrees w/ Instrument; RBC Morphology Normal
[2022-03-22 07:41] LABS: Procalcitonin 0.1 ng/mL
[2022-03-22 08:00] VITALS: BP 102/67; PULSE 84; RESP 16; TEMP 36.7; O2SAT 96
[2022-03-22] MEDS: Aspirin 81 MG CHEW PO (08:21)
[2022-03-22] MEDS: buPROPion-CR 150 MG TABCR PO (08:21)
[2022-03-22] MEDS: Letrozole 2.5 MG TAB PO (08:21)
[2022-03-22] MEDS: Azithromycin 250 MG TAB 500 MG PO (08:21)
[2022-03-22] MEDS: Ezetimibe 10 MG TAB PO (08:21)
[2022-03-22] MEDS: Lisinopril 5 MG TAB 2.5 MG PO (08:22)
[2022-03-22] MEDS: FLUoxetine 20 MG CAP 40 MG PO (08:22)
[2022-03-22] MEDS: Carvedilol 6.25 MG TAB PO (08:22)
[2022-03-22] MEDS: guaiFENesin 600 MG TABCR PO (08:22)
[2022-03-22] MEDS: predniSONE 20 MG TAB 40 MG PO (08:22)
[2022-03-22] MEDS: Normal Saline Flush 10 ML SYR IVP (08:45)
[2022-03-22] MEDS: Tiotropium/Olodaterol 10 PUFF INHALER 2 PUFF IH (09:37)
[2022-03-22 10:45] VITALS: PULSE 71; PULSE 92; PULSE 94; O2SAT 91; O2SAT 93; O2SAT 95
--- NOTE | 2022-03-22 13:51 | DSE_ITS ---
Date of service: 03/22/22 Time of Service: 13:51 DS: Diagnosis Discharge Diagnosis (1) Acute exacerbation of chronic obstructive pulmonary disease (COPD): Status: Acute (2) Respiratory failure with hypoxia: Status: Acute (3) Campylobacter diarrhea: Status: Acute (4) Anxiety and depression: Status: Chronic (5) DVT prophylaxis: Status: Acute (6) Discharge planning issues: Status: Acute Discharge Plan Disposition Patient Disposition: HOME Condition: Good Discharge Details Reason For Visit: Acute Respiratory Failure, COPD Admit Date/Time: 03/21/22 15:22 Admit Provider: Bryson Ivan Attending Provider: Bryson Ivan Primary Care Provider: Emilie العلي Hospital Course Hospital Course: Ms Peter is a 71 year old female with PMHx of COPD with hypoxia, as well as HTN, tobacco abuse, admission to the surgical service for an ileus and campylobacter diarrhea (03/17/22-03/20/22), having refused oxygen for which she had qualified upon discharge, who had called EMS this morning for shortness of breath and was brought to the ED? requesting oxygen and nebulizer treatments. At rest in the ED she was saturating 90% on RA. She was placed on O2 at 1L by AR. Observation on hospitalist service for COPD exacerbation was requested. She is again COVID negative. The patient does state that she finds nebulizer treatments significantly? more effective than the inhaler. Her diarrhea has stopped and she has been able to tolerate a regular diet. She did have an elevated WBC count likely d/t steroid effect (on a 3 day course of 40mg prednisone daily). CXR did show evidence of some pulmonary edema, but she was found not to qualify for home O2 and her RA O2 saturation at time of d/c was 97%. There is a component of anxiety that results in the patients sense dyspnea. She did go several days recently w/o her psychiatric medications and she feels this has exacerbated her anxiety; she has since refilled the prescriptions. She is being prescribed a nebulizer with albuterol prn. She will finish the 3 day course of prednisone. Follow up with PCP in 1-2 weeks. Home Meds and New Rx's Prescriptions: New albuterol sulfate 2.5 mg /3 mL (0.083 %) Solution For Nebulization 2.5 mg UPD Q4H PRN PRNQty: 75 0RF Continued nicotine 7 mg/24 hr patch 24 hour 1 patch transdermal Q24H Qty: 14 3RF fluoxetine 20 mg capsule 40 mg PO DAILY Qty: 60 11RF polyethylene glycol 8000(bulk) 2,500 GM powder 17 gm PO daily prn Label Comments: pt states that she has not need in 6 months. aspirin [Aspirin Low-Strength] 81 MG tablet,chewable 81 mg PO DAILY acetaminophen [Tylenol Extra Strength] 500 MG tablet 1,000 mg PO Q6H PRN lorazepam 0.5 mg tablet 0.5 mg PO BID PRNQty: 90 Label Comments: 10/17/[address] Ori Ramos [address] [facility]. CHRIS Akins ropinirole 3 mg tablet 3 mg PO HS Qty: 90 4RF gabapentin 400 mg capsule 400 mg PO QHS Qty: 90 3RF nitroglycerin 0.4 mg tablet, sublingual 0.4 mg Sublingual PRN Qty: 25 3RF Rx Instructions: PRN, FOR CHEST PAIN levothyroxine 75 mcg tablet 75 mcg PO DAILY Qty: 90 3RF Rx Instructions: bupropion HCl [Wellbutrin SR] 150 mg tablet sustained-release 12 hr 150 mg PO QAM Qty: 90 3RF Rx Instructions: one pill q am carvedilol 6.25 mg tablet 6.25 mg PO BID Qty: 60 12RF Rx Instructions: give with food (meal/snack) cyanocobalamin (vitamin B-12) 1,000 mcg capsule 1,000 mcg PO DAILY Qty: 90 3RF letrozole [Femara] 2.5 mg tablet 2.5 mg PO DAILY Qty: 90 3RF ezetimibe 10 mg tablet 10 mg PO DAILY cholecalciferol (vitamin D3) 50 mcg (2,000 unit) tablet 50 mcg PO DAILY Qty: 90 3RF atorvastatin 80 mg tablet 80 mg PO QPM Qty: 90 3RF lisinopril 2.5 mg tablet 2.5 mg PO DAILY Qty: 90 1RF prazosin 1 mg capsule 1 cap PO HS Label Comments: TAKE ONE CAPSULE BY MOUTH AT BEDTIME mirtazapine 15 mg tablet 1 tab PO HS PRN (Reason: Sleep) Label Comments: TAKE ONE TABLET BY MOUTH AT BEDTIME azithromycin 250 mg Tablet 500 mg PO DAILY 3 Days Qty: 6 0RF prednisone 20 mg tablet 20 mg PO DAILY Qty: 6 0RF Rx Instructions: take 2 tabs (40 mg totoal) by mouth each day for 3 days Stiolto Respimat 2.5-2.5 mcg/actuation mist 2 puff inhalation DAILY Qty: 4 1RF Rx Instructions: take 2 puffs each day albuterol sulfate 90 mcg/actuation HFA aerosol inhaler 2 puff inhalation Q6H PRNQty: 6.7 0RF Rx Instructions: 2 puffs as needed for wheezing or shortness of breath No Action (DME) [employer]eth C Spacer 1 ea Miscellaneous ONCE Qty: 1 0RF Rx Instructions: to use with inhaler albuterol sulfate [ProAir HFA] 90 mcg/actuation HFA aerosol inhaler 1 inh inhalation .Q4-6H PRN (Reason: shortness of breath or wheezing) Qty: 18 3RF Discharge Instructions Instructions: COPD (Chronic Obstructive Pulmonary Disease) (DC) Stand Alone Forms: Nursing Discharge Form Referrals: Emilie العلي NP [Primary Care Provider] - 03/28/22 4:00 pm Activity:: Activity as Tolerated Equipment/Supplies:: No Equipment Needed Diet:: Resume usual home diet Discharge Orders Discharge Orders: Discharge Order (Routine); Ordered 03/22/22 Ordered By: Bryson Ivan DS: Summary Time Spent with Patient providing and/or coordinating discharge services: Greater than 30 minutes Status at Discharge Functional status at discharge: independent ambulation Overall status at discharge: patient is back to baseline Mental Status: mental status grossly normal Speech and Movement: speech and movement normal Mood: congruent mood Affect: normal affect Exam Narrative Exam Narrative: General: Pleasant female who is not dypsneic or tachypenic, not working to breathe, coughing, A&Ox3, on RA. Neurological: A&Ox3, no focal deficits Psychiatric: Appropriate affect. Skin: Visible skin intact Cardiovascular: RRR, no murmur Lungs: Clear. No increased work of breathing. Gastrointestinal: soft,nontender, nondistended Extremities: no edema BLEs, no calf tenderness. Psych Mental Status: mental status grossly normal Speech and Movement: speech and movement normal Mood: congruent mood Affect: normal affect DS: Data Vitals/I&O Vitals and I&O: Vital Signs Temperature 36.7 C 03/22/22 08:00 Temperature Source Tympanic 03/22/22 08:00 Pulse 84 03/22/22 08:00 Pulse Rhythm Regular 03/22/22 07:05 Respiratory Rate 16 03/22/22 08:00 Respiratory Effort 03/22/22 07:05 Respiratory Depth Normal 03/22/22 07:05 Respiratory Pattern Normal 03/22/22 07:05 Blood Pressure 102/67 03/22/22 08:00 Blood Pressure Position Sitting 03/21/22 11:34 Pulse Oximetry 96 03/22/22 08:00 Oxygen Delivery Method Nasal Cannula 03/22/22 08:00 Oxygen Flow Rate 1 03/22/22 08:00 Pain Level 1 03/22/22 08:00 Comment 03/21/22 23:05 Intake & Output 03/21/22 03/22/22 03/22/22 23:59 11:59 23:59 Intake Total 500 / 500 700 / 700 Balance 500 / 500 700 / 700 Weight 66 kg Intake: IV 500 / 500 500 / 500 Oral 200 / 200 Other: Urine Appearance Clear Clear Comment Patient voided independent pt reports voiding independently at 0200 Voiding Methods Toilet Toilet Data Completed and Pending Labs on day of discharge: Labs from last 24 hours 03/22/22 03/22/22 03/21/22 06:04 06:02 15:20 WBC 15.92 H RBC 3.20 L Hgb 9.9 L Hct 29.8 L MCV 93 MCH 30.9 MCHC 33.2 RDW 13.9 Plt Count 209 MPV 9.7 Immature Gran % 3.3 Neutrophils % 85.3 Lymphocytes % 7.4 Monocytes % 3.3 Eosinophils % 0.3 Basophils % 0.4 Nucleated RBC % 0.0 Absolute Neutrophils 13.58 H Absolute Lymphocytes 1.18 L Absolute Monocytes 0.53 Absolute Eosinophils 0.05 Absolute Basophils 0.06 RBC Morphology Normal Procalcitonin 0.1 COVID-19 Source Nasal/Nares SARS-CoV-2 (PCR) Negative PFSH All Active Problems Discharge planning issues (Acute) DVT prophylaxis (Acute) Acute exacerbation of chronic obstructive pulmonary disease (COPD) (Acute) Folate deficiency (Acute) Campylobacter diarrhea (Acute) Ambulatory dysfunction (Acute) Respiratory failure with hypoxia (Acute) Hypoalbuminemia (Chronic) Anemia (Chronic) CHF (congestive heart failure) (Chronic) Pneumonia (Acute) Cholelithiasis (Chronic) Adverse drug reaction (Acute) Trigger finger (acquired) (Acute) Right ring finger Chronic obstructive pulmonary disease (Chronic 01/12/18) Very 12/11/17 PFTs Mod. sever obstructive airway disease with sig. bronchodilator response. This is associated with severe diffusion defect - FVC 2.06 & FEV1 1.23 (both decrease Anxiety and depression (Chronic 02/10/15) Essential (primary) hypertension (Chronic) Medical History Abdominal aortic aneurysm s/p surgical repair [facility] [place] Abnormal glandular Papanicolaou smear of vagina (~1978) Atherosclerotic heart disease of [place] coronary artery without angina pectoris Atrophic vaginitis (08/09/14) Breast cancer (01/20/14) left, 6 cm Invasive Lobular Carcinoma ([facility] [place] 01/19/14) chemo started and radiation tx planned (on hold due to perf divertic) Cardiomyopathy New onset 04/2018 per [facility] [place]. Normal rest nuclear perfusion. Patient declined cath. [facility] [place] Echo 02/25/19 EstEF = 41%, mild to mod aortic valve regurg Compared to [facility] 02/17/18, LV systolic function is improved. Chronic depression Disorder of vitamin B12 (03/30/13) Diverticulitis of colon with perforation (06/24/14) sigmoid resection and colostomy [facility] [place] 2014 post op malnutrition and respiratory failure Gastro-esophageal reflux disease without esophagitis Hyperlipidemia Hypothyroidism Methicillin resistant Staphylococcus aureus infection (03/27/09) Migraine Mixed incontinence (02/19/16) Obstructive sleep apnea Partial small bowel obstruction Polyp of colon (06/26/05) adenoma. Pyloric ulcer associated with Helicobacter pylori (05/25/11) 04/07 H pylori on EGD (treated) Restless legs syndrome Smoker quit 2013 and then re-started 25 year HX - quit again 11/25/17 -back to daily smoking Surgical History H/O tracheostomy Rotator Cuff Repair (~1978) LEFT S/P colostomy takedown Status post Mena's procedure Family History Mother , age 68 Essential hypertension Heart disease Pancreatic cancer Bone cancer Father , age 50 Essential hypertension Heart disease Hyperlipidemia Stroke Alcohol abuse Depression Sister Essential hypertension Hyperlipidemia Diabetes Heart disease Brother Essential hypertension Depression Heart disease Hyperlipidemia Maternal Grandfather Stroke Son Depression Daughter Depression Alcohol abuse 3 UNCLES Aneurysm Family History Bipolar disorder Sister Depression Essential hypertension Heart disease Hyperlipidemia Brother Alcohol abuse Depression Diabetes Hyperlipidemia Hypertension Social History Smoking/Tobacco Use Status: Former Tobacco Use Quit status: has quit before Second Hand Exposure: Yes Smoking risk assessment performed?: Yes Alcohol Intake: never Drug use: Occasionally Substance use type: marijuana Household members: none Housing: house Do you need help understanding health information?: Never Pets and animals: Yes Pets and animals: cat(s), dog(s) and bird(s) Sexually active: Yes Do you think of yourself as: straight/heterosexual Current gender identity: female What is your relationship status?: How often do you talk on the phone with friends or family?: once per week How often do you get together with friends or relatives?: decline to answer How often do you attend lutheran or samaritan services?: decline to answer Do you belong to any clubs or organized social groups?: decline to answer Panel score (0-1 are the most socially isolated patients): 0 Duration: < 15 minutes/day Nuvia/Roman Catholic: CRYSTAL Special nuvia needs: No Seatbelt use: always Helmet use: No Drive intox or ride w/intox restaurant delivery driver: No Do you feel safe at home: Yes Do you feel safe in your relationship?: Yes Victim of physical abuse: No Victim of emotional abuse: No Victim of sexual abuse: No Would you like helpful sources: No
== END 2022-03-22 15:11 | disposition home or self-care (01) ==
LOC: ER 16:04 → MS 03-22 08:17
PROVIDERS: Internal Medicine; Admitting Provider Family Medicine; Emergency Provider Student in an Organized Health Care Education/Training Program; Visit Provider Family Medicine
DX: J44.1 Chronic obstructive pulmonary disease with (acute) exacerbation (principal); J96.01 Acute respiratory failure with hypoxia; A04.5 Campylobacter enteritis; Z20.822 Contact with and (suspected) exposure to COVID-19; F41.8 Other specified anxiety disorders; I10 Essential (primary) hypertension; F17.210 Nicotine dependence, cigarettes, uncomplicated; E53.8 Deficiency of other specified B group vitamins; D64.9 Anemia, unspecified; K80.20 Calculus of gallbladder without cholecystitis without obstruction; E78.5 Hyperlipidemia, unspecified; E03.9 Hypothyroidism, unspecified; I42.9 Cardiomyopathy, unspecified; Z85.3 Personal history of malignant neoplasm of breast; G47.33 Obstructive sleep apnea (adult) (pediatric); Z87.11 Personal history of peptic ulcer disease; G25.81 Restless legs syndrome; Z79.899 Other long term (current) drug therapy
CPT/HCPCS: 84145; 87635; 94618; 96372; 99284; 99285; J1650; 71045; 85025; 99217; 99220; G0378; J7512; J7613

== ENCOUNTER 2022-07-23 12:35 | Outpatient (CLI) | payer MEDICARE, SELFPAY ==
[2022-07-23 12:15] LABS: ALT 20 U/L (14-59); AST 20 U/L (15-37); Albumin 3.9 g/dL (3.4-5.0); Alkaline Phosphatase 81 U/L (46-116); BUN 15 mg/dL (7-18); Bilirubin, Total 0.5 mg/dL (0.2-1.0); CREATININE 1.1 mg/dL (0.55-1.02); Chloride 102 mmol/L (98-107); Estimated GFR 54.06 (mL/min/1.73m2); Glucose 106 mg/dL (74-106); Potassium 4.4 mmol/L (3.5-5.1); Sodium 140 mmol/L (136-145); TSH (W/Ref FT4) 1.98 uIU/mL (0.36-3.74); Total Protein 7.2 g/dL (6.4-8.2)
== END 2022-07-23 12:36 | disposition home or self-care (01) ==
LOC: LBO 12:38
PROVIDERS: PCP Nurse Practitioner Family; Visit Provider Family Medicine
DX: F32.9 Major depressive disorder, single episode, unspecified (principal); F41.9 Anxiety disorder, unspecified; I10 Essential (primary) hypertension; J43.9 Emphysema, unspecified; E03.9 Hypothyroidism, unspecified
CPT/HCPCS: 36415; 80053; 84443

== ENCOUNTER 2022-07-24 11:31 | Outpatient (REF) | payer MEDICARE, SELFPAY ==
--- NOTE | 2022-07-24 12:15 | PAPFT_PTH ---
PATIENT: Opal Peter LOC: [facility] U#:[id number] AGE/SX: 72/F ROOM: RE07/24/[address]: Vicente Perez DNP : 1950 BED: DIS: 07/24/2022 SPEC #: [id number] RECD: 07/25/22 12:20 STATUS: DIDI APONTE #: [id number] HAN: 07/24/22 12:[address]: Vicente Angel [facility] Cytology RECD BY: Justa Gross Tissues: 1 - CX/ENDOCX FOR PAP SMEARS Procedures: PAP THIN PREP/UVM Screening HPV DNA PROBE Comments: [id number]
== END 2022-07-24 11:32 | disposition home or self-care (01) ==
LOC: LBN 11:31
PROVIDERS: PCP Nurse Practitioner Family; Visit Provider Nurse Practitioner Family
DX: Z12.4 Encounter for screening for malignant neoplasm of cervix (principal); Z11.51 Encounter for screening for human papillomavirus (HPV); Z01.419 Encounter for gynecological examination (general) (routine) without abnormal findings
CPT/HCPCS: 88142; 87624

== ENCOUNTER 2023-04-14 14:59 | Outpatient (REF) | payer MEDICARE, SELFPAY ==
[2023-04-14 21:53] LABS: Bilirubin Negative (Negative); Blood Small (Negative); Clarity Turbid (Clear); Glucose Negative (Negative); Ketones Negative (Negative); Leukocyte Esterase Large (Negative); Nitrite Negative (Negative); Specific Gravity >= 1.030 (1.005-1.025); Urobilinogen 0.2 mg/dL (Up to 0.2); pH 5.5 (5-8)
[2023-04-14 22:52] LABS: Bacteria Negative HPF (Negative); C & S Indicated? Yes; Crystals Many Amorphous HPF (Negative); Epithelial Cells Rare HPF (Negative); Mucus Negative (Negative); Other Cells Rare Transitional (Negative); RBC 0-2 HPF (0-2); WBC 20-50 HPF (0-5)
== END 2023-04-14 15:00 | disposition home or self-care (01) ==
LOC: LBN 14:59
PROVIDERS: PCP Nurse Practitioner Family; Visit Provider Nurse Practitioner Family
DX: R30.0 Dysuria (principal); R35.0 Frequency of micturition; R82.998 Other abnormal findings in urine
CPT/HCPCS: 81003; 81015; 87086

== ENCOUNTER 2023-05-04 17:15 | Emergency (ER) | payer MEDICARE, SELFPAY ==
[2023-05-04 17:17] VITALS: BP 151/79; PULSE 72; RESP 20; TEMP 36.8; O2SAT 94
[2023-05-04] MEDS: Cellulose,Oxidized 2X3 PKT 1 EACH MC (17:35)
--- NOTE | 2023-05-04 17:38 | W.ED.GENAD ---
Discharge Plan Disposition Patient Disposition: Home Condition: Improving Discharge Details Clinical Impression: Laceration of lip Primary Care Provider: Vicente Angel ED Provider: Bryson Mckeon Home Meds and New Rx's Prescriptions: No Action (DME) Andrea Cristina [facility] Spacer 1 ea Miscellaneous ONCE Qty: 1 0RF Rx Instructions: to use with inhaler fluoxetine 20 mg capsule 40 mg PO DAILY Qty: 60 11RF nitroglycerin 0.4 mg tablet, sublingual 0.4 mg Sublingual PRN Qty: 25 3RF Rx Instructions: PRN, FOR CHEST PAIN polyethylene glycol 8000(bulk) 2,500 GM powder 17 gm PO daily prn Patient Comments: pt states that she has not need in 6 months. aspirin [Aspirin Low-Strength] 81 MG tablet,chewable 81 mg PO DAILY acetaminophen [Tylenol Extra Strength] 500 MG tablet 1,000 mg PO Q6H PRN lorazepam 0.5 mg tablet 0.5 mg PO BID PRNQty: 90 Patient Comments: 10/17/[address] Ori Ramos at [facility]. CHRIS Akins cyanocobalamin (vitamin B-12) 1,000 mcg capsule 1,000 mcg PO DAILY Qty: 90 3RF bupropion HCl [Wellbutrin SR] 150 mg tablet sustained-release 12 hr 150 mg PO QAM Qty: 90 3RF Rx Instructions: one pill q am atorvastatin 80 mg tablet 80 mg PO QPM Qty: 90 3RF carvedilol 6.25 mg tablet 6.25 mg PO BID Qty: 60 12RF Rx Instructions: give with food (meal/snack) letrozole 2.5 mg tablet See Rx Instructions .ROUTE .COMPLEX Qty: 90 3RF Dose Instruction: TAKE ONE TABLET BY MOUTH EVERY DAY Rx Instructions: TAKE ONE TABLET BY MOUTH EVERY DAY cholecalciferol (vitamin D3) 50 mcg (2,000 unit) tablet 50 mcg PO DAILY Qty: 90 3RF ezetimibe 10 mg tablet 10 mg PO DAILY Qty: 90 3RF gabapentin 400 mg capsule 400 mg PO QHS Qty: 90 3RF ropinirole 3 mg tablet 3 mg PO HS Qty: 90 4RF levothyroxine 75 mcg tablet 75 mcg PO DAILY Qty: 90 1RF lisinopril 2.5 mg tablet 2.5 mg PO DAILY Qty: 90 1RF albuterol sulfate [ProAir HFA] 90 mcg/actuation HFA aerosol inhaler 1 inh inhalation .Q4-6H PRN (Reason: shortness of breath or wheezing) Qty: 18 3RF albuterol sulfate 2.5 mg /3 mL (0.083 %) Solution For Nebulization 2.5 mg UPD Q4H PRN PRNQty: 75 0RF prazosin 1 mg capsule 1 cap PO HS Patient Comments: TAKE ONE CAPSULE BY MOUTH AT BEDTIME mirtazapine 15 mg tablet 1 tab PO HS PRN (Reason: Sleep) Patient Comments: TAKE ONE TABLET BY MOUTH AT BEDTIME Stiolto Respimat 2.5-2.5 mcg/actuation mist 2 puff inhalation DAILY Qty: 4 1RF Rx Instructions: take 2 puffs each day Discharge Instructions Instructions: Laceration (ED) Additional Instructions: Surgicel material will likely follow-up within the next couple of days, please keep wound clean and dry. Return to the emergency department for any worsening symptoms Medical Decision Making 73-year-old female presents with small avulsion injury to right lower lip, venous oozing unable to control bleeding at home with pressure, patient is hemodynamically stable no acute distress. Area of involved skin is on lip mucosa just superior to vermilion border, nongaping no internal mucosal involvement. Pressure has been applied without success. I have applied a small strip of Surgicel hemostatic mesh to the lower lip with a Steri-Strip which seems to have obtained hemostasis. Will observe patient for recurrent bleeding. Likely home with close follow-up and return precautions 17: 59 lip is hemostatic. Patient given home care instructions and return precautions HPI General Date/Time Provider Initiated Documentation: 05/04/23 17:25. HPI Narrative: 73-year-old female presents with bleeding from her lower lip that began after drinking from a soda bottle, was unable to control bleeding with pressure. Patient is on a daily aspirin is not on anticoagulation. Related Data Home Medications Medication Instructions Recorded Confirmed aspirin 81 mg chewable tablet 81 mg PO DAILY 02/10/15 07/24/22 (Aspirin Low-Strength) polyethylene glycol 8000(bulk) 17 gm PO daily prn 02/10/15 07/24/22 acetaminophen 500 mg tablet 1,000 mg PO Q6H PRN 12/15/15 12/28/22 (Tylenol Extra Strength) inhalational spacing device #1 ea 09/07/19 07/24/22 (Ailynraissagerardo Ibeth [facility] spacer) lorazepam 0.5 mg tablet 0.5 mg PO BID PRN #90 tab-caps 10/17/20 07/24/22 fluoxetine 20 mg capsule 40 mg PO DAILY #60 caps 12/12/20 07/24/22 mirtazapine 15 mg tablet 1 tab PO HS PRN Sleep 03/17/22 07/24/22 prazosin 1 mg capsule 1 cap PO HS 03/17/22 07/24/22 tiotropium 2.5 mcg-olodaterol 2.5 2 puff inhalation DAILY #4 grams 03/20/22 07/24/22 mcg/actuation mist for inhalation (Stiolto Respimat) albuterol sulfate 2.5 mg/3 mL 2.5 mg (3 mL) UPD Q4H PRN PRN #75 03/22/22 07/24/22 (0.083 %) solution for nebulization mL bupropion HCl 150 mg tablet,12 hr 150 mg PO QAM #90 tab-caps 04/22/22 07/24/22 sustained-release (Wellbutrin SR) cyanocobalamin (vitamin B-12) 1,000 mcg PO DAILY #90 caps 04/22/22 07/24/22 1,000 mcg capsule atorvastatin 80 mg tablet 80 mg PO QPM #90 tabs 07/15/22 07/24/22 carvedilol 6.25 mg tablet 6.25 mg PO BID #60 tabs 07/23/22 07/24/22 nitroglycerin 0.4 mg sublingual 0.4 mg sublingual PRN #25 tabs 07/24/22 07/24/22 tablet cholecalciferol (vitamin D3) 50 50 mcg PO DAILY Vitamin D 07/30/22 mcg (2,000 unit) tablet deficiency #90 tabs letrozole 2.5 mg tablet See Rx Instructions .Route 07/30/22 .COMPLEX #90 tabs ezetimibe 10 mg tablet 10 mg PO DAILY Initiated by [facility] 09/16/22 #90 tabs gabapentin 400 mg capsule 400 mg PO QHS Pt taking only at HS 09/16/22 #90 caps ropinirole 3 mg tablet 3 mg PO HS #90 tab-caps 11/04/22 levothyroxine 75 mcg tablet 75 mcg PO DAILY #90 tab-caps 12/09/22 lisinopril 2.5 mg tablet 2.5 mg PO DAILY #90 tabs 01/17/23 albuterol sulfate 90 mcg/actuation 1 inh inhalation .Q4-6H PRN 03/11/23 aerosol inhaler (ProAir HFA) shortness of breath or wheezing #18 grams Previous Rx's Medication Instructions Recorded inhalational spacing device #1 ea 09/07/19 [facility] spacer) fluoxetine 20 mg capsule 40 mg PO DAILY #60 caps 12/12/20 tiotropium 2.5 mcg-olodaterol 2.5 2 puff inhalation DAILY #4 grams 03/20/22 mcg/actuation mist for inhalation (Stiolto Respimat) albuterol sulfate 2.5 mg/3 mL 2.5 mg (3 mL) UPD Q4H PRN PRN #75 03/22/22 (0.083 %) solution for nebulization mL bupropion HCl 150 mg tablet,12 hr 150 mg PO QAM #90 tab-caps 04/22/22 sustained-release (Wellbutrin SR) cyanocobalamin (vitamin B-12) 1,000 mcg PO DAILY #90 caps 04/22/22 1,000 mcg capsule atorvastatin 80 mg tablet 80 mg PO QPM #90 tabs 07/15/22 carvedilol 6.25 mg tablet 6.25 mg PO BID #60 tabs 07/23/22 nitroglycerin 0.4 mg sublingual 0.4 mg sublingual PRN #25 tabs 07/24/22 tablet cholecalciferol (vitamin D3) 50 50 mcg PO DAILY Vitamin D 07/30/22 mcg (2,000 unit) tablet deficiency #90 tabs letrozole 2.5 mg tablet See Rx Instructions .Route 07/30/22 .COMPLEX #90 tabs ezetimibe 10 mg tablet 10 mg PO DAILY Initiated by [facility] 09/16/22 #90 tabs gabapentin 400 mg capsule 400 mg PO QHS Pt taking only at HS 09/16/22 #90 caps ropinirole 3 mg tablet 3 mg PO HS #90 tab-caps 11/04/22 levothyroxine 75 mcg tablet 75 mcg PO DAILY #90 tab-caps 12/09/22 lisinopril 2.5 mg tablet 2.5 mg PO DAILY #90 tabs 01/17/23 albuterol sulfate 90 mcg/actuation 1 inh inhalation .Q4-6H PRN 03/11/23 aerosol inhaler (ProAir HFA) shortness of breath or wheezing #18 grams Allergies Allergy/AdvReac Type Severity Reaction Status Date / Time codeine Allergy Severe ITCHING Verified 04/14/23 14:27 Penicillins Allergy Severe HIVES Verified 04/14/23 14:27 latex Allergy Intermediate SKIN RASH Verified 04/14/23 14:27 Sulfa (Sulfonamide Allergy Intermediate SKIN RASH Verified 04/14/23 14:27 Antibiotics) sertraline AdvReac Severe DIARRHEA Verified 04/14/23 14:27 diazepam AdvReac Intermediate NAUSEA Verified 04/14/23 14:27 varenicline [From Chantix] AdvReac Mild Agitation Verified 04/14/23 14:27 rosuvastatin AdvReac Unknown ?GUM Verified 04/14/23 14:27 DISEASE General Stated Complaint: Laceration KASANDRA: 4 Review of Systems Narrative: Review of Systems Constitutional: negative Eyes: negative ENT: Lip last Cardiovascular: negative Respiratory: negative Gastrointestinal: negative : negative Musculoskeletal: negative Skin: negative Neurologic: negative Psych: negative PFSH All Active Problems (Updated 05/04/23 @ 17:42 by Bryson Mckeon MD) Laceration of lip (Acute) Prediabetes (Acute) Pulmonary nodule (Acute) Hypothyroid (Chronic) Folate deficiency (Acute) Ambulatory dysfunction (Acute) Hypoalbuminemia (Chronic) Anemia (Chronic) CHF (congestive heart failure) (Chronic) Cholelithiasis (Chronic) Trigger finger (acquired) (Acute) Right ring finger Chronic obstructive pulmonary disease (Chronic 01/12/18) Very 12/11/17 PFTs Mod. sever obstructive airway disease with sig. bronchodilator response. This is associated with severe diffusion defect - FVC 2.06 & FEV1 1.23 (both decrease Anxiety and depression (Chronic 02/10/15) Essential (primary) hypertension (Chronic) Medical History Abdominal aortic aneurysm s/p surgical repair [facility] 2007 Abnormal glandular Papanicolaou smear of vagina (~1978) Acute exacerbation of chronic obstructive pulmonary disease Atherosclerotic heart disease of [place] coronary artery without angina pectoris Atrophic vaginitis (08/09/14) Breast cancer (01/20/14) left, 6 cm Invasive Lobular Carcinoma ([facility] 01/19/14) chemo started and radiation tx planned (on hold due to perf divertic) Cardiomyopathy New onset 04/2018 per [facility]. Normal rest nuclear perfusion. Patient declined cath. [facility] Echo 02/25/19 EstEF = 41%, mild to mod aortic valve regurg Compared to LOUIE 02/17/18, LV systolic function is improved. Chronic depression Disorder of vitamin B12 (03/30/13) Diverticulitis of colon with perforation (06/24/14) sigmoid resection and colostomy [facility] Apr 2014 post op malnutrition and respiratory failure Gastro-esophageal reflux disease without esophagitis Hyperlipidemia Hypothyroidism Hypoxia Methicillin resistant Staphylococcus aureus infection (03/27/09) Migraine Mixed incontinence (02/19/16) Obstructive sleep apnea Partial small bowel obstruction Pneumonia Polyp of colon (06/26/05) adenoma. Pyloric ulcer associated with Helicobacter pylori (05/25/11) 04/07 H pylori on EGD (treated) Restless legs syndrome Smoker quit 2013 and then re-started 25 year HX - quit again 11/25/17 -back to daily smoking Surgical History H/O tracheostomy Rotator Cuff Repair (~1978) LEFT S/P colostomy takedown Status post Mena's procedure Family History Mother , age 68 Essential hypertension Heart disease Pancreatic cancer Bone cancer Father , age 50 Essential hypertension Heart disease Hyperlipidemia Stroke Alcohol abuse Depression Sister Essential hypertension Hyperlipidemia Diabetes Heart disease Brother Essential hypertension Depression Heart disease Hyperlipidemia Maternal Grandfather Stroke Son Depression Daughter Depression Alcohol abuse 3 UNCLES Aneurysm Family History Bipolar disorder Sister Depression Essential hypertension Heart disease Hyperlipidemia Brother Alcohol abuse Depression Diabetes Hyperlipidemia Hypertension Social History Smoking/Tobacco Use Status: Never Quit status: has quit before Second Hand Exposure: No Smoking risk assessment performed?: Yes Alcohol Intake: never Drug use: Never Substance use type: does not use Household members: none Housing: house Communication Needs: None Do you need help understanding health information?: Never Pets and animals: Yes Pets and animals: cat(s), dog(s) and bird(s) Sexually active: Yes Do you think of yourself as: straight/heterosexual Current gender identity: female What is your relationship status?: How often do you talk on the phone with friends or family?: three or more times per week How often do you get together with friends or relatives?: decline to answer How often do you attend adventist or presybeterian services?: decline to answer Do you belong to any clubs or organized social groups?: decline to answer Panel score (0-1 are the most socially isolated patients): 1 What type of physical activity do you participate in: walking Duration: 15-30 minutes/day Frequency: 3-4 times per week Nuvia/Denominational: CRYSTAL Special nuvia needs: No Seatbelt use: always Helmet use: Yes Helmet use: always Drive intox or ride w/intox freight delivery driver: No Do you feel safe at home: Yes Do you feel safe in your relationship?: Yes Victim of physical abuse: No Victim of emotional abuse: No Victim of sexual abuse: No Would you like helpful sources: No Exam Narrative Exam Narrative: Physical Examination General: alert, awake, cooperative, resting comfortably, no acute distress HEENT: Superficial venous oozing to bottom right lip, likely underlying area of small avulsion Neck: supple, trachea midline; full ROM Chest: normal to inspection Respiratory: normal respiratory effort, speaking in full sentences Neuro: AAOx3, normal speech, moving all extremities Course Vital Signs Vital signs: Vital Signs Temperature 36.8 C 05/04/23 17:17 Pulse 72 05/04/23 17:17 Respiratory Rate 20 05/04/23 17:17 Blood Pressure 151/79 H 05/04/23 17:17 Pulse Oximetry 94 05/04/23 17:17 Temperature 36.8 C 05/04/23 17:17 Temperature Source Oral 05/04/23 17:17 Pulse 72 05/04/23 17:17 Respiratory Rate 20 05/04/23 17:17 Respiratory Effort Normal, Non-Labored 05/04/23 17:36 Blood Pressure 151/79 H 05/04/23 17:17 Blood Pressure Position Sitting 05/04/23 17:17 Pulse Oximetry 94 05/04/23 17:17 Oxygen Delivery Method Room Air 05/04/23 17:17 Oxygen Flow Rate 0 05/04/23 17:17
== END 2023-05-04 18:12 | disposition home or self-care (01) ==
PROVIDERS: Emergency Provider Emergency Medicine; PCP Nurse Practitioner Family
DX: S01.511A Laceration without foreign body of lip, initial encounter (principal); Y93.89 Activity, other specified
CPT/HCPCS: 99281; 99283

== ENCOUNTER 2023-09-01 14:46 | Outpatient (CLI) | payer MEDICARE, SELFPAY ==
[2023-09-01 13:13] LABS: HCT 38.8 % (36.0-46.0); HGB 12.5 g/dL (11.2-15.7); MCHC 32.2 % (32.0-36.0); MCV 96 fL (80-95); MPV 11.1 fL (8.0-11.0); Platelet Count 157 10^3/uL (130-400); RBC 4.03 10^6/uL (3.93-5.22); RDW 13.2 % (11.7-14.6); RDW-SD 47.4 fL; WBC 5.79 10^3/uL (4.4-10.8)
[2023-09-01 13:24] LABS: Hemoglobin A1C 5.9 % (<5.7)
[2023-09-01 14:02] LABS: Iron 72 ug/dL (50-170); Total Iron Binding Capacity 291 ug/dL (250-450)
[2023-09-01 14:08] LABS: TSH (W/Ref FT4) 1.47 uIU/mL (0.36-3.74)
[2023-09-03 15:36] LABS: Lab Add On Test DONE
[2023-09-03 16:06] LABS: ALT 22 U/L (14-59); AST 22 U/L (15-37); Albumin 3.7 g/dL (3.4-5.0); Alkaline Phosphatase 83 U/L (46-116); Anion Gap 11.2 mmol/L (3-11); BUN 15 mg/dL (7-18); Bilirubin, Total 0.4 mg/dL (0.2-1.0); CO2 30.8 mmol/L (21.0-32.0); CREATININE 1.1 mg/dL (0.55-1.02); Calcium 9.2 mg/dL (8.5-10.1); Chloride 103 mmol/L (98-107); Estimated GFR 53.72 (mL/min/1.73m2); Glucose 151 mg/dL (74-106); Potassium 3.9 mmol/L (3.5-5.1); Sodium 145 mmol/L (136-145); Total Protein 6.8 g/dL (6.4-8.2)
== END 2023-09-01 14:47 | disposition home or self-care (01) ==
LOC: LBO 14:54
PROVIDERS: PCP Nurse Practitioner Family; Visit Provider Nurse Practitioner Family
DX: R73.03 Prediabetes; E03.9 Hypothyroidism, unspecified
CPT/HCPCS: 36415; 80053; 85027; 83036; 83540; 83550; 84443

== ENCOUNTER 2024-02-27 08:56 | Emergency (ER) | payer MEDICARE, SELFPAY ==
[2024-02-27 09:05] VITALS: BP 99/53; PULSE 57; RESP 16; TEMP 36.5; O2SAT 95
--- NOTE | 2024-02-27 09:45 | RT.EKG_ITS ---
APPROVED REPORT Exam: Resting ECG Reason for Exam: fatigue Patient Location: E HR:54 bpm ECG Measurements Heart Rate 54 AXIS DC 238 P 12 QRSd 99 QRS -31 QT 480 T 58 QTc 454 Conclusion Sinus bradycardia...rate< 60 Prolonged DC interval...DC >220, V-rate 50- 90 Left axis deviation...QRS axis (-30,-90) sinus kary, left axis, non ischemic
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
[2024-02-27 10:16] LABS: Bilirubin Negative (Negative); Blood Negative (Negative); Clarity Clear (Clear); Glucose Negative (Negative); Ketones Negative (Negative); Leukocyte Esterase Negative (Negative); Nitrite Negative (Negative); Specific Gravity >= 1.030 (1.005-1.025); Urobilinogen 0.2 mg/dL (Up to 0.2); pH 5.5 (5-8)
[2024-02-27 10:30] VITALS: BP 99/53; PULSE 57; RESP 16; TEMP 36.5; O2SAT 95
[2024-02-27] MEDS: Normal Saline 1,000 ML 1000 ML IV (10:31)
[2024-02-27 10:43] LABS: Abs Immature Grans 0.04 10^3/uL (0.0-0.06); Absolute Basophil Count 0.04 10^3/uL (0.0-0.2); Absolute Eosinophil Count 0.14 10^3/uL (0.0-0.7); Absolute Lymphocyte Count 1.31 10^3/uL (1.2-3.4); Absolute Neutrophil Count 7.25 10^3/uL (1.2-6.7); Basophils % 0.4 %; Eosinophils % 1.5 %; HCT 45.7 % (36.0-46.0); HGB 14.4 g/dL (11.2-15.7); Immature Grans % 0.4 %; Lymphocytes % 14.1 %; MCH 30.2 pg (27.0-33.0); MCHC 31.5 % (32.0-36.0); MCV 96 fL (80-95); MPV 11.2 fL (8.0-11.0); Monocytes % 5.4 %; Neutrophils % 78.2 %; Platelet Count 159 10^3/uL (130-400); RBC 4.77 10^6/uL (3.93-5.22); RDW 13.2 % (11.7-14.6); RDW-SD 47.4 fL; WBC 9.28 10^3/uL (4.4-10.8)
--- NOTE | 2024-02-27 10:48 | DI.RAD_ITS ---
Exam(s) XR CHEST 2V PA LATERAL EXAM: XR CHEST 2V PA LATERAL CLINICAL HISTORY: fatigue TECHNIQUE: 2D digital imaging was performed. Two views. COMPARISON: CR,XR XR PORTABLE CHEST AP from 03/21/2022 FINDINGS: HEART: Normal size. Aorta: Tortuous PULMONARY VASCULATURE: Normal. MEDIASTINUM: Unremarkable. LUNGS: Clear. PLEURAL SPACE: No pleural effusion or pneumothorax. BONE:Unremarkable for age. SOFT TISSUES: Unremarkable. IMPRESSION: No acute abnormality. DATA REPOSITORY: RADIATION DOSE DELIVERED:
[2024-02-27 10:49] VITALS: BP 138/57; PULSE 50; RESP 18; TEMP 36.6; O2SAT 97
[2024-02-27 11:00] LABS: COVID-19 PCR Negative (Negative); Influenza A PCR Negative (Negative); Influenza B PCR Negative (Negative); RSV PCR Negative (Negative)
[2024-02-27 11:05] LABS: Source Nasopharynx
[2024-02-27 11:08] LABS: ALT 29 U/L (14-59); AST 24 U/L (15-37); Albumin 4.1 g/dL (3.4-5.0); Alkaline Phosphatase 88 U/L (46-116); Anion Gap 6.8 mmol/L (3-11); BUN 11 mg/dL (7-18); Bilirubin, Total 0.92 mg/dL (0.2-1.0); CO2 32.2 mmol/L (21.0-32.0); Calcium 9.3 mg/dL (8.5-10.1); Chloride 101 mmol/L (98-107); Estimated GFR 60.23 (mL/min/1.73m2); Glucose 101 mg/dL (74-106); Lipase 50 U/L (16-77); Magnesium 1.8 mg/dL (1.8-2.4); NT-proBNP 114 pg/mL (<300); Potassium 4.3 mmol/L (3.5-5.1); Sodium 140 mmol/L (136-145); TSH (W/Ref FT4) 0.36 uIU/mL (0.36-3.74); Total Protein 7.6 g/dL (6.4-8.2); Troponin I < 50 ng/L (< or =60)
[2024-02-27 12:32] VITALS: RESP 14
== END 2024-02-27 12:36 | disposition home or self-care (01) ==
PROVIDERS: Emergency Provider Emergency Medicine; PCP Nurse Practitioner Family
DX: E86.0 Dehydration (principal); R53.83 Other fatigue; R63.4 Abnormal weight loss; J44.9 Chronic obstructive pulmonary disease, unspecified; E78.5 Hyperlipidemia, unspecified; I25.10 Atherosclerotic heart disease of native coronary artery without angina pectoris; I11.0 Hypertensive heart disease with heart failure; I50.9 Heart failure, unspecified; F17.210 Nicotine dependence, cigarettes, uncomplicated
CPT/HCPCS: 36415; 80053; 83690; 87637; 93005; 96360; 99284; 71046; 81003; 83735; 83880; 84443; 84484; 85025; 93010; 99283

== ENCOUNTER 2024-04-26 10:55 | Emergency (ER) | payer MEDICARE, SELFPAY ==
[2024-04-26 11:20] VITALS: BP 110/67; PULSE 72; RESP 16; TEMP 36.1; O2SAT 91
== END 2024-04-26 12:49 | disposition left against medical advice (07) ==
LOC: ER 11:08
PROVIDERS: PCP Nurse Practitioner Family
DX: Z53.21 Procedure and treatment not carried out due to patient leaving prior to being seen by health care provider (principal)

== ENCOUNTER 2025-01-10 18:37 | Outpatient (REF) | payer MEDICARE, SELFPAY ==
[2025-01-10 21:19] LABS: HGB 13.6 g/dL (11.2-15.7); MCHC 31.6 % (32.0-36.0); MCV 95 fL (80-95); RBC 4.54 10^6/uL (3.93-5.22); RDW 13.5 % (11.7-14.6); RDW-SD 47.2 fL; WBC 8.61 10^3/uL (4.4-10.8)
[2025-01-10 21:45] LABS: Hemoglobin A1C 5.9 % (<5.7)
[2025-01-11] LABS: ALT 25 U/L (14-59); AST 29 U/L (15-37); Alkaline Phosphatase 89 U/L (46-116); Anion Gap 8.6 mmol/L (3-11); BUN 18 mg/dL (7-18); Bilirubin, Total 0.6 mg/dL (0.2-1.0); CO2 29.4 mmol/L (21.0-32.0); CREATININE 1.4 mg/dL (0.55-1.02); Calcium 9.3 mg/dL (8.5-10.1); Calculated LDL 76 mg/dL (<100); Chloride 102 mmol/L (98-107); Cholesterol 150 mg/dL (<200); Estimated GFR 39.97 (mL/min/1.73m2); Folate 8.3 ng/mL (8.6-20.0); Glucose 92 mg/dL (74-106); HDL Cholesterol 50 mg/dL (>or=50); Sodium 140 mmol/L (136-145); TSH (W/Ref FT4) 0.16 uIU/mL (0.36-3.74); Total Protein 7.2 g/dL (6.4-8.2); Triglyceride 121 mg/dL (<150)
[2025-01-11 00:19] LABS: FREE T4 1.14 ng/dL (0.76-1.46)
== END 2025-01-10 18:38 | disposition home or self-care (01) ==
LOC: LBN 18:37
PROVIDERS: PCP Nurse Practitioner Family; Visit Provider Nurse Practitioner Family
DX: E03.9 Hypothyroidism, unspecified (principal); R73.03 Prediabetes; D64.9 Anemia, unspecified; E78.2 Mixed hyperlipidemia; E53.8 Deficiency of other specified B group vitamins
CPT/HCPCS: 80053; 80061; 85027; 82746; 83036; 84439; 84443

== ENCOUNTER 2025-07-02 13:11 | Outpatient (REF) | payer MEDICARE, SELFPAY ==
[2025-07-02 17:00] LABS: Anion Gap 7.2 mmol/L (3-11); BUN 11 mg/dL (9-23); CO2 29.8 mmol/L (20.0-31.0); Calcium 9.4 mg/dL (8.3-10.6); Chloride 107 mmol/L (98-107); Glucose 90 mg/dL (74-106); Potassium 4.4 mmol/L (3.5-5.1); Sodium 144 mmol/L (136-145)
[2025-07-02 17:01] LABS: TSH (W/Ref FT4) 1.38 uIU/mL (0.55-4.78)
== END 2025-07-02 13:12 | disposition home or self-care (01) ==
LOC: LBN 13:11
PROVIDERS: PCP Nurse Practitioner Family; Visit Provider Nurse Practitioner Family
DX: R63.4 Abnormal weight loss (principal)
CPT/HCPCS: 80048; 84443